=== PATIENT | male | born 1935 | race Caucasian/White ===

== ENCOUNTER 2016-08-25 00:07 | Inpatient (IN) | payer OTHER, MEDICARE ==
[~2016-08-25] VITALS: Ht 172.7 cm; Wt 110.5 kg
[~2016-08-25 00:07] MED LIST: AMARYL1 MG PO; AMARYL4 M1 PO; AUGMENTIN 875875 MG PO; CIPRO 500MG TA500 MG PO; COUMADIN 2.5 M2.5 MG PO; COUMADIN3 M1 PO; FINASTERIDE5 M1 PO; FLOMAX0.4 M1 PO; GABAPENTIN300 M2 PO; GEMFIBROZIL600 M1 PO; GLIMEPIRIDE4 MG PO; METOPROLOL TART25 M1 PO; NITROFURANTOIN100 M1 PO; TOPROL XL 25MG25 MG PO; TRAMADOL HYDRO100 MG PO; TRAMADOL HYDROC50 MG PO; TRAMADOL50 MG PO; WARFARIN SODIUM3 MG PO; WARFARIN SODIUM5 MG PO
--- NOTE | 2016-08-25 00:15 | NUR ---
PT BIBA FROM HOME S/P SYNCOPAL EPISODE WHILE MOVING BOWELS IN BATHROOM. PT PULLED ALERT STRING IN BATHROOM. COULD NOT GET UP OFF FLOOR. PER EMS, PT WAS MAX ASSIST GETTING HIM OFF THE FLOOR. PER EMS, PT WAS ON THE FLOOR 15-20 MINS. FINGERSTICK BY EMS 290. PT HAS PRE HOSP 20G TO LAC. SBP 90'S FOR EMS, IMPROVED TO 100/60 WITH 300 CC NS BOLUS. BP 100/56 ON ARRIVAL TO ED. PT ALERT AND CONVERSIVE
--- NOTE | 2016-08-25 00:38 | NUR ---
SST LAV AND BLUE DRAWN AND SENT TO LAB. EKG COMPLETE.
[2016-08-25 00:50] LABS: ABSOLUTE BASOPHIL COUNT 0 /CUMM (0.0-0.2); ABSOLUTE EOSINOPHIL COUNT 0 /CUMM (0.0-0.7); ABSOLUTE GRANULOCYTE CT 12.2 /CUMM (1.4-6.5); ABSOLUTE LYMPH COUNT 0.8 /CUMM (1.2-3.4); BASOPHIL % 0.1 % (0.0-2.0); EOSINOPHIL % 0.1 % (0-5); MEAN CORPUSCULAR HGB 32.1 PG (27.0-31.0); MEAN CORPUSCULAR VOLUME 94.4 FL (80.0-94.0); MEAN PLATELET VOLUME 9.9 FL (7.4-10.4); PLATELET COUNT 214 /CUMM (130-400); RBC DISTRIBUTION WIDTH 13.4 % (11.5-14.5); RED BLOOD CELL CT 4.56 /CUMM (4.70-6.10); WHITE BLOOD CELL COUNT 14.1 /CUMM (4.8-10.8)
--- NOTE | 2016-08-25 00:51 | ED MVC/FALL/TRAUMA COMPLAINT ---
History of Present Illness General Chief Complaint: Fall Stated Complaint: FALL. ? SYNCOPE Source: patient, old records, EMS Exam Limitations: no limitations Vital Signs & Intake/Output Vital Signs & Intake/Output Vital Signs Date Time Temp Pulse Resp B/P B/P Pulse O2 O2 Flow FiO2 Mean Ox Delivery Rate 08/27 0604 97.8 79 20 128/70 96 Room Air 08/26 2241 98.2 90 20 121/60 95 Room Air 08/26 2145 90 121/60 08/26 1910 Trach Mask 08/26 191 98.4 88 18 112/60 98 Room Air 08/26 1611 98.2 78 20 112/68 96 Room Air 08/26 1034 74 110/60 08/26 0921 74 110/60 08/26 0800 98.3 74 20 110/60 95 Room Air ED Intake and Output 08/27 0000 08/26 1200 Intake Total 2000 840 Output Total 650 200 Balance 1350 640 Intake, IV 800 600 Intake, Oral 1200 240 Number 1 1 Bowel Movements Output, Urine 650 200 Patient 242 lb Weight Allergies Coded Allergies: NO KNOWN ALLERGIES (04/08/14) Reconcile Medications Atorvastatin Calcium (Lipitor) 10 MG TABLET 1 TAB PO DAILY Hyperlipidemia ( Reported) Finasteride 5 MG TABLET 1 TAB PO QPM PROSTATE (Reported) Furosemide (Lasix) 20 MG TABLET 1 TAB PO DAILY HTN (Reported) Gabapentin 300 MG CAPSULE 1 CAP PO BID NERVES (Reported) Gemfibrozil 600 MG TABLET 1 TAB PO DAILY CHOLESTEROL (Reported) Glimepiride (Amaryl) 4 MG TABLET 1 TAB PO DAILY DIABETES (Reported) Metoprolol Tartrate 25 MG TABLET 1 TAB PO BID BP (Reported) Sitagliptin Phosphate (Januvia) 50 MG TABLET 1 TAB PO DAILY Diabetes ( Reported) Tamsulosin HCl (Flomax) 0.4 MG CAP.ER.24H 1 CAP PO DAILY BPH (Reported) Warfarin Sodium (Coumadin) 5 MG TABLET 1 TAB PO M,W,F,DIAS DVT (Reported) Warfarin Sodium (Coumadin) 2.5 MG TABLET 1 TAB PO TU, TH, SAT DVT (Reported) Triage Note: PT BIBA FROM HOME S/P SYNCOPAL EPISODE WHILE MOVING BOWELS IN BATHROOM. PT PULLED ALERT STRING IN BATHROOM. COULD NOT GET UP OFF FLOOR. PER EMS, PT WAS MAX ASSIST GETTING HIM OFF THE FLOOR. PER EMS, PT WAS ON THE FLOOR 15-20 MINS. FINGERSTICK BY EMS 290. PT HAS PRE HOSP 20G TO LAC. SBP 90'S FOR EMS, IMPROVED TO 100/60 WITH 300 CC NS BOLUS. BP 100/56 ON ARRIVAL TO ED. PT ALERT AND CONVERSIVE Triage Nurses Notes Reviewed? yes HPI: Patient presents for evaluation of generalized weakness and fall. Patient states that he went to go to the bathroom about 2 hours ago and fell. He was unable to get up after that due to generalized weakness. He states he managed to get to the bathroom and pulled the emergency cord. He denies loss of consciousness or syncope. He denies any complaint at present. He denies pain or injury. Past History Travel History Traveled to [place] past 21 day No Medical History Any Pertinent Medical History? 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 No Review of Systems Review of Systems Constitutional: Reports: no symptoms. Eyes: Reports: no symptoms. Ears, Nose, Throat, Mouth: Reports: no symptoms. Respiratory: Reports: no symptoms. Cardiovascular: Reports: no symptoms. Gastrointestinal/Abdominal: Reports: no symptoms. Genitourinary: Reports: no symptoms. Musculoskeletal: Reports: no symptoms. Skin: Reports: no symptoms. Neurological/Psychological: Reports: no symptoms. All Other Systems: Reviewed and Negative Physical Exam Physical Exam General Appearance: SEE BELOW Comments: Gen.: Well-nourished, well-developed, no acute respiratory distress. Head: Normocephalic, atraumatic, nontender. Eyes: Normal inspection bilaterally, nellie, EOMI Ears: Normal inspection bilaterally Nose: Normal inspection Throat/mouth : Moist mucosa Neck: Supple, full range of motion, no goiter, nontender Heart: Regular rate and rhythm, no murmurs rubs or gallops Lungs: Clear to auscultation bilaterally with normal air entry Chest: Nontender Back: Normal range of motion, nontender Abdomen: Soft, nontender, nondistended, normal bowel sounds Pelvis: Stable and nontender Extremities: Normal range of motion grossly, no tenderness, no cyanosis clubbing or edema, equal radial and dorsalis pedis pulses Neurologic: Cranial nerves grossly intact, speech is clear Skin: warm and dry and without ecchymoses or soft tissue swelling or erythema Psychiatric: Calm, cooperative, no apparent delusions or hallucinations Core Measures ACS in differential dx? No Severe Sepsis Present: No Septic Shock Present: No Progress Differential Diagnosis: dehydration, electrolyte abnormality Plan of Care: Orders Procedure Date/time Status PROTHROMBIN TIME 08/27 06 Active CBC WITHOUT DIFFERENTIAL 08/27 06 Active BASIC ELECTROLYTES PLUS BUN&CR 08/27 06 Active MISSING MEDICATION FORM 08/27 2051 Active Transfer Disposition 08/26 1929 Active CBC WITHOUT DIFFERENTIAL 08/26 1800 Complete Wheat, Insertion/Removal/Asses 08/26 1614 Active Therapeutic Exercise 08/26 UNK Complete Gait Training 08/26 UNK Complete Transfer patient to 08/26 UNK Active Discontinue Telemetry/Monitor 08/26 UNK Active Current Medications Sig/Christie Start time Last Medication Dose Stop Time Status Admin Insulin Aspart 0 TIDAC 08/26 1200 AC 08/26 (NovoLOG) 1735 Tamsulosin HCl 0.4 MG DAILY 08/26 1000 AC 08/26 (Flomax) 1034 Sodium Chloride 1,000 ML Q20H 08/26 0900 AC 08/27 (Normal Saline 0.9%) 0539 Atorvastatin Calcium 10 MG 1700 08/25 1700 AC 08/26 (Lipitor) 1735 Nystatin 1 KIKI TID 08/25 1600 AC 08/26 (Mycostatin) 2145 Sodium Bicarbonate 1,300 MG BID 08/25 1300 AC 08/26 (Sodium Bicarb 325MG 2144 Tab) Metoprolol Tartrate 25 MG BID 08/25 1023 AC 08/26 (Lopressor) 2145 Gabapentin 300 MG BID 08/25 1000 AC 08/26 (Neurontin) 2145 Nystatin 1 KIKI TID PRN 08/25 0415 AC (Mycostatin) Acetaminophen 650 MG Q6P PRN 08/25 0230 AC (Tylenol) Acetaminophen 1,000 MG Q6P PRN 08/25 0230 AC (Ofirmev) Morphine Sulfate 0.5 MG Q4P PRN 08/25 0230 AC (Morphine) Laboratory Tests 08/27/16 0640: Sodium Pending, Potassium Pending, Chloride Pending, Carbon Dioxide Pending, Anion Gap Pending, BUN Pending, Creatinine Pending, BUN/Creatinine Ratio Pending , PT Pending, INR Pending, CBC w Diff Pending, WBC Pending, RBC Pending, Hgb Pending, Hct Pending, MCV Pending, MCH Pending, RDW Pending, Plt Count Pending, MPV Pending, PUBS MCHC Pending 08/26/16 1830: CBC w Diff NO MAN DIFF REQ, RBC 3.60 L, MCV 95.3 H, MCH 31.9 H, RDW 14.1, MPV 9.5, Gran % 70.1, Lymphocytes % 15.6 L, Monocytes % 11.5 H, Eosinophils % 2.4, Basophils % 0.4, Absolute Granulocytes 5.9, Absolute Lymphocytes 1.3, Absolute Monocytes 1.0 H, Absolute Eosinophils 0.2, Absolute Basophils 0, PUBS MCHC 33.5 08/26/16 0905: Cortisol AM Sample 17.3 08/26/16 0905: Prot Electrophoresis Cancelled, Total Protein (PEP) Cancelled, Albumin % (PEP) Cancelled, Vzehq-[id number] Cancelled, Vhkmw-3-Vkmspizsa Cancelled, Beta-1- Globulin Cancelled, [id number]-0-[id number] Cancelled, Gamma Globulins Cancelled, Abnorm Protein Band 1 Cancelled, Abnorm Protein Band 2 Cancelled, Abnorm Protein Band 3 Cancelled Comments: 08/25/2016 1:58:46 AM patient updated on test results. IV fluids Kayexalate and insulin ordered for the hyperkalemia. Departure Departure Disposition: STILL A PATIENT Condition: Stable Clinical Impression Primary Impression: Renal failure Qualifiers: Renal failure chronicity: acute Acute renal failure type: unspecified Qualified Code: N17.9 - Acute kidney failure, unspecified Secondary Impressions: Hyperglycemia, Hyperkalemia Referrals: ZACHARY MENESES MD (PCP/Family) Departure Forms: Customer Survey General Discharge Information Admission Note Spoke With: EMMA SUTTON MD Documentation of Exam: Documentation of any treatments & extenuating circumstances including Concerns Regarding Discharge (functional status, medication knowledge or non-compliance, living conditions, etc.) that warrant an admission rather than observation: Patient has hyperkalemia Renal failure, placing him at risk of cardiac dysrhythmias, worsening metabolic acidosis, dehydration, dyspnea and cardiorespiratory arrest. Patient was so weak that he was unable to get up off the floor and he is consequently not a candidate for outpatient management. He requires continuous cardiac telemetry for the possibility of hyperkalemia Dysrhythmia, IV fluids, IV insulin to control glucose, Kayexalate to reduce potassium levels and monitoring of potassium, renal functions and his metabolic acidosis. Nephrology consultation and endocrinology consultation should be considered. I feel this patient will require a multiple day hospitalization. Critical Care Note Critical Care Note Critical Care Time: 30-74 min
[2016-08-25 00:52] LABS: GRANULOCYTE % 86.6 % (42.2-75.2)
--- NOTE | 2016-08-25 01:27 | NUR ---
PT AWARE THAT WE ARE AWAITING LAB RESULTS
--- NOTE | 2016-08-25 01:36 | NUR ---
CRITICAL TEST RESULTS [id number] ETGAN FOSTER [address] TESTS AND RESULTS: POTASSIUM 6.6 Results received and read back by: AJAY JASON Results received date and time: 08/25/16 0137 The following provider was notified of the results, and read the results back: DR ROQUE Notified date and time: 08/25/16 at 0138
--- NOTE | 2016-08-25 02:46 | History & Physical ---
FAVIO ALBARRAN,[facility] 08/25/16 0246: General Information and HPI MD Statement: I have seen and personally examined TEGAN FOSTER and documented this H&P. The patient is a 81 year old M who presented with a patient stated chief complaint of [dizziness, weakness and fall]. Source of Information: patient Exam Limitations: no limitations History of Present Illness: Mr. 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 He is BIBA after an episode of fall yesterday afternoon. Patient reports that around noon time he was on his way to the bathroom that felt lightheaded and fell onto the floor, he was unable to sit up afterwards and stayed on the floor shouting for help for almost an hour, he then remembered that he can pull a string to send alarm for help (he is living in a senior housing building); aids arrived and helped him stand up and used his walker to to go to sit on the recliner. 911 was also called and the patient was subsequently brought in to the ED. Patient denied any LOC, headache, or head trauma. Also denied any palpitation, chest pain, SOB, diaphoresis before or after the fall. He reports that 3-4 years ago he had a similar event but does not remember the cause. Currently denies any pain in the limbs or the back post- fall. Patient stated that he was doing well before this incident, has been eating and drinking well, only reports one episode of diarrhea yesterday (watery and nonbloody). Denies fever, chills, coughs, abdominal pain, changes in the urine. Denies any changes in the medications recently and denies any recent use of antibiotics, however does not know the name of his meds and asks us to confirm it with his son. He does not check his BP and Blood sugar regularly, only sees PCP once every three months. Patient wears diapers and states that since 3-4 years ago he has been having incontinence mostly overnight, which has been with urine more than stool. Patient also reports some numbness in the distal lower extremities which is chronic and unchanged. Allergies/Medications Allergies: Coded Allergies: NO KNOWN ALLERGIES (04/08/14) Home Med list Atorvastatin Calcium (Lipitor) 10 MG TABLET 1 TAB PO DAILY Hyperlipidemia ( Reported) Finasteride 5 MG TABLET 1 TAB PO QPM PROSTATE (Reported) Furosemide (Lasix) 20 MG TABLET 1 TAB PO DAILY HTN (Reported) Gabapentin 300 MG CAPSULE 1 CAP PO BID NERVES (Reported) Gemfibrozil 600 MG TABLET 1 TAB PO DAILY CHOLESTEROL (Reported) Glimepiride (Amaryl) 4 MG TABLET 1 TAB PO DAILY DIABETES (Reported) Metoprolol Tartrate 25 MG TABLET 1 TAB PO BID BP (Reported) Sitagliptin Phosphate (Januvia) 50 MG TABLET 1 TAB PO DAILY Diabetes ( Reported) Tamsulosin HCl (Flomax) 0.4 MG CAP.ER.24H 1 CAP PO DAILY BPH (Reported) Warfarin Sodium (Coumadin) 5 MG TABLET 1 TAB PO M,W,F,DIAS DVT (Reported) Warfarin Sodium (Coumadin) 2.5 MG TABLET 1 TAB PO , TH, SAT DVT (Reported) Past History Travel History Traveled to [place] past 21 day No Medical History Neurological: NEROPATHY EENT: NONE Cardiovascular: hypertension Respiratory: NONE Gastrointestinal: NONE Hepatic: NONE Renal: benign prost hyperplasia Musculoskeletal: NONE Psychiatric: NONE Endocrine: diabetes Blood Disorders: NONE Cancer(s): NONE 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 MATERIALS ANALYST/Reproductive: NONE Other Medical Hx: HLD OBESITY History of MRSA: No History of VRE: No History of CDIFF: No Pneumonia Vaccine: 02/10/12 Influenza Vaccine: 02/19/14 Surgical History Surgical History: non-contributory Past Family/Social History Family History Relations & Conditions if any FATHER FH: CAD (coronary artery disease) grandmother FH: stomach cancer Psychosocial History Services at Home: None Primary Language: Romanian, Syriac Smoking Status: Former Smoker (quit 10y ago, 1.5 p/d, for 30y) ETOH Use: occasional use Functional Ability ADLs Independent: dressing, eating, toileting, bathing. IADLs Needs Assist: shopping, housework, finances, food prep, telephone, transportation, medication admin. Review of Systems Review of Systems Constitutional: Reports: malaise, weakness. Denies: chills, fever. EENTM: Reports: no symptoms. Cardiovascular: Denies: chest pain, palpitations, peripheral edema, syncope. Respiratory: Denies: cough, short of breath, sputum production. GI: Reports: diarrhea (one episode). Denies: abdominal pain, changes in stool. Genitourinary: Reports: no symptoms. Musculoskeletal: Reports: no symptoms. Skin: Reports: rash. Neurological/Psychological: Reports: no symptoms. Hematologic/Endocrine: Reports: no symptoms. Exam & Diagnostic Data Last 24 Hrs of Vital Signs/I&O Vital Signs Date Time Temp Pulse Resp B/P B/P Pulse O2 O2 Flow FiO2 Mean Ox Delivery Rate 08/25 0805 98.5 98 18 158/80 95 Room Air 08/25 0440 97.6 85 18 119/59 94 Room Air 08/25 0315 90 18 130/69 98 Room Air 08/25 0017 97.2 86 18 100/56 97 Room Air Intake & Output 08/25 1600 08/25 0800 08/25 0000 Intake Total 220 Output Total 577 Balance -357 Intake, Oral 220 Number 1 Bowel Movements Output, Stool 2 Output, Urine 575 Patient 108.862 kg Weight Weight Standing Scale Measurement Method Physical Exam General Appearance Alert, Oriented X3, Cooperative, No Acute Distress Skin there is a 6x6 cm area of skin erythema with a small central ulcer, dry, skin around the ulcer is intact but appears erythematous., erythematous skin rash in the groins at both sides. Skin Temp/Moisture Exam: Warm/Dry Sepsis Skin Exam (color): Normal for Ethnicity HEENT Atraumatic, EOMI, Mucous Membr. moist/pink, pupils round and reactive to light. Neck Supple Cardiovascular Regular Rate, Normal S1, Normal S2, No Murmurs Lungs Clear to Auscultation, Normal Air Movement Abdomen Normal Bowel Sounds, Soft, No Tenderness, obese Neurological Normal Speech, Strength at 5/5 X4 Ext, Normal Tone, Sensation Intact, Cranial Nerves 3-12 NL Extremities No Edema, Normal Pulses, 1+ pitting edema bilaterally Vascular Pulses Symmetrical Last 24 Hrs of Labs/Donte: Laboratory Tests 08/25/16 0644: Anion Gap 16, Estimated GFR 18 L, BUN/Creatinine Ratio 12.9, PT 14.4 H, INR 1.38 H, CBC w Diff NO MAN DIFF REQ, RBC 4.20 L, MCV 94.3 H, MCH 31.9 H, RDW 13.5, MPV 10.6 H, Gran % 78.7 H, Lymphocytes % 11.0 L, Monocytes % 9.7 H, Eosinophils % 0.3, Basophils % 0.3, Absolute Granulocytes 8.2 H, Absolute Lymphocytes 1.1 L, Absolute Monocytes 1.0 H, Absolute Eosinophils 0, Absolute Basophils 0, PUBS MCHC 33.8 08/25/16 0408: Urine Color YEL, Urine Clarity CLEAR, Urine pH 6.0, Ur Specific [place] 1.025, Urine Protein >=300 H, Urine Ketones NEG, Urine Nitrite NEG, Urine Bilirubin NEG, Urine Urobilinogen 0.2, Ur Leukocyte Esterase NEG, Ur Microscopic SEDIMENT EXAMINED, Urine RBC 1-3, Urine WBC RARE, Urine Bacteria FEW H, Urine Hemoglobin TRACE-LYSED H, Urine Glucose 500 H 08/25/16 0408: Ur Random Creatinine 113.2, Ur Random Sodium 58, Ur Random Potassium 32.8, Fraction Sodium Excret 1.3 H 08/25/16 0310: Acetone Level NEGATIVE 08/25/16 0255: pH 7.38, pCO2 30 L, pO2 83, HCO3 18 L, ABG O2 Sat (Measured) 96.0, P-50 (Temp Corrected) Y, Carboxyhemoglobin 0.2 L, O2 Concentration % RA, Temperature 97.2, Phlebotomy Draw Site RIGHT RADIAL 08/25/16 0039: Anion Gap 17 H, Estimated GFR 18 L, BUN/Creatinine Ratio 13.6, Glucose 344 H, Hemoglobin A1c 9.9 H, Serum Osmolality 307 H, Calcium 8.7, Phosphorus 4.5, Magnesium 2.0, Total Bilirubin 0.9, AST 37, ALT 53, Alkaline Phosphatase 106, Creatine Kinase 168, Troponin I 0.04, Total Protein 7.4, Albumin 4.1, Globulin 3.3, Albumin/Globulin Ratio 1.2, CBC w Diff NO MAN DIFF REQ, RBC 4.56 L, MCV 94.4 H, MCH 32.1 H, RDW 13.4, MPV 9.9, Gran % 86.6 H, Lymphocytes % 5.7 L, Monocytes % 7.5, Eosinophils % 0.1, Basophils % 0.1, Absolute Granulocytes 12.2 H, Absolute Lymphocytes 0.8 L, Absolute Monocytes 1.0 H, Absolute Eosinophils 0, Absolute Basophils 0, PUBS MCHC 34.0 Microbiology 08/25 0408 URINE ROUT: Urine Culture - RECD Assessment/Plan Assessment: Mr. 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 He is BIBA after an episode of fall yesterday afternoon. In the ED patient was alert and oriented in no distress. Was found to have elevated K of 6.6, also elevated BUN and Cr as well as a metabolic acidosis with elevated AG. Blood sugar was found to be 344 (per ED records was 290 at home when checked by EMS). Patient also had BP of 100/56 for which he received IV NS after which BP came up to 130/69. EKG: tall t waves, without shortened QT or QRS widening. He is admitted to the telemetry and the following is the problem list and plan: Episode of fall Denies LOC, chest pain, palpitation, diaphoresis, reports some dizziness. Most likely etiology include dehydration in the setting of elevated sugars, polydipsia and possible polyuria (patient has urinary incontinence). Also patient is found to have hyperkalemia (which can be secondary to kidney failure) and can cause muscle weakness and paralysis (ascending) as well as arrhythmias. * Received IV fluids and responded well with improved BP * Received Kayexalate * Cardiac monitoring and repeat EKG in am * Repeat BEP in am * Will assess if the patient has orthostatic hypotension MORRO on CKD Possibly due to dehydration, patient reports drinking too much water, which in addition to elevated BS indicate poor sugar controls. BUN/CR <20. Elevated Cr in this setting can be renal in the setting of HTN and DM, or post-renal (BPH and hx of stones) as well as pre-renal (dehydration). * Continue IV hydration * Repeat BEP in am * Kidney US * If Cr does not improve will consider nephrology consult Metabolic acidosis Most likely due to kidney failure, with elevated HCO3 and AG. * Continue IV fluids * Repeat BEP in am Hyperglycemia with history of NIDDM * Accuchecks * Novolog sliding scale * Oral antiglycemic agents on hold Leukocytosis No fever, no evidence of a source of infection so far * follow urine culture * will repeat CBC in am history of nephrolithiasis and BPH Possible urinary obstruction causing MORRO Straight cath. emptied about 350 cc urine. * bladder scan in am and if >250 cc will insert pantoja to avoid frequent trauma to the bladder and urethra * Urine culture * continue Finasteride and Tamsulocin * Kidney ultrasound HTN, HLD * On lasix and Metoprolol at home which are on hold due to hypotension * will resume when BP stabilizes * continue gemfibrozil History of recurrent DVT Patient reports he has IVC filter placed 3 years ago. He is on coumadin. * Follow up on INR and dose coumadin (reports taking 3 mg daily) Peripheral neuropathy * continue Gabapentin Diaper rash * Nystatin powder to be applied in the creases between the abdomen and the groin *Please confirm medications with the pharmacy at [facility] Mild pain pathway Regular Diet DVT px: on warfarin Full code As Ranked By This Provider Problem List: 1. Obesity 2. Hypercholesterolemia 3. Diabetes mellitus 4. Benign essential hypertension 5. Occlusion of artery 6. Fall 7. History of DVT (deep vein thrombosis) 8. Acute on chronic kidney failure 9. Renal insufficiency 10. BPH (benign prostatic hyperplasia) 11. Diarrhea 12. Hyperkalemia 13. Hyperglycemia Core Measures/Miscellaneous Acute Coronary Syndrome ACS Diagnosis: No Cerebrovascular Accident CVA/TIA Diagnosis: No Congestive Heart Failure CHF Diagnosis: No Venous Thromboembolism VTE Risk Factors: Acute medical illness, Age > 40 [facility] prophylaxis d/t: VTE low risk, No contraindications No VTE Pharm Prophylaxis d/t: VTE low risk, No contraindications VTE Diagnosis: No VTE Type: NONE VTE Confirmed by (Test): NONE Severe Sepsis Severe Sepsis Present: No Septic Shock Septic Shock Present: No Miscellaneous Documentation Attending Case Discussed With: DIEGO GONZALEZ MD Primary Care Physician: AN[facility]BAL [facility]ESES [facility] Patient sees these Specialists none Level of Patient Care: Telemetry HUSSAIN DAVIDSON 08/25/16 0320: Resident Review Statement Resident Statement: examined this patient, discussed with senior internal auditor, agreed with senior internal auditor Other Findings: This is a 81-year-old pleasant telugu male,previous 45 pack years of smoking, nonalcoholic, no illicit drug use,with past medical history of hypertension, dementia, previous recurrent UTIs, DVT with biatrial thrombus and asd s/p repair on Coumadin, noninsulin dependent diabetes mellitus complicated with diabetic neuropathy, benign prostatic hyperplasia, nephrolithiasis status post surgical removal by Dr salmon,previous history of brachial artery occlusion s/p thrombectomy, last admission in May 2014 for urinary tract infection did with IV ceftriaxone with cultures positive for pansensitive Escherichia coli, came in today with brief episode of near-syncope while using restroom. Apparently the patient was doing all right, he lives at assisted living, and around 1 PM on the day of admission, he was wanting to use the restroom and he got up to use the restroom and while in the bathroom he had an episode of lightheadness and didnot have any strength and fell on the ground, he did not lose consciousness, did not have any racing of heart, he did have mild dizziness and lightheadedness however he was alert and conversive, he tried calling for help and shouting if someone could called 911 as he did not have any strength and had generalized weakness because of which he could not get up from the floor.He stayed on the floor for about an hour after which he recollected that there was a emergency cord in the bathroom which he managed to pull and the EMS was there after 20 minutes. As per the EMS he was a maximum assist and they brought him up from the ground and brought him to [facility]. He denied any loss of consciousness, any head trauma, any palpitations, any abnormal seizure-like activity. He says that he does have occasional episodes of urinary/bowel incontinence especially at nighttime. He had similar episode 4 years ago once, when he was taken to Hospital, however he does not remember the reason what happened. His vitals at the emergency departmentt he had a temperature of 97.2, pulse of 86, respiration of 18, blood pressure 100/56, he was 97% saturating on room air. Physical exam He was alert and oriented to time place and person, in no acute distress when we saw him. Head normocephalic atraumatic. HEENT, pupils bilateral reactive to light, no lymphadenopathy, neck supple for range of motion. Heart rate regular rhythm no murmurs. Lungs clear to auscultation, no adventitious sounds. Abdomen soft nontender nondistended, obese, no embolic bowel sounds. Extremity normal range of motion, pulses palpable bilaterally, small ecchymosis- like rash present in the left lower extremity, about 5-7 cm and I meet her, he also had mild scratch which was injury from the fall and the left leg. No other traumatic injuries. Skin normal, dry. Relevant labs he had a white count of 14.1, H/H of 14.6/43.0, platelet of 214. Electrolytes sodium of 135, potassium of 6.6 (previous potassium has been 5.0 at the max), BUN and creatinine 45/3.3 (baseline creatinine in 0.3-1.7, last noted in June 2015), glucose of 344, ca 8.7, liver function tests within normal limits, alkaline phosphatase 106, creatinine kinase 168, troponin 0.04. UA showed significant protein, rare WBCs ABG pH of 7.38, PCO2 of 30, PO2 53, bicarbonate of 18 consistent with metabolic acidosis with respiratory compensation. Problem list along with assessment and plan. Problem #1 hyperkalemia. * Patient's potassium was noted to be 6.6, EKG showed mild elevated T waves, patient received 120 mL of total of Kayexalate, his blood sugar was high therefore he received insulin 10 units. * We will check the repeat BEP with morning labs. * Keep potassium close to 4. * Repeat EKG at 7 AM. * The hyperkalemia most likely secondary to acute kidney injury, there is a mixed pattern of acidosis anion gap acidosis with non-anion gap, the hyperkalemia could be secondary to acute on chronic kidney injury. * Hold medications that would contribute to hyperkalemia. #2 acute on chronic kidney injury. * Patient's BUN and creatinine significantly elevated. * Most likely prerenal, other possibility could be postrenal as well. * Bladder scan showed urinary retention of greater than 300 mL. * Will obtain a kidney ultrasound to rule out obstruction, patient also had a history of BPH which can also contribute to obstruction. * If the patient continues to retain urine, consider inserting Pantoja's. * Fractional excretion of sodium of 1.3, urine sodium of 58. * ct to trend BUN and creatinine. * Continue IV hydration with normal saline. * Follow-up kidney ultrasound to rule out obstruction. * If the creatinine does not improve consider nephrology consult. Problem #3 leukocytosis. * Patient does not have a fever, no symptoms of sepsis, leukocytosis most likely reactive. Problem #4 hyperglycemia. * Patient has a history of [id number] diabetes mellitus. * Continue monitoring fingerstick. * Hold antidiabetic medications. * NovoLog low-dose sliding scale. * Consistent carbohydrate diet. Problem #5 history of BPH. * Continue finasteride. Problem #6 history of dyslipidemia. * Patient seems to be on gemfibrozil 600 mg daily. Patient did not remember any of this medication. He said that his son is aware of all his medication and we could call him in the morning. Please confirm the CMR with the patient's son in a.m. - Taty tolbert Jr , Problem #7 history of DVT and bilateral atrial thrombus status post ASD repair. * Continue daily INR checks. * Continue Coumadin 2 mg daily. #7 history of mechanical fall. * Continue fall precautions. * PT OT evaluation for placement if necessary. * Orthostatic vital signs. Full code. Mild/moderate and severe pain pathway. Consistent carbohydrate 3 diet. DVT prophylaxis with heparin. EMMA SUTTON 08/25/16 0432: Attending MD Review Statement Attending Statement Attending MD Statement: examined this patient, discuss w/resident/PA/ELEMENTARY SCHOOL PROFESSIONAL, agreed w/resident/PA/ELEMENTARY SCHOOL PROFESSIONAL, reviewed EMR data (avail), reviewed images, amended to note Attending Assessment/Plan: CC: fall PMH: DM, atrial blood clots with PFO s/p embolectomy and repair, CABG, nephrolithiasis, HTN, multiple DVTs S/P IVC filter, currently on warfarin, BPH, peripheral neuropathy Patient was brought in from assisted living after fall. Patient states that he went to bathroom, felt dizzy, unsteady and fell down on the floor. Did not lose consciousness, no head trauma, no chest pain or palpitations before or after the fall. Patient felt generalized weakness after the fall and could not get up by himself. He denies any neurological deficits. Patient was shouting for at least an hour or 2 according to him for help but nobody came, then he remembered to pull the help string and EMS arrived 20 minutes after that. On spot fingerstick was 290 and systolic blood pressure was in 90s, responded to 300 mL normal saline bolus. On arrival in ER his blood pressure was 100/56. Apart from this fall patient does not have any other complaints. He had one episode of watery stool yesterday but denies any vomiting, chest pain, abdominal pain, urinary symptoms including frequency urgency or decreased urine output. Patient's son helps him in his medications and patient takes accordingly boxed medication and does not remember the name and doses. Vitals: Blood pressure at presentation 100/56, HR 86, RR 18 saturating well controlled has afebrile. On exam: A O 3, cooperative, no acute distress, neck supple, JVD normal, no lymphadenopathy, mucosa dry no focal neurological deficit, no dependent edema, laceration on left melendez, CVS: S1-S2, RRR. RS: Clear to auscultate bilaterally. Abdomen: Soft, NT, ND, bowel sounds present. Labs: WBC 14.1, neutrophils 86%, hemoglobin 14.6, sodium 135, potassium 6.6, temperature 101, bicarbonate 16, anion gap 17, BUN 45, creatinine 3.3, glucose 344, LFT unremarkable, CK 168, troponin 0.04 A and P Patient had an episode of dizziness and fall. Currently asymptomatic in ER. He has small superficial laceration left melendez otherwise no major trauma or bruises. Blood pressure was in the lower normal range upon arrival and responded to fluids. He is found to have elevated creatinine and potassium. It is likely that patient may be having some degree of hypotension when he fell down, which in fact can be the cause of fall. Cause of hypotension is unclear, probably an episode of watery stool, poor by mouth intake. Patient's previous available creatinine is 1 year back, but given his acidosis, hyperkalemia, it appears acute kidney injury on chronic kidney disease. Urinary retention should be ruled out, in view of his diabetes and history of BPH and nephrolithiasis. + Acute kidney injury on chronic kidney disease + Hyperkalemia + Metabolic acidosis: Increased anion gap and normal anion + Reactive leukocytosis + Dehydration + Fall + Rule out urinary obstruction + History of DM, HTN, recurrent DVT, BPH, peripheral neuropathy - Admit on telemetry because of hyperkalemia - Patient received IV insulin, Kayexalate and insulin in ER with second IV bolus in ER. - Repeat a dose of Kayexalate - Continues telemetry monitoring - Strict I's and O's - Repeat BMP at 6 AM - Repeat EKG in 6 AM - Bladder scan or straight cath to rule out post void residual - If patient is retaining more than once, Pantoja catheter - Nystatin powder for inguinal rash - Renal ultrasound - Continue gentle hydration normal saline 75 mg per hour for 1 more liter - Hold oral antihypertensives for now reassess blood pressure and kidney function in a.m. to restart - Continue sliding scale insulin hold oral hypoglycemic - Orthostatic vital in a.m. - OT PT evaluation - Continue finasteride and tamsulosin - INR in a.m. - Continue home doses of warfarin - Reconfirm his home medications with his son in morning to resume his medications -DVT prophylaxis with heparin, adequate pain control
--- NOTE | 2016-08-25 03:09 | NUR ---
HOUSESTAFF AT BEDSIDE FOR EVAL.
--- NOTE | 2016-08-25 03:14 | NUR ---
ACETONE TUBE DRAWN AND SENT TO LAB VIA PENELOPE CALDERON
--- NOTE | 2016-08-25 03:35 | NUR ---
[facility] ASSIGNMENT [id number]
--- NOTE | 2016-08-25 04:20 | NUR ---
PT CLEANED. SUMMER CARE GIVEN.
--- NOTE | 2016-08-25 04:29 | NUR ---
TELEMETRY CALLED. P[facility] HE[facility] STATES SHE WILL RETURN CALL FOR REPORT.
--- NOTE | 2016-08-25 04:35 | Admission Certification ---
Admission Certification Certification Statement - As attending physician, I certify that at the time of - admission, based on clinical presentation, severity of - symptoms, need for further diagnostic testing and - therapeutic interventions, and risk of adverse outcomes - without in-hospital treatment, in my clinical assessment, - this patient requires an acute hospital stay for a minimum - of two nights or longer. I have also considered psychsocial - factors such as support system, advanced age, financial - issues, cognitive issues, and failed out-patient treatments, - past re-admission history, safety of patient, and lack of - compliance as applicable. Specific rationale supporting this admission is: Acute on chronic kidney disease, hyperkalemia, transient hypotension, fall
--- NOTE | 2016-08-25 04:51 | NUR ---
REPORT GIVEN TO P[facility]ELOPE [facility] ON TELEMETRY.
[2016-08-25] MEDS ORDERED: JANUVIA50 M1 PO ×2 (06:43→08:15)
[2016-08-25] MEDS ORDERED: CRESTOR20 M2 PO (06:44)
--- NOTE | 2016-08-25 07:30 | PN- Housestaff ---
HERSON ALBARRAN,DOUGLAS 08/25/16 0730: Subjective Follow-up For: Hyperkalemia MORRO on CKD Metabolic Acidosis Subjective: Patient has no significant complaints. States that he wants to sleep, but the noises around him have been bothering him. Review of Systems Constitutional: Reports: see HPI. Objective Last 24 Hrs of Vital Signs/I&O Vital Signs Date Time Temp Pulse Resp B/P B/P Pulse O2 O2 Flow FiO2 Mean Ox Delivery Rate 08/25 0440 97.6 85 18 119/59 94 Room Air 08/25 0315 90 18 130/69 98 Room Air 08/25 0017 97.2 86 18 100/56 97 Room Air Intake & Output 08/25 0800 08/25 0000 08/24 1600 Intake Total 220 Output Total 577 Balance -357 Intake, Oral 220 Number 1 Bowel Movements Output, Stool 2 Output, Urine 575 Patient 240 lb Weight Weight Standing Scale Measurement Method Physical Exam General Appearance: Alert, Oriented X3, Cooperative, No Acute Distress Cardiovascular: Regular Rate, Normal S1, Normal S2 Lungs: Clear to Auscultation, Normal Air Movement Abdomen: Normal Bowel Sounds, Soft, No Tenderness Neurological: Normal Speech, Strength at 5/5 X4 Ext, Normal Tone, Sensation Intact Extremities: 1+ edema noted in bilateral lower extremities extending upto the knee., Left knee in bandage, s/p laceration from fall. Current Medications: Current Medications Sig/Christie Start time Last Medication Dose Route Stop Time Status Admin Acetaminophen 650 MG Q6P PRN 08/25 0230 AC PO Acetaminophen 1,000 MG Q6P PRN 08/25 0230 AC IV Gabapentin 300 MG BID 08/25 1000 AC PO Insulin Aspart 0 TIDAC 08/25 0800 AC SC Insulin Human Regular 10 UNITS ONCE ONE 08/25 0200 DC 08/25 IV 08/25 0201 0213 Morphine Sulfate 0.5 MG Q4P PRN 08/25 0230 AC IV Nystatin 1 KIKI TID PRN 08/25 0415 AC TOP Sodium Chloride 1,000 ML Q13H 08/25 0330 AC 08/25 IV 0425 Sodium Chloride 1,000 ML BOLUS ONE 08/25 0200 DC 08/25 IV 08/25 0259 0213 Sodium Polystyrene 0 .STK-MED ONE 08/25 0307 DC Sulfonate .ROUTE Sodium Polystyrene 60 ML ONCE ONE 08/25 0230 DC 08/25 Sulfonate PO 08/25 0231 0310 Sodium Polystyrene 0 .STK-MED ONE 08/25 0209 DC Sulfonate .ROUTE Sodium Polystyrene 60 ML ONCE ONE 08/25 0200 DC 08/25 Sulfonate PO 08/25 020 0213 Warfarin Sodium 3 MG 1700 08/25 1700 AC PO Last 24 Hrs of Lab/Donte Results Last 24 Hrs of Labs/Mics: Laboratory Tests 08/25/16 0644: Sodium Pending, Potassium Pending, Chloride Pending, Carbon Dioxide Pending, Anion Gap Pending, BUN Pending, Creatinine Pending, BUN/Creatinine Ratio Pending , PT Pending, INR Pending, CBC w Diff Pending, WBC Pending, RBC Pending, Hgb Pending, Hct Pending, MCV Pending, MCH Pending, RDW Pending, Plt Count Pending, MPV Pending, PUBS MCHC Pending 08/25/16 0408: Urine Color YEL, Urine Clarity CLEAR, Urine pH 6.0, Ur Specific [place] 1.025, Urine Protein >=300 H, Urine Ketones NEG, Urine Nitrite NEG, Urine Bilirubin NEG, Urine Urobilinogen 0.2, Ur Leukocyte Esterase NEG, Ur Microscopic SEDIMENT EXAMINED, Urine RBC 1-3, Urine WBC RARE, Urine Bacteria FEW H, Urine Hemoglobin TRACE-LYSED H, Urine Glucose 500 H 08/25/16 0408: Ur Random Creatinine 113.2, Ur Random Sodium 58, Ur Random Potassium 32.8, Fraction Sodium Excret 1.3 H 08/25/16 0310: Acetone Level NEGATIVE 08/25/16 0255: pH 7.38, pCO2 30 L, pO2 83, HCO3 18 L, ABG O2 Sat (Measured) 96.0, P-50 (Temp Corrected) Y, Carboxyhemoglobin 0.2 L, O2 Concentration % RA, Temperature 97.2, Phlebotomy Draw Site RIGHT RADIAL 08/25/16 0039: Anion Gap 17 H, Estimated GFR 18 L, BUN/Creatinine Ratio 13.6, Glucose 344 H, Hemoglobin A1c Pending, Serum Osmolality 307 H, Calcium 8.7, Phosphorus 4.5, Magnesium 2.0, Total Bilirubin 0.9, AST 37, ALT 53, Alkaline Phosphatase 106, Creatine Kinase 168, Troponin I 0.04, Total Protein 7.4, Albumin 4.1, Globulin 3.3, Albumin/Globulin Ratio 1.2, CBC w Diff NO MAN DIFF REQ, RBC 4.56 L, MCV 94.4 H, MCH 32.1 H, RDW 13.4, MPV 9.9, Gran % 86.6 H, Lymphocytes % 5.7 L, Monocytes % 7.5, Eosinophils % 0.1, Basophils % 0.1, Absolute Granulocytes 12.2 H, Absolute Lymphocytes 0.8 L, Absolute Monocytes 1.0 H, Absolute Eosinophils 0, Absolute Basophils 0, PUBS MCHC 34.0 Microbiology 08/25 0408 URINE ROUT: Urine Culture - RECD Lines/Diet/Fluids Lines: peripheral lines Assessment/Plan Assessment: This is an 81 y/o Male with PMH of hypertension, dementia, previous recurrent UTIs, 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 He was seen by EMS and found to be borderline hypotensive for which he received fluids with moderate rise in BP. In the ED, he was found to be hyperkalemic with increase in Creatinine from baseline. Some EKG changes were also noted (TWI). Problem List: 1) Hyperkalemia with EKG changes, now resolved. 2) MORRO on CKD, possibly post obstructive vs ATN 3) DM complicated by peripheral neuropathy 4) CAD s/p CABG 5) Atrial blood clots with PFO s/p Embolectomy and repair 6) Multiple DVT s/p IVC filter, currently on Coumadin 7) BPH Plan: - Continue to monitor on telemetry for now. - Potassium level has normalized. Repeat showed a level of 4.8. - Creatinine has risen to 3.4 from 3.3 noted on admission. This could be secondary to ATN vs post-obstructive causes. Renal USG pending. FeNA was elevated to 1.3, but this cannot be interpreted as the patient is on diuretics at home. Nephrology consult for rising creatinine with fluid replacement. - Continue home Metoprolol as blood pressure has improved. - Novolog sliding scale for DM. Hold home Glimperide and Januvia for now. - Dose coumadin per INR. There is a question regarding compliance with medications, considering his subtherapeutic INR. Dose at home dose of 5 mg for today and recheck INR in AM. - DVT PPX: Coumadin - Code Status: Full Code Problem List: 1. Hyperkalemia Pain Ratin Pain Location: None Pain Goal: Pain 4 or less Pain Plan: Per EMR Tomorrow's Labs & Rationales: Needed to monitor Creatinine DVT/Prophylaxis: pharmacological DIEGO GONZALEZ MD 08/25/16 1221: Attending MD Review Statement Attending Statement Attending MD Statement: examined this patient, discuss w/resident/PA/TRAINING DESIGNER, agreed w/resident/PA/TRAINING DESIGNER, reviewed EMR data (avail), discussed with nursing, discussed with case mgmt, amended to note Attending Assessment/Plan: Patient seen and examined, feeling slightly better. He denies any further dizziness. Patient is a 81-year-old male who is admitted with fall, dizziness, hypotension, acute on chronic renal failure as well as hyperkalemia. Vital Signs Date Time Temp Pulse Resp B/P B/P Pulse O2 O2 Flow FiO2 Mean Ox Delivery Rate 08/25 0805 98.5 98 18 158/80 95 Room Air 08/25 0440 97.6 85 18 119/59 94 Room Air 08/25 0315 90 18 130/69 98 Room Air 08/25 0017 97.2 86 18 100/56 97 Room Air on exam; aox3, nad. cv; s1,s2, rrr resp; clear abd; soft, nt, bs+\ ext; trace edema. Laboratory Tests 08/25 08/25 0644 0408 Chemistry Sodium (137 - 145 mmol/L) 138 Potassium (3.5 - 5.1 mmol/L) 4.8 Chloride (98 - 107 mmol/L) 105 Carbon Dioxide (22 - 30 mmol/L) 17 L Anion Gap (5 - 16) 16 BUN (9 - 20 mg/dL) 44 H Creatinine (0.7 - 1.2 mg/dL) 3.4 H Estimated GFR (>60 ml/min) 18 L BUN/Creatinine Ratio (7 - 25 %) 12.9 Coagulation PT (9.4 - 12.5 SEC) 14.4 H INR (0.90 - 1.17) 1.38 H Hematology CBC w Diff NO MAN DIFF REQ WBC (4.8 - 10.8 /CUMM) 10.4 RBC (4.70 - 6.10 /CUMM) 4.20 L Hgb (14.0 - 18.0 G/DL) 13.4 L Hct (42 - 52 %) 39.6 L MCV (80.0 - 94.0 FL) 94.3 H MCH (27.0 - 31.0 PG) 31.9 H RDW (11.5 - 14.5 %) 13.5 Plt Count (130 - 400 /CUMM) 189 MPV (7.4 - 10.4 FL) 10.6 H Gran % (42.2 - 75.2 %) 78.7 H Lymphocytes % (20.5 - 51.1 %) 11.0 L Monocytes % (1.7 - 9.3 %) 9.7 H Eosinophils % (0 - 5 %) 0.3 Basophils % (0.0 - 2.0 %) 0.3 Absolute Granulocytes (1.4 - 6.5 /CUMM) 8.2 H Absolute Lymphocytes (1.2 - 3.4 /CUMM) 1.1 L Absolute Monocytes (0.10 - 0.60 /CUMM) 1.0 H Absolute Eosinophils (0.0 - 0.7 /CUMM) 0 Absolute Basophils (0.0 - 0.2 /CUMM) 0 PUBS MCHC (33.0 - 37.0 G/DL) 33.8 Urines Urine Color (YEL,AMB,STR) YEL Urine Clarity (CLEAR) CLEAR Urine pH (5.0 - 8.0) 6.0 Ur Specific [place] (1.001 - 1.035) 1.025 Urine Protein (NEG,<30 MG/DL) >=300 H Urine Ketones (NEG) NEG Urine Nitrite (NEG) NEG Urine Bilirubin (NEG) NEG Urine Urobilinogen (0.1 - 1.0 EU/dl) 0.2 Ur Leukocyte Esterase (NEG) NEG Ur Microscopic SEDIMENT EXAMINED Urine RBC (0 - 5 /HPF) 1-3 Urine WBC (0 - 2 /HPF) RARE Urine Bacteria (NEG/NONE) FEW H Urine Hemoglobin (NEG) TRACE-LYSED H Urine Glucose (N MG/DL) 500 H 08/25 08/25 08/25 6578 6570 0255 Blood Gas pH (7.35 - 7.45 PH) 7.38 pCO2 (35 - 45 TORR) 30 L pO2 (80 - 100 TORR) 83 HCO3 (21 - 28 MEQ/L) 18 L ABG O2 Sat (Measured) (>96.0 %) 96.0 P-50 (Temp Corrected) Y Carboxyhemoglobin (1.5 - 5.0 %) 0.2 L O2 Concentration % RA Temperature (97.0 - 100.0 FARH) 97.2 Miscellaneous Phlebotomy Draw Site RIGHT RADIAL Toxicology Acetone Level (NEGATIVE) NEGATIVE Urines Ur Random Creatinine (mg/dL) 113.2 Ur Random Sodium (30 - 90 mmol/L) 58 Ur Random Potassium (mmol/L) 32.8 Fraction Sodium Excret (<1% %) 1.3 H 08/25 0039 Chemistry Sodium (137 - 145 mmol/L) 135 L Potassium (3.5 - 5.1 mmol/L) 6.6 *H Chloride (98 - 107 mmol/L) 101 Carbon Dioxide (22 - 30 mmol/L) 16 L Anion Gap (5 - 16) 17 H BUN (9 - 20 mg/dL) 45 H Creatinine (0.7 - 1.2 mg/dL) 3.3 H Estimated GFR (>60 ml/min) 18 L BUN/Creatinine Ratio (7 - 25 %) 13.6 Glucose (65 - 99 mg/dL) 344 H Hemoglobin A1c (4.2 - 5.8 %) 9.9 H Serum Osmolality (285 - 295 MOSM/KG) 307 H Calcium (8.4 - 10.2 mg/dL) 8.7 Phosphorus (2.5 - 4.5 mg/dL) 4.5 Magnesium (1.6 - 2.3 mg/dL) 2.0 Total Bilirubin (0.2 - 1.3 mg/dL) 0.9 AST (17 - 59 U/L) 37 ALT (21 - 72 U/L) 53 Alkaline Phosphatase (< 127 U/L) 106 Creatine Kinase (55 - 170 U/L) 168 Troponin I (<0.11 ng/ml) 0.04 Total Protein (6.3 - 8.2 g/dL) 7.4 Albumin (3.5 - 5.0 g/dL) 4.1 Globulin (1.9 - 4.2 gm/dL) 3.3 Albumin/Globulin Ratio (1.1 - 2.2 %) 1.2 Hematology CBC w Diff NO MAN DIFF REQ WBC (4.8 - 10.8 /CUMM) 14.1 H RBC (4.70 - 6.10 /CUMM) 4.56 L Hgb (14.0 - 18.0 G/DL) 14.6 Hct (42 - 52 %) 43.0 MCV (80.0 - 94.0 FL) 94.4 H MCH (27.0 - 31.0 PG) 32.1 H RDW (11.5 - 14.5 %) 13.4 Plt Count (130 - 400 /CUMM) 214 MPV (7.4 - 10.4 FL) 9.9 Gran % (42.2 - 75.2 %) 86.6 H Lymphocytes % (20.5 - 51.1 %) 5.7 L Monocytes % (1.7 - 9.3 %) 7.5 Eosinophils % (0 - 5 %) 0.1 Basophils % (0.0 - 2.0 %) 0.1 Absolute Granulocytes (1.4 - 6.5 /CUMM) 12.2 H Absolute Lymphocytes (1.2 - 3.4 /CUMM) 0.8 L Absolute Monocytes (0.10 - 0.60 /CUMM) 1.0 H Absolute Eosinophils (0.0 - 0.7 /CUMM) 0 Absolute Basophils (0.0 - 0.2 /CUMM) 0 PUBS MCHC (33.0 - 37.0 G/DL) 34.0 A/P; 81 y/o M with pmh sig for HTN, HLD, DM, diabetic neuropathy and retinopathy , 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 Patient also had metabolic acidosis. Creatinine is worse today. Patient has been started on IV fluids. Potassium is improved. Continue to monitor on tele. Appreciate renal input. Please follow recommendations. Follow upon renal US. K restricted diet. Repeat ECHO> Avoid nephrotoxins. DVT Px; patient on coumadin with subtherapeutic INR. Please dose coumdin at a slightly higher dose today. PT eval.
[2016-08-25 08:05] VITALS: BP 158/80
[2016-08-25] MEDS ORDERED: COUMADIN5 M2 PO (08:15)
[2016-08-25] MEDS ORDERED: LIPITOR10 M1 PO (08:15)
[2016-08-25 08:16] LABS: ABSOLUTE BASOPHIL COUNT 0 /CUMM (0.0-0.2); ABSOLUTE EOSINOPHIL COUNT 0 /CUMM (0.0-0.7); ABSOLUTE GRANULOCYTE CT 8.2 /CUMM (1.4-6.5); ABSOLUTE LYMPH COUNT 1.1 /CUMM (1.2-3.4); BASOPHIL % 0.3 % (0.0-2.0); EOSINOPHIL % 0.3 % (0-5); GRANULOCYTE % 78.7 % (42.2-75.2); HEMATOCRIT 39.6 % (42-52); MEAN CORPUSCULAR HGB 31.9 PG (27.0-31.0); MEAN CORPUSCULAR HGB CONC 33.8 G/DL (33.0-37.0); MEAN CORPUSCULAR VOLUME 94.3 FL (80.0-94.0); MEAN PLATELET VOLUME 10.6 FL (7.4-10.4); PLATELET COUNT 189 /CUMM (130-400); RBC DISTRIBUTION WIDTH 13.5 % (11.5-14.5); WHITE BLOOD CELL COUNT 10.4 /CUMM (4.8-10.8)
[2016-08-25] MEDS ORDERED: LASIX20 M1 PO (08:16)
[2016-08-25 08:37] LABS: PT 14.4 SEC (9.4-12.5)
[2016-08-25] MEDS ORDERED: COUMADIN2.5 M1 PO (11:52)
--- NOTE | 2016-08-25 12:02 | Cons- Nephrology ---
General Information and HPI Consulting Request Date of Consult: 08/25/16 Requested By: LISA ALBARRAN,DIEGO Reason for Consult: worsening renal function Source of Information: patient, old records Exam Limitations: confusion History of Present Illness: 81 yr old WM w mult med problems including obesity, DM, HTN, CAD, PFO w biatrial thrombi, & CKD admit today after mechanical fall yesterday in setting of diarrhea - not clear if had LOC. Found hypotensive to 100 systolic & hyperglycemic w hyperkalemia requiring insulin & Kayexalate. Known mod, stage 3, CKD w baseline Cr mid 1s last yr w associated dip proteinuria & hx of nephrolithiasis/bladder stones w R hydro 2014. Denies renal colic at present or difficult voiding. No vomiting; no SOB. No record any recent ACEI, ARB, IV contrast; denies NSAIDs. Allergies/Medications Allergies: Coded Allergies: NO KNOWN ALLERGIES (04/08/14) Home Med List: Atorvastatin Calcium (Lipitor) 10 MG TABLET 1 TAB PO DAILY Hyperlipidemia ( Reported) Finasteride 5 MG TABLET 1 TAB PO QPM PROSTATE (Reported) Furosemide (Lasix) 20 MG TABLET 1 TAB PO DAILY HTN (Reported) Gabapentin 300 MG CAPSULE 1 CAP PO BID NERVES (Reported) Gemfibrozil 600 MG TABLET 1 TAB PO DAILY CHOLESTEROL (Reported) Glimepiride (Amaryl) 4 MG TABLET 1 TAB PO DAILY DIABETES (Reported) Metoprolol Tartrate 25 MG TABLET 1 TAB PO BID BP (Reported) Sitagliptin Phosphate (Januvia) 50 MG TABLET 1 TAB PO DAILY Diabetes ( Reported) Tamsulosin HCl (Flomax) 0.4 MG CAP.ER.24H 1 CAP PO DAILY BPH (Reported) Warfarin Sodium (Coumadin) 5 MG TABLET 1 TAB PO M,W,F,DIAS DVT (Reported) Warfarin Sodium (Coumadin) 2.5 MG TABLET 1 TAB PO TU, TH, SAT DVT (Reported) Current Medications: Current Medications Sig/Christie Start time Last Medication Dose Route Stop Time Status Admin Acetaminophen 650 MG Q6P PRN 08/25 0230 AC PO Acetaminophen 1,000 MG Q6P PRN 08/25 0230 AC IV Atorvastatin Calcium 10 MG 1700 08/25 1700 AC PO Gabapentin 300 MG BID 08/25 1000 AC 08/25 PO 0909 Gemfibrozil 600 MG DAILY 08/25 1022 AC PO Insulin Aspart 0 TIDAC 08/25 0800 AC 08/25 SC 0909 Insulin Human Regular 10 UNITS ONCE ONE 08/25 0200 DC 08/25 IV 08/25 0201 0213 Metoprolol Tartrate 25 MG BID 08/25 1023 AC PO Morphine Sulfate 0.5 MG Q4P PRN 08/25 0230 AC IV Nystatin 1 KIKI TID PRN 08/25 0415 AC TOP Sodium Chloride 1,000 ML Q13H 08/25 0330 AC 08/25 IV 0425 Sodium Chloride 1,000 ML BOLUS ONE 08/25 0200 DC 08/25 IV 08/25 0259 0213 Sodium Polystyrene 0 .STK-MED ONE 08/25 0307 DC Sulfonate .ROUTE Sodium Polystyrene 60 ML ONCE ONE 08/25 0230 DC 08/25 Sulfonate PO 08/25 0231 0310 Sodium Polystyrene 0 .STK-MED ONE 08/25 0209 DC Sulfonate .ROUTE Sodium Polystyrene 60 ML ONCE ONE 08/25 0200 DC 08/25 Sulfonate PO 08/25 0201 0213 Warfarin Sodium 3 MG 1700 08/25 1700 CAN PO Warfarin Sodium 5 MG COUMADIN 1700 ONE 08/25 1700 AC PO 08/25 1701 Review of Systems Review of Systems Constitutional: Reports: no symptoms. EENTM: Reports: no symptoms. Cardiovascular: Reports: no symptoms. Respiratory: Reports: no symptoms. GI: Reports: diarrhea. Genitourinary: Reports: no symptoms. Musculoskeletal: Reports: no symptoms. Skin: Reports: no symptoms. Neurological/Psychological: Reports: no symptoms. Hematologic/Endocrine: Reports: bruising. Immunologic/Allergic: Reports: no symptoms. 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 Home Services at Home: None Primary Language: Jordanian, English Smoking Status: Former Smoker (quit 10y ago, 1.5 p/d, for 30y) ETOH Use: occasional use Functional Ability ADLs Independent: dressing, eating, toileting, bathing. IADLs Needs Assist: shopping, housework, finances, food prep, telephone, transportation, medication admin. Exam & Diagnostic Data Vital Signs and I&O Vital Signs Date Time Temp Pulse Resp B/P B/P Pulse O2 O2 Flow FiO2 Mean Ox Delivery Rate 08/25 0805 98.5 98 18 158/80 95 Room Air 08/25 0440 97.6 85 18 119/59 94 Room Air 08/25 0315 90 18 130/69 98 Room Air 08/25 0017 97.2 86 18 100/56 97 Room Air Intake & Output 08/25 0400 08/24 0400 08/23 0400 Intake Total 100 120 Output Total 202 375 Balance -102 -255 Intake, Oral 100 120 Number 1 Bowel Movements Output, Stool 2 Output, Urine 200 375 Patient 240 lb 240 lb Weight Weight Standing Scale Reported by Patient Measurement Method Physical Exam General Appearance: well developed/nourished, no apparent distress, alert Head: atraumatic, normal appearance Eyes: Bilateral: normal appearance. 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 II-XII nml as tested Skin: intact, normal color Lymphatic: no anterior cervical jasson, no axillary adenopathy Results Pertinent Lab Results: Laboratory Tests 08/25 08/25 0644 0408 Chemistry Sodium (137 - 145 mmol/L) 138 Potassium (3.5 - 5.1 mmol/L) 4.8 Chloride (98 - 107 mmol/L) 105 Carbon Dioxide (22 - 30 mmol/L) 17 L Anion Gap (5 - 16) 16 BUN (9 - 20 mg/dL) 44 H Creatinine (0.7 - 1.2 mg/dL) 3.4 H Estimated GFR (>60 ml/min) 18 L BUN/Creatinine Ratio (7 - 25 %) 12.9 Coagulation PT (9.4 - 12.5 SEC) 14.4 H INR (0.90 - 1.17) 1.38 H Hematology CBC w Diff NO MAN DIFF REQ WBC (4.8 - 10.8 /CUMM) 10.4 RBC (4.70 - 6.10 /CUMM) 4.20 L Hgb (14.0 - 18.0 G/DL) 13.4 L Hct (42 - 52 %) 39.6 L MCV (80.0 - 94.0 FL) 94.3 H MCH (27.0 - 31.0 PG) 31.9 H RDW (11.5 - 14.5 %) 13.5 Plt Count (130 - 400 /CUMM) 189 MPV (7.4 - 10.4 FL) 10.6 H Gran % (42.2 - 75.2 %) 78.7 H Lymphocytes % (20.5 - 51.1 %) 11.0 L Monocytes % (1.7 - 9.3 %) 9.7 H Eosinophils % (0 - 5 %) 0.3 Basophils % (0.0 - 2.0 %) 0.3 Absolute Granulocytes (1.4 - 6.5 /CUMM) 8.2 H Absolute Lymphocytes (1.2 - 3.4 /CUMM) 1.1 L Absolute Monocytes (0.10 - 0.60 /CUMM) 1.0 H Absolute Eosinophils (0.0 - 0.7 /CUMM) 0 Absolute Basophils (0.0 - 0.2 /CUMM) 0 PUBS MCHC (33.0 - 37.0 G/DL) 33.8 Urines Urine Color (YEL,AMB,STR) YEL Urine Clarity (CLEAR) CLEAR Urine pH (5.0 - 8.0) 6.0 Ur Specific [place] (1.001 - 1.035) 1.025 Urine Protein (NEG,<30 MG/DL) >=300 H Urine Ketones (NEG) NEG Urine Nitrite (NEG) NEG Urine Bilirubin (NEG) NEG Urine Urobilinogen (0.1 - 1.0 EU/dl) 0.2 Ur Leukocyte Esterase (NEG) NEG Ur Microscopic SEDIMENT EXAMINED Urine RBC (0 - 5 /HPF) 1-3 Urine WBC (0 - 2 /HPF) RARE Urine Bacteria (NEG/NONE) FEW H Urine Hemoglobin (NEG) TRACE-LYSED H Urine Glucose (N MG/DL) 500 H 08/25 08/25 08/25 0408 0310 0255 Blood Gas pH (7.35 - 7.45 PH) 7.38 pCO2 (35 - 45 TORR) 30 L pO2 (80 - 100 TORR) 83 HCO3 (21 - 28 MEQ/L) 18 L ABG O2 Sat (Measured) (>96.0 %) 96.0 P-50 (Temp Corrected) Y Carboxyhemoglobin (1.5 - 5.0 %) 0.2 L O2 Concentration % RA Temperature (97.0 - 100.0 FARH) 97.2 Miscellaneous Phlebotomy Draw Site RIGHT RADIAL Toxicology Acetone Level (NEGATIVE) NEGATIVE Urines Ur Random Creatinine (mg/dL) 113.2 Ur Random Sodium (30 - 90 mmol/L) 58 Ur Random Potassium (mmol/L) 32.8 Fraction Sodium Excret (<1% %) 1.3 H 08/25 0039 Chemistry Sodium (137 - 145 mmol/L) 135 L Potassium (3.5 - 5.1 mmol/L) 6.6 *H Chloride (98 - 107 mmol/L) 101 Carbon Dioxide (22 - 30 mmol/L) 16 L Anion Gap (5 - 16) 17 H BUN (9 - 20 mg/dL) 45 H Creatinine (0.7 - 1.2 mg/dL) 3.3 H Estimated GFR (>60 ml/min) 18 L BUN/Creatinine Ratio (7 - 25 %) 13.6 Glucose (65 - 99 mg/dL) 344 H Hemoglobin A1c (4.2 - 5.8 %) 9.9 H Serum Osmolality (285 - 295 MOSM/KG) 307 H Calcium (8.4 - 10.2 mg/dL) 8.7 Phosphorus (2.5 - 4.5 mg/dL) 4.5 Magnesium (1.6 - 2.3 mg/dL) 2.0 Total Bilirubin (0.2 - 1.3 mg/dL) 0.9 AST (17 - 59 U/L) 37 ALT (21 - 72 U/L) 53 Alkaline Phosphatase (< 127 U/L) 106 Creatine Kinase (55 - 170 U/L) 168 Troponin I (<0.11 ng/ml) 0.04 Total Protein (6.3 - 8.2 g/dL) 7.4 Albumin (3.5 - 5.0 g/dL) 4.1 Globulin (1.9 - 4.2 gm/dL) 3.3 Albumin/Globulin Ratio (1.1 - 2.2 %) 1.2 Hematology CBC w Diff NO MAN DIFF REQ WBC (4.8 - 10.8 /CUMM) 14.1 H RBC (4.70 - 6.10 /CUMM) 4.56 L Hgb (14.0 - 18.0 G/DL) 14.6 Hct (42 - 52 %) 43.0 MCV (80.0 - 94.0 FL) 94.4 H MCH (27.0 - 31.0 PG) 32.1 H RDW (11.5 - 14.5 %) 13.4 Plt Count (130 - 400 /CUMM) 214 MPV (7.4 - 10.4 FL) 9.9 Gran % (42.2 - 75.2 %) 86.6 H Lymphocytes % (20.5 - 51.1 %) 5.7 L Monocytes % (1.7 - 9.3 %) 7.5 Eosinophils % (0 - 5 %) 0.1 Basophils % (0.0 - 2.0 %) 0.1 Absolute Granulocytes (1.4 - 6.5 /CUMM) 12.2 H Absolute Lymphocytes (1.2 - 3.4 /CUMM) 0.8 L Absolute Monocytes (0.10 - 0.60 /CUMM) 1.0 H Absolute Eosinophils (0.0 - 0.7 /CUMM) 0 Absolute Basophils (0.0 - 0.2 /CUMM) 0 PUBS MCHC (33.0 - 37.0 G/DL) 34.0 Assessment/Plan Assessment/Recommendations Assessment: 1. MORRO: ? prerenal in setting of volume contraction; can't r/o ATN post fall & mild hypotension. Needs obstruction excluded w hx stones & previous R hydro. Alternatively, could have progressive renal failure since last yr --> needs more recent baseline labs. 2. CKD: mod, stage 3B, due to prob diabetic nephropathy & previous obstruction. 3. Hyperkalemia: due to combination hyperglycemia on admit & worsening renal failure; improved but needs K restricted diet. 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 4. Met Acid: mild - prob Type IV RTA, w hyperkalemia in setting of diabetic nephropathy & previous obstruction, as well as stool loss; doubt ketoacidosis w neg urine & serum ketones. Recommendations: 1. renal US 2. two gram K diet restriction 3. Nabicarb 1300 mg po bid 4. repeat chemistries 5. continue maintenace IV NS 6. 8A cortisol 7. d/c gemfibrizol 8. SPEP 9. U prot/Cr ratio
--- NOTE | 2016-08-25 17:23 | ULTRASOUND REPORT ---
EXAMINATION: US RETROPERITONEAL COMPLETE (RENAL) CLINICAL INFORMATION: Acute renal insufficiency on chronic kidney disease. Decreased urine output and rising serum creatinine on fluids. Evaluate for obstruction. COMPARISON: T scan of the abdomen and pelvis dated 05/13/2014. Renal ultrasound dated 04/02/2014. TECHNIQUE: Real-time imaging of the kidneys and bladder. FINDINGS: Evaluation is limited by patient's body habitus and bowel gas. RIGHT KIDNEY: 10.4 x 7.0 x 6.5 cm (SAG x AP x TRV) persistent 0.5 x 5.8 x 6.1 cm on 04/02/2014. The kidney is normal in size and echogenicity. Renal cortical thickness is normal. No calculi. Mild right-sided hydronephrosis is seen, unchanged from the prior exam. There are multiple renal cysts seen, the largest of which is in the upper pole, measuring 5.2 x 5.8 x 5.5 cm versus 4.8 x 5.0 x 5.5 cm (04/03/2014). There is an exophytic mid right renal complex cyst seen with low-level internal echoes and internal thin septation and no vascular flow, measuring 2.1 x 1.7 x 2.0 cm versus 2.2 x 2.0 x 2.2 cm (04/03/2014), consistent with a benign etiology. LEFT KIDNEY: 10.5 x 5.6 x 6.2 cm (SAG x AP x TRV) versus 11.6 x 6.0 x 5.0 cm (04/02/2014). The kidney is normal in size, contour, and echogenicity. Renal cortical thickness is normal. Several cysts are seen in the left kidney, largest of which is in the upper pole, partially exophytic, measuring 6.8 x 6.8 x 7.7 cm versus 5.8 x 4.8 x 7.8 cm (04/02/2014). There is a nonobstructing 1.3 x 0.4 x 1.6 cm echogenic calcification with ringdown artifact seen in the lower pole, previously measured at 0.7 x 0.3 x 0.6 cm. BLADDER: Partially distended and unremarkable. Bilateral ureteral jets are not demonstrated. IMPRESSION: 1. Mild right-sided hydronephrosis is seen, unchanged from prior exam. 2. Multiple bilateral renal cysts as seen, the majority of which appears simple and similar to the previous exam. Single cyst in the mid right kidney appears complex but is unchanged dating back to March 2014, favoring a benign etiology. Continued serial ultrasound follow-up in 12 months is recommended. 3. Nonobstructing lower pole left renal calcification.
[2016-08-26 00:13] VITALS: BP 104/60
--- NOTE | 2016-08-26 06:29 | NUR ---
LATE ENTRY 08/25/16: AT 2200, GUZMAN NOTICED TO HAVE HEMATURIA, PINK WITH MADELINE URINE AND SEDIMENT. GUZMAN JUST RECENTLY INSERTED AT 1900 WITH DIFFICULTY. MD APPLE NOTIFIED. PT DENIES HAVING HISTORY OF HEMATURIA IN THE PAST. 08/26/17: AT 0530: URINE IN GUZMAN DARKER RED HEMATURIA WITH CLOTS. MD APPLE PAGED. STAT CBC ORDERED. PT DENIES DIZZINESS, LIGHTHEADEDNESS. WILL CTM.
--- NOTE | 2016-08-26 07:33 | PN- Housestaff ---
HERSON ALBARRAN,DOUGLAS 08/26/16 0732: Subjective Follow-up For: MORRO on CKD Hyperkalemia, now resolved Subjective: Patient is lying in bed with no complaints. He is unaware that he had hematuria overnight. Does not report any pain. Review of Systems Constitutional: Reports: see HPI. Objective Last 24 Hrs of Vital Signs/I&O Vital Signs Date Time Temp Pulse Resp B/P B/P Pulse O2 O2 Flow FiO2 Mean Ox Delivery Rate 08/26 0013 97.8 82 18 104/60 95 Room Air 08/26 0000 Room Air 08/25 2357 82 106/64 08/25 1440 Room Air 08/25 1307 95 158/86 08/25 1231 Room Air 08/25 0805 98.5 98 18 158/80 95 Room Air Intake & Output 08/26 0800 08/26 0000 08/25 1600 Intake Total 242 841 7418 Output Total 200 200 75 Balance 257 014 3985 Intake, IV 600 600 Intake, Oral 537 723 1853 Number 1 0 Bowel Movements Output, Urine 200 200 75 Patient 242 lb 240 lb Weight Weight Chair scale Measurement Method Physical Exam General Appearance: Alert, Oriented X3, Cooperative Cardiovascular: Regular Rate, Normal S1, Normal S2 Lungs: Clear to Auscultation, Normal Air Movement Abdomen: Normal Bowel Sounds, Soft, No Tenderness Neurological: Normal Speech, Strength at 5/5 X4 Ext, Normal Tone, Sensation Intact Extremities: 1+ edema noted in the bilateral lower extremities Current Medications: Current Medications Sig/Christie Start time Last Medication Dose Route Stop Time Status Admin Acetaminophen 650 MG Q6P PRN 08/25 0230 AC PO Acetaminophen 1,000 MG Q6P PRN 08/25 0230 AC IV Atorvastatin Calcium 10 MG 1700 08/25 1700 AC 08/25 PO 1805 Gabapentin 300 MG BID 08/25 1000 AC 08/25 PO 2130 Gemfibrozil 600 MG DAILY 08/25 1022 DC PO Insulin Aspart 0 TIDAC 08/25 0800 AC 08/25 SC 1806 Metoprolol Tartrate 25 MG BID 08/25 1023 AC 08/25 PO 2357 Morphine Sulfate 0.5 MG Q4P PRN 08/25 0230 AC IV Nystatin 1 KIKI TID 08/25 1600 CAN TOP Nystatin 1 KIKI TID 08/25 1600 AC 08/25 TOP 2130 Nystatin 1 KIKI TID PRN 08/25 0415 AC TOP Sodium Bicarbonate 1,300 MG BID 08/25 1300 AC 08/25 PO 2130 Sodium Chloride 1,000 ML Q13H 08/25 0330 AC 08/25 IV 1959 Warfarin Sodium 3 MG 1700 08/25 1700 CAN PO Warfarin Sodium 5 MG COUMADIN 1700 ONE 08/25 1700 CAN PO 08/25 1701 Warfarin Sodium 7.5 MG COUMADIN 1700 ONE 08/25 1700 DC 08/25 PO 08/25 1701 1805 Last 24 Hrs of Lab/Donte Results Last 24 Hrs of Labs/Mics: Laboratory Tests 08/26/16 0659: CBC w Diff Pending, WBC Pending, RBC Pending, Hgb Pending, Hct Pending, MCV Pending, MCH Pending, RDW Pending, Plt Count Pending, MPV Pending, PUBS MCHC Pending 08/26/16 0600: Sodium Pending, Potassium Pending, Chloride Pending, Carbon Dioxide Pending, Anion Gap Pending, BUN Pending, Creatinine Pending, BUN/Creatinine Ratio Pending , Cortisol AM Sample Pending 08/26/16 0600: Prot Electrophoresis Pending, Total Protein (PEP) Pending, Albumin % (PEP) Pending, Unhbh-6-Ghzhxyarb Pending, Aeoxt-1-Warupwlpy Pending, Hpxg-5-Tlzjewzi Pending, Uykc-3-Ktzqdviz Pending, Gamma Globulins Pending, Abnorm Protein Band 1 Pending, Abnorm Protein Band 2 Pending, Abnorm Protein Band 3 Pending, PT Pending, INR Pending 08/25/16 1915: Anion Gap 14, Estimated GFR 18 L, BUN/Creatinine Ratio 14.1 08/25/16 1148: Ur Random Creatinine Cancelled, U Random Total Protein Cancelled Microbiology 08/25 190 URINE ROUT: Urine Culture - RECD Lines/Diet/Fluids Lines: peripheral lines Assessment/Plan Assessment: This is an 81 y/o Male with PMH of hypertension, dementia, previous recurrent UTIs, 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 He was seen by EMS and found to be borderline hypotensive for which he received fluids with moderate rise in BP. In the ED, he was found to be hyperkalemic with increase in Creatinine from baseline. Some EKG changes were also noted (TWI). Problem List: 1) Hyperkalemia with EKG changes, now resolved. 2) MORRO on CKD, possibly post obstructive vs ATN with Renal USG showing persistent Rt Sided hydronephrosis. 3) DM complicated by peripheral neuropathy 4) CAD s/p CABG 5) Atrial blood clots with PFO s/p Embolectomy and repair 6) Multiple DVT s/p IVC filter, currently on Coumadin 7) BPH Plan: - Continue to monitor on telemetry for now. - Patient developed hematuria overnight, CBC this AM shows a drop in hemoglobin to 11.9/34.9. - Renal USG showed the presence of Right sided persistent hydronephrosis with multiple bilateral renal cysts, mostly simple. - CT A/P with stone protocol to r/o persistent obstructive uropathy. - Urology consult for hematuria. Patient was seen by Dr. Joel in the past and was to follow up with him for persistent hydronephrosis and incomplete bladder emptying, which the patient never did. - Continue Metoprolol for now, hold Lasix in view of elevated creatinine with possible pre-renal azotemia and currently borderline blood pressure. - Novolog sliding scale, TIDAC fingersticks - DVT PPX: Hold off on coumadin for today, as he continues to have hematuria with fall in H/H. - Code Status: Full Code Problem List: 1. Hyperkalemia 2. Acute kidney injury Pain Ratin Pain Location: None Pain Goal: Pain 4 or less Pain Plan: Per EMR Tomorrow's Labs & Rationales: CBC and BEP for hematuria and potassium DVT/Prophylaxis: pharmacological LISA ALBARRAN,DIEGO 08/26/16 8966: Attending MD Review Statement Attending Statement Attending MD Statement: examined this patient, discuss w/resident/PA/BOATHOUSE KEEPER, agreed w/resident/PA/BOATHOUSE KEEPER, reviewed EMR data (avail), discussed with nursing, discussed with case mgmt, reviewed images, amended to note Attending Assessment/Plan: Patient seen and examined this morning, was feeling slightly better. Creatinine remains in the same range. Vital signs are stable. Patient has developed hematuria and nephrology recommends getting a dry CT stone protocol. The right CT shows mild hydronephrosis on the right but no right-sided renal calculi. It also showed the nonobstructive left-sided renal calculi with renal cysts. Urology consult has been obtained and awaiting for the urologist see the patient. Patient has developed hematuria and there was a slight drop in his H&H this morning. INR 1.5 today. Recommend holding Coumadin today and rechecking INR in the morning secondary to hematuria. Can DC telemetry.
[2016-08-26 07:57] LABS: ABSOLUTE BASOPHIL COUNT 0 /CUMM (0.0-0.2); ABSOLUTE EOSINOPHIL COUNT 0.3 /CUMM (0.0-0.7); ABSOLUTE GRANULOCYTE CT 7.7 /CUMM (1.4-6.5); ABSOLUTE MONOCYTE COUNT 1.2 /CUMM (0.10-0.60); BASOPHIL % 0.5 % (0.0-2.0); EOSINOPHIL % 2.6 % (0-5); GRANULOCYTE % 74.9 % (42.2-75.2); HEMATOCRIT 34.9 % (42-52); MEAN CORPUSCULAR HGB CONC 34.1 G/DL (33.0-37.0); MEAN CORPUSCULAR VOLUME 93.8 FL (80.0-94.0); MEAN PLATELET VOLUME 10.2 FL (7.4-10.4); PLATELET COUNT 130 /CUMM (130-400); RBC DISTRIBUTION WIDTH 13.4 % (11.5-14.5); RED BLOOD CELL CT 3.73 /CUMM (4.70-6.10); WHITE BLOOD CELL COUNT 10.3 /CUMM (4.8-10.8)
[2016-08-26 08:00] VITALS: BP 110/60
[2016-08-26 08:14] LABS: PT 15.7 SEC (9.4-12.5)
--- NOTE | 2016-08-26 08:33 | PN- Nephrology ---
Assessment/Plan Assessment: 1. CKD/? MORRO: underlying diabetic nephropathy w nephrotic range proteinuria as well as R sided obstruction; stable w/o dialysis need 2. R hydro: ? ongoing obstructtion; needs CT & urology consult 3. met acid: comntinue po bicarb Suggestion: 1. CT kidneys w/o IV contrast - stone protocol 2. urology consult --> ? cysto & retrograde 3. lower IV NS 40 ml/hr Subjective Subjective: No SOB No gross uremic sx - eating w/o vomiting Wheat placed yesterday --> painless gross hematuria this morning No renal colic Objective Vital Signs and I&Os Vital Signs Date Time Temp Pulse Resp B/P B/P Pulse O2 O2 Flow FiO2 Mean Ox Delivery Rate 08/26 0013 97.8 82 18 104/60 95 Room Air 08/26 0000 Room Air 08/25 2357 82 106/64 08/25 1440 Room Air 08/25 1307 95 158/86 08/25 1231 Room Air Intake & Output 08/26 1600 08/26 0400 08/25 1600 08/25 0400 08/24 1600 08/24 0400 Intake Total 870 511 3187 120 Output Total 200 200 277 375 Balance 767 394 5933 -255 Intake, IV 600 600 Intake, Oral 975 600 1931 120 Number 1 0 1 Bowel Movements Output, Stool 2 Output, Urine 200 200 275 375 Patient 242 lb 240 lb 240 lb Weight Weight Chair scale Reported by Patient Measurement Method Physical Exam General Appearance: no apparent distress, alert Head: atraumatic, normal appearance Ears, Nose, Throat: normal ENT inspection Neck: normal inspection Respiratory: no respiratory distress, quiet respiration, lungs clear Cardiovascular: regular rate/rhythm, friction rub (none) Abdomen: soft, non-tender, obese Extremities: swelling (bilat 1-2+) Current Medications: Current Medications Sig/Christie Start time Last Medication Dose Route Stop Time Status Admin Acetaminophen 650 MG Q6P PRN 08/25 0230 AC PO Acetaminophen 1,000 MG Q6P PRN 08/25 0230 AC IV Atorvastatin Calcium 10 MG 1700 08/25 1700 AC 08/25 PO 1805 Gabapentin 300 MG BID 08/25 1000 AC 08/25 PO 2130 Gemfibrozil 600 MG DAILY 08/25 1022 DC PO Insulin Aspart 0 TIDAC 08/25 0800 AC 08/25 SC 1806 Metoprolol Tartrate 25 MG BID 08/25 1023 AC 08/25 PO 2357 Morphine Sulfate 0.5 MG Q4P PRN 08/25 0230 AC IV Nystatin 1 KIKI TID 08/25 1600 CAN TOP Nystatin 1 KIKI TID 08/25 1600 AC 08/25 TOP 2130 Nystatin 1 KIKI TID PRN 08/25 0415 AC TOP Sodium Bicarbonate 1,300 MG BID 08/25 1300 AC 08/25 PO 2130 Sodium Chloride 1,000 ML Q13H 08/25 0330 AC 08/25 IV 1959 Warfarin Sodium 3 MG 1700 08/25 1700 CAN PO Warfarin Sodium 5 MG COUMADIN 1700 ONE 08/25 1700 CAN PO 08/25 1701 Warfarin Sodium 7.5 MG COUMADIN 170 ONE 08/25 1700 DC 08/25 PO 08/25 170 1805 Results Pertinent Lab Results: Laboratory Tests 08/26 08/26 08/26 0659 0600 0600 Chemistry Sodium (137 - 145 mmol/L) 135 L Potassium (3.5 - 5.1 mmol/L) 4.1 Chloride (98 - 107 mmol/L) 105 Carbon Dioxide (22 - 30 mmol/L) 16 L Anion Gap (5 - 16) 14 BUN (9 - 20 mg/dL) 46 H Creatinine (0.7 - 1.2 mg/dL) 3.3 H Estimated GFR (>60 ml/min) 18 L BUN/Creatinine Ratio (7 - 25 %) 13.9 Prot Electrophoresis Pending Total Protein (PEP) Pending Albumin % (PEP) Pending Ghgok-8-Jwwqcezqc Pending Oirhw-7-Rukbealor Pending Biur-4-Iyrgijkj Pending Fbff-7-Nbzwqzmj Pending Gamma Globulins Pending Abnorm Protein Band 1 Pending Abnorm Protein Band 2 Pending Abnorm Protein Band 3 Pending Cortisol AM Sample (4.46 - 22.7 ug/dL) Pending Coagulation PT (9.4 - 12.5 SEC) 15.7 H INR (0.90 - 1.17) 1.50 H Hematology CBC w Diff NO MAN DIFF REQ WBC (4.8 - 10.8 /CUMM) 10.3 RBC (4.70 - 6.10 /CUMM) 3.73 L Hgb (14.0 - 18.0 G/DL) 11.9 L Hct (42 - 52 %) 34.9 L MCV (80.0 - 94.0 FL) 93.8 MCH (27.0 - 31.0 PG) 32.0 H RDW (11.5 - 14.5 %) 13.4 Plt Count (130 - 400 /CUMM) 130 MPV (7.4 - 10.4 FL) 10.2 Gran % (42.2 - 75.2 %) 74.9 Lymphocytes % (20.5 - 51.1 %) 10.2 L Monocytes % (1.7 - 9.3 %) 11.8 H Eosinophils % (0 - 5 %) 2.6 Basophils % (0.0 - 2.0 %) 0.5 Absolute Granulocytes (1.4 - 6.5 /CUMM) 7.7 H Absolute Lymphocytes (1.2 - 3.4 /CUMM) 1.0 L Absolute Monocytes (0.10 - 0.60 /CUMM) 1.2 H Absolute Eosinophils (0.0 - 0.7 /CUMM) 0.3 Absolute Basophils (0.0 - 0.2 /CUMM) 0 PUBS MCHC (33.0 - 37.0 G/DL) 34.1 08/25 08/25 08/25 1915 1148 0644 Chemistry Sodium (137 - 145 mmol/L) 133 L 138 Potassium (3.5 - 5.1 mmol/L) 4.4 4.8 Chloride (98 - 107 mmol/L) 102 105 Carbon Dioxide (22 - 30 mmol/L) 17 L 17 L Anion Gap (5 - 16) 14 16 BUN (9 - 20 mg/dL) 48 H 44 H Creatinine (0.7 - 1.2 mg/dL) 3.4 H 3.4 H Estimated GFR (>60 ml/min) 18 L 18 L BUN/Creatinine Ratio (7 - 25 %) 14.1 12.9 Coagulation PT (9.4 - 12.5 SEC) 14.4 H INR (0.90 - 1.17) 1.38 H Hematology CBC w Diff NO MAN DIFF REQ WBC (4.8 - 10.8 /CUMM) 10.4 RBC (4.70 - 6.10 /CUMM) 4.20 L Hgb (14.0 - 18.0 G/DL) 13.4 L Hct (42 - 52 %) 39.6 L MCV (80.0 - 94.0 FL) 94.3 H MCH (27.0 - 31.0 PG) 31.9 H RDW (11.5 - 14.5 %) 13.5 Plt Count (130 - 400 /CUMM) 189 MPV (7.4 - 10.4 FL) 10.6 H Gran % (42.2 - 75.2 %) 78.7 H Lymphocytes % (20.5 - 51.1 %) 11.0 L Monocytes % (1.7 - 9.3 %) 9.7 H Eosinophils % (0 - 5 %) 0.3 Basophils % (0.0 - 2.0 %) 0.3 Absolute Granulocytes (1.4 - 6.5 /CUMM) 8.2 H Absolute Lymphocytes (1.2 - 3.4 /CUMM) 1.1 L Absolute Monocytes (0.10 - 0.60 /CUMM) 1.0 H Absolute Eosinophils (0.0 - 0.7 /CUMM) 0 Absolute Basophils (0.0 - 0.2 /CUMM) 0 PUBS MCHC (33.0 - 37.0 G/DL) 33.8 Urines Ur Random Creatinine Cancelled U Random Total Protein Cancelled 08/25 08/25 08/25 0408 0408 0310 Toxicology Acetone Level (NEGATIVE) NEGATIVE Urines Urine Color (YEL,AMB,STR) YEL Urine Clarity (CLEAR) CLEAR Urine pH (5.0 - 8.0) 6.0 Ur Specific [place] (1.001 - 1.035) 1.025 Urine Protein (NEG,<30 MG/DL) >=300 H Urine Ketones (NEG) NEG Urine Nitrite (NEG) NEG Urine Bilirubin (NEG) NEG Urine Urobilinogen (0.1 - 1.0 EU/dl) 0.2 Ur Leukocyte Esterase (NEG) NEG Ur Microscopic SEDIMENT EXAMINED Urine RBC (0 - 5 /HPF) 1-3 Urine WBC (0 - 2 /HPF) RARE Urine Bacteria (NEG/NONE) FEW H Urine Hemoglobin (NEG) TRACE-LYSED H Ur Random Creatinine (mg/dL) 113.2 U Random Total Protein (0 - 12 mg/dL) 408 H Ur Random Sodium (30 - 90 mmol/L) 58 Ur Random Potassium (mmol/L) 32.8 Protein/Creatinin Ratio (< 0.2) 3.6 H Fraction Sodium Excret (<1% %) 1.3 H Urine Glucose (N MG/DL) 500 H 08/25 08/25 0255 0039 Blood Gas pH (7.35 - 7.45 PH) 7.38 pCO2 (35 - 45 TORR) 30 L pO2 (80 - 100 TORR) 83 HCO3 (21 - 28 MEQ/L) 18 L ABG O2 Sat (Measured) (>96.0 %) 96.0 P-50 (Temp Corrected) Y Carboxyhemoglobin (1.5 - 5.0 %) 0.2 L O2 Concentration % RA Temperature (97.0 - 100.0 FARH) 97.2 Chemistry Sodium (137 - 145 mmol/L) 135 L Potassium (3.5 - 5.1 mmol/L) 6.6 *H Chloride (98 - 107 mmol/L) 101 Carbon Dioxide (22 - 30 mmol/L) 16 L Anion Gap (5 - 16) 17 H BUN (9 - 20 mg/dL) 45 H Creatinine (0.7 - 1.2 mg/dL) 3.3 H Estimated GFR (>60 ml/min) 18 L BUN/Creatinine Ratio (7 - 25 %) 13.6 Glucose (65 - 99 mg/dL) 344 H Hemoglobin A1c (4.2 - 5.8 %) 9.9 H Serum Osmolality (285 - 295 MOSM/KG) 307 H Calcium (8.4 - 10.2 mg/dL) 8.7 Phosphorus (2.5 - 4.5 mg/dL) 4.5 Magnesium (1.6 - 2.3 mg/dL) 2.0 Total Bilirubin (0.2 - 1.3 mg/dL) 0.9 AST (17 - 59 U/L) 37 ALT (21 - 72 U/L) 53 Alkaline Phosphatase (< 127 U/L) 106 Creatine Kinase (55 - 170 U/L) 168 Troponin I (<0.11 ng/ml) 0.04 Total Protein (6.3 - 8.2 g/dL) 7.4 Albumin (3.5 - 5.0 g/dL) 4.1 Globulin (1.9 - 4.2 gm/dL) 3.3 Albumin/Globulin Ratio (1.1 - 2.2 %) 1.2 Hematology CBC w Diff NO MAN DIFF REQ WBC (4.8 - 10.8 /CUMM) 14.1 H RBC (4.70 - 6.10 /CUMM) 4.56 L Hgb (14.0 - 18.0 G/DL) 14.6 Hct (42 - 52 %) 43.0 MCV (80.0 - 94.0 FL) 94.4 H MCH (27.0 - 31.0 PG) 32.1 H RDW (11.5 - 14.5 %) 13.4 Plt Count (130 - 400 /CUMM) 214 MPV (7.4 - 10.4 FL) 9.9 Gran % (42.2 - 75.2 %) 86.6 H Lymphocytes % (20.5 - 51.1 %) 5.7 L Monocytes % (1.7 - 9.3 %) 7.5 Eosinophils % (0 - 5 %) 0.1 Basophils % (0.0 - 2.0 %) 0.1 Absolute Granulocytes (1.4 - 6.5 /CUMM) 12.2 H Absolute Lymphocytes (1.2 - 3.4 /CUMM) 0.8 L Absolute Monocytes (0.10 - 0.60 /CUMM) 1.0 H Absolute Eosinophils (0.0 - 0.7 /CUMM) 0 Absolute Basophils (0.0 - 0.2 /CUMM) 0 PUBS MCHC (33.0 - 37.0 G/DL) 34.0 Miscellaneous Phlebotomy Draw Site RIGHT RADIAL Imaging/Other Studies: Renal US: 1. Mild right-sided hydronephrosis is seen, unchanged from prior exam. 2. Multiple bilateral renal cysts as seen, the majority of which appears simple and similar to the previous exam. Single cyst in the mid right kidney appears complex but is unchanged dating back to March 2014, favoring a benign etiology. Continued serial ultrasound follow-up in 12 months is recommended. 3. Nonobstructing lower pole left renal calcification.
--- NOTE | 2016-08-26 10:41 | ECHOCARDIOGRAM REPORT ---
TEGAN FOSTER Age: 81 : 1935 Gender: M Exam Date: 08/25/2016 16:41 Exam Location: 1 [address] Ht (in): 68 Wt (lb): 240 BSA: 2.33 BP: 158 / 86 Ordering Physician: DOUGLAS BAINS MD Referring Physician: DOUGLAS BAINS MD Technologist: Mary Garza [facility] Room Number: [id number] Indications: LIGHTHEADEDNESS Rhythm: Sinus Technical Quality: Good FINDINGS Left Ventricle Left ventricular cavity size at the upper limits of normal. Moderate concentric left ventricular hypertrophy. Akinetic inferior and posterior hathaway. Good apical and septal contractility. Left ventricular ejection fraction is estimated at 40 %. Abnormal relaxation filling pattern of the left ventricle for age (stage 1 diastolic dysfunction). Right Ventricle The right ventricle is normal in size and function. Right Atrium The right atrium is normal in size. Left Atrium Mild left atrial dilatation. Mitral Valve Mild thickening/calcification of the mitral valve leaflets. Mild mitral annular calcification. Mild mitral regurgitation. Aortic Valve Focal thickening of the aortic valve cusps. No aortic stenosis. Trace aortic regurgitation. Tricuspid Valve Structurally normal tricuspid valve. Mild tricuspid regurgitation. Right ventricular systolic pressure estimated to be within the normal range at 30 mmHg. Pulmonic Valve Structurally normal pulmonic valve. There is no pulmonic regurgitation. Pericardium Normal pericardium without effusion. No pleural effusion. Great Vessels Normal aortic root dimension. The aortic arch and great vessels are well seen and are normal. CONCLUSIONS Left ventricular cavity size at the upper limits of normal. Moderate concentric left ventricular hypertrophy. Akinetic inferior and posterior hathaway. Good apical and septal contractility. Left ventricular ejection fraction is estimated at 40 %. Abnormal relaxation filling pattern of the left ventricle for age (stage 1 diastolic dysfunction). Mild left atrial dilatation. Mild thickening/calcification of the mitral valve leaflets. Mild mitral annular calcification. Mild mitral regurgitation. Focal thickening of the aortic valve cusps. No aortic stenosis. Trace aortic regurgitation. Right ventricular systolic pressure estimated to be within the normal range at 30 mmHg. Ari Cesar M.D. (Electronically Signed) Final Date: 26 Aug 2016 10:40 MEASUREMENTS (Male / Female) Normal Values 2D ECHO LV Diastolic Diameter PLAX 5.1 cm 4.2 - 5.9 / 3.9 - 5.3 cm LV Systolic Diameter PLAX 4.3 cm 2.1 - 4.0 cm LV Fractional Shortening PLAX 15.7 % 25 - 46 % LV Ejection Fraction 2D Teich 32.9 % IVS Diastolic Thickness 1.7 cm LVPW Diastolic Thickness 1.4 cm LV Relative Wall Thickness 0.6 RV Internal Dim ED PLAX 2.8 cm 1.9 - 3.8 cm LVOT Diameter 2.2 cm Aortic Root Diameter 3.3 cm LA Systolic Diameter LX 4.7 cm 3.0 - 4.0 / 2.7 - 3.8 cm LA Volume 43.0 cm 18 - 58 / 22 - 52 cm Ascending Aorta Diameter 3.2 cm DOPPLER AV Peak Velocity 107.0 cm/s AV Peak Gradient 4.6 mmHg AV Mean Velocity 75.6 cm/s AV Mean Gradient 3.0 mmHg AV Velocity Time Integral 20.3 cm LVOT Peak Velocity 74.4 cm/s LVOT Peak Gradient 2.2 mmHg LVOT Mean Velocity 56.7 cm/s LVOT Mean Gradient 1.0 mmHg LVOT Velocity Time Integral 14.7 cm LVOT Stroke Volume 55.9 cm AV Area Cont Eq vti 2.8 cm AV Area Cont Eq pk 2.6 cm MV Peak Velocity 115.0 cm/s MV Peak Gradient 5.3 mmHg MV Mean Velocity 59.3 cm/s MV Mean Gradient 2.0 mmHg Mitral E Point Velocity 50.8 cm/s Mitral A Point Velocity 94.8 cm/s Mitral E to A Ratio 0.5 MV PHT Velocity 60.4 cm/s MV Deceleration [place] 158.0 cm/s MV Pressure Half Time 114.7 ms MV Area PHT 1.9 cm MV Deceleration Time 346.0 ms TR Peak Velocity 229.0 cm/s TR Peak Gradient 21.0 mmHg Right Atrial Pressure 10.0 mmHg Pulmonary Artery Systolic Pressu 31.0 mmHg Right Ventricular Systolic Press 31.0 mmHg PV Peak Velocity 123.0 cm/s PV Peak Gradient 6.1 mmHg PV Mean Velocity 76.1 cm/s PV Mean Gradient 3.0 mmHg PV Velocity Time Integral 19.0 cm LV E' Lateral Velocity 7.7 cm/s Mitral E to LV E' Lateral Ratio 6.6 LV E' Septal Velocity 4.4 cm/s Mitral E to LV E' Septal Ratio 11.6
--- NOTE | 2016-08-26 15:16 | CT SCAN REPORT ---
EXAMINATION: CT ABDOMEN AND PELVIS WITHOUT CONTRAST CLINICAL INFORMATION: Hematuria. Elevated creatinine. Evaluate for nephrolithiasis. COMPARISON: Renal ultrasound 08/25/[address] abdomen pelvis 05/13/2014 TECHNIQUE: Multidetector volumetric imaging was performed from the superior aspect of the liver through the pubic symphysis. Sagittal and coronal reformatted images were obtained on the technologist's workstation. DLP: 1252.19 mGy-cm FINDINGS: Visualized lung bases are well aerated. 8mm nodular density of the right lung base, nonspecific (image 7/112, series 2). Subsegmental atelectasis of both lung bases. Coronary artery calcifications. The liver demonstrates normal size and contour. Diffusely decreased liver attenuation is most suggestive of hepatic steatosis. The gallbladder is normal in appearance. The pancreas, spleen and adrenal glands are unremarkable. Similar nonspecific mild perinephric stranding bilaterally. No right-sided renal calculi. Stable mild right-sided hydroureteronephrosis. Several cysts of the right kidney are noted, the largest of which is a 6 cm upper pole cyst (previously 5 cm). Several smaller right-sided renal hypodensities are too small to accurately characterize. A few subcentimeter nonobstructing renal calculi are again appreciated within the left kidney, the largest of which measures approximately 5 mm. There is a 9 cm left upper pole renal cyst (previously 7.5 cm). There is a 1.2 cm left midpole cyst. Other small left-sided renal hypodensities are too small to accurately characterize but appear stable in size. There is no left-sided hydronephrosis. Small hiatal hernia. Normal caliber loops of small and large bowel. Normal appendix. Abdominal aorta is normal in caliber and demonstrates only mild atherosclerotic disease. IVC filter. The bladder is collapsed around a Wheat catheter. Bladder hathaway appear diffusely thickened. Tiny fat-containing inguinal hernias. No pelvic lymphadenopathy. Degenerative changes of the spine. Mild anterolisthesis of L4 and L5. IMPRESSION: 1. Similar mild right-sided hydroureteronephrosis. No right-sided renal calculi are appreciated. 2. Nonobstructive subcentimeter left renal calculi. No left-sided hydronephrosis. 3. Multiple renal cysts bilaterally as detailed above. Most cysts demonstrate mild interval increase in size since 2014. 4. The bladder is collapsed around a Wheat catheter, however, bladder hathaway appear diffusely thickened. Clinical correlation recommended. 5. Diffusely decreased liver attenuation, most suggestive of hepatic steatosis. 6. 8mm nodular density of the right lung base. This is a nonspecific finding and may represent focal atelectasis, however, a pulmonary nodule cannot be entirely excluded. Attention on follow up recommended.
[2016-08-26 16:11] VITALS: BP 112/68
[2016-08-26 19:10] VITALS: BP 112/60
--- NOTE | 2016-08-26 19:10 | NUR ---
AT THIS TIME PT TRANSFERRED TO , PLEASE SEE TRANSFER DISPOSITION AND PT ASSESSMENT, PT ORIENTED TO ROOM AND CALL ROQUE, BED IN LOWEST AND LOCKED POSITION; CALL ROQUE IN REACH, WILL CONT TO MONITOR
[2016-08-26 19:18] LABS: ABSOLUTE BASOPHIL COUNT 0 /CUMM (0.0-0.2); ABSOLUTE EOSINOPHIL COUNT 0.2 /CUMM (0.0-0.7); ABSOLUTE GRANULOCYTE CT 5.9 /CUMM (1.4-6.5); ABSOLUTE LYMPH COUNT 1.3 /CUMM (1.2-3.4); BASOPHIL % 0.4 % (0.0-2.0); EOSINOPHIL % 2.4 % (0-5); GRANULOCYTE % 70.1 % (42.2-75.2); HEMATOCRIT 34.3 % (42-52); MEAN CORPUSCULAR HGB 31.9 PG (27.0-31.0); MEAN CORPUSCULAR HGB CONC 33.5 G/DL (33.0-37.0); MEAN CORPUSCULAR VOLUME 95.3 FL (80.0-94.0); MEAN PLATELET VOLUME 9.5 FL (7.4-10.4); PLATELET COUNT 136 /CUMM (130-400); RBC DISTRIBUTION WIDTH 14.1 % (11.5-14.5); WHITE BLOOD CELL COUNT 8.4 /CUMM (4.8-10.8)
[2016-08-26 22:41] VITALS: BP 121/60
[2016-08-27 06:04] VITALS: BP 128/70
[2016-08-27 07:44] LABS: ABSOLUTE BASOPHIL COUNT 0 /CUMM (0.0-0.2); ABSOLUTE EOSINOPHIL COUNT 0.2 /CUMM (0.0-0.7); ABSOLUTE GRANULOCYTE CT 6.1 /CUMM (1.4-6.5); BASOPHIL % 0.4 % (0.0-2.0); EOSINOPHIL % 2.4 % (0-5); GRANULOCYTE % 73.4 % (42.2-75.2); HEMATOCRIT 34.2 % (42-52); MEAN CORPUSCULAR HGB 32.2 PG (27.0-31.0); MEAN CORPUSCULAR HGB CONC 34.1 G/DL (33.0-37.0); MEAN CORPUSCULAR VOLUME 94.6 FL (80.0-94.0); MEAN PLATELET VOLUME 9.5 FL (7.4-10.4); PLATELET COUNT 126 /CUMM (130-400); RBC DISTRIBUTION WIDTH 13.8 % (11.5-14.5); RED BLOOD CELL CT 3.62 /CUMM (4.70-6.10); WHITE BLOOD CELL COUNT 8.3 /CUMM (4.8-10.8)
[2016-08-27 08:20] LABS: PT 18.5 SEC (9.4-12.5)
--- NOTE | 2016-08-27 08:28 | PN- Housestaff ---
HERSON ALBARRAN,DOUGLAS 08/27/16 0828: Subjective Follow-up For: Hematuria Hyperkalemia now resolved. Subjective: Patient has no complaints this AM Review of Systems Constitutional: Reports: see HPI. Objective Last 24 Hrs of Vital Signs/I&O Vital Signs Date Time Temp Pulse Resp B/P B/P Pulse O2 O2 Flow FiO2 Mean Ox Delivery Rate 08/27 0818 130/70 08/27 0604 97.8 79 20 128/70 96 Room Air 08/26 2241 98.2 90 20 121/60 95 Room Air 08/26 2145 90 121/60 08/26 1910 Trach Mask 08/26 1910 98.4 88 18 112/60 98 Room Air 08/26 1611 98.2 78 20 112/68 96 Room Air Intake & Output 08/27 1600 08/27 0800 08/27 0000 Intake Total 640 1000 Output Total 425 350 Balance 215 650 Intake, IV 400 400 Intake, Oral 240 600 Output, Urine 425 350 Patient 244 lb 243 lb Weight Physical Exam General Appearance: Alert, Oriented X3, Cooperative, No Acute Distress Cardiovascular: Regular Rate, Normal S1, Normal S2 Lungs: Clear to Auscultation, Normal Air Movement Abdomen: Normal Bowel Sounds, Soft, No Tenderness Neurological: Normal Speech, Normal Tone, Sensation Intact Extremities: 1+ bilateral pedal edema noted Current Medications: Current Medications Sig/Christie Start time Last Medication Dose Route Stop Time Status Admin Acetaminophen 650 MG Q6P PRN 08/25 0230 AC PO Acetaminophen 1,000 MG Q6P PRN 08/25 0230 AC IV Atorvastatin Calcium 10 MG 1700 08/25 1700 AC 08/26 PO 1735 Gabapentin 300 MG BID 08/25 1000 AC 08/27 PO 0818 Insulin Aspart 0 TIDAC 08/26 1200 AC 08/27 SC 1343 Metoprolol Tartrate 25 MG BID 08/25 1023 AC 08/27 PO 0818 Morphine Sulfate 0.5 MG Q4P PRN 08/25 0230 AC IV Nystatin 1 KIKI TID 08/25 1600 AC 08/27 TOP 0818 Nystatin 1 KIKI TID PRN 08/25 0415 TOP Patient Medication 1 ED .STK-MED ONE 08/26 1430 DC Teaching ED 08/26 1431 Sodium Bicarbonate 1,300 MG BID 08/25 1300 AC 08/27 PO 0818 Sodium Chloride 1,000 ML Q20H 08/26 0900 DC 08/27 IV 0539 Tamsulosin HCl 0.4 MG DAILY 08/26 1000 AC 08/27 PO 0819 Last 24 Hrs of Lab/Donte Results Last 24 Hrs of Labs/Mics: Laboratory Tests 08/27/16 0640: Anion Gap 14, Estimated GFR 20 L, BUN/Creatinine Ratio 16.3, PT 18.5 H, INR 1.77 H, CBC w Diff NO MAN DIFF REQ, RBC 3.62 L, MCV 94.6 H, MCH 32.2 H, RDW 13.8, MPV 9.5, Gran % 73.4, Lymphocytes % 12.1 L, Monocytes % 11.7 H, Eosinophils % 2.4, Basophils % 0.4, Absolute Granulocytes 6.1, Absolute Lymphocytes 1.0 L, Absolute Monocytes 1.0 H, Absolute Eosinophils 0.2, Absolute Basophils 0, PUBS MCHC 34.1 08/26/16 1830: CBC w Diff NO MAN DIFF REQ, RBC 3.60 L, MCV 95.3 H, MCH 31.9 H, RDW 14.1, MPV 9.5, Gran % 70.1, Lymphocytes % 15.6 L, Monocytes % 11.5 H, Eosinophils % 2.4, Basophils % 0.4, Absolute Granulocytes 5.9, Absolute Lymphocytes 1.3, Absolute Monocytes 1.0 H, Absolute Eosinophils 0.2, Absolute Basophils 0, PUBS MCHC 33.5 Lines/Diet/Fluids Lines: peripheral lines Assessment/Plan Assessment: This is an 81 y/o Male with PMH of hypertension, dementia, previous recurrent UTIs, 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 He was seen by EMS and found to be borderline hypotensive for which he received fluids with moderate rise in BP. In the ED, he was found to be hyperkalemic with increase in Creatinine from baseline. Some EKG changes were also noted (TWI). Problem List: 1)Hematuria with Renal USG showing persistent hydronephrosis 2) Hyperkalemia with EKG changes, now resolved. 3) MORRO on CKD, possibly post obstructive vs ATN with Renal USG showing persistent Rt Sided hydronephrosis. 4) DM complicated by peripheral neuropathy 5) CAD s/p CABG 6) Atrial blood clots with PFO s/p Embolectomy and repair 7) Multiple DVT s/p IVC filter, currently on Coumadin 8) BPH Plan: - Monitor on GM for now. - Continues to have hematuria overnight. H/H continues to be stable. Urology eval pending. Patient was seen by Dr. Joel in the past and was to follow up with him for persistent hydronephrosis and incomplete bladder emptying, which the patient never did. - Continue Metoprolol for now, hold Lasix in view of elevated creatinine with possible pre-renal azotemia and currently borderline blood pressure. - Novolog sliding scale, TIDAC fingersticks - DVT PPX: Hold off on coumadin for today, as he continues to have hematuria. - Code Status: Full Code Problem List: 1. Renal failure Pain Ratin Pain Location: None Pain Goal: Pain 4 or less Pain Plan: Per EMR Tomorrow's Labs & Rationales: Creatinine measurement DVT/Prophylaxis: mechanical MOSHE MONTOYA MD 08/27/16 1248: Attending MD Review Statement Attending Statement Attending MD Statement: examined this patient, discuss w/resident/PA/PATIENT SERVICE TECHNICIAN PST, agreed w/resident/PA/PATIENT SERVICE TECHNICIAN PST, reviewed EMR data (avail) Attending Assessment/Plan: 81M PMH HTN, dementia, recurrent UTIs, DVT with biatrial thrombus and ASD s/p repair on Coumadin, NIDDM with diabetic neuropathy, BPH, nephrolithiasis s/p surgical removal, previous history of brachial artery occlusion s/p thrombectomy admitted with lightheadedness and fall, with increased creatinine from prior baseline, proteinuria, and now hematuria. No complaints today. Imaging shows right hydroutereronephrosis. Hematuria persists. Creatinine down to 3.0. 1. Gross hematuria 2. Acute on chronic kidney injury 3. Right hydronephrosis Plan - Continue on general medicine - Urology consult - Follow nephrology recommendations - Monitor renal function and CBC - Continue home medications - Will continue to hold Coumadin for now pending urology recommendations - DVT PPx
--- NOTE | 2016-08-27 09:41 | PN- Nephrology ---
Assessment/Plan Assessment: 1. CKD/? MORRO: underlying diabetic nephropathy w nephrotic range proteinuria as well as R sided obstruction; stable w/o dialysis need 2. R hydro: w gross hematuria - not clear if has ongoing R sided obstruction; needs urology eval 3. Met acid: continue po bicarb Suggestion: 1. stop IV NS 2. urology consult --> cysto & retrograde Subjective Subjective: No SOB NO uremic sx Continues to have gross hematuria - no renal colic Stilll awaiting urology consult Objective Vital Signs and I&Os Vital Signs Date Time Temp Pulse Resp B/P B/P Pulse O2 O2 Flow FiO2 Mean Ox Delivery Rate 08/27 0818 130/70 08/27 0604 97.8 79 20 128/70 96 Room Air 08/26 2241 98.2 90 20 121/60 95 Room Air 08/26 2145 90 121/60 08/26 1910 Trach Mask 08/26 1910 98.4 88 18 112/60 98 Room Air 08/26 1611 98.2 78 20 112/68 96 Room Air 08/26 1034 74 110/60 Intake & Output 08/27 1600 08/27 0400 08/26 1600 08/26 0400 08/25 1600 08/25 0400 Intake Total 640 1000 3636 807 7176 120 Output Total 425 350 500 200 277 375 Balance 499 277 3404 640 1023 -255 Intake, IV 150 759 5367 600 Intake, Oral 240 600 404 499 4406 120 Number 2 0 1 Bowel Movements Output, Stool 2 Output, Urine 425 350 500 200 275 375 Patient 243 lb 242 lb 240 lb 240 lb Weight Weight Chair scale Reported by Patient Measurement Method Physical Exam General Appearance: well developed/nourished, no apparent distress Head: atraumatic Neck: normal inspection Respiratory: normal breath sounds, no respiratory distress, quiet respiration Cardiovascular: regular rate/rhythm Abdomen: soft, non-tender, obese Extremities: swelling Neurologic/Psychiatric: awake, alert Current Medications: Current Medications Sig/Christie Start time Last Medication Dose Route Stop Time Status Admin Acetaminophen 650 MG Q6P PRN 08/25 0230 AC PO Acetaminophen 1,000 MG Q6P PRN 08/25 0230 AC IV Atorvastatin Calcium 10 MG 1700 08/25 1700 AC 08/26 PO 1735 Gabapentin 300 MG BID 08/25 1000 AC 08/27 PO 0818 Insulin Aspart 0 TIDAC 08/26 1200 AC 08/27 SC 0815 Metoprolol Tartrate 25 MG BID 08/25 1023 08/27 PO 0818 Morphine Sulfate 0.5 MG Q4P PRN 08/25 0230 AC IV Nystatin 1 KIKI TID 08/25 1600 08/27 TOP 0818 Nystatin 1 KIKI TID PRN 08/25 0415 [facility] Patient Medication 1 ED .STK-MED ONE 08/26 1430 DC Teaching ED 08/26 1431 Sodium Bicarbonate 1,300 MG BID 08/25 1300 08/27 PO 0818 Sodium Chloride 1,000 ML Q20H 08/26 0900 08/27 IV 0539 Tamsulosin HCl 0.4 MG DAILY 08/26 1000 08/27 PO 0819 Results Pertinent Lab Results: Laboratory Tests 08/27 08/26 0640 1830 Chemistry Sodium (137 - 145 mmol/L) 135 L Potassium (3.5 - 5.1 mmol/L) 3.7 Chloride (98 - 107 mmol/L) 103 Carbon Dioxide (22 - 30 mmol/L) 18 L Anion Gap (5 - 16) 14 BUN (9 - 20 mg/dL) 49 H Creatinine (0.7 - 1.2 mg/dL) 3.0 H Estimated GFR (>60 ml/min) 20 L BUN/Creatinine Ratio (7 - 25 %) 16.3 Coagulation PT (9.4 - 12.5 SEC) 18.5 H INR (0.90 - 1.17) 1.77 H Hematology CBC w Diff NO MAN DIFF REQ NO MAN DIFF REQ WBC (4.8 - 10.8 /CUMM) 8.3 8.4 RBC (4.70 - 6.10 /CUMM) 3.62 L 3.60 L Hgb (14.0 - 18.0 G/DL) 11.6 L 11.5 L Hct (42 - 52 %) 34.2 L 34.3 L MCV (80.0 - 94.0 FL) 94.6 H 95.3 H MCH (27.0 - 31.0 PG) 32.2 H 31.9 H RDW (11.5 - 14.5 %) 13.8 14.1 Plt Count (130 - 400 /CUMM) 126 L 136 MPV (7.4 - 10.4 FL) 9.5 9.5 Gran % (42.2 - 75.2 %) 73.4 70.1 Lymphocytes % (20.5 - 51.1 %) 12.1 L 15.6 L Monocytes % (1.7 - 9.3 %) 11.7 H 11.5 H Eosinophils % (0 - 5 %) 2.4 2.4 Basophils % (0.0 - 2.0 %) 0.4 0.4 Absolute Granulocytes (1.4 - 6.5 /CUMM) 6.1 5.9 Absolute Lymphocytes (1.2 - 3.4 /CUMM) 1.0 L 1.3 Absolute Monocytes (0.10 - 0.60 /CUMM) 1.0 H 1.0 H Absolute Eosinophils (0.0 - 0.7 /CUMM) 0.2 0.2 Absolute Basophils (0.0 - 0.2 /CUMM) 0 0 PUBS MCHC (33.0 - 37.0 G/DL) 34.1 33.5 08/26 08/26 08/26 0905 0905 0659 Chemistry Prot Electrophoresis Cancelled Total Protein (PEP) Cancelled Albumin % (PEP) Cancelled Fpmvc-9-Iuvkveixh Cancelled Tczgq-0-Bfyckcupz Cancelled Mefo-0-Geefoyue Cancelled Texa-1-Dslttspy Cancelled Gamma Globulins Cancelled Abnorm Protein Band 1 Cancelled Abnorm Protein Band 2 Cancelled Abnorm Protein Band 3 Cancelled Cortisol AM Sample (4.46 - 22.7 ug/dL) 17.3 Hematology CBC w Diff NO MAN DIFF REQ WBC (4.8 - 10.8 /CUMM) 10.3 RBC (4.70 - 6.10 /CUMM) 3.73 L Hgb (14.0 - 18.0 G/DL) 11.9 L Hct (42 - 52 %) 34.9 L MCV (80.0 - 94.0 FL) 93.8 MCH (27.0 - 31.0 PG) 32.0 H RDW (11.5 - 14.5 %) 13.4 Plt Count (130 - 400 /CUMM) 130 MPV (7.4 - 10.4 FL) 10.2 Gran % (42.2 - 75.2 %) 74.9 Lymphocytes % (20.5 - 51.1 %) 10.2 L Monocytes % (1.7 - 9.3 %) 11.8 H Eosinophils % (0 - 5 %) 2.6 Basophils % (0.0 - 2.0 %) 0.5 Absolute Granulocytes (1.4 - 6.5 /CUMM) 7.7 H Absolute Lymphocytes (1.2 - 3.4 /CUMM) 1.0 L Absolute Monocytes (0.10 - 0.60 /CUMM) 1.2 H Absolute Eosinophils (0.0 - 0.7 /CUMM) 0.3 Absolute Basophils (0.0 - 0.2 /CUMM) 0 PUBS MCHC (33.0 - 37.0 G/DL) 34.1 08/26 08/26 08/25 08/25 0600 0600 1915 1148 Chemistry Sodium (137 - 145 mmol/L) 135 L 133 L Potassium (3.5 - 5.1 mmol/L) 4.1 4.4 Chloride (98 - 107 mmol/L) 105 102 Carbon Dioxide (22 - 30 mmol/L) 16 L 17 L Anion Gap (5 - 16) 14 14 BUN (9 - 20 mg/dL) 46 H 48 H Creatinine (0.7 - 1.2 mg/dL) 3.3 H 3.4 H Estimated GFR (>60 ml/min) 18 L 18 L BUN/Creatinine Ratio (7 - 25 %) 13.9 14.1 Prot Electrophoresis Pending Total Protein (PEP) Pending Albumin % (PEP) Pending Yihho-2-Arhkxstod Pending Vknma-8-Aqgvxwrth Pending Dbpa-1-Ylxrcsjv Pending Scrn-0-Pqhzpspt Pending Gamma Globulins Pending Abnorm Protein Band 1 Pending Abnorm Protein Band 2 Pending Abnorm Protein Band 3 Pending Cortisol AM Sample (4.46 - 22.7 ug/dL) 30.2 H Coagulation PT (9.4 - 12.5 SEC) 15.7 H INR (0.90 - 1.17) 1.50 H Urines Ur Random Creatinine Cancelled U Random Total Protein Cancelled 08/25 08/25 0644 0408 Chemistry Sodium (137 - 145 mmol/L) 138 Potassium (3.5 - 5.1 mmol/L) 4.8 Chloride (98 - 107 mmol/L) 105 Carbon Dioxide (22 - 30 mmol/L) 17 L Anion Gap (5 - 16) 16 BUN (9 - 20 mg/dL) 44 H Creatinine (0.7 - 1.2 mg/dL) 3.4 H Estimated GFR (>60 ml/min) 18 L BUN/Creatinine Ratio (7 - 25 %) 12.9 Coagulation PT (9.4 - 12.5 SEC) 14.4 H INR (0.90 - 1.17) 1.38 H Hematology CBC w Diff NO MAN DIFF REQ WBC (4.8 - 10.8 /CUMM) 10.4 RBC (4.70 - 6.10 /CUMM) 4.20 L Hgb (14.0 - 18.0 G/DL) 13.4 L Hct (42 - 52 %) 39.6 L MCV (80.0 - 94.0 FL) 94.3 H MCH (27.0 - 31.0 PG) 31.9 H RDW (11.5 - 14.5 %) 13.5 Plt Count (130 - 400 /CUMM) 189 MPV (7.4 - 10.4 FL) 10.6 H Gran % (42.2 - 75.2 %) 78.7 H Lymphocytes % (20.5 - 51.1 %) 11.0 L Monocytes % (1.7 - 9.3 %) 9.7 H Eosinophils % (0 - 5 %) 0.3 Basophils % (0.0 - 2.0 %) 0.3 Absolute Granulocytes (1.4 - 6.5 /CUMM) 8.2 H Absolute Lymphocytes (1.2 - 3.4 /CUMM) 1.1 L Absolute Monocytes (0.10 - 0.60 /CUMM) 1.0 H Absolute Eosinophils (0.0 - 0.7 /CUMM) 0 Absolute Basophils (0.0 - 0.2 /CUMM) 0 PUBS MCHC (33.0 - 37.0 G/DL) 33.8 Urines Urine Color (YEL,AMB,STR) YEL Urine Clarity (CLEAR) CLEAR Urine pH (5.0 - 8.0) 6.0 Ur Specific Gates (1.001 - 1.035) 1.025 Urine Protein (NEG,<30 MG/DL) >=300 H Urine Ketones (NEG) NEG Urine Nitrite (NEG) NEG Urine Bilirubin (NEG) NEG Urine Urobilinogen (0.1 - 1.0 EU/dl) 0.2 Ur Leukocyte Esterase (NEG) NEG Ur Microscopic SEDIMENT EXAMINED Urine RBC (0 - 5 /HPF) 1-3 Urine WBC (0 - 2 /HPF) RARE Urine Bacteria (NEG/NONE) FEW H Urine Hemoglobin (NEG) TRACE-LYSED H Urine Glucose (N MG/DL) 500 H 08/25 08/25 08/25 0408 0310 0255 Blood Gas pH (7.35 - 7.45 PH) 7.38 pCO2 (35 - 45 TORR) 30 L pO2 (80 - 100 TORR) 83 HCO3 (21 - 28 MEQ/L) 18 L ABG O2 Sat (Measured) (>96.0 %) 96.0 P-50 (Temp Corrected) Y Carboxyhemoglobin (1.5 - 5.0 %) 0.2 L O2 Concentration % RA Temperature (97.0 - 100.0 FARH) 97.2 Miscellaneous Phlebotomy Draw Site RIGHT RADIAL Toxicology Acetone Level (NEGATIVE) NEGATIVE Urines Ur Random Creatinine (mg/dL) 113.2 U Random Total Protein (0 - 12 mg/dL) 408 H Ur Random Sodium (30 - 90 mmol/L) 58 Ur Random Potassium (mmol/L) 32.8 Protein/Creatinin Ratio (< 0.2) 3.6 H Fraction Sodium Excret (<1% %) 1.3 H 08/25 0039 Chemistry Sodium (137 - 145 mmol/L) 135 L Potassium (3.5 - 5.1 mmol/L) 6.6 *H Chloride (98 - 107 mmol/L) 101 Carbon Dioxide (22 - 30 mmol/L) 16 L Anion Gap (5 - 16) 17 H BUN (9 - 20 mg/dL) 45 H Creatinine (0.7 - 1.2 mg/dL) 3.3 H Estimated GFR (>60 ml/min) 18 L BUN/Creatinine Ratio (7 - 25 %) 13.6 Glucose (65 - 99 mg/dL) 344 H Hemoglobin A1c (4.2 - 5.8 %) 9.9 H Serum Osmolality (285 - 295 MOSM/KG) 307 H Calcium (8.4 - 10.2 mg/dL) 8.7 Phosphorus (2.5 - 4.5 mg/dL) 4.5 Magnesium (1.6 - 2.3 mg/dL) 2.0 Total Bilirubin (0.2 - 1.3 mg/dL) 0.9 AST (17 - 59 U/L) 37 ALT (21 - 72 U/L) 53 Alkaline Phosphatase (< 127 U/L) 106 Creatine Kinase (55 - 170 U/L) 168 Troponin I (<0.11 ng/ml) 0.04 Total Protein (6.3 - 8.2 g/dL) 7.4 Albumin (3.5 - 5.0 g/dL) 4.1 Globulin (1.9 - 4.2 gm/dL) 3.3 Albumin/Globulin Ratio (1.1 - 2.2 %) 1.2 Hematology CBC w Diff NO MAN DIFF REQ WBC (4.8 - 10.8 /CUMM) 14.1 H RBC (4.70 - 6.10 /CUMM) 4.56 L Hgb (14.0 - 18.0 G/DL) 14.6 Hct (42 - 52 %) 43.0 MCV (80.0 - 94.0 FL) 94.4 H MCH (27.0 - 31.0 PG) 32.1 H RDW (11.5 - 14.5 %) 13.4 Plt Count (130 - 400 /CUMM) 214 MPV (7.4 - 10.4 FL) 9.9 Gran % (42.2 - 75.2 %) 86.6 H Lymphocytes % (20.5 - 51.1 %) 5.7 L Monocytes % (1.7 - 9.3 %) 7.5 Eosinophils % (0 - 5 %) 0.1 Basophils % (0.0 - 2.0 %) 0.1 Absolute Granulocytes (1.4 - 6.5 /CUMM) 12.2 H Absolute Lymphocytes (1.2 - 3.4 /CUMM) 0.8 L Absolute Monocytes (0.10 - 0.60 /CUMM) 1.0 H Absolute Eosinophils (0.0 - 0.7 /CUMM) 0 Absolute Basophils (0.0 - 0.2 /CUMM) 0 PUBS MCHC (33.0 - 37.0 G/DL) 34.0 Imaging/Other Studies: CT: 1. Similar mild right-sided hydroureteronephrosis. No right-sided renal calculi are appreciated. 2. Nonobstructive subcentimeter left renal calculi. No left-sided hydronephrosis. 3. Multiple renal cysts bilaterally as detailed above. Most cysts demonstrate mild interval increase in size since 2015. 4. The bladder is collapsed around a Wheat catheter, however, bladder hathaway appear diffusely thickened. Clinical correla
--- NOTE | 2016-08-27 13:57 | NUR ---
WOUND CARE: REQUESTED BY NURSING STAFF TO EVALUATE PT FOR SKIN ALTERATIONS PRESENT ON ADMISSION - HX REVIEWED FROM PT - PT DENIES SIGNIFICANT SWELLING IN THE PAST TO THIS EXTENT - RIGHT ELBOW / ARM PINPOINT DRIED SCABS - LLE PRESENTS WTIH A 1 X 6 CM SKIN TEAR CATEGORY 2 CLEAN RED DERMAL FILL - 4X4 CM CLUSTERED WOUND AT DISTAL LOWER EXTREMITY WITH FLUID FILLED AND DEROOFED BLISTERS - DRNG CLEAR SEROUS FLUID - + 3 PITTING EDEMA BLE LEFT > RIGHT - UPPER AND LOWER EXT SL COLD - UNABLE TO PALPATE PP DUE TO SWELLING, HOWEVER DP AND PT PULSES STRONG BIPHASIC VIA HAND HELD DOPPLER - PT ALSO NOTED WITH A FULL THICNKESS WOUND TO ABD FOLD CREASE 1 X 1.1 CM YELLOW FILL CURRENTLY BEING TX WITH NYSTATIN POWDER - RECOMMENDATION: APPLY ABD PADS TO ABD FOLD TO PREVENT SKIN SKIN CONTACT - CLEANSE LEFT LEG WOUNDS WTIH NS FB ADAPTIC AND KERLIX DAILY - APPLY JONAS WRAP FROM BASE OF TOES TO TIBIAL TUBEROSITY DAILY - ELEVATE FOOT OF BED AT ALL TIMES FOR EDEMA CONTROL
[2016-08-27 14:07] VITALS: BP 118/60
--- NOTE | 2016-08-27 14:57 | Discharge Summary ---
See Addendum Visit Information Visit Dates Admission Date: 08/25/16 Discharge Date: 08/31/2016 Hospital Course Course Attending Physician: MOSHE MONTOYA MD Primary Care Physician: ZAIRA ALBARRAN,ZACHARY Consulting Request: 1 Consulting Specialty: Nephrology Consulting Physician: Dr. Jalloh Consulting Request: 2 Consulting Specialty: Urology Consulting Physician: Dr. Shah [facility] Course: Mr. Posey is a 81 year-old gentleman with PMH of DM, atrial blood clots with PFO s/p embolectomy and repair, CABG, nephrolithiasis, HTN, multiple DVTs S/P IVC filter, currently on warfarin, BPH, peripheral neuropathy, brought in from assisted living after a fall. He did experience some dizziness prior to his fall. In th ED: Vitals: Blood pressure at presentation 100/56, HR 86, RR 18 saturating well controlled has afebrile. On exam: A O 3, cooperative, no acute distress, neck supple, JVD normal, no lymphadenopathy, mucosa dry no focal neurological deficit, no dependent edema, laceration on left melendez, CVS: S1-S2, RRR. RS: Clear to auscultate bilaterally. Abdomen: Soft, NT, ND, bowel sounds present. Labs: WBC 14.1, neutrophils 86%, hemoglobin 14.6, sodium 135, potassium 6.6, temperature 101, bicarbonate 16, anion gap 17, BUN 45, creatinine 3.3, glucose 344, LFT unremarkable, CK 168, troponin 0.04 He was admitted to the telemetry floor for further monitoring with the following problems. 1) Hyperkalemia with TWI: He was given kayexalate, insulin and dextrose with subsequent normalization of his postassium levels and no further telemetry events. 2) MORRO on CKD vs progression of his CKD: there was no improvement in his creatinine with fluid resuscitation (in fact it worsened), nephrology consult was placed. Renal USG showed the presence of persistent right sided hydronephrosis noted on a previous CAT scan. Patient had been seen by Dr. Joel in the past for the same, and was to follow up with him as an outpatient (which he did not). CAT scan of the abdomen and pelvis with stone protocol revealed the presence of left renal calculi. Patient started to have hematuria with straight cath, Wheat was placed, which revealed the presence of persistent hematuria, with fall in H/H. Urology consult was placed for the same. Patient was taken to the OR on 08/29 for placement of a right sided ureteral stent. Creatinine started to improve after placement of stent. Wheat was removed after urine cleared up. 3) Fungal inguinal rash: He was started on topical Nystatin cream 4) Diabetes mellitus: He was started on a novolog sliding scale. This will be continued on discharge considering the patient's renal function. He will have to follow up with his PCP regarding resumption of his medications, once his renal function normalizes. 5) Multiple DVTs S/P IVC filter, currently on warfarin: On DAy 2 of admission, his Coumadin was held for hematuria with a fall in H/H. This was held further pending urology evaluation. Coumadin continued to be held in view of ongoing hematuria. This was restarted before discharge. 6) BPH: He was continued on his home Flomax 7) DVT PPx: Mechical in view of hematuria. 8) Code Status: Full code Allergies: Coded Allergies: NO KNOWN ALLERGIES (04/08/14) Significant Procedures: None Disposition Summary Disposition Principal Diagnosis: MORRO on CKD Persistent Hydronephrosis in the setting of nephrolithiasis Hyperkalemia, resolved. Additional Diagnosis: DM atrial blood clots with PFO s/p embolectomy and repair CABG nephrolithiasis HTN multiple DVTs S/P IVC filter, currently on warfarin BPH peripheral neuropathy, Discharge Disposition: SNF Discharge Instructions General Discharge Information Code Status: Full Code Patient's Diet: Diabetic Heart Healthy Patient's Activity: As tolerated Follow-Up Instructions/Appts: Please make an appointment to see: 1) your PCP within one week from discharge 2) your urologist within one week from discharge 30 your micrographics services supervisor within one week from discharge. Please check Creatinine on 09/03/[address] Vickers and Dr. Shah. Medications at Discharge Discharge Medications: Stop taking the following medications: Glimepiride (Amaryl) 4 MG TABLET ORAL DAILY Sitagliptin Phosphate (Januvia) 50 MG TABLET ORAL DAILY Furosemide (Lasix) 20 MG TABLET ORAL DAILY Tramadol Hydrochloride (Tramadol Hydrochloride) [address] ORAL TWICE DAILY TRAMADOL HCL (Tramadol) 50 MG TABLET ORAL Q4H as needed for PAIN Amoxicillin/Clavulanate Potass (Amox-Clav 875-125 MG Tablet) 875 MG-125 MG TABLET ORAL EVERY 12 HOURS Days = 9 Continue taking these medications: Gabapentin (Gabapentin) 300 MG CAPSULE 1 Capsule ORAL TWICE DAILY Tamsulosin HCl (Flomax) 0.4 MG CAP.ER.24H 1 Capsule ORAL DAILY Gemfibrozil (Gemfibrozil) 600 MG TABLET 1 Tablet ORAL DAILY Metoprolol Tartrate (Metoprolol Tartrate) 25 MG TABLET 1 Tablet ORAL TWICE DAILY Finasteride (Finasteride) 5 MG TABLET 1 Tablet ORAL Every night Warfarin Sodium (Coumadin) 5 MG TABLET 1 Tablet ORAL M,W,F,DIAS Atorvastatin Calcium (Lipitor) 10 MG TABLET 1 Tablet ORAL DAILY Warfarin Sodium (Coumadin) 2.5 MG TABLET 1 Tablet ORAL , , TUE Start taking the following new medications: Insulin Aspart (Novolog) 100 UNIT/ML VIAL 0 Units Inject into fatty tissue 3 TIMES DAILY BEFORE MEALS Days = 30 No Refills Instructions: <80 : Initiate hypoglycemia protocol 80-150 : No change 151-200 : Plus 2 units 201-250 : Plus 4 units 251-300 : Plus 6 units 301-350 : Plus 8 units 351-400 : Plus 10 units >400 : Plus 12 units and call MD Copies To: FLORENCIA ALBARRAN,NADIR Decker; BEATRIZ ALBARRAN,ATIF
--- NOTE | 2016-08-27 15:03 | Patient Discharge Instructions ---
See Addendum Discharge Instructions General Discharge Information You were seen/treated for: Hyperkalemia MORRO on CKD Hematuria with renal stones Special Instructions: Please make an appointment to see the doctors in the referral section of the CMR. Please follow up with your PCP regarding restarting your diabetes medications, as they were held inpatient for an elevated kidney number. Check creatinine on 09/03/2016 and CC results to Dr. Vickers and Dr. Shah. Activity Activity Self Limited: Yes Acute Coronary Syndrome Inclusion Criteria At DC or during hospital stay patient has or had the following: ACS DIAGNOSIS No Discharge Core Measures Meds if any: Prescribed or Continued at Discharge Meds if any: NOT Prescribed or Continued at Discharge Congestive Heart Failure Inclusion Criteria At DC or during hospital stay patient has or had the following: CHF DIAGNOSIS No Discharge Core Measures Meds if any: Prescribed or Continued at Discharge Meds if any: NOT Prescribed or Continued at Discharge Cerebrovascular accident Inclusion Criteria At DC or during hospital stay patient has or had the following: CVA/TIA Diagnosis No Discharge Core Measures Meds if any: Prescribed or Continued at Discharge Meds if any: NOT Prescribed or Continued at Discharge Venous thromboembolism Inclusion Criteria VTE Diagnosis No VTE Type NONE VTE Confirmed by (Test) NONE Discharge Core Measures - Per Current guidelines, there needs to be overlap - treatment for the first 5 days of Warfarin therapy. - If discharged on Warfarin prior to 5 days of - overlap therapy, the patient will need to be - assessed for post discharge needs including - *Post discharge parental anticoagulation - *Warfarin and/or parental anticoagulation education - *Follow up date to check INR post discharge At least 5 days overlap therapy as Inpatient Yes Meds if any: Prescribed or Continued at Discharge Note: Overlap Therapy is Warfarin and Anticoagulant Meds if any: NOT Prescribed or Continued at Discharge
--- NOTE | 2016-08-27 16:26 | Event Note ---
Event Note Event Note: Tried to call Avery Taty So (son of patient ) regarding updates. Went to voicemail. Message left.
[2016-08-27 22:22] VITALS: BP 130/64
--- NOTE | 2016-08-27 22:46 | NUR ---
PT TO BE NPO AT MIDNIGHT FOR OR IN AM. AMORTIZATION SCHEDULE CLERK MICHELL SQUIRES CONTACTED RE: CHANGING PT TO NPO SLIDING SCALE AND ? IVF. PER AMORTIZATION SCHEDULE CLERK SHE WILL LOOK INTO AND PLACE ANY ORDERS THAT ARE NEEDED. WILL CONTINUE TO MONITOR.
[2016-08-28 06:30] VITALS: BP 112/64
--- NOTE | 2016-08-28 08:09 | NUR ---
Physical therapy: Per RN, pt going to OR today for cystoscopy. Will cancel PT for today. Will follow up as appropriate. Thank you.
--- NOTE | 2016-08-28 08:44 | PN- Housestaff ---
See Addendum Subjective Follow-up For: 1. Gross hematuria 2. Acute on chronic kidney injury 3. Right hydronephrosis 4.Hyperkalemia now resolved. Complaints: no complaints Subjective: Patient was seen and examined this morning. He is alert, awake and oriented to time place and person. No acute events monitored overnight. He does report some blood IN urine. He is nothing by mouth for cystoscopy today Patient will not be receiving Coumadin today secondary to hematuria Vitals stable this morning. Afebrile. Heart rate 78, respiratory 20, blood pressure 112/61, saturating at 95 on room air. He offers no other complaints Review of Systems Constitutional: Denies: chills, fever, malaise, weakness. Objective Last 24 Hrs of Vital Signs/I&O Vital Signs Date Time Temp Pulse Resp B/P B/P Pulse O2 O2 Flow FiO2 Mean Ox Delivery Rate 08/28 1043 112/64 08/28 1043 112/64 08/28 0630 98.1 78 20 112/64 95 08/27 2222 98.5 87 18 130/64 95 Room Air 08/27 2203 87 130/64 08/27 1407 98.3 82 20 118/60 97 Room Air Intake & Output 08/28 1600 08/28 0800 08/28 0000 Intake Total 10 Output Total 300 625 Balance -290 -625 Intake, IV 10 Output, Urine 300 625 Physical Exam General Appearance: Alert, Oriented X3, Cooperative, No Acute Distress Skin: No Rashes, No Breakdown, No Significant Lesion HEENT: Atraumatic, PERRLA, EOMI, Mucous Membr. moist/pink Neck: Supple, No JVD Lymphatic: Cervical nl Cardiovascular: Normal S1, Normal S2, No Murmurs Lungs: Normal Air Movement Abdomen: Normal Bowel Sounds, Soft, No Tenderness Extremities: No Clubbing, No Cyanosis, No Edema Vascular: Pulses Symmetrical Current Medications: Current Medications Sig/Christie Start time Last Medication Dose Route Stop Time Status Admin Acetaminophen 650 MG Q6P PRN 08/25 0230 AC PO Acetaminophen 1,000 MG Q6P PRN 08/25 0230 AC IV Atorvastatin Calcium 10 MG 1700 08/25 1700 AC 08/27 PO 1706 Gabapentin 300 MG BID 08/25 1000 AC 08/28 PO 1044 Insulin Aspart 0 TIDAC 08/26 1200 DC 08/27 SC 1706 Insulin Human Regular 0 Q6 08/27 2245 AC 08/28 SC 0629 Metoprolol Tartrate 25 MG BID 08/25 1023 AC 08/28 PO 1043 Morphine Sulfate 0.5 MG Q4P PRN 08/25 0230 AC IV Nystatin 1 KIKI TID 08/25 1600 AC 08/28 TOP 1045 Nystatin 1 KIKI TID PRN 08/25 0415 AC 08/28 TOP 1045 Sodium Bicarbonate 1,300 MG BID 08/25 1300 AC 08/28 PO 1044 Tamsulosin HCl 0.4 MG DAILY 08/26 1000 AC 08/28 PO 1043 Last 24 Hrs of Lab/Donte Results Last 24 Hrs of Labs/Mics: Laboratory Tests 08/28/16 0640: Anion Gap 10, Estimated GFR 23 L, BUN/Creatinine Ratio 19.3 Assessment/Plan Assessment: This is an 81 y/o Male with PMH of hypertension, dementia, previous recurrent UTIs, 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 He was seen by EMS and found to be borderline hypotensive for which he received fluids with moderate rise in BP. In the ED, he was found to be hyperkalemic with increase in Creatinine from baseline. Some EKG changes were also noted (TWI). Problem List: 1)Hematuria with Renal USG showing persistent hydronephrosis 2) Hyperkalemia with EKG changes, now resolved. 3) MORRO on CKD, possibly post obstructive vs ATN with Renal USG showing persistent Rt Sided hydronephrosis. 4) DM complicated by peripheral neuropathy 5) CAD s/p CABG 6) Atrial blood clots with PFO s/p Embolectomy and repair 7) Multiple DVT s/p IVC filter, currently on Coumadin 8) BPH Plan: - Monitor on GM for now. - Continues to have hematuria overnight. H/H continues to be stable. Urology was consulted who recommended cystoscopy today. he is nothing by mouth waiting for cystoscopy and right ureteral stent placement - Patient was seen by Dr. Joel in the past and was to follow up with him for persistent hydronephrosis and incomplete bladder emptying, which the patient never did. - Continue Metoprolol for now, hold Lasix in view of elevated creatinine with possible pre-renal azotemia and currently borderline blood pressure. - Novolog sliding scale, TIDAC fingersticks - DVT PPX: Hold off on coumadin for today, as he continues to have hematuria. - Code Status: Full Code Problem List: 1. Renal failure 2. Acute kidney injury 3. [id number] kidney injury Pain Ratin Pain Location: n/a Pain Goal: Remain pain free Pain Plan: tylinol Tomorrow's Labs & Rationales: CBC seen in the setting of hematuria BEP in the setting of acute kidney injury INR, holding Coumadin for now Consulting Request: Consulting Specialty: Urology Consulting Physician: Dr. Shah
--- NOTE | 2016-08-28 10:52 | Cons- Urology ---
See Addendum General Information and HPI Consulting Request Date of Consult: 08/14/16 Requested By: MOSHE MONTOYA MD Reason for Consult: right hydro, and new renal failure Source of Information: patient, old records Exam Limitations: no limitations History of Present Illness: 81 yr olf with new right hydro and ARF: recommend right stent insertion to optimize renal function in the hopes of deferring HD. Discussed with pt and his son and both wish to proceed with plan Allergies/Medications Allergies: Coded Allergies: NO KNOWN ALLERGIES (04/08/14) Home Med List: Atorvastatin Calcium (Lipitor) 10 MG TABLET 1 TAB PO DAILY Hyperlipidemia ( Reported) Finasteride 5 MG TABLET 1 TAB PO QPM PROSTATE (Reported) Gabapentin 300 MG CAPSULE 1 CAP PO BID NERVES (Reported) Gemfibrozil 600 MG TABLET 1 TAB PO DAILY CHOLESTEROL (Reported) Insulin Aspart (Novolog) 100 UNIT/ML VIAL 0 UNITS SC TIDAC diabetes <80 : Initiate hypoglycemia protocol 80-150 : No change 151-200 : Plus 2 units 201-250 : Plus 4 units 251-300 : Plus 6 units 301-350 : Plus 8 units 351-400 : Plus 10 units >400 : Plus 12 units and call Metoprolol Tartrate 25 MG TABLET 1 TAB PO BID BP (Reported) Tamsulosin HCl (Flomax) 0.4 MG CAP.ER.24H 1 CAP PO DAILY BPH (Reported) Warfarin Sodium (Coumadin) 2.5 MG TABLET 1 TAB PO TU, TH, SAT DVT (Reported) Warfarin Sodium (Coumadin) 5 MG TABLET 1 TAB PO M,W,F,DIAS DVT (Reported) Current Medications: Current Medications Sig/Christie Start time Last Medication Dose Route Stop Time Status Admin Acetaminophen 650 MG Q6P PRN 08/25 0230 AC PO Acetaminophen 1,000 MG Q6P PRN 08/25 0230 AC IV Atorvastatin Calcium 10 MG 1700 08/25 1700 AC 08/27 PO 1706 Gabapentin 300 MG BID 08/25 1000 AC 08/28 PO 1044 Insulin Aspart 0 TIDAC 08/26 1200 DC 08/27 SC 1706 Insulin Human Regular 0 Q6 08/27 2245 AC 08/28 SC 0629 Metoprolol Tartrate 25 MG BID 08/25 1023 AC 08/28 PO 1043 Morphine Sulfate 0.5 MG Q4P PRN 08/25 0230 AC IV Nystatin 1 KIKI TID 08/25 1600 AC 08/28 TOP 1045 Nystatin 1 KIKI TID PRN 08/25 0415 AC 08/28 TOP 1045 Sodium Bicarbonate 1,300 MG BID 08/25 1300 AC 08/28 PO 1044 Tamsulosin HCl 0.4 MG DAILY 08/26 1000 AC 08/28 PO 1043 Past History Medical History Type of Reaction: - Neurological: NEROPATHY EENT: NONE Cardiovascular: CAD, hypertension, CABG R & L atrial clots R brachial artery embolis Respiratory: NONE Gastrointestinal: NONE Hepatic: NONE Renal: benign prost hyperplasia Musculoskeletal: NONE Psychiatric: NONE Endocrine: diabetes Blood Disorders: NONE Cancer(s): NONE [employer]/Reproductive: NONE Other Medical Hx: HLD OBESITY Surgical History Pertinent Surgical History: non-contributory Family History Relations & Conditions If Any: FATHER FH: CAD (coronary artery disease) grandmother FH: stomach cancer Psychosocial History Where Do You Live? Home Services at Home: None Primary Language: Nigerian, Jordanian Smoking Status: Former Smoker (quit 10y ago, 1.5 p/d, for 30y) ETOH Use: occasional use Functional Ability ADLs Independent: dressing, eating, toileting, bathing. IADLs Needs Assist: shopping, housework, finances, food prep, telephone, transportation, medication admin. Employment History Retired? yes Review of Systems Review of Systems Constitutional: Reports: malaise, weakness. EENTM: Denies: no symptoms. Cardiovascular: Denies: no symptoms. Respiratory: Denies: no symptoms. Genitourinary: Reports: see HPI. Skin: Denies: no symptoms. Neurological/Psychological: Denies: no symptoms. Exam & Diagnostic Data Vital Signs and I&O Vital Signs Date Time Temp Pulse Resp B/P B/P Pulse O2 O2 Flow FiO2 Mean Ox Delivery Rate 08/28 1043 112/64 08/28 1043 112/64 08/28 0630 98.1 78 20 112/64 95 08/27 2222 98.5 87 18 130/64 95 Room Air 08/27 2203 87 130/64 08/27 1407 98.3 82 20 118/60 97 Room Air Intake & Output 08/28 1600 08/28 0800 08/28 0000 08/27 1600 08/27 0800 08/27 0000 Intake Total 10 280 044 7422 Output Total 300 625 425 425 350 Balance -290 -625 75 215 650 Intake, IV 10 400 400 Intake, Oral 500 240 600 Output, Urine 300 625 425 425 350 Patient 244 lb 243 lb Weight Physical Exam General Appearance: well developed/nourished, no apparent distress Head: atraumatic Eyes: Bilateral: normal appearance. Respiratory: normal breath sounds Cardiovascular: regular rate/rhythm Gastrointestinal: normal bowel sounds, soft Back: no vertebral tenderness Extremities: normal inspection Neurologic/Psych: no motor/sensory deficits, awake, alert, oriented x 3 Reproductive: Normal male genitalia Last 24 Hours of Labs: Laboratory Tests 08/28 0640 Chemistry Sodium (137 - 145 mmol/L) 135 L Potassium (3.5 - 5.1 mmol/L) 3.5 Chloride (98 - 107 mmol/L) 102 Carbon Dioxide (22 - 30 mmol/L) 23 Anion Gap (5 - 16) 10 BUN (9 - 20 mg/dL) 52 H Creatinine (0.7 - 1.2 mg/dL) 2.7 H Estimated GFR (>60 ml/min) 23 L BUN/Creatinine Ratio (7 - 25 %) 19.3 Imaging Results: PATIENT: TEGAN FOSTER PRESENT AGE: 81 PATIENT ACCOUNT NO: [id number] : 36 LOCATION: 1NO ORDERING PHYSICIAN: DOUGLAS BAINS MD SERVICE DATE: 08/26/16- EXAM TYPE: CAT - CT ABD & PELVIS W/O IV CONTRAS EXAMINATION: CT ABDOMEN AND PELVIS WITHOUT CONTRAST CLINICAL INFORMATION: Hematuria. Elevated creatinine. Evaluate for nephrolithiasis. COMPARISON: Renal ultrasound 08/25/[address] abdomen pelvis 05/13/2014 TECHNIQUE: Multidetector volumetric imaging was performed from the superior aspect of the liver through the pubic symphysis. Sagittal and coronal reformatted images were obtained on the technologist's workstation. DLP: 1252.19 mGy-cm FINDINGS: Visualized lung bases are well aerated. 8mm nodular density of the right lung base, nonspecific (image 7/112, series 2). Subsegmental atelectasis of both lung bases. Coronary artery calcifications. The liver demonstrates normal size and contour. Diffusely decreased liver attenuation is most suggestive of hepatic steatosis. The gallbladder is normal in appearance. The pancreas, spleen and adrenal glands are unremarkable. Similar nonspecific mild perinephric stranding bilaterally. No right-sided renal calculi. Stable mild right-sided hydroureteronephrosis. Several cysts of the right kidney are noted, the largest of which is a 6 cm upper pole cyst (previously 5 cm). Several smaller right-sided renal hypodensities are too small to accurately characterize. A few subcentimeter nonobstructing renal calculi are again appreciated within the left kidney, the largest of which measures approximately 5 mm. There is a 9 cm left upper pole renal cyst (previously 7.5 cm). There is a 1.2 cm left midpole cyst. Other small left-sided renal hypodensities are too small to accurately characterize but appear stable in size. There is no left-sided hydronephrosis. Small hiatal hernia. Normal caliber loops of small and large bowel. Normal appendix. Abdominal aorta is normal in caliber and demonstrates only mild atherosclerotic disease. IVC filter. The bladder is collapsed around a Wheat catheter. Bladder hathaway appear diffusely thickened. Tiny fat-containing inguinal hernias. No pelvic lymphadenopathy. Degenerative changes of the spine. Mild anterolisthesis of L4 and L5. IMPRESSION: 1. Similar mild right-sided hydroureteronephrosis. No right-sided renal calculi are appreciated. 2. Nonobstructive subcentimeter left renal calculi. No left-sided hydronephrosis. 3. Multiple renal cysts bilaterally as detailed above. Most cysts demonstrate mild interval increase in size since 2015. 4. The bladder is collapsed around a Wheat catheter, however, bladder hathaway appear diffusely thickened. Clinical correlation recommended. 5. Diffusely decreased liver attenuation, most suggestive of hepatic steatosis. 6. 8mm nodular density of the right lung base. This is a nonspecific finding and may represent focal atelectasis, however, a pulmonary nodule cannot be entirely excluded. Attention on follow up recommended. Assessment/Plan Assessment/Plan right hydro with new ARF: plan is hydrate, nephrology consult, and right retrograde/ureteroscopy/possible stent to helpfully alleviate the ARF. Copies To: ATIF HENDERSON MD Consult Acknowledgment - Thank you for your consult request. Attending MD Review Statement Attending Statement Attending MD Statement: examined this patient, discuss w/resident/PA/CONE CHOCOLATE DIPPER Attending Assessment/Plan: new right hydro with ARF: recommend investigation with cysto/ureteroscopy/ retrograde/stent on right as to cause of hydro and possibly relieve obstruction/ ARF
[2016-08-28 12:22] VITALS: BP 92/60
--- NOTE | 2016-08-28 12:33 | NUR ---
PT LEFT FLOOR FOR CYSTOSCOPY WITH DISTRIBUTION. WILL AWAIT RETURN TO FLOOR.
--- NOTE | 2016-08-28 15:02 | RADIOLOGY REPORT ---
EXAMINATION: XR ABDOMEN CLINICAL INDICATION: Ureteroscopy with stent placement COMPARISON: 08/26/2016 CT scan TECHNIQUE: Intraoperative fluoroscopy was utilized for performing a retrograde pyelogram. 4 hardcopy images were obtained FINDINGS: Images demonstrate retrograde contrast opacification of the right ureter and right collecting system with the final image demonstrating a right ureteric stent in place IMPRESSION: Right-sided ureteroscopy and stent placement
[2016-08-28 21:56] VITALS: BP 118/64
[2016-08-29 06:23] VITALS: BP 112/64
[2016-08-29 08:24] LABS: ABSOLUTE BASOPHIL COUNT 0 /CUMM (0.0-0.2); ABSOLUTE EOSINOPHIL COUNT 0.3 /CUMM (0.0-0.7); ABSOLUTE GRANULOCYTE CT 5.5 /CUMM (1.4-6.5); ABSOLUTE LYMPH COUNT 0.8 /CUMM (1.2-3.4); ABSOLUTE MONOCYTE COUNT 0.8 /CUMM (0.10-0.60); BASOPHIL % 0.4 % (0.0-2.0); EOSINOPHIL % 4.2 % (0-5); HEMATOCRIT 32.4 % (42-52); MEAN CORPUSCULAR HGB 32.5 PG (27.0-31.0); MEAN CORPUSCULAR HGB CONC 34.2 G/DL (33.0-37.0); MEAN CORPUSCULAR VOLUME 95.2 FL (80.0-94.0); MEAN PLATELET VOLUME 10.1 FL (7.4-10.4); PLATELET COUNT 146 /CUMM (130-400); WHITE BLOOD CELL COUNT 7.5 /CUMM (4.8-10.8)
[2016-08-29 08:26] LABS: PT 14.7 SEC (9.4-12.5)
--- NOTE | 2016-08-29 08:26 | PN- Housestaff ---
LAMONTE ALBARRAN,MASHA 08/29/16 0826: Subjective Follow-up For: 1. Gross hematuria 2. Acute on chronic kidney injury 3. Right hydronephrosis 4.Hyperkalemia now resolve Subjective: I saw and examined the patient patient today He is doing well, no complaints. Wheat catheter in situ draining bright red urinel. Reports drinking lot of water. Oterwise no issues. Review of Systems Constitutional: Reports: see HPI. Comments: ROS negative except the above. Objective Last 24 Hrs of Vital Signs/I&O Vital Signs Date Time Temp Pulse Resp B/P B/P Pulse O2 O2 Flow FiO2 Mean Ox Delivery Rate 08/29 0623 98.6 84 20 112/64 94 08/28 2156 98.1 96 20 118/64 99 Room Air 08/289 96 118/64 08/28 1222 96.9 76 18 92/60 97 Room Air 08/28 1043 112/64 08/28 1043 112/64 Intake & Output 08/29 1600 08/29 0800 08/29 0000 Intake Total 390 1100 Output Total 1050 550 Balance -660 550 Intake, IV 150 300 Intake, Oral 240 800 Number 0 Bowel Movements Output, Urine 1050 550 Physical Exam General Appearance: Alert, Oriented X3, Cooperative Skin: No Rashes HEENT: Atraumatic, PERRLA Cardiovascular: Normal S1, Normal S2 Lungs: Clear to Auscultation, Normal Air Movement Abdomen: Normal Bowel Sounds, Soft, No Tenderness Neurological: Normal Speech, Strength at 5/5 X4 Ext, Normal Tone Extremities: No Clubbing, No Cyanosis, maddie wraps in place for edema 2+ edema present Current Medications: Current Medications Sig/Christie Start time Last Medication Dose Route Stop Time Status Admin Acetaminophen 650 MG Q6P PRN 08/25 0230 AC PO Acetaminophen 1,000 MG Q6P PRN 08/25 0230 AC IV Atorvastatin Calcium 10 MG 1700 08/25 1700 AC 08/28 PO 170 Fentanyl Citrate 200 MCG .STK-MED ONE 08/28 1157 DC IM 08/28 1158 Gabapentin 300 MG BID 08/25 1000 AC 08/28 PO 205 Insulin Aspart 0 TIDAC 08/28 1700 AC 08/28 SC 170 Insulin Human Regular 4 UNITS .STK-MED ONE 08/28 1211 DC IV 08/28 1212 Insulin Human Regular 0 Q6 08/27 2245 DC 08/28 SC 0629 Metoprolol Tartrate 25 MG BID 08/25 1023 AC 08/28 PO 2058 Morphine Sulfate 0.5 MG Q4P PRN 08/25 0230 AC IV Nystatin 1 KIKI TID 08/25 1600 AC 08/28 TOP 2058 Nystatin 1 KIKI TID PRN 08/25 0415 DC 08/28 TOP 104 Sodium Bicarbonate 1,300 MG BID 08/25 1300 AC 08/28 PO 2057 Sodium Chloride 1,000 ML Q13H 08/29 0500 CAN IV 08/29 1759 Sodium Chloride 1,000 ML Q13H 08/28 1130 DC 08/28 IV 08/29 0029 1207 Tamsulosin HCl 0.4 MG DAILY 08/26 1000 AC 08/28 PO 1043 Last 24 Hrs of Lab/Donte Results Last 24 Hrs of Labs/Mics: Laboratory Tests 08/29/16 0645: Anion Gap 12, Estimated GFR 31 L, BUN/Creatinine Ratio 24.3, PT 14.7 H, INR 1.40 H, CBC w Diff NO MAN DIFF REQ, RBC 3.40 L, MCV 95.2 H, MCH 32.5 H, RDW 14.0, MPV 10.1, Gran % 74.0, Lymphocytes % 10.3 L, Monocytes % 11.1 H, Eosinophils % 4.2, Basophils % 0.4, Absolute Granulocytes 5.5, Absolute Lymphocytes 0.8 L, Absolute Monocytes 0.8 H, Absolute Eosinophils 0.3, Absolute Basophils 0, PUBS MCHC 34.2 Lines/Diet/Fluids Lines: peripheral lines Assessment/Plan Assessment: This is an 81 y/o Male with PMH of hypertension, dementia, previous recurrent UTIs, 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 He was seen by EMS and found to be borderline hypotensive for which he received fluids with moderate rise in BP. In the ED, he was found to be hyperkalemic with increase in Creatinine from baseline. Some EKG changes were also noted (TWI). Problem List: 1)Hematuria with Renal USG showing persistent hydronephrosis 2) Hyperkalemia with EKG changes, now resolved. 3) MORRO on CKD, possibly post obstructive vs ATN with Renal USG showing persistent Rt Sided hydronephrosis. 4) DM complicated by peripheral neuropathy 5) CAD s/p CABG 6) Atrial blood clots with PFO s/p Embolectomy and repair 7) Multiple DVT s/p IVC filter, currently on Coumadin 8) BPH Plan: - Monitor on GM for now. - Continues to have hematuria overnight. H/H continues to be stable. - Urology was consulted - underwent cystoscopy yesterday. Hydrating well. - Patient was seen by Dr. Salmon in the past and was to follow up with him for persistent hydronephrosis and incomplete bladder emptying, which the patient never did. - Continue Metoprolol for now, hold Lasix in view of elevated creatinine with possible pre-renal azotemia and currently borderline blood pressure. - Novolog sliding scale, TIDAC fingersticks - DVT PPX: Hold off on coumadin for today, as he continues to have hematuria. - Code Status: Full Code Problem List: 1. Renal failure 2. BPH (benign prostatic hyperplasia) 3. Renal insufficiency 4. Fnurc-hm-tyjakns kidney injury Pain Ratin Pain Location: n/a Pain Goal: Pain 4 or less Pain Plan: tylenol prn Tomorrow's Labs & Rationales: bep to monitor renal function cbc to monitor H&H Consulting Request: Consulting Specialty: Urology Consulting Physician: Dr. Pablo MARTINEZ MD,[facility] 08/29/16 1226: Attending MD Review Statement Attending Statement Attending MD Statement: examined this patient, discuss w/resident/PA/UNIT COORDINATOR, agreed w/resident/PA/UNIT COORDINATOR, discussed with family, reviewed EMR data (avail), discussed with nursing, discussed with case mgmt, reviewed images, amended to note Attending Assessment/Plan: Patient sitting comfortably in bed. That is post right ureteral stent placement. Does not offer any complaints. Ongoing hematuria postprocedure. Kidney function improving. Recommendations 1. Continue gentle hydration. 2. Follow-up Dr. Shah as recommendations. 3. Has ongoing hematuria, we can hold off on Coumadin for today. Start mechanical prophylaxis for DVT Px. 4. Monitor renal function. Recheck CBC and BEP tomorrow morning.
--- NOTE | 2016-08-29 11:26 | NUR ---
NURSING NOTE: PTS SON ELIZABETH CAME TO RN AND STATED "MY DAD HAD A WINNING LOTTO TICKET LAST WEEK AND NOW ITS MISSING, HE HAD IT IN ROOM [address] BEFORE HE MOVED UP HERE ON TUESDAY SO I THINK IT HAPPENED DOWN THERE. ITS ONLY WORTH $5 SO I WOULDNT BE TOO UPSET EXCEPT IT HAPPENED THE LAST ADMISSION HE WAS HERE SO THEIR IS A THEIF AROUND HERE" SON STATES "IT WAS THE PURPLE CARD THAT SAYS LANNY JOHNSON." [employer] SUPERVISIOR CALLED AND MADE AWARE AND TO COME SPEAK WITH PT AND FAMILY. SON INSTRUCTED TO TAKE THE REMAINING LOTTO TICKETS HOME BUT HE STATES "I TOLD MY DAD TO HIDE THEM."
--- NOTE | 2016-08-29 11:35 | Operative Report ---
See Addendum Operative/Inv Procedure Report Surgery Date: 08/14/16 Name of Procedure: cystoscopy: right stent insertion Pre-Operative Diagnosis: right hydro with arf Post-Operative Diagnosis: same Estimated Blood Loss: scant Surgeon/Public Transportation Inspector: MD ATIF HENDERSON-UROLOGY Anesthesia: moderate sedation Drains: 18FR PANTOJA Complications: NONE Operative/Procedure Note Note: The patient was taken to the operating room and placed on the OR table in supine position. Timeout was performed, with the patient awake, in order to confirm identity, procedure, antibiotics, anesthesia, and other pertinent information. After adequate anesthesia and antibiotics, the patient was placed in lithotomy stirrups draped and prepped in the usual surgical fashion. A 22 Zimbabwean cystoscope sheath with 30 angle lens was inserted into the urethra without difficulty. Upon entering the bladder, the bladder was noted to be free of tumor, free of stone, with clear reflux from the left ureteral orifice, and no efflux from the right. Under direct visualization the right ureter orifice was intubated with a 5 Zimbabwean open-ended ureter catheter. A retrograde pyelogram, with fluoroscopy was performed and significant hydronephrosis with tortuous ureter was noted: no filling defect, and no drainage of contrast after 2 min. The open-ended stent was then removed, followed by insertion of a 0.035 Glidewire into the right ureteral orifice. The Glidewire was advanced into the right renal pelvis, with good placement confirmed by fluoroscopy. A 6 x 22 Bard inlay ureteral double-J stent was railroaded over the gluidewire advanced easily. With the proximal coil in the right renal pelvis, and the distal coil in the bladder, (confirmed with fluorosocopy) the Glidewire was removed. The stent remained in proper place, both cystoscopically, and fluoroscopically. The cystoscope was removed. The bladder was then drained by inserting a new 18fr pantoja. The patient tolerated the procedure well. and taken to the in satisfactory condition. Findings: SEVERELY TRABECULATED BLADDER WITH MUCOSAL EDEMA-PARTICULARLY AROUND RIGHT U.O. Discharge Disposition: PACU CC: ATIF HENDERSON MD
--- NOTE | 2016-08-29 12:12 | NUR ---
REGARDING PT'S NECKLACE, PT STATES THAT HIS SON TOOK IT HOME WITH HIM TODAY.
[2016-08-29 15:00] VITALS: BP 112/64
--- NOTE | 2016-08-29 18:59 | NUR ---
PT REQUESTING SLEEP AID, JEFFERY ALBARRAN TEXTED. LAST BM WAS 3 DAYS AGO, BOWEL REGIMEN REQUESTED BY THIS RN TO MD, NO ORDERS AT THIS TIME.
--- NOTE | 2016-08-29 19:01 | NUR ---
PT SON CALLED ASKING FOR DOCTOR TO CALL HIM. THIS RN CALLED DR HENDERSON, WHO RETURNED CALL AND LEFT MESSAGE THAT PT KIDNEY FUNCTION IS IMPROVING AND A TUMOR WAS NOT NOTED IN BLADDER. HE WANTED PT TO KNOW THAT HE WILL BE AVAILABLE IN THE HOSPITAL TOMORROW, IF THE SON SHOULD CALL BACK ASKING ASHLEY.
[2016-08-29 23:00] VITALS: BP 128/66
[2016-08-30 07:00] VITALS: BP 132/62
--- NOTE | 2016-08-30 07:37 | PN- Housestaff ---
HERSON ALBARRAN,DOUGLAS 08/30/16 0737: Subjective Follow-up For: 1. Gross hematuria s/p right ureteral stent insertion 2. Acute on chronic kidney injury 3. Right hydronephrosis 4.Hyperkalemia now resolved Subjective: No complaints. Lying comfortably in bed. Review of Systems Constitutional: Reports: see HPI. Objective Last 24 Hrs of Vital Signs/I&O Vital Signs Date Time Temp Pulse Resp B/P B/P Pulse O2 O2 Flow FiO2 Mean Ox Delivery Rate 08/30 0700 98.4 85 20 132/62 95 Room Air 08/29 2300 98.7 89 20 128/66 96 Room Air 08/29 2214 89 128/66 08/29 1500 98.1 98 20 112/64 94 Room Air 08/29 0842 112/64 08/29 0840 84 112/64 Intake & Output 08/30 1600 08/30 0800 08/30 0000 Intake Total 550 400 Output Total 825 Balance 550 -425 Intake, IV 450 300 Intake, Oral 100 100 Output, Urine 825 Physical Exam General Appearance: Alert, Oriented X3, Cooperative, No Acute Distress Cardiovascular: Regular Rate, Normal S1, Normal S2 Lungs: Clear to Auscultation, Normal Air Movement Abdomen: Normal Bowel Sounds, Soft, No Tenderness Neurological: Normal Speech, Strength at 5/5 X4 Ext, Normal Tone, Sensation Intact Extremities: Both lower extremities are currently in bandages. Current Medications: Current Medications Sig/Christie Start time Last Medication Dose Route Stop Time Status Admin Acetaminophen 650 MG Q6P PRN 08/25 0230 AC PO Acetaminophen 1,000 MG Q6P PRN 08/25 0230 AC IV Atorvastatin Calcium 10 MG 1700 08/25 1700 AC 08/29 PO 1710 Gabapentin 300 MG BID 08/25 1000 AC 08/29 PO 2213 Insulin Aspart 0 TIDAC 08/28 1700 AC 08/29 SC 1709 Melatonin 5 MG AT BEDTIME 08/29 2200 AC 08/29 PO 2214 Metoprolol Tartrate 25 MG BID 08/25 1023 AC 08/29 PO 2214 Morphine Sulfate 0.5 MG Q4P PRN 08/25 0230 AC IV Nystatin 1 KIKI TID 08/25 1600 AC 08/29 TOP 2213 Sodium Bicarbonate 1,300 MG BID 08/25 1300 AC 08/29 PO 2213 Sodium Chloride 1,000 ML Q13H 08/29 1200 DC 08/29 IV 08/30 0059 1227 Tamsulosin HCl 0.4 MG DAILY 08/26 1000 AC 08/29 PO 0840 Last 24 Hrs of Lab/Donte Results Last 24 Hrs of Labs/Mics: Laboratory Tests 08/30/16 0618: Sodium Pending, Potassium Pending, Chloride Pending, Carbon Dioxide Pending, Anion Gap Pending, BUN Pending, Creatinine Pending, BUN/Creatinine Ratio Pending , CBC w Diff Pending, WBC Pending, RBC Pending, Hgb Pending, Hct Pending, MCV Pending, MCH Pending, RDW Pending, Plt Count Pending, MPV Pending, PUBS MCHC Pending Lines/Diet/Fluids Lines: peripheral lines Assessment/Plan Assessment: This is an 81 y/o Male with PMH of hypertension, dementia, previous recurrent UTIs, 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 He was seen by EMS and found to be borderline hypotensive for which he received fluids with moderate rise in BP. In the ED, he was found to be hyperkalemic with increase in Creatinine from baseline. Some EKG changes were also noted (TWI). Problem List: 1)Hematuria with Renal USG showing persistent hydronephrosis 2) Hyperkalemia with EKG changes, now resolved. 3) MORRO on CKD, possibly post obstructive, now resolving 4) DM complicated by peripheral neuropathy 5) CAD s/p CABG 6) Atrial blood clots with PFO s/p Embolectomy and repair 7) Multiple DVT s/p IVC filter, currently on Coumadin 8) BPH Plan: - Monitor on GM for now. - s/p Cystoscopy with right ureteral stent placement on 08/29 for right hydro. - Creatinine improving after stent placement. - Continue Metoprolol for now, hold Lasix in view of elevated creatinine with possible pre-renal azotemia and currently borderline blood pressure. - Novolog sliding scale, TIDAC fingersticks - DVT PPX: Coumadin - Code Status: Full Code Problem List: 1. Renal failure Pain Ratin Pain Location: None Pain Goal: Pain 4 or less Pain Plan: Per EMR Tomorrow's Labs & Rationales: Creatinine to monitor for renal function. DVT/Prophylaxis: mechanical Consulting Request: Consulting Specialty: Urology Consulting Physician: Dr. Pablo MONTOYA MD,[facility] 08/30/16 1137: Attending MD Review Statement Attending Statement Attending MD Statement: examined this patient, discuss w/resident/PA/PHOTOGRAMMETRIC TECH, agreed w/resident/PA/PHOTOGRAMMETRIC TECH, reviewed EMR data (avail) Attending Assessment/Plan: 81M PMH HTN, dementia, recurrent UTIs, DVT with biatrial thrombus and ASD s/p repair on Coumadin, NIDDM with diabetic neuropathy, BPH, nephrolithiasis s/p surgical removal, previous history of brachial artery occlusion s/p thrombectomy admitted with lightheadedness and fall, with increased creatinine from prior baseline, proteinuria, and now hematuria. No complaints today. Underwent right ureteral stent placement on 08/29. Creatinine improving. Still having hematuria in Wheat. 1. Gross hematuria 2. Acute on chronic kidney injury 3. Right hydronephrosis Plan - Continue on general medicine - Follow nephrology and urology recommendations - Monitor renal function and CBC - Continue home medications - May restart Coumadin today - DVT PPx
[2016-08-30 08:53] LABS: ABSOLUTE BASOPHIL COUNT 0 /CUMM (0.0-0.2); ABSOLUTE EOSINOPHIL COUNT 0.4 /CUMM (0.0-0.7); ABSOLUTE GRANULOCYTE CT 4.2 /CUMM (1.4-6.5); ABSOLUTE LYMPH COUNT 1.1 /CUMM (1.2-3.4); ABSOLUTE MONOCYTE COUNT 0.9 /CUMM (0.10-0.60); BASOPHIL % 0.7 % (0.0-2.0); EOSINOPHIL % 5.5 % (0-5); GRANULOCYTE % 63.9 % (42.2-75.2); HEMATOCRIT 30.5 % (42-52); MEAN CORPUSCULAR HGB 32.3 PG (27.0-31.0); MEAN CORPUSCULAR HGB CONC 33.7 G/DL (33.0-37.0); MEAN CORPUSCULAR VOLUME 95.8 FL (80.0-94.0); MEAN PLATELET VOLUME 9.2 FL (7.4-10.4); PLATELET COUNT 142 /CUMM (130-400); RBC DISTRIBUTION WIDTH 13.4 % (11.5-14.5); RED BLOOD CELL CT 3.18 /CUMM (4.70-6.10); WHITE BLOOD CELL COUNT 6.6 /CUMM (4.8-10.8)
--- NOTE | 2016-08-30 09:40 | PN- Nephrology ---
Assessment/Plan Assessment: 1. MORRO: improved obstruction post R ureteral stent 2. CKD: mod, stage 3B, due to underlying diabetic nephropathy w nephrotic range proteinuria as well as recurrent R sided obstruction; w/o dialysis need 3. Met acid: continue po bicarb Suggestion: ? voiding trial --> per urology will follow prn in hosp Subjective Subjective: No complaints R ureteral stent placement noted Less gross hematuria --> still has Wheat Objective Vital Signs and I&Os Vital Signs Date Time Temp Pulse Resp B/P B/P Pulse O2 O2 Flow FiO2 Mean Ox Delivery Rate 08/30 0849 85 132/62 08/30 0849 85 132/62 08/30 0700 98.4 85 20 132/62 95 Room Air 08/29 2300 98.7 89 20 128/66 96 Room Air 08/29 2214 89 128/66 08/29 1500 98.1 98 20 112/64 94 Room Air Intake & Output 08/30 1600 08/30 0400 08/29 1600 08/29 0400 08/28 1600 08/28 0400 Intake Total 000 588 0957 1100 115 Output Total 825 1050 550 300 625 Balance 550 -425 440 550 -185 -625 Intake, IV 450 300 450 300 85 Intake, Oral 521 079 4648 800 30 Number 0 Bowel Movements Output, Urine 825 1050 550 300 625 Physical Exam General Appearance: no apparent distress, alert Head: atraumatic, normal appearance Ears, Nose, Throat: normal ENT inspection Neck: normal inspection Respiratory: no respiratory distress, quiet respiration, lungs clear Cardiovascular: regular rate/rhythm Abdomen: soft, obese Extremities: dressed bilat w JONAS wraps Neurologic/Psychiatric: awake, alert Current Medications: Current Medications Sig/Christie Start time Last Medication Dose Route Stop Time Status Admin Acetaminophen 650 MG Q6P PRN 08/25 0230 AC PO Acetaminophen 1,000 MG Q6P PRN 08/25 0230 AC IV Atorvastatin Calcium 10 MG 1700 08/25 1700 AC 08/29 PO 1710 Gabapentin 300 MG BID 08/25 1000 AC 08/30 PO 0849 Insulin Aspart 0 TIDAC 08/28 1700 AC 08/30 SC 0849 Melatonin 5 MG AT BEDTIME 08/29 2200 AC 08/29 PO 2214 Metoprolol Tartrate 25 MG BID 08/25 1023 AC 08/30 PO 0849 Morphine Sulfate 0.5 MG Q4P PRN 08/25 0230 AC IV Nystatin 1 KIKI TID 08/25 1600 AC 08/30 TOP 0850 Sodium Bicarbonate 1,300 MG BID 08/25 1300 AC 08/30 PO 0849 Sodium Chloride 1,000 ML Q13H 08/29 1200 DC 08/29 IV 08/30 0059 1227 Tamsulosin HCl 0.4 MG DAILY 08/26 1000 AC 08/30 PO 0849 Results Pertinent Lab Results: Laboratory Tests 08/30 08/29 0618 0645 Chemistry Sodium (137 - 145 mmol/L) 134 L 133 L Potassium (3.5 - 5.1 mmol/L) 4.0 4.1 Chloride (98 - 107 mmol/L) 103 101 Carbon Dioxide (22 - 30 mmol/L) 20 L 19 L Anion Gap (5 - 16) 10 12 BUN (9 - 20 mg/dL) 50 H 51 H Creatinine (0.7 - 1.2 mg/dL) 2.0 H 2.1 H Estimated GFR (>60 ml/min) 32 L 31 L BUN/Creatinine Ratio (7 - 25 %) 25.0 24.3 Coagulation PT (9.4 - 12.5 SEC) 14.7 H INR (0.90 - 1.17) 1.40 H Hematology CBC w Diff NO MAN DIFF REQ NO MAN DIFF REQ WBC (4.8 - 10.8 /CUMM) 6.6 7.5 RBC (4.70 - 6.10 /CUMM) 3.18 L 3.40 L Hgb (14.0 - 18.0 G/DL) 10.3 L 11.1 L Hct (42 - 52 %) 30.5 L 32.4 L MCV (80.0 - 94.0 FL) 95.8 H 95.2 H MCH (27.0 - 31.0 PG) 32.3 H 32.5 H RDW (11.5 - 14.5 %) 13.4 14.0 Plt Count (130 - 400 /CUMM) 142 146 MPV (7.4 - 10.4 FL) 9.2 10.1 Gran % (42.2 - 75.2 %) 63.9 74.0 Lymphocytes % (20.5 - 51.1 %) 16.7 L 10.3 L Monocytes % (1.7 - 9.3 %) 13.2 H 11.1 H Eosinophils % (0 - 5 %) 5.5 H 4.2 Basophils % (0.0 - 2.0 %) 0.7 0.4 Absolute Granulocytes (1.4 - 6.5 /CUMM) 4.2 5.5 Absolute Lymphocytes (1.2 - 3.4 /CUMM) 1.1 L 0.8 L Absolute Monocytes (0.10 - 0.60 /CUMM) 0.9 H 0.8 H Absolute Eosinophils (0.0 - 0.7 /CUMM) 0.4 0.3 Absolute Basophils (0.0 - 0.2 /CUMM) 0 0 PUBS MCHC (33.0 - 37.0 G/DL) 33.7 34.2 05/20 0640 Chemistry Sodium (137 - 145 mmol/L) 135 L Potassium (3.5 - 5.1 mmol/L) 3.5 Chloride (98 - 107 mmol/L) 102 Carbon Dioxide (22 - 30 mmol/L) 23 Anion Gap (5 - 16) 10 BUN (9 - 20 mg/dL) 52 H Creatinine (0.7 - 1.2 mg/dL) 2.7 H Estimated GFR (>60 ml/min) 23 L BUN/Creatinine Ratio (7 - 25 %) 19.3
[2016-08-30 14:54] VITALS: BP 130/72
--- NOTE | 2016-08-30 15:38 | NUR ---
PT STATES THAT HE HAD A BOWEL MOVEMENT YESTERDAY 08/29/16.
[2016-08-30 22:31] VITALS: BP 126/80
[2016-08-31 05:44] VITALS: BP 122/86
--- NOTE | 2016-08-31 07:24 | PN- Housestaff ---
See Addendum Subjective Follow-up For: 1. Gross hematuria s/p right ureteral stent insertion 2. Acute on chronic kidney injury 3. Right hydronephrosis 4.Hyperkalemia now resolved Subjective: Patient has no complaints, son is at bedside. They are aware that the patient maybe discharged today. Review of Systems Constitutional: Reports: see HPI. Objective Last 24 Hrs of Vital Signs/I&O Vital Signs Date Time Temp Pulse Resp B/P B/P Pulse O2 O2 Flow FiO2 Mean Ox Delivery Rate 08/31 0544 98.1 76 20 122/86 95 Room Air 08/30 2231 98.8 85 20 126/80 95 Room Air 08/30 1454 98.2 87 16 130/72 95 08/30 0849 85 132/62 08/30 0849 85 132/62 Intake & Output 08/31 0800 08/31 0000 08/30 1600 Intake Total 250 500 730 Output Total 588 231 4856 Balance -100 -400 -270 Intake, IV 10 10 Intake, Oral 240 500 720 Number 0 Bowel Movements Output, Urine 825 043 2846 Physical Exam General Appearance: Alert, Oriented X3, Cooperative Cardiovascular: Regular Rate, Normal S1, Normal S2 Lungs: Clear to Auscultation, Normal Air Movement Abdomen: Normal Bowel Sounds, Soft, No Tenderness Neurological: Normal Speech, Strength at 5/5 X4 Ext, Normal Tone, Sensation Intact Extremities: decreased edema noticed in the lower extremities Current Medications: Current Medications Sig/Christie Start time Last Medication Dose Route Stop Time Status Admin Acetaminophen 650 MG Q6P PRN 08/25 0230 AC PO Acetaminophen 1,000 MG Q6P PRN 08/25 0230 AC IV Atorvastatin Calcium 10 MG 1700 08/25 1700 AC 08/30 PO 1626 Gabapentin 300 MG BID 08/25 1000 AC 08/30 PO 2130 Insulin Aspart 0 TIDAC 08/28 1700 AC 08/30 SC 1627 Melatonin 5 MG AT BEDTIME 08/29 2200 AC 08/30 PO 2130 Metoprolol Tartrate 25 MG BID 08/25 1023 AC 08/30 PO 2133 Morphine Sulfate 0.5 MG Q4P PRN 08/25 0230 AC IV Nystatin 1 KIKI TID 08/25 1600 AC 08/30 TOP 1626 Patient Medication 1 ED .STK-MED ONE 08/30 1246 DC Teaching ED 08/30 1247 Sodium Bicarbonate 1,300 MG BID 08/25 1300 AC 08/30 PO 2130 Tamsulosin HCl 0.4 MG DAILY 08/26 1000 AC 08/30 PO 0849 Warfarin Sodium 5 MG COUMADIN 1700 ONE 08/30 1700 DC 08/30 PO 08/30 1701 1626 Last 24 Hrs of Lab/Donte Results Last 24 Hrs of Labs/Mics: Laboratory Tests 08/31/16 0710: Sodium Pending, Potassium Pending, Chloride Pending, Carbon Dioxide Pending, Anion Gap Pending, BUN Pending, Creatinine Pending, BUN/Creatinine Ratio Pending , PT Pending, INR Pending Lines/Diet/Fluids Lines: peripheral lines Assessment/Plan Assessment: This is an 81 y/o Male with PMH of hypertension, dementia, previous recurrent UTIs, 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 He was seen by EMS and found to be borderline hypotensive for which he received fluids with moderate rise in BP. In the ED, he was found to be hyperkalemic with increase in Creatinine from baseline. Some EKG changes were also noted (TWI). Problem List: 1) Hematuria with Renal USG showing persistent hydronephrosis 2) Hyperkalemia with EKG changes, now resolved. 3) MORRO on CKD, possibly post obstructive, now resolving 4) DM complicated by peripheral neuropathy 5) CAD s/p CABG 6) Atrial blood clots with PFO s/p Embolectomy and repair 7) Multiple DVT s/p IVC filter, currently on Coumadin 8) BPH Plan: - Monitor on GM for now. - s/p Cystoscopy with right ureteral stent placement on 08/29 for right hydro. - Creatinine improving after stent placement, but the patient continues to have dark urine. Urology yet to see the patient after the procedure. Consider discharge once cleared by urology. - Continue Metoprolol for now. As there is no pre-renal azotemia with improvement of creatinine with placement of stent, recommendations regarding restarting lasix after seeing his PCP as an outpatient. - Also, his Januvia and Glimeripide are being held in view of his decreased creatinine clearance. The patient will be discharged on a novolog sliding scale. - Novolog sliding scale, TIDAC fingersticks - DVT PPX: Coumadin - Code Status: Full Code Problem List: 1. Renal failure Pain Ratin Pain Location: None Pain Goal: Pain 4 or less Pain Plan: Per EMR Tomorrow's Labs & Rationales: CBC as the patient has hematuria DVT/Prophylaxis: pharmacological Consulting Request: Consulting Specialty: Urology Consulting Physician: Dr. Shah
[2016-08-31 08:44] LABS: PT 12.9 SEC (9.4-12.5)
[2016-08-31] MEDS ORDERED: NOVOLOG100 UNIT/2 SC (09:39)
[2016-08-31 14:03] VITALS: BP 120/74
[2016-08-31 17:04] VITALS: BP 120/74
== END 2016-08-31 19:00 | DRG 660 ==
LOC: ERH 00:07 → 1NO 02:03 → ERHI 02:03 → ENRESERV 03:33 → 1NO 04:59 → 2NB 08-26 19:09 → ENPENDDIS 08-31 14:04 → 2NB 08-31 19:00
PROVIDERS: Emergency Medicine; Internal Medicine; Ophthalmology; ADMIT Internal Medicine
PROC: BT1DZZZ Fluoroscopy of Right Kidney, Ureter and Bladder (ICD-10-PCS; principal; 2016-08-28)
PROC: 0T768ZZ Dilation of Right Ureter, Via Natural or Artificial Opening Endoscopic (ICD-10-PCS; principal; 2016-08-28)
DX: I12.9 Hypertensive chronic kidney disease with stage 1 through stage 4 chronic kidney disease, or unspecified chronic kidney disease (principal); N17.9 Acute kidney failure, unspecified; E87.2 Acidosis; E11.22 Type 2 diabetes mellitus with diabetic chronic kidney disease; N13.30 Unspecified hydronephrosis; E11.65 Type 2 diabetes mellitus with hyperglycemia; E11.40 Type 2 diabetes mellitus with diabetic neuropathy, unspecified; E87.5 Hyperkalemia; E11.319 Type 2 diabetes mellitus with unspecified diabetic retinopathy without macular edema; E86.0 Dehydration; R31.9 Hematuria, unspecified; N18.3 Chronic kidney disease, stage 3 (moderate); E66.9 Obesity, unspecified; Z68.36 Body mass index [BMI] 36.0-36.9, adult; Z95.1 Presence of aortocoronary bypass graft; Z79.84 Long term (current) use of oral hypoglycemic drugs; E78.5 Hyperlipidemia, unspecified; Z86.718 Personal history of other venous thrombosis and embolism; Z79.01 Long term (current) use of anticoagulants; N40.0 Benign prostatic hyperplasia without lower urinary tract symptoms; I25.10 Atherosclerotic heart disease of native coronary artery without angina pectoris; B36.8 Other specified superficial mycoses; Z87.891 Personal history of nicotine dependence
CPT/HCPCS: 1NP; 2NBSP; 84133; 84300; 36415; 74000; 74176; 76775; 81001; 82436; 82570; 84165; 87086; 93005; 93010; 93306; 96360; 97110-GO; 97116-GO; 97161-GP; 97165-GO; 97530-GO; 99291; C2617; J0696; J1815

== ENCOUNTER 2016-09-20 00:09 | Inpatient (IN) | payer OTHER, MEDICARE ==
[~2016-09-20] VITALS: Ht 172.7 cm; Wt 108.9 kg
[~2016-09-20 00:09] MED LIST changes: +COUMADIN2.5 M1 PO; +COUMADIN5 M2 PO; +CRESTOR20 M2 PO; +JANUVIA50 M1 PO; +LASIX20 M1 PO; +LIPITOR10 M1 PO; +NOVOLOG100 UNIT/2 SC
--- NOTE | 2016-09-20 00:10 | NUR ---
PATIENT EVALUATED BY MD DORSEY ON ARRIVAL. REPORT TAKEN FROM EMS BY MD DORSEY.
--- NOTE | 2016-09-20 00:21 | ED AMS/SEIZURE/WEAK/DIZZY ---
History of Present Illness General Chief Complaint: General Adult Stated Complaint: ABNORMAL LABS,ALTERED MENTAL STATUS Source: patient, old records, W10 Exam Limitations: no limitations Vital Signs & Intake/Output Vital Signs & Intake/Output Vital Signs Date Time Temp Pulse Resp B/P B/P Pulse O2 O2 Flow FiO2 Mean Ox Delivery Rate 09/21 227 100.4 75 16 91/50 96 Nasal 3.0L Cannula 09/20 56 102.2 82 16 118/57 95 Nasal 2.0L Cannula 09/21 27 96 Nasal 2.0L Cannula 09/21 23 98.7 90 20 104/56 93 Room Air Allergies Coded Allergies: NO KNOWN ALLERGIES (04/08/14) Reconcile Medications Acetaminophen 500 MG TABLET 650 MG SD Q4HP PRN PAIN, TEMP >101 (Reported) Acetaminophen (Mapap) 500 MG CAPSULE 650 MG PO Q4HP PRN PAIN, TEMP >101 ( Reported) Atorvastatin Calcium (Lipitor) 10 MG TABLET 1 TAB PO DAILY Hyperlipidemia ( Reported) Bisacodyl (Bisac-Evac) 10 MG SUPP.RECT 1 SUPP SD PRN PRN CONSTIPATION ( Reported) Finasteride 5 MG TABLET 1 TAB PO QPM PROSTATE (Reported) Furosemide (Lasix) 40 MG TABLET 60 MG PO DAILY FLUID (Reported) Gabapentin 300 MG CAPSULE 1 CAP PO BID NERVES (Reported) Gemfibrozil 600 MG TABLET 1 TAB PO DAILY CHOLESTEROL (Reported) Glimepiride (Amaryl) 4 MG TABLET 1 TAB PO DAILY DM (Reported) Insulin Aspart (Novolog) 100 UNIT/ML VIAL 0 UNITS SC TIDAC diabetes <80 : Initiate hypoglycemia protocol 80-150 : No change 151-200 : Plus 2 units 201-250 : Plus 4 units 251-300 : Plus 6 units 301-350 : Plus 8 units 351-400 : Plus 10 units >400 : Plus 12 units and call Lorazepam (Ativan) 0.5 MG TABLET 1 TAB PO QHS PRN ANXIETY/ INSOMNIA (Reported ) Lorazepam (Ativan) 0.5 MG TABLET 1 TAB PO SI ANXIETY/ INSOMNIA (Reported) Magnesium Hydroxide (Milk Of Magnesia) 400 MG/5 ML ORAL.SUSP 30 ML PO DAILY PRN CONSTIPATION (Reported) Metoprolol Tartrate 25 MG TABLET 1 TAB PO BID BP (Reported) Na Phos,M-B/Na Phos,Di-Ba (Fleet Enema) 19 GRAM-7 GRAM/118 ML ENEMA 1 E RC ONCE CONSTIPATION (Reported) Sitagliptin Phosphate (Januvia) 25 MG TABLET 1 TAB PO DAILY DM (Reported) Spironolactone 25 MG TABLET 12.5 MG PO DAILY (Reported) Tamsulosin HCl (Flomax) 0.4 MG CAP.ER.24H 1 CAP PO DAILY BPH (Reported) Tramadol HCl (Ultram) 50 MG TABLET 1 TAB PO Q6P PRN PAIN (Reported) Warfarin Sodium (Coumadin) 2.5 MG TABLET 1 TAB PO TU, TH, SAT DVT (Reported) Warfarin Sodium (Coumadin) 5 MG TABLET 1 TAB PO M,W,F,DIAS DVT (Reported) Triage Nurses Notes Reviewed? yes Onset: Gradual Duration: day(s): Timing: recent history Injury Environment: home Severity: mild, moderate Modifying Factors: Improves With: rest. Associated Symptoms: decreased oral intake HPI: 81-year-old gentleman presents with weakness and abnormal lab results from [facility]. Per the W 10 in the enclosed labs, his creatinine is now 2.4. His baseline creatinine in is between 1 and 1.5. He states that he feels tired, and might not be drinking as much fluid as normal. The medics report that he has been slightly more tired than usual. He denies chest pain abdominal pain nausea vomiting diarrhea or rashes. Past History Travel History Traveled to [place] past 21 day No Medical History Any Pertinent Medical History? 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 Respiratory: NONE Gastrointestinal: NONE Hepatic: NONE Renal: benign prost hyperplasia Musculoskeletal: NONE Psychiatric: NONE Endocrine: diabetes Blood Disorders: NONE Cancer(s): NONE HONEY PROCESSOR/Reproductive: NONE Other Medical Hx: HLD OBESITY History of MRSA: No History of VRE: No History of CDIFF: No Surgical History Surgical History: non-contributory Psychosocial History Who do you live with Patient/Self Services at Home None What is your primary language Portuguese Family History Family History, If Any: FATHER FH: CAD (coronary artery disease) grandmother FH: stomach cancer Hx Contributory? No Review of Systems Review of Systems Constitutional: Reports: no symptoms. EENTM: Reports: no symptoms. Respiratory: Reports: no symptoms. Cardiovascular: Reports: no symptoms. GI: Reports: no symptoms. Genitourinary: Reports: no symptoms. Musculoskeletal: Reports: no symptoms. Skin: Reports: no symptoms. Neurological/Psychological: Reports: no symptoms. Hematologic/Endocrine: Reports: no symptoms. Immunologic/Allergic: Reports: no symptoms. All Other Systems: Reviewed and Negative Physical Exam Physical Exam General Appearance: well developed/nourished, no apparent distress Head: atraumatic, normal appearance Eyes: Bilateral: normal appearance. Ears, Nose, Throat: normal ENT inspection, dry mucosa Neck: normal inspection, supple Respiratory: normal breath sounds, chest non-tender, no respiratory distress Cardiovascular: regular rate/rhythm Gastrointestinal: normal bowel sounds, soft, non-tender, no organomegaly Back: normal inspection Extremities: normal range of motion Neurologic/Psych: no motor/sensory deficits, awake, alert, oriented x 3 Skin: intact, normal color, warm/dry Comments: genitalia.... ulcerations on penile shaft with distorted meatus. Core Measures ACS in differential dx? No CVA/TIA Diagnosis: No Severe Sepsis Present: No Septic Shock Present: No Progress Differential Diagnosis: renal failure versus dehydration versus UTI versus other Plan of Care: Orders Procedure Date/time Status Nothing by Mouth 09/20 B Active Saline Lock 09/20 218 Active Misc Message 09/20 218 Active ED Holding Orders 09/20 218 Active Admit to inpatient 09/20 021 Active Vital Signs 09/20 218 Active Code Status 09/20 021 Active Add-on Test (ER Only) 09/20 0207 Active Add-on Test (ER Only) 09/20 0151 Active BLOOD CULTURE 09/20 0045 Active CULTURE,URINE 09/20 0043 Active BLOOD CULTURE 09/20 0043 Active URINALYSIS 09/20 0043 Complete TROPONIN LEVEL 09/20 0023 Complete PROTHROMBIN TIME 09/20 0023 Active LACTIC ACID 09/20 0023 Complete LIPASE 09/20 0021 Complete HEPATIC FUNCTION PANEL 09/20 0021 Complete CBC WITHOUT DIFFERENTIAL 09/20 0021 Complete BASIC METABOLIC PANEL 09/20 0021 Complete AMYLASE 09/20 0021 Complete EKG 09/20 0021 Active Laboratory Tests 09/20/16 0100: Urine Color YEL, Urine Clarity CLDY H, Urine pH 6.0, Ur Specific Basom 1.020, Urine Protein 100 H, Urine Ketones NEG, Urine Nitrite NEG, Urine Bilirubin NEG, Urine Urobilinogen 0.2, Ur Leukocyte Esterase LARGE H, Ur Microscopic SEDIMENT EXAMINED, Urine RBC 1-3, Urine WBC > 75 H, Ur Epithelial Cells RARE, Urine Bacteria PACKD H, Urine Mucus RARE, Urine Hemoglobin MOD H, Urine Glucose NEG 09/20/16 0023: Troponin I Cancelled 09/20/16 0023: Anion Gap 9, Estimated GFR 23 L, BUN/Creatinine Ratio 18.9, Glucose 85, Lactic Acid 0.9, Calcium 7.9 L, Total Bilirubin 0.8, Direct Bilirubin 0.4, AST 16 L, ALT 24, Alkaline Phosphatase 74, Troponin I 0.04, Total Protein 5.4 L, Albumin 2.6 L, Amylase 35, Lipase 43, PT Pending, INR Pending, CBC w Diff NO MAN DIFF REQ, RBC 3.24 L, MCV 93.7, MCH 31.3 H, RDW 13.3, MPV 7.7, Gran % 82.0 H, Lymphocytes % 5.1 L, Monocytes % 12.5 H, Eosinophils % 0.1, Basophils % 0.3, Absolute Granulocytes 7.7 H, Absolute Lymphocytes 0.5 L, Absolute Monocytes 1.2 H, Absolute Eosinophils 0, Absolute Basophils 0, PUBS MCHC 33.4 Microbiology 09/20 0115 BLOOD: Blood Culture - RECD 09/20 99 URINE ROUT: Urine Culture - RECD 09/20 99 BLOOD: Blood Culture - RECD Diagnostic Imaging: Viewed by Me: Radiology Read. Discussed w/RAD: Radiology Read. CXR Impression: low lung volumes, otherwise benign. Initial ED EKG: normal axis, normal intervals, normal p-waves, normal QRS complex, normal sinus rhythm Comments: PATIENT: TEGAN FOSTER PRESENT AGE: 81 PATIENT ACCOUNT NO: [id number] : 36 LOCATION: [facility] ORDERING PHYSICIAN: NOEL DORSEY MD SERVICE DATE: 09/20/16 EXAM TYPE: RAD - XRY-PORTABLE CHEST XRAY EXAMINATION: XR PORTABLE CHEST CLINICAL INFORMATION: CHF COMPARISON: 04/08/2014 TECHNIQUE: Portable frontal view of the chest was obtained. FINDINGS: The lungs are hypoinflated. No focal consolidation is seen. No evidence of pneumothorax, pleural effusion, or pulmonary edema. The cardiac silhouette is prominent and may be accentuated by patient rotation and low lung volumes. Sternal wires are present. No acute osseous findings are seen. IMPRESSION: Low lung volumes with no acute findings identified. DICTATED BY: PAT PARRA MD DATE/TIME DICTATED:09/20/16120 BUILDING CONSTRUCTION PROFESSOR:LORRIE DATE/TIME TRANSCRIBED:09/20/16120 CONFIDENTIAL, DO NOT COPY WITHOUT APPROPRIATE AUTHORIZATION. <Electronically signed in Other Vendor System> SIGNED BY: PAT PARRA MD 09/20/16126 Departure Departure Disposition: STILL A PATIENT Condition: Stable Clinical Impression Primary Impression: Acute renal failure Referrals: ZACHARY MENESES MD (PCP/Family) Departure Forms: Customer Survey General Discharge Information Admission Note Spoke With: EMMA SUTTON MD Documentation of Exam: Documentation of any treatments & extenuating circumstances including Concerns Regarding Discharge (functional status, medication knowledge or non-compliance, living conditions, etc.) that warrant an admission rather than observation: pt with uti, meets criteria for sepsis, elevated creatinine... pt merits iv fluids, iv abx, electrolyte management. Critical Care Note Critical Care Note Critical Care Time: 30-74 min
--- NOTE | 2016-09-20 00:22 | NUR ---
TRIAGE: JALYN FROM [facility] FOR "ABNORMAL LABS AT REQUEST OF PATIENT'S SON" PER W10. BLOODWORK PROVIDED BY [facility] FROM 09/19/16; BUN 47, CREATININE 2.4, GFR 26, HGB 10.4, HCT 31.6, BAND 16. PATIENT DENIES ANY COMPLAINTS AT THIS TIME.
--- NOTE | 2016-09-20 00:26 | NUR ---
LABS DRAWN AND SENT (BLUE, SST X2, LAV, ALLEN). PT DENIES ANY ABD PAIN. VERY WARM TO TOUCH, AFEBRILE 98.7. #20 EST TO RF AND NS IVF RUNNING PER ORDER. PT STATES HE IS ABLE TO NOTIFY STAFF WHEN EXPERIENCING URGE TO VOID.
[2016-09-20 00:30] LABS: ABSOLUTE BASOPHIL COUNT 0 /CUMM (0.0-0.2); ABSOLUTE EOSINOPHIL COUNT 0 /CUMM (0.0-0.7); ABSOLUTE GRANULOCYTE CT 7.7 /CUMM (1.4-6.5); ABSOLUTE LYMPH COUNT 0.5 /CUMM (1.2-3.4); ABSOLUTE MONOCYTE COUNT 1.2 /CUMM (0.10-0.60); BASOPHIL % 0.3 % (0.0-2.0); EOSINOPHIL % 0.1 % (0-5); HEMATOCRIT 30.3 % (42-52); MEAN CORPUSCULAR HGB 31.3 PG (27.0-31.0); MEAN CORPUSCULAR HGB CONC 33.4 G/DL (33.0-37.0); MEAN CORPUSCULAR VOLUME 93.7 FL (80.0-94.0); MEAN PLATELET VOLUME 7.7 FL (7.4-10.4); PLATELET COUNT 269 /CUMM (130-400); RBC DISTRIBUTION WIDTH 13.3 % (11.5-14.5); RED BLOOD CELL CT 3.24 /CUMM (4.70-6.10); WHITE BLOOD CELL COUNT 9.4 /CUMM (4.8-10.8)
--- NOTE | 2016-09-20 00:39 | NUR ---
EKG DONE AND SHOWN TO DR. DORSEY.
[2016-09-20] MEDS ORDERED: JANUVIA25 M1 PO (00:52)
[2016-09-20] MEDS ORDERED: LASIX40 M1 PO (00:53)
[2016-09-20] MEDS ORDERED: AMARYL4 M1 PO (00:53)
[2016-09-20] MEDS ORDERED: ATIVAN0.5 M1 PO ×2 (00:54→00:57)
[2016-09-20] MEDS ORDERED: SPIRONOLACTONE25 M1 PO (00:54)
[2016-09-20] MEDS ORDERED: ULTRAM50 M1 PO (00:56)
--- NOTE | 2016-09-20 00:58 | NUR ---
STRAIGHT CATHED FOR 400CC VERY PURULENT YELLOW URINE. HEALING ULCER WITH ESCHAR NOTED TO TIP OF PENIS, WITH SOMEWHAT ABNORMAL ANATOMY. UNABLE TO VISUAL MEATUS. VERY DIFFICULT TO CATHETIZE WITH MANY ATTEMPTS. DR DORSEY TO BEDSIDE FOR EVAL OF PENIS. PT INFORED OF PLAN FOR ADMISSION FOR UROSEPSIS
[2016-09-20] MEDS ORDERED: FLEET ENEMA133 ML RC (01:02)
[2016-09-20] MEDS ORDERED: ACETAMINOPHEN500 M4 PR (01:02)
[2016-09-20] MEDS ORDERED: BISAC-EVAC10 M1 PR (01:02)
[2016-09-20] MEDS ORDERED: MILK OF MA400 MG/52 PO (01:03)
[2016-09-20] MEDS ORDERED: MAPAP500 M2 PO (01:03)
--- NOTE | 2016-09-20 01:26 | NUR ---
BLOOD CULTURES X2 SETS DRAWN AND SENT. SECOND IV ESTABLISHED. MEDICATED WITH ROCEPHIN PER eMAR. SINUS ARRHYTHMIA WITH PVC'S. DENIES CP. 95% ON 2LNC
--- NOTE | 2016-09-20 01:27 | RADIOLOGY REPORT ---
EXAMINATION: XR PORTABLE CHEST CLINICAL INFORMATION: CHF COMPARISON: 04/08/2014 TECHNIQUE: Portable frontal view of the chest was obtained. FINDINGS: The lungs are hypoinflated. No focal consolidation is seen. No evidence of pneumothorax, pleural effusion, or pulmonary edema. The cardiac silhouette is prominent and may be accentuated by patient rotation and low lung volumes. Sternal wires are present. No acute osseous findings are seen. IMPRESSION: Low lung volumes with no acute findings identified.
--- NOTE | 2016-09-20 02:07 | History & Physical ---
SONALI ALBARRAN,[facility] 09/20/16 0206: General Information and [facility] MD Statement: I have seen and personally examined TEGAN FOSTER and documented this H&P. The patient is a 81 year old M who presented with a patient stated chief complaint of malaise. Source of Information: patient, old records, W10 Exam Limitations: clinical condition, dementia, poor historian History of Present Illness: Mr. 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 History is obtained from W10, nurse's aide at [facility], ED notes, patient and old records. Patient is drowsy and confused at the time of the interview therefore quality of the history is limited. According to W10, patient had bloodwork checked on the morning of current presentation which was remarkable for a creatinine of 2.4, significantly increased from his baseline of 1-1.5. From the W10, it is unclear why bloodwork was done. The nurse's aide at the [facility] does not know why labs were checked as well, but states that patient's son insisted that he is brought to the ED. Patient reports that he has not been feeling good for the past four days leading up to current presentation. When asked to elaborate, he states that he has been feeling sleepy but is unable to offer further details. He endorses fevers but denies cough, shortness of breath, chest pain, abdominal pain, nausea, vomiting, dysuria, frequency. Patient is oriented x3 when seen in the ED but appears very tired, frequently falling asleep throughout the interview. He is confused and denies that he lives at an assisted living facility. Of note, patient was recently admitted here at [place] (08/25-08/31) for MORRO on CKD, found to have right hydronephrosis which was subsequently treated with ureteral stent placement. Allergies/Medications Allergies: Coded Allergies: NO KNOWN ALLERGIES (04/08/14) Home Med list Acetaminophen 500 MG TABLET 650 MG TX Q4HP PRN PAIN, TEMP >101 (Reported) Acetaminophen (Mapap) 500 MG CAPSULE 650 MG PO Q4HP PRN PAIN, TEMP >101 ( Reported) Atorvastatin Calcium (Lipitor) 10 MG TABLET 1 TAB PO DAILY Hyperlipidemia ( Reported) Bisacodyl (Bisac-Evac) 10 MG SUPP.RECT 1 SUPP TX PRN PRN CONSTIPATION ( Reported) Finasteride 5 MG TABLET 1 TAB PO QPM PROSTATE (Reported) Furosemide (Lasix) 40 MG TABLET 60 MG PO DAILY FLUID (Reported) Gabapentin 300 MG CAPSULE 1 CAP PO BID NERVES (Reported) Gemfibrozil 600 MG TABLET 1 TAB PO DAILY CHOLESTEROL (Reported) Glimepiride (Amaryl) 4 MG TABLET 1 TAB PO DAILY DM (Reported) Insulin Aspart (Novolog) 100 UNIT/ML VIAL 0 UNITS SC TIDAC diabetes <80 : Initiate hypoglycemia protocol 80-150 : No change 151-200 : Plus 2 units 201-250 : Plus 4 units 251-300 : Plus 6 units 301-350 : Plus 8 units 351-400 : Plus 10 units >400 : Plus 12 units and call Lorazepam (Ativan) 0.5 MG TABLET 1 TAB PO QHS PRN ANXIETY/ INSOMNIA (Reported ) Lorazepam (Ativan) 0.5 MG TABLET 1 TAB PO SI ANXIETY/ INSOMNIA (Reported) Magnesium Hydroxide (Milk Of Magnesia) 400 MG/5 ML ORAL.SUSP 30 ML PO DAILY PRN CONSTIPATION (Reported) Metoprolol Tartrate 25 MG TABLET 1 TAB PO BID BP (Reported) Na Phos,M-B/Na Phos,Di-Ba (Fleet Enema) 19 GRAM-7 GRAM/118 ML ENEMA 1 E RC ONCE CONSTIPATION (Reported) Sitagliptin Phosphate (Januvia) 25 MG TABLET 1 TAB PO DAILY DM (Reported) Spironolactone 25 MG TABLET 12.5 MG PO DAILY (Reported) Tamsulosin HCl (Flomax) 0.4 MG CAP.ER.24H 1 CAP PO DAILY BPH (Reported) Tramadol HCl (Ultram) 50 MG TABLET 1 TAB PO Q6P PRN PAIN (Reported) Warfarin Sodium (Coumadin) 2.5 MG TABLET 1 TAB PO TU, TH, SAT DVT (Reported) Warfarin Sodium (Coumadin) 5 MG TABLET 1 TAB PO M,W,F,DAIS DVT (Reported) Past History Travel History Traveled to [place] past 21 day No Medical History Neurological: dementia, peripheral neuropathy, syncope EENT: NONE Cardiovascular: CAD, hypertension, hyperlipidemia, systolic CHF, bilateral atrial clots, right brachial artery embolism, patent foramen ovale Respiratory: NONE Gastrointestinal: NONE Hepatic: NONE Renal: benign prost hyperplasia, chronic kidney disease, nephrolithiasis Musculoskeletal: NONE Psychiatric: insomnia Endocrine: diabetes, obesity Blood Disorders: DVT Cancer(s): NONE 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 Assisted Living Who Do You Live With? self Services at Home: None Primary Language: [place]ese, Sinhala Smoking Status: Former Smoker (Quit 10 Yrs Ago, 45 Pack Yrs) Functional Ability ADLs Independent: dressing, eating, toileting, bathing. Ambulation: walker IADLs Needs Assist: shopping, housework, finances, food prep, telephone, transportation, medication admin. 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 EENTM: Reports: no symptoms. Cardiovascular: Reports: no symptoms. Denies: chest pain. Respiratory: Reports: no symptoms. Denies: cough, short of breath. GI: Reports: no symptoms. Denies: abdominal pain, nausea, vomiting. Genitourinary: Reports: no symptoms. Denies: dysuria, frequency. Musculoskeletal: Reports: no symptoms. Skin: Reports: no symptoms. Neurological/Psychological: Reports: confusion. Hematologic/Endocrine: Reports: no symptoms. Immunologic/Allergic: Reports: no symptoms. All Other Systems: Reviewed and Negative Exam & Diagnostic Data Last 24 Hrs of Vital Signs/I&O Vital Signs Date Time Temp Pulse Resp B/P B/P Pulse O2 O2 Flow FiO2 Mean Ox Delivery Rate 09/20 0228 100.4 75 16 91/50 96 Nasal 3.0L Cannula 09/20 0057 102.2 82 16 118/57 95 Nasal 2.0L Cannula 09/20 0028 96 Nasal 2.0L Cannula 09/20 0024 98.7 90 20 104/56 93 Room Air Intake & Output 09/20 0800 06/12 0000 06/11 1600 Intake Total Output Total Balance Patient 121.109 kg Weight Weight Reported by Patient Measurement Method Physical Exam General Appearance Oriented X3, No Acute Distress, Drowsy but Easily Arousable, Obese Skin No Rashes Skin Temp/Moisture Exam: Warm/Dry Sepsis Skin Exam (color): Normal for Ethnicity HEENT Atraumatic, Mucous Membr. moist/pink Neck Supple Cardiovascular Regular Rate, Normal S1, Normal S2 Lungs Clear to Auscultation Abdomen Soft, No Tenderness, Positive Bowel Sounds Extremities No Clubbing, No Cyanosis, Venous Stasis Ulcer Over the Left Medial Malleolus with Dressing in Place, Bilateral Lower Extremities with 2+ Pitting Edema Reproductive (MALE) Superficial lesion on penis that appears like a shallow ulcer and foul-smelling uretral discharge (per attending's exam) Last 24 Hrs of Labs/Donte: Laboratory Tests 09/20/1699: Urine Color YEL, Urine Clarity CLDY H, Urine pH 6.0, Ur Specific [place] 1.020, Urine Protein 100 H, Urine Ketones NEG, Urine Nitrite NEG, Urine Bilirubin NEG, Urine Urobilinogen 0.2, Ur Leukocyte Esterase LARGE H, Ur Microscopic SEDIMENT EXAMINED, Urine RBC 1-3, Urine WBC > 75 H, Ur Epithelial Cells RARE, Urine Bacteria PACKD H, Urine Mucus RARE, Urine Hemoglobin MOD H, Urine Glucose NEG 09/20/16 0023: Troponin I Cancelled 09/20/1622: Anion Gap 9, Estimated GFR 23 L, BUN/Creatinine Ratio 18.9, Glucose 85, Lactic Acid 0.9, Calcium 7.9 L, Total Bilirubin 0.8, Direct Bilirubin 0.4, AST 16 L, ALT 24, Alkaline Phosphatase 74, Troponin I 0.04, Total Protein 5.4 L, Albumin 2.6 L, Amylase 35, Lipase 43, PT 30.5 H, INR 2.94 H, CBC w Diff NO MAN DIFF REQ, RBC 3.24 L, MCV 93.7, MCH 31.3 H, RDW 13.3, MPV 7.7, Gran % 82.0 H, Lymphocytes % 5.1 L, Monocytes % 12.5 H, Eosinophils % 0.1, Basophils % 0.3, Absolute Granulocytes 7.7 H, Absolute Lymphocytes 0.5 L, Absolute Monocytes 1.2 H, Absolute Eosinophils 0, Absolute Basophils 0, PUBS MCHC 33.4 Microbiology 09/20 114 BLOOD: Blood Culture - RECD 09/20 99 URINE ROUT: Urine Culture - RECD 06/12 0100 BLOOD: Blood Culture - RECD Diagnostic Data EKG Results Normal sinus rhythm HR 92 Old inferior infarct QTc 431 CXR Results Low lung volumes with no acute findings identified. Assessment/Plan Assessment: Mr. 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 #Severe sepsis 2/2 UTI: Met SIRS criteria with fever (Tmax 102.2) and bandemia ( 16% bands on labs from assisted living facility). Qualifies for severe sepsis in the setting of MORRO on CKD. Most likely source is urinary given urinalysis positive for pyuria and leukocyte esterase and foul-smelling urethral discharge. Should be considered as complicated UTI given recent right ureteral stent placement for hydronephrosis (08/28). Blood pressure has been running low, 90- 100s/50s. Lactic acid 0.9. S/p 1 dose of IV ceftriaxone and 1.5 L bolus of NS in the ED. Previous urine cultures have grown Escherichia coli sensitive to all antibiotics tested except Bactrim. * Admit to General Medicine. * Continue ceftriaxone 1 g IV daily. * Start gentle hydration with NS @ 75 cc/hr. Monitor respiratory status closely to avoid volume overload in the setting of HFrEF. * Low transfer to transfer to ICU if patient develops AMS or remains persistently hypotensive. * Check bilateral renal US to rule out obstruction given recent urological procedure. * Check post-void bladder scan to assess for urinary retention. * BCx and UCx ordered. * Repeat lactic acid. #Confusion: Likely secondary to sepsis superimposed on underlying dementia. Sleepy and confused when examined in the ED. but easily arousable. * Neurochecks Q4H. * Check urine toxicology. * Avoid opiates. #MORRO on CKD stage III: Creatinine 2.7 on admission, increased from baseline of 1 -1.5. Likely prerenal vs ATN secondary to sepsis. * Start gentle hydration with NS @ 75 cc/hr. * Avoid nephrotoxic agents. #Insulin-dependent T2DM: Takes glimepride 4 mg PO daily, sitagliptin 25 mg PO daily and sliding scale Novolog TIDAC. Fingerstick glucose dropped to <50, but improved after administration of D50. * Hold oral hypoglycemic agents while inpatient. * Accu-checks and low-dose sliding scale Novolog TIDAC. * Monitor blood sugars, If patient is persistently hypoglycemic, change fluids to D5NS. #HTN: Takes Lasix 60 mg PO daily, metoprolol 25 mg PO BID and spironolactone 12.5 mg PO daily. * Hold aekjc-wn-jyhuounxs antihypertensive medications in the setting of hypotension. #Recurrent DVT/PE: INR therapeutic at 2.94 on admission. Takes warfarin 5 mg and 2.5 mg on alternating days. * Check INR daily and dose warfarin according to keep INR between 2 and 3. #BPH: * Continue jggat-gy-azoaflgcv finasteride 5 mg PO daily and tamsulosin 0.4 mg PO daily. #HLD: * Continue bxled-wf-lujlcbpbp atorvastatin 10 mg PO daily and gemfibrozil 600 mg PO daily. #Constipation: * Continue njwjb-mh-dmctiurqy bisacodyl suppository PRN and Milk of Magnesia PRN. #Neuropathy: * Continue dznih-ev-wjmqhapqp gabapentin 300 mg PO BID. #Anxiety: * Continue aotap-tg-gfixalvmz Ativan 0.5 mg PO QHS. Diet: Consistent Carbohydrate 3 Pain: Tylenol 650 mg PO Q6H PRN for mild pain (scale 1-3) Tylenol 1 g IV Q6H PRN for moderate pain (scale 4-6) Tramadol 50 mg PO Q6H PRN for severe pain (scale 7-10) DVT PPx: Warfarin and ALPs CODE: FULL As Ranked By This Provider Problem List: 1. Severe sepsis 2. Acute renal failure superimposed on stage 3 chronic kidney disease 3. Complicated UTI (urinary tract infection) 4. Hypoglycemia 5. Insulin dependent type 2 diabetes mellitus 6. HTN (hypertension) 7. BPH (benign prostatic hyperplasia) 8. Morbid obesity 9. HFrEF (heart failure with reduced ejection fraction) 10. Constipation 11. Confusion Core Measures/Miscellaneous Acute Coronary Syndrome ACS Diagnosis: No Cerebrovascular Accident CVA/TIA Diagnosis: No Congestive Heart Failure CHF Diagnosis: No VTE (View Protocol) VTE Risk Factors: Acute medical illness, Age > 40, Obesity, Previous [facility] prophylaxis d/t: No contraindications No VTE Pharm Prophylaxis d/t: No contraindications VTE Diagnosis: No VTE Type: NONE VTE Confirmed by (Test): NONE Sepsis (View Protocol) Severe Sepsis Present: Yes BC x2: Yes Lactic Acid x2: Yes IV ABX Broad Spectrum: Yes NS/LR Started: Yes Septic Shock Septic Shock Present: No Miscellaneous Documentation Attending Case Discussed With: EMMA SUTTON MD Primary Care Physician: ZACHARY MENESES MD Patient sees these Specialists None Level of Patient Care: General Medicine ALVARADO KRAFT 09/20/16 0604: Resident Review Statement Resident Statement: examined this patient, discussed with civil engineering intern, agreed with civil engineering intern Other Findings: This is an 81 years old gentleman with past medical history of hypertension, hyperlipidemia, CAD, recurrent DVTs on Coumadin, BPH, erectile obstruction status post ureteral stent who is a resident of assisted living facility and was brought in due to lethargy and abnormal lab values. The patient endorses history of fever starting but denies painful urination, change in urine frequency, abdominal pain, dizziness, lightheadedness, palpitation, nausea or vomiting. Though the patient is oriented to time place and person he appears confused telling us that he lives in his house while he stays in an assisted living facility. Vital signs on arrival temperature 98.7 heart rate of 90 respiration of 20 blood pressure 104/56 and saturating 93% on room air. While the patient in the ER spiked temperature 102.2 and systolic decreased to 90 requiring a bolus. Physical examination: Patient lying on the bed not in acute distress oriented to time and place very sleepy going into sleeping episodes in the middle of the interview. Chest: Clear lungs bilaterally Heart: S1-S2 normal no murmurs Abdomen and perineum: Obese abdomen no palpable masses no costovertebral angle tenderness, has an eschar on the tenderness and pus discharge Extremities: Pitting edema +2, venous stasis ulcers more prominent on the left than the right than no discharge and no tenderness Labs normal white count of 9.4 but bloody done area showed 16 bands, anemia hemoglobin 10.1, creatinine of 2.7 baseline 1.5-2, GFR of 23 baseline 32-45 UA shows cloudy positive leukocyte Estrace WBC more than 45 with negative nitrites CXR low lung volumes with out acute findings INR 2.94, lactic acid on arrival was 0.9 Assessment and plan 81 years gentleman with multiple comorbidities presenting with altered mental status and urological evidence of UTI with initial demonstration of bandemia and temperature of 102. This patient has a penile eschar and past discharge from the penis, he had hydronephrosis with a stent placement on the right in the last admission. While in the ER the patient developed hypoglycemia and blood pressure was in the lower side requiring fluid boluses Problem list Urinary tract infection MORRO on CKD Altered mental status Admitted the patient to general medicine floor Hypoglycemic protocol to follow-up sugars We are holding all antihypertensive medications consider restarting them as blood pressure picks up Hold oral hypoglycemic and patient on insulin sliding scale low level, if sugar controlled upgraded to median level Continue to follow urine and blood culture Patient started on ceftriaxone 1 g daily Renal ultrasound to rule out urinary obstruction Patient is on warfarin for recurrent DVT which will save also for DVT prophylaxis He is full code and pain pathway EMMA SUTTON 09/20/16 0642: Attending MD Review Statement Attending Statement Attending MD Statement: examined this patient, discuss w/resident/PA/PIPELINE OPERATOR, agreed w/resident/PA/PIPELINE OPERATOR, reviewed EMR data (avail), reviewed images, amended to note Attending Assessment/Plan: CC: Abnormal labs PMH: DM, atrial blood clots with PFO s/p embolectomy and repair, CABG, nephrolithiasis, HTN, multiple DVTs S/P IVC filter, currently on warfarin, BPH, peripheral neuropathy History is obtain from chart, patient was sent from assisted living for abnormal labs. According to the nurse's aide patient was mildly confused and drowsy. Patient's blood work was obtained this morning which showed elevated creatinine, that was discussed with patient's son and he suggested to send patient to ER. No further details are available. According to ER nurse patient was alert and oriented upon arrival and appeared mildly confused. When I saw him patient he was deep sleep but arousable. ROS is limited. Patient was recently admitted in hospital for acute on chronic kidney injury and was found to have right hydronephrosis and underwent right ureteral stent placement. Vitals: T max 102.2, pulse 90, RR 20, blood pressure 104/56 upon arrival, saturating well on room air On exam: Sleepy but arousable, examination is limited neck supple, JVD normal, no lymphadenopathy, mucosa moist, bilateral pitting lower extremity edema, mild superficial laceration and skin on lower extremity no signs of infection CVS: S1 -S2, RRR. RS: Clear to auscultate bilaterally. Abdomen: Soft, NT, ND, bowel sounds present. Patient has superficial lesion looking like shallow ulcer on penis, with foul-smelling urethral discharge Labs: WBC 9.4, neutrophils 82% and 16 bands on CBC done earlier, hemoglobin 10.1 , sodium 132, chloride 98, bicarbonate 25, anion gap 9, BUN 51, creatinine 2.7, glucose 85, INR 2.94 UA positive for large leukocyte is trace CXR: Low lung volumes with no acute findings identified A and P 81-year-old male with multiple comorbidities was sent from assisted living for confusion, increased creatinine. Patient is sleepy but arousable, was oriented 3 on arrival. Hypoglycemic, earlier labs from assisted living shows bandemia, significant fever of 102, elevated creatinine to 2.7 from 1.5 baseline. UA positive for leukocyte esterase given his recent urological procedure, shallow ulcer on penis and foul-smelling discharge, most likely complicated UTI. + UTI + Confusion + MORRO on CKD + History of DM, CAD S/P CABG, nephrolithiasis, HTN, multiple DVTs S/P IVC filter, with therapeutic INR, BPH, peripheral neuropathy - Admit to general medicine - Continue gentle hydration - Obtain blood culture, urine culture - Recheck fingerstick after D 50, persistently hypoglycemic then change fluid to D5 - Continue ceftriaxone - Neuro check every 4 hourly - Renal ultrasound - Post void bladder scan - Repeat CBC BMP in a.m. - Low threshold to transfer to ICU if persistently altered or hypotensive - Trend lactate - Hold oral antihypertensives and hypoglycemic, continue sliding scale insulin - Obtain U tox - Avoid opiates
[2016-09-20 02:28] LABS: PT 30.5 SEC (9.4-12.5)
--- NOTE | 2016-09-20 03:33 | NUR ---
PT IS SLEEPING WITH SNORING RESPIRATIONS. BP 98/52 AT REST. WILL CONT TO MONITOR
--- NOTE | 2016-09-20 03:36 | NUR ---
PT'S RM ASSIGNMENT 214 BED 1
--- NOTE | 2016-09-20 03:51 | NUR ---
REPEAT LYTES AND CBC DRAWN AND SENT TO LAB. NS GTT AT 75ML/HR PER ORDER. VSS AND TEMP 98.5
[2016-09-20 03:54] LABS: ABSOLUTE BASOPHIL COUNT 0 /CUMM (0.0-0.2); ABSOLUTE EOSINOPHIL COUNT 0 /CUMM (0.0-0.7); ABSOLUTE GRANULOCYTE CT 7.4 /CUMM (1.4-6.5); ABSOLUTE LYMPH COUNT 0.7 /CUMM (1.2-3.4); ABSOLUTE MONOCYTE COUNT 1.2 /CUMM (0.10-0.60); BASOPHIL % 0.2 % (0.0-2.0); EOSINOPHIL % 0.3 % (0-5); GRANULOCYTE % 79.2 % (42.2-75.2); HEMATOCRIT 28.3 % (42-52); MEAN CORPUSCULAR HGB 31.7 PG (27.0-31.0); MEAN CORPUSCULAR HGB CONC 33.4 G/DL (33.0-37.0); MEAN CORPUSCULAR VOLUME 94.8 FL (80.0-94.0); MEAN PLATELET VOLUME 7.7 FL (7.4-10.4); PLATELET COUNT 235 /CUMM (130-400); RBC DISTRIBUTION WIDTH 13.8 % (11.5-14.5); RED BLOOD CELL CT 2.99 /CUMM (4.70-6.10); WHITE BLOOD CELL COUNT 9.4 /CUMM (4.8-10.8)
--- NOTE | 2016-09-20 04:22 | NUR ---
UPON ATTEMPT TO TRANSPORT PATIENT TO FLOOR, PT REMAINS ASLEEP BUT FEELING COOL AND CLAMMY. DIFFICULT TO AROUSE TO VERBAL STIMULI. GRUNTS AND DOES NOT AROUSE TO NOXIOUS STIMULI. ACCUCHECK OBTAINED AND <50. DR SUTTON IMMEDIATELY NOTIFIED AND PT MEDICATED WITH AMP OF D50% DEXTROSE 25G IVP. REMAINS SINUS ARRYTHMIA RATE 70'S. CHARGE NURSE TORSTEN GROVER. WILL MONITOR FOR A PERIOD IN ED PRIOR TO TRANSPORT UP TO FLOOR
--- NOTE | 2016-09-20 04:28 | NUR ---
ACCUCHECK NOW READS 211. PT IS SLIGHTLY MORE AROUSABLE TO VERBAL AND NOXIOUS STIMULI. REMAINS WITH SNORING RESPIRATIONS 02 SAT 94% 3LNC
--- NOTE | 2016-09-20 04:41 | NUR ---
REPEAT ACCUCHECK 147 AT THIS TIME
--- NOTE | 2016-09-20 05:07 | NUR ---
HOUSE STAFF PAGED FOR CRITICAL VALUE GLUCOSE 45
--- NOTE | 2016-09-20 05:11 | NUR ---
CRITICAL TEST RESULTS [id number] TEGAN FOSTER 81 [place] TESTS AND RESULTS: SERUM GLUCOSE 45 Results received and read back by: ZAHIDA SOOD Results received date and time: 09/20/16 0511 The following provider was notified of the results, and read the results back: DR FLOOD Notified date and time: 09/20/16 at 0510
--- NOTE | 2016-09-20 05:19 | NUR ---
FINGERSTICK 119 AT THIS TIME.
--- NOTE | 2016-09-20 05:53 | NUR ---
FINGERSTICK 112. PT ALERT AND ORIENTED. AROUSABLE TO VOICE.
--- NOTE | 2016-09-20 06:17 | NUR ---
REPEAT LACTIC AND BLUE TOP TUBE SENT TO LAB.
--- NOTE | 2016-09-20 06:43 | Admission Certification ---
Admission Certification Certification Statement - As attending physician, I certify that at the time of - admission, based on clinical presentation, severity of - symptoms, need for further diagnostic testing and - therapeutic interventions, and risk of adverse outcomes - without in-hospital treatment, in my clinical assessment, - this patient requires an acute hospital stay for a minimum - of two nights or longer. I have also considered psychsocial - factors such as support system, advanced age, financial - issues, cognitive issues, and failed out-patient treatments, - past re-admission history, safety of patient, and lack of - compliance as applicable. Specific rationale supporting this admission is: Complicated UTI with sepsis
--- NOTE | 2016-09-20 06:56 | NUR ---
FINGERSTICK GLUCOSE LEVEL READING 82
--- NOTE | 2016-09-20 07:19 | NUR ---
PT BS 71 GIVEN JUICE AND MILK
--- NOTE | 2016-09-20 08:05 | NUR ---
PT BS 93 AT THIS TIME WILL CONT. TO MONITOR
--- NOTE | 2016-09-20 08:23 | NUR ---
DR. BK AYALA IN ROOM FOR EVAL.
--- NOTE | 2016-09-20 08:55 | NUR ---
PT TO US THEN WILL GO TO FLOOR
--- NOTE | 2016-09-20 09:07 | PN- Att Addend ---
Attending Addendum Attending Brief Note Mr. Posey is a 81 y/o morbidly obese male M with PMHx of dementia, CAD s/p CABG, insulin-dependent T2DM, CKD stage III and recurrent DVT and PE who presents from [facility] with fatigue. ASSESSMENT 1. Sepsis 2/2 UTI 2. MORRO on CKD 3. Hypoglycemia BS 45. 4. hypotension on admission 5. Penile ulcer PLAN admitted to inpatient medical services c/w IVF, i/v abx, f/u labs and culture, USG renal. RISS and monitor frequent cbgs. Hold bp meds and insulin for now. Urology and ID consult. gi/dvt prophyalxis full code.
--- NOTE | 2016-09-20 10:30 | NUR ---
NURSING NOTE: PT ARRIVED TO FLOOR AT 0928 VIA STRETCHER. PT DROWSY BUT AROUSABLE. SANDOR AYALA AWARE OF TEMP AND CAME TO BEDSIDE TO ASSESS WOUNDS. SIZE WIZE BED ORDERED, IVF INFUSING. PT RESTING IN BED COMFORTABLY AT PRESENT. BED ALARM IN PLACE. ORIENTED TO ROOM AND CALL ROQUE.
[2016-09-20 10:37] VITALS: BP 140/64
--- NOTE | 2016-09-20 12:54 | ULTRASOUND REPORT ---
EXAMINATION: US RETROPERITONEAL COMPLETE (RENAL) CLINICAL INFORMATION: Status post stent placement in right ureter for hydronephrosis on 08/14/2016. COMPARISON: CT abdomen and pelvis 08/26/2016 TECHNIQUE: Real-time imaging of the kidneys and bladder. Technically challenging exam secondary to patient body habitus and overlying bowel gas. FINDINGS: RIGHT KIDNEY: 10.1 x 7.6 x 5.2 cm (SAG x AP x TRV). The kidney is normal in size, contour, and echogenicity. Renal cortical thickness is normal. No calculi or focal parenchymal lesions. No hydronephrosis. Multiple right-sided renal cysts, the largest measures 5.2 x 5.5 x 4.1 cm cyst in the upper pole of the right kidney. LEFT KIDNEY: 11.1 x 6.2 x 6.3 cm (SAG x AP x TRV). The kidney is normal in size, contour, and echogenicity. Renal cortical thickness is normal. No calculi or focal parenchymal lesions. No hydronephrosis. Multiple left-sided renal cysts, the largest in the upper pole measures 8.0 x 8.4 x 7.9 cm. BLADDER: Well-distended and normal. Bilateral ureteral jets are not demonstrated. Prevoid bladder volume is 428 mL. IMPRESSION: 1. No evidence of hydronephrosis. 2. Bilateral renal cysts. 3. Technically challenging exam secondary to patient body habitus and overlying bowel gas.
[2016-09-20 14:52] VITALS: BP 130/58
--- NOTE | 2016-09-20 19:02 | Cons- Infect Disease ---
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, PFO with biapical thromboses, status post surgical repair 4 years prior to admission, BPH , nephrolithiasis, status post cystolitholapaxy 2 years prior to admission, with chronic right hydronephrosis, hospitalized one month prior to admission after a syncopal episode, found to be in acute renal failure, with ultrasound revealing a right hydronephrosis, status post cystoscopy with placement of a right ureteral stent, discharged to an SNF with a Wheat catheter, which was apparently removed at some point prior to admission, admitted early this morning after he was sent to the emergency room because of abnormal blood work. On admission he was febrile to 102.2. Exam revealed a urethral ulcer, with straight cath yielding 400 mL of purulent urine. Laboratory data revealed a white blood cell count of 9,000, with BUN/creatinine 51 and 2.7, with normal liver enzymes, INR 2.94. Urinalysis 1-3 RBC/greater than 75 WBCs. Chest x-ray was negative. Renal ultrasound was negative for hydronephrosis. He was begun on Ceftriaxone and appears to have defervesced. This afternoon blood cultures 2 were reported positive for gram-negative rods. At present he feels well with no complaints, but he is unable to provide a reliable history. Allergies/Medications Allergies: Coded Allergies: NO KNOWN ALLERGIES (04/08/14) Home Med List: Acetaminophen 500 MG TABLET 650 MG NE Q4HP PRN PAIN, TEMP >101 (Reported) Acetaminophen (Mapap) 500 MG CAPSULE 650 MG PO Q4HP PRN PAIN, TEMP >101 ( Reported) Atorvastatin Calcium (Lipitor) 10 MG TABLET 1 TAB PO DAILY Hyperlipidemia ( Reported) Bisacodyl (Bisac-Evac) 10 MG SUPP.RECT 1 SUPP NE PRN PRN CONSTIPATION ( Reported) Finasteride 5 MG TABLET 1 TAB PO QPM PROSTATE (Reported) Furosemide (Lasix) 40 MG TABLET 60 MG PO DAILY FLUID (Reported) Gabapentin 300 MG CAPSULE 1 CAP PO BID NERVES (Reported) Gemfibrozil 600 MG TABLET 1 TAB PO DAILY CHOLESTEROL (Reported) Glimepiride (Amaryl) 4 MG TABLET 1 TAB PO DAILY DM (Reported) Insulin Aspart (Novolog) 100 UNIT/ML VIAL 0 UNITS SC TIDAC diabetes <80 : Initiate hypoglycemia protocol 80-150 : No change 151-200 : Plus 2 units 201-250 : Plus 4 units 251-300 : Plus 6 units 301-350 : Plus 8 units 351-400 : Plus 10 units >400 : Plus 12 units and call Lorazepam (Ativan) 0.5 MG TABLET 1 TAB PO QHS PRN ANXIETY/ INSOMNIA (Reported ) Lorazepam (Ativan) 0.5 MG TABLET 1 TAB PO SI ANXIETY/ INSOMNIA (Reported) Magnesium Hydroxide (Milk Of Magnesia) 400 MG/5 ML ORAL.SUSP 30 ML PO DAILY PRN CONSTIPATION (Reported) Metoprolol Tartrate 25 MG TABLET 1 TAB PO BID BP (Reported) Na Phos,M-B/Na Phos,Di-Ba (Fleet Enema) 19 GRAM-7 GRAM/118 ML ENEMA 1 E RC ONCE CONSTIPATION (Reported) Sitagliptin Phosphate (Januvia) 25 MG TABLET 1 TAB PO DAILY DM (Reported) Spironolactone 25 MG TABLET 12.5 MG PO DAILY (Reported) Tamsulosin HCl (Flomax) 0.4 MG CAP.ER.24H 1 CAP PO DAILY BPH (Reported) Tramadol HCl (Ultram) 50 MG TABLET 1 TAB PO Q6P PRN PAIN (Reported) Warfarin Sodium (Coumadin) 2.5 MG TABLET 1 TAB PO TU, TH, SAT DVT (Reported) Warfarin Sodium (Coumadin) 5 MG TABLET 1 TAB PO M,W,F,DIAS DVT (Reported) Past History Travel History Traveled to [place] past 21 day No Medical History Blood Transfusion Hx: No Neurological: dementia, peripheral neuropathy, syncope EENT: NONE Cardiovascular: CAD, hypertension, hyperlipidemia, systolic CHF, bilateral atrial clots right brachial artery embolism patent foramen ovale Respiratory: NONE Gastrointestinal: NONE Hepatic: NONE Renal: benign prost hyperplasia, chronic kidney disease, nephrolithiasis Musculoskeletal: NONE Psychiatric: insomnia Endocrine: diabetes, obesity Blood Disorders: DVT Cancer(s): NONE 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 Assisted Living Who Do You Live With? self Services at Home: None Primary Language: Kiswahili, Welsh Smoking Status: Former Smoker (Quit 10 Yrs Ago, 45 Pack Yrs) Functional Ability ADLs Independent: dressing, eating, toileting, bathing. Ambulation: walker IADLs Needs Assist: shopping, housework, finances, food prep, telephone, transportation, medication admin. Employment History Employment: Retired Profession/Employer: [employer] Review of Systems Comments Unobtainable Exam & Diagnostic Data Last 24 Hrs of Vital Signs/I&O Vital Signs Date Time Temp Pulse Resp B/P B/P Pulse O2 O2 Flow FiO2 Mean Ox Delivery Rate 09/20 1600 94 Nasal 3.0L Cannula 09/20 1452 99.8 95 20 130/58 95 Nasal 3.0L Cannula 09/20 1255 98.9 09/20 1037 100.5 101 22 140/64 96 Nasal 3.0L Cannula 09/20 1000 94 Nasal 3.0L Cannula 09/20 0854 97.8 100 16 110/58 95 Nasal 2.0L Cannula 09/20 0613 98.5 77 18 151/65 95 Nasal 2.0L Cannula 09/20 0351 98.5 76 16 103/51 96 Nasal 3.0L Cannula 09/20 0333 100.2 76 16 98/52 95 Nasal 3.0L Cannula 09/20 0228 100.4 75 16 91/50 96 Nasal 3.0L Cannula 09/20 0057 102.2 82 16 118/57 95 Nasal 2.0L Cannula 09/20 0028 96 Nasal 2.0L Cannula 09/20 0024 98.7 90 20 104/56 93 Room Air Intake & Output 09/20 1600 09/20 0800 06/ 0000 Intake Total 937.5 Output Total Balance 937.5 Intake, IV 337.5 Intake, Oral 600 Number 1 Bowel Movements Patient 240 lb 267 lb Weight Weight Reported by Patient Measurement Method Physical Exam Other Physical Findings: He is awake and alert in no acute distress. MAXIMUM TEMPERATURE 102.2. Skin reveals no rash. HEENT exam is negative. Neck is supple with no adenopathy. Lungs are clear. Heart regular rhythm with a 2/6 systolic ejection murmur. Abdomen is obese, soft, nontender with positive bowel sounds. Back no CVA tenderness. Extremities 1+ edema both lower extremities; superficial ulcerations on the medial aspect of the left ankle. Neuro is without focality. urethral ulceration. Last 24 Hours of Lab Results: Laboratory Tests 09/20 09/20 09/20 0611 0430 0348 Chemistry Sodium (137 - 145 mmol/L) 134 L Potassium (3.5 - 5.1 mmol/L) 3.6 Chloride (98 - 107 mmol/L) 103 Carbon Dioxide (22 - 30 mmol/L) 21 L Anion Gap (5 - 16) 10 BUN (9 - 20 mg/dL) 51 H Creatinine (0.7 - 1.2 mg/dL) 2.6 H Estimated GFR (>60 ml/min) 24 L BUN/Creatinine Ratio (7 - 25 %) 19.6 Glucose (65 - 99 mg/dL) 45 *L Lactic Acid (0.7 - 2.1 mmol/L) 1.9 Cancelled Hematology CBC w Diff NO MAN DIFF REQ WBC (4.8 - 10.8 /CUMM) 9.4 RBC (4.70 - 6.10 /CUMM) 2.99 L Hgb (14.0 - 18.0 G/DL) 9.5 L Hct (42 - 52 %) 28.3 L MCV (80.0 - 94.0 FL) 94.8 H MCH (27.0 - 31.0 PG) 31.7 H RDW (11.5 - 14.5 %) 13.8 Plt Count (130 - 400 /CUMM) 235 MPV (7.4 - 10.4 FL) 7.7 Gran % (42.2 - 75.2 %) 79.2 H Lymphocytes % (20.5 - 51.1 %) 7.6 L Monocytes % (1.7 - 9.3 %) 12.7 H Eosinophils % (0 - 5 %) 0.3 Basophils % (0.0 - 2.0 %) 0.2 Absolute Granulocytes (1.4 - 6.5 /CUMM) 7.4 H Absolute Lymphocytes (1.2 - 3.4 /CUMM) 0.7 L Absolute Monocytes (0.10 - 0.60 /CUMM) 1.2 H Absolute Eosinophils (0.0 - 0.7 /CUMM) 0 Absolute Basophils (0.0 - 0.2 /CUMM) 0 PUBS MCHC (33.0 - 37.0 G/DL) 33.4 09/20 09/20 09/20 0100 0100 0043 Toxicology Urine Opiates Screen (>2000 NG/ML) < 100.00 Methadone Screen (>300 NG/ML) < 40 Cancelled Barbiturate Screen (>200 NG/ML) < 60 Cancelled Ur Phencyclidine Scrn (>25 NG/ML) < 6.00 Cancelled Amphetamines Screen (>1000 NG/ML) < 100 Cancelled U Benzodiazepines Scrn (>200 NG/ML) < 85 Cancelled Urine Cocaine Screen (>300 NG/ML) < 50 Cancelled Urine Cannabis Screen (>50 NG/ML) < 5.00 Cancelled Urines Urine Color (YEL,AMB,STR) YEL Urine Clarity (CLEAR) CLDY H Urine pH (5.0 - 8.0) 6.0 Ur Specific Iron (1.001 - 1.035) 1.020 Urine Protein (NEG,<30 MG/DL) 100 H Urine Ketones (NEG) NEG Urine Nitrite (NEG) NEG Urine Bilirubin (NEG) NEG Urine Urobilinogen (0.1 - 1.0 EU/dl) 0.2 Ur Leukocyte Esterase (NEG) LARGE H Ur Microscopic SEDIMENT EXAMINED Urine RBC (0 - 5 /HPF) 1-3 Urine WBC (0 - 2 /HPF) > 75 H Ur Epithelial Cells (NONE,FEW) RARE Urine Bacteria (NEG/NONE) PACKD H Urine Mucus (FEW,NONE) RARE Urine Hemoglobin (NEG) MOD H Ur Random Creatinine (mg/dL) 89.3 Ur Random Sodium (30 - 90 mmol/L) 51 Ur Random Potassium (mmol/L) 34.4 Fraction Sodium Excret (<1% %) 1.2 H Urine Glucose (N MG/DL) NEG 09/20 09/20 0023 0023 Chemistry Sodium (137 - 145 mmol/L) 132 L Potassium (3.5 - 5.1 mmol/L) 4.2 Chloride (98 - 107 mmol/L) 98 Carbon Dioxide (22 - 30 mmol/L) 25 Anion Gap (5 - 16) 9 BUN (9 - 20 mg/dL) 51 H Creatinine (0.7 - 1.2 mg/dL) 2.7 H Estimated GFR (>60 ml/min) 23 L BUN/Creatinine Ratio (7 - 25 %) 18.9 Glucose (65 - 99 mg/dL) 85 Lactic Acid (0.7 - 2.1 mmol/L) 0.9 Calcium (8.4 - 10.2 mg/dL) 7.9 L Total Bilirubin (0.2 - 1.3 mg/dL) 0.8 Direct Bilirubin (< 0.4 mg/dL) 0.4 AST (17 - 59 U/L) 16 L ALT (21 - 72 U/L) 24 Alkaline Phosphatase (< 127 U/L) 74 Troponin I (<0.11 ng/ml) Cancelled 0.04 Total Protein (6.3 - 8.2 g/dL) 5.4 L Albumin (3.5 - 5.0 g/dL) 2.6 L Amylase (30 - 110 U/L) 35 Lipase (23 - 300 U/L) 43 Coagulation PT (9.4 - 12.5 SEC) 30.5 H INR (0.90 - 1.17) 2.94 H Hematology CBC w Diff NO MAN DIFF REQ WBC (4.8 - 10.8 /CUMM) 9.4 RBC (4.70 - 6.10 /CUMM) 3.24 L Hgb (14.0 - 18.0 G/DL) 10.1 L Hct (42 - 52 %) 30.3 L MCV (80.0 - 94.0 FL) 93.7 MCH (27.0 - 31.0 PG) 31.3 H RDW (11.5 - 14.5 %) 13.3 Plt Count (130 - 400 /CUMM) 269 MPV (7.4 - 10.4 FL) 7.7 Gran % (42.2 - 75.2 %) 82.0 H Lymphocytes % (20.5 - 51.1 %) 5.1 L Monocytes % (1.7 - 9.3 %) 12.5 H Eosinophils % (0 - 5 %) 0.1 Basophils % (0.0 - 2.0 %) 0.3 Absolute Granulocytes (1.4 - 6.5 /CUMM) 7.7 H Absolute Lymphocytes (1.2 - 3.4 /CUMM) 0.5 L Absolute Monocytes (0.10 - 0.60 /CUMM) 1.2 H Absolute Eosinophils (0.0 - 0.7 /CUMM) 0 Absolute Basophils (0.0 - 0.2 /CUMM) 0 PUBS MCHC (33.0 - 37.0 G/DL) 33.4 Last 24 Hours of Donte Results: Blood cultures 2 September 20 positive for gram-negative rods Urine culture September 20 pending Diagnostic Data Recent Imaging Findings: Chest x-ray September 20 no acute process Renal ultrasound September 20 no hydronephrosis Assessment/Plan Assessment/Plan Impression: This is an 81-year-old man with a history of hypertension, diabetes, chronic kidney disease, mild dementia, recurrent DVTs, maintained on Coumadin, PFO, status post surgical repair, BPH, nephrolithiasis, status post cystolitholapaxy 2 years prior to admission, with chronic right hydronephrosis, hospitalized one month prior to admission with acute renal failure, status post cystoscopy with placement of a right ureteral stent and apparently discharged with a Wheat catheter, admitted early this morning because of abnormal blood work, with an elevated creatinine over his baseline, found to be febrile with a normal white blood cell count and pyuria with blood cultures 2 reported positive for gram- negative rods. The most likely source of his bacteremia is urinary, status post recent Wheat catheter and placement of a ureteral stent. The urethral ulcer may represent trauma from his recent Wheat catheter and will await Urology evaluation. He was in urinary retention on admission and he may require a straight cath protocol if this is feasible with his urethral ulcer. The ultrasound did reveal resolution of the hydronephrosis secondary to the stent placement, but the possibility that the stent is infected must be considered. His renal failure may be secondary to sepsis or urinary retention and he will need close monitoring of his renal function. Suggestion: 1. Await Urology evaluation 2. Would defer decision regarding initiation of straight cath protocol to Urology 3. Follow-up recent cultures 4. Continue Ceftriaxone pending above Consult Acknowledgment - Thank you for your consult request.
[2016-09-20 22:45] VITALS: BP 98/46
--- NOTE | 2016-09-20 23:13 | Event Note ---
Event Note Event Note: It was noted around 10:45 PM that patient's blood pressure had dropped down to 98/46. His fingerstick glucose level came back at 61, an hour earlier it had been 50. He was noted to be drowsier than usual by nursing staff. An amp of dextrose was administered. 1 L bolus of normal saline was ordered. Patient's son was contacted to update him and confirm code status in light of the changes in his clinical status. Patient's son stated that he would like patient to remain FULL code and would like the medical team to do whatever that is necessary, including aggressive measures, to keep him alive. Another amp of dextrose was administered one hour later as the blood sugar remained low at 63. Once the normal saline bolus was complete, patient was started on D5NS @ 60 cc/hr to maintain the blood pressure and sugar. Blood pressure improved to 100s/50s however glucose again dropped down to 50 at 3:30 AM. Another amp of dextrose was given. Patient was switched to D10NS @ 60 cc/hr. As this fluid was not available in the formulary, D10W @ 30 cc/hr and NS @ 30 cc /hr were ordered separately to be run simultaneously through different IVs. Per pharmacy this would be equivalent to running D10NS @ 60 cc/hr. Attending Dr. Scott was made aware of the persistent hypoglycemia who suggested that patient should be transferred to the unit for closer monitoring if patient is still altered. Resident Dr. Finnegan evaluated the patient at bedside at 5 AM. According to his assessment, patient was awake, alert and oriented x3 and his mental status was much improved. Decision was made to keep patient in General Medicine but check sugars more frequently. Fingerstick glucose was changed to Q2H. Blood sugar again dropped down to <50 around 6:30 AM and patient was administered his fourth amp of dextrose for the night. We will continue to monitor.
[2016-09-21 00:17] LABS: ABSOLUTE BASOPHIL COUNT 0 /CUMM (0.0-0.2); ABSOLUTE EOSINOPHIL COUNT 0 /CUMM (0.0-0.7); ABSOLUTE GRANULOCYTE CT 7.1 /CUMM (1.4-6.5); ABSOLUTE LYMPH COUNT 0.4 /CUMM (1.2-3.4); ABSOLUTE MONOCYTE COUNT 1.1 /CUMM (0.10-0.60); BASOPHIL % 0.1 % (0.0-2.0); EOSINOPHIL % 0.3 % (0-5); GRANULOCYTE % 82.4 % (42.2-75.2); HEMATOCRIT 25.6 % (42-52); MEAN CORPUSCULAR HGB 30.9 PG (27.0-31.0); MEAN CORPUSCULAR HGB CONC 33.3 G/DL (33.0-37.0); MEAN CORPUSCULAR VOLUME 92.9 FL (80.0-94.0); MEAN PLATELET VOLUME 8.4 FL (7.4-10.4); PLATELET COUNT 247 /CUMM (130-400); RBC DISTRIBUTION WIDTH 13.9 % (11.5-14.5); RED BLOOD CELL CT 2.76 /CUMM (4.70-6.10); WHITE BLOOD CELL COUNT 8.6 /CUMM (4.8-10.8)
[2016-09-21 03:45] VITALS: BP 100/46
[2016-09-21 07:55] LABS: ABSOLUTE BASOPHIL COUNT 0 /CUMM (0.0-0.2); ABSOLUTE EOSINOPHIL COUNT 0.1 /CUMM (0.0-0.7); ABSOLUTE GRANULOCYTE CT 7.9 /CUMM (1.4-6.5); ABSOLUTE LYMPH COUNT 0.8 /CUMM (1.2-3.4); ABSOLUTE MONOCYTE COUNT 1.7 /CUMM (0.10-0.60); BASOPHIL % 0.1 % (0.0-2.0); GRANULOCYTE % 75.3 % (42.2-75.2); HEMATOCRIT 28.3 % (42-52); MEAN CORPUSCULAR HGB 31.1 PG (27.0-31.0); MEAN CORPUSCULAR HGB CONC 33.3 G/DL (33.0-37.0); MEAN CORPUSCULAR VOLUME 93.2 FL (80.0-94.0); MEAN PLATELET VOLUME 8.7 FL (7.4-10.4); PLATELET COUNT 257 /CUMM (130-400); RED BLOOD CELL CT 3.03 /CUMM (4.70-6.10); WHITE BLOOD CELL COUNT 10.5 /CUMM (4.8-10.8)
[2016-09-21 08:15] VITALS: BP 128/64
[2016-09-21 08:44] LABS: PT 57.9 SEC (9.4-12.5)
--- NOTE | 2016-09-21 09:19 | Cons- Endocrinology ---
General Information and HPI Consulting Request Date of Consult: 09/21/16 Requested By: medical team Reason for Consult: hypoglycemia Source of Information: old records Exam Limitations: poor historian History of Present Illness: Mr. 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 Patient presented with fatigue and was admitted for sepsis secondary to UTI. He was found to have severe hypoglycemia with glucose level in the 30s and 40s despite he has been on dextrose intravenously. He was on Glimepiride 4 mg daily and Januvia 25 mg daily prior to admission. Blood work showed glucose 45, insulin 22.7 and cortsiol 16.5. His Cr was 2.6. Allergies/Medications Allergies: Coded Allergies: NO KNOWN ALLERGIES (04/08/14) Home Med List: Acetaminophen 500 MG TABLET 650 MG FL Q4HP PRN PAIN, TEMP >101 (Reported) Acetaminophen (Mapap) 500 MG CAPSULE 650 MG PO Q4HP PRN PAIN, TEMP >101 ( Reported) Atorvastatin Calcium (Lipitor) 10 MG TABLET 1 TAB PO DAILY Hyperlipidemia ( Reported) Bisacodyl (Bisac-Evac) 10 MG SUPP.RECT 1 SUPP FL PRN PRN CONSTIPATION ( Reported) Finasteride 5 MG TABLET 1 TAB PO QPM PROSTATE (Reported) Furosemide (Lasix) 40 MG TABLET 60 MG PO DAILY FLUID (Reported) Gabapentin 300 MG CAPSULE 1 CAP PO BID NERVES (Reported) Gemfibrozil 600 MG TABLET 1 TAB PO DAILY CHOLESTEROL (Reported) Glimepiride (Amaryl) 4 MG TABLET 1 TAB PO DAILY DM (Reported) Insulin Aspart (Novolog) 100 UNIT/ML VIAL 0 UNITS SC TIDAC diabetes <80 : Initiate hypoglycemia protocol 80-150 : No change 151-200 : Plus 2 units 201-250 : Plus 4 units 251-300 : Plus 6 units 301-350 : Plus 8 units 351-400 : Plus 10 units >400 : Plus 12 units and call Lorazepam (Ativan) 0.5 MG TABLET 1 TAB PO QHS PRN ANXIETY/ INSOMNIA (Reported ) Lorazepam (Ativan) 0.5 MG TABLET 1 TAB PO SI ANXIETY/ INSOMNIA (Reported) Magnesium Hydroxide (Milk Of Magnesia) 400 MG/5 ML ORAL.SUSP 30 ML PO DAILY PRN CONSTIPATION (Reported) Metoprolol Tartrate 25 MG TABLET 1 TAB PO BID BP (Reported) Na Phos,M-B/Na Phos,Di-Ba (Fleet Enema) 19 GRAM-7 GRAM/118 ML ENEMA 1 E RC ONCE CONSTIPATION (Reported) Sitagliptin Phosphate (Januvia) 25 MG TABLET 1 TAB PO DAILY DM (Reported) Spironolactone 25 MG TABLET 12.5 MG PO DAILY (Reported) Tamsulosin HCl (Flomax) 0.4 MG CAP.ER.24H 1 CAP PO DAILY BPH (Reported) Tramadol HCl (Ultram) 50 MG TABLET 1 TAB PO Q6P PRN PAIN (Reported) Warfarin Sodium (Coumadin) 2.5 MG TABLET 1 TAB PO TU, TH, SAT DVT (Reported) Warfarin Sodium (Coumadin) 5 MG TABLET 1 TAB PO M,W,F,DIAS DVT (Reported) Review of Systems Review of Systems Constitutional: Reports: see HPI (poor historian). 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 Assisted Living Who Do You Live With? self Services at Home: None Primary Language: Montserratian, Pakistani Smoking Status: Former Smoker (Quit 10 Yrs Ago, 45 Pack Yrs) Functional Ability ADLs Independent: dressing, eating, toileting, bathing. Ambulation: walker IADLs Needs Assist: shopping, housework, finances, food prep, telephone, transportation, medication admin. Employment History Employment: Retired Profession/Employer: [employer] Exam & Diagnostic Data Last 24 Hrs of Vital Signs/I&O Vital Signs Date Time Temp Pulse Resp B/P B/P Pulse O2 O2 Flow FiO2 Mean Ox Delivery Rate 09/21 1424 Nasal 3.0L Cannula 09/21 1106 80 151/65 09/21 0345 97.9 86 20 100/46 95 Nasal 3.0L Cannula 09/21 0015 99.4 09/21 0000 Nasal 3.0L Cannula 09/20 2249 100.4 09/20 2245 100.4 100 18 98/46 96 Nasal 3.0L Cannula 09/20 2230 100 98/46 Intake & Output 09/21 1600 09/21 0800 09/21 0000 Intake Total 680 780 Output Total Balance 680 780 Intake, IV 680 300 Intake, Oral 480 Physical Exam General Appearance: no apparent distress, alert, awake Neck: normal inspection Respiratory: decreased breath sounds Cardiovascular: regular rate/rhythm Gastrointestinal: soft, non-tender Extremities: swelling (mild) Labs/Donte Results: Laboratory Tests 09/21 09/21 09/21 1415 0615 0155 Chemistry Sodium (137 - 145 mmol/L) 132 L 134 L Potassium (3.5 - 5.1 mmol/L) 4.2 4.0 Chloride (98 - 107 mmol/L) 99 100 Carbon Dioxide (22 - 30 mmol/L) 21 L 23 Anion Gap (5 - 16) 12 11 BUN (9 - 20 mg/dL) 52 H 52 H Creatinine (0.7 - 1.2 mg/dL) 2.4 H 2.7 H Estimated GFR (>60 ml/min) 26 L 23 L BUN/Creatinine Ratio (7 - 25 %) 19.3 Glucose (65 - 99 mg/dL) 92 35 *L Lactic Acid (0.7 - 2.1 mmol/L) 0.9 Calcium (8.4 - 10.2 mg/dL) 7.5 L Phosphorus (2.5 - 4.5 mg/dL) 3.2 Magnesium (1.6 - 2.3 mg/dL) 1.8 Total Bilirubin (0.2 - 1.3 mg/dL) 0.5 AST (17 - 59 U/L) 69 H ALT (21 - 72 U/L) 40 Albumin (3.5 - 5.0 g/dL) 2.7 L Coagulation PT (9.4 - 12.5 SEC) 57.9 *H INR (0.90 - 1.17) 5.61 *H Hematology CBC w Diff NO MAN DIFF REQ WBC (4.8 - 10.8 /CUMM) 10.5 RBC (4.70 - 6.10 /CUMM) 3.03 L Hgb (14.0 - 18.0 G/DL) 9.4 L Hct (42 - 52 %) 28.3 L MCV (80.0 - 94.0 FL) 93.2 MCH (27.0 - 31.0 PG) 31.1 H RDW (11.5 - 14.5 %) 14.0 Plt Count (130 - 400 /CUMM) 257 MPV (7.4 - 10.4 FL) 8.7 Gran % (42.2 - 75.2 %) 75.3 H Lymphocytes % (20.5 - 51.1 %) 7.5 L Monocytes % (1.7 - 9.3 %) 16.1 H Eosinophils % (0 - 5 %) 1.0 Basophils % (0.0 - 2.0 %) 0.1 Absolute Granulocytes (1.4 - 6.5 /CUMM) 7.9 H Absolute Lymphocytes (1.2 - 3.4 /CUMM) 0.8 L Absolute Monocytes (0.10 - 0.60 /CUMM) 1.7 H Absolute Eosinophils (0.0 - 0.7 /CUMM) 0.1 Absolute Basophils (0.0 - 0.2 /CUMM) 0 PUBS MCHC (33.0 - 37.0 G/DL) 33.3 /12 2330 Chemistry Sodium (137 - 145 mmol/L) 131 L Potassium (3.5 - 5.1 mmol/L) 3.9 Chloride (98 - 107 mmol/L) 99 Carbon Dioxide (22 - 30 mmol/L) 23 Anion Gap (5 - 16) 9 BUN (9 - 20 mg/dL) 52 H Creatinine (0.7 - 1.2 mg/dL) 2.4 H Estimated GFR (>60 ml/min) 26 L BUN/Creatinine Ratio (7 - 25 %) 21.7 Lactic Acid (0.7 - 2.1 mmol/L) 0.9 Hematology CBC w Diff NO MAN DIFF REQ WBC (4.8 - 10.8 /CUMM) 8.6 RBC (4.70 - 6.10 /CUMM) 2.76 L Hgb (14.0 - 18.0 G/DL) 8.5 L Hct (42 - 52 %) 25.6 L MCV (80.0 - 94.0 FL) 92.9 MCH (27.0 - 31.0 PG) 30.9 RDW (11.5 - 14.5 %) 13.9 Plt Count (130 - 400 /CUMM) 247 MPV (7.4 - 10.4 FL) 8.4 Gran % (42.2 - 75.2 %) 82.4 H Lymphocytes % (20.5 - 51.1 %) 4.4 L Monocytes % (1.7 - 9.3 %) 12.8 H Eosinophils % (0 - 5 %) 0.3 Basophils % (0.0 - 2.0 %) 0.1 Absolute Granulocytes (1.4 - 6.5 /CUMM) 7.1 H Absolute Lymphocytes (1.2 - 3.4 /CUMM) 0.4 L Absolute Monocytes (0.10 - 0.60 /CUMM) 1.1 H Absolute Eosinophils (0.0 - 0.7 /CUMM) 0 Absolute Basophils (0.0 - 0.2 /CUMM) 0 PUBS MCHC (33.0 - 37.0 G/DL) 33.3 Assessment/Plan Assessment/Plan Mr. 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 Patient presented with fatigue and was admitted for sepsis secondary to UTI. He was found to have severe hypoglycemia with glucose level in the 30s and 40s despite he has been on dextrose intravenously. He was on Glimepiride 4 mg daily and Januvia 25 mg daily prior to admission. Most likely patient has had severe hypoglycemia due to sulfonyureas in the setting of renal insufficiency. His most recent FSGs were 112 and then 99. patient passed swallow evaluation. management: 1. encourage patient to eat; 2. continue the current 10% dextrose at 30 ml/hour; 3. monitor FSGs which can be every 2-4 hours after his FSGs are stable x 2 more times' 4. please inform me if his glucose level is less than 70 again and then I will consider giving patient one dose of octreotide as it is indicated. will follow. Consult Acknowledgment - Thank you for your consult request.
--- NOTE | 2016-09-21 09:24 | NUR ---
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 09/20/16 2225 BS=61 PT DROWSY, BP 98/46, HR 100, TEMP 100.4, RAPID RESPONSE CALLED, IV TYLENOL, NS BOLUS AND 1 AMP DEXTROSE GIVEN 09/21/16 0030 BS=63 PT RESPONSIVE BUT 2ND AMP OF DEXTROSE ORDERED + GIVEN, BP NOW 108/56, HR 84, TEMP 99.4 09/21/16 0120 EJ=131 09/21/16 0330 BS AGAIN <50, CALLED, 3RD AMP OF DEXTROSE ORDERED + GIVEN AND NS CHANGED TO D5NS, BS IMPROVED TO 115 09/21/16 0500 BS AGAIN <50, CALLED, 4TH AMP OF DEXTROSE ORDERED + GIVEN AND D5NS CHANGED TO D10 AT 30 ML/HR WITH NS AT 30 ML/HR 09/21/16 0630 Q1HR ACCUCHECKS ORDERED AND PATIENT TO BE TRANSFERED TO [facility] 09/21/16 0720 BS = 112 AND REPORT GIVEN TO [facility]
--- NOTE | 2016-09-21 09:33 | PN- Att Addend ---
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 This is an 81-year-old man with a history of hypertension, diabetes, chronic kidney disease, mild dementia, recurrent DVTs and a history of a right brachial artery thrombosis, status post thrombectomy and maintained on Coumadin, PFO with biapical thromboses, status post surgical repair 4 years prior to admission, BPH , nephrolithiasis, status post cystolitholapaxy 2 years prior to admission, with chronic right hydronephrosis, hospitalized one month prior to admission after a syncopal episode, found to be in acute renal failure, with ultrasound revealing a right hydronephrosis, status post cystoscopy with placement of a right ureteral stent, discharged to an SNF with a Wheat catheter, which was apparently removed at some point prior to admission, admitted yesterday after he was sent to the emergency room because of abnormal blood work. Subsequently received iv abx and since last night has persistant hypoglycemia and now in the icu for eval On admission he was febrile to 102.2. Exam revealed a urethral ulcer, with straight cath yielding 400 mL of purulent urine. Laboratory data revealed a white blood cell count of 9,000, with BUN/creatinine 51 and 2.7, with normal liver enzymes, INR 2.94. Urinalysis 1-3 RBC/greater than 75 WBCs. Chest x-ray was negative. Renal ultrasound was negative for hydronephrosis. He was begun on Ceftriaxone and blood cultures 2 were reported positive for gram-negative rods. At present he feels well with no complaints, but he is unable to provide a reliable history. eating ROS unreliable He is awake and alert in no acute distress. MAXIMUM TEMPERATURE 102.2. Skin reveals no rash. HEENT exam is negative. Neck is supple with no adenopathy. Lungs are clear. Heart regular rhythm with a 2/6 systolic ejection murmur. Abdomen is obese, soft, nontender with positive bowel sounds. Back no CVA tenderness. Extremities 1+ edema both lower extremities; superficial ulcerations on the medial aspect of the left ankle. Neuro is without focality. urethral ulceration Wheat removed Vital Signs Date Time Temp Pulse Resp B/P B/P Pulse O2 O2 Flow FiO2 Mean Ox Delivery Rate 09/21 0345 97.9 86 20 100/46 95 Nasal 3.0L Cannula 09/21 0015 99.4 09/21 0000 Nasal 3.0L Cannula 09/20 2249 100.4 09/20 2245 100.4 100 18 98/46 96 Nasal 3.0L Cannula 09/20 2230 100 98/46 09/20 1600 94 Nasal 3.0L Cannula 09/20 1452 99.8 95 20 130/58 95 Nasal 3.0L Cannula 09/20 1255 98.9 09/20 1037 100.5 101 22 140/64 96 Nasal 3.0L Cannula 09/20 1000 94 Nasal 3.0L Cannula 09/20 0854 97.8 100 16 110/58 95 Nasal 2.0L Cannula 09/20 0613 98.5 77 18 151/65 95 Nasal 2.0L Cannula 09/20 0351 98.5 76 16 103/51 96 Nasal 3.0L Cannula 09/20 0333 100.2 76 16 98/52 95 Nasal 3.0L Cannula 09/20 0228 100.4 75 16 91/50 96 Nasal 3.0L Cannula 09/20 0057 102.2 82 16 118/57 95 Nasal 2.0L Cannula 09/20 0028 96 Nasal 2.0L Cannula 09/20 0024 98.7 90 20 104/56 93 Room Air Laboratory Tests 09/21/16 0615: Anion Gap 11, Estimated GFR 23 L, BUN/Creatinine Ratio 19.3, Glucose 35 *L, PT 57.9 *H, INR 5.61 *H, CBC w Diff NO MAN DIFF REQ, RBC 3.03 L, MCV 93.2, MCH 31.1 H, RDW 14.0, MPV 8.7, Gran % 75.3 H, Lymphocytes % 7.5 L, Monocytes % 16.1 H, Eosinophils % 1.0, Basophils % 0.1, Absolute Granulocytes 7.9 H, Absolute Lymphocytes 0.8 L, Absolute Monocytes 1.7 H, Absolute Eosinophils 0.1 , Absolute Basophils 0, PUBS MCHC 33.3 09/21/16 0155: Lactic Acid 0.9 09/20/16 2330: Anion Gap 9, Estimated GFR 26 L, BUN/Creatinine Ratio 21.7, Lactic Acid 0.9, CBC w Diff NO MAN DIFF REQ, RBC 2.76 L, MCV 92.9, MCH 30.9, RDW 13.9, MPV 8.4, Gran % 82.4 H, Lymphocytes % 4.4 L, Monocytes % 12.8 H, Eosinophils % 0.3, Basophils % 0.1, Absolute Granulocytes 7.1 H, Absolute Lymphocytes 0.4 L, Absolute Monocytes 1.1 H, Absolute Eosinophils 0, Absolute Basophils 0, PUBS MCHC 33.3 Microbiology Date/Time Procedure - Status Source Growth 09/21 0910 Surveillance Culture - ORD UPPER RESP 09/21 0910 Surveillance Culture - ORD GI 09/20 2330 Blood Culture - RECD BLOOD 09/20 0100 Urine Culture - RES URINE ROUT GRAM NEGATIVE RODS Orders Procedure Date/time Status VRE ACTIVE SURVIELLANCE 09/21 0910 Active ACTIVE SURVEILLANCE NARES 09/21 0910 Active Transfer patient to 09/21 0647 Active GLUCOSE 09/21 0615 Complete PROTHROMBIN TIME 09/21 0600 Complete CBC WITHOUT DIFFERENTIAL 09/21 0600 Complete BASIC ELECTROLYTES PLUS BUN&CR 09/21 0600 Complete LACTIC ACID 09/21 0141 Complete OXYGEN SETUP (GEN) 09/21 UNK Complete Lab Add-on Test 09/21 UNK Active FingerStick- Glucose 09/21 UNK Active Consistent Carbohydrate 3 09/20 B Active BLOOD CULTURE 09/20 2254 Active LACTIC ACID 09/20 2241 Complete CBC WITHOUT DIFFERENTIAL 09/20 2241 Complete BASIC ELECTROLYTES PLUS BUN&CR 09/20 2241 Complete OXYGEN SETUP (GEN) 09/20 2000 Complete Wound Care/Dressing 09/20 1005 Active Turn and Reposition 09/20 1005 Active Skin Integrity Protocol 09/20 1005 Active Skin/Pressure Ulcer Assess (Sk 09/20 1005 Active Teach/Educate 09/20 1003 Active Pain Treatment and Response 09/20 1003 Active Nutritional Intake, Monitor 09/20 1003 Active Isolation 09/20 1003 Active Patient Care Conference 09/20 1003 Active Activity/Ambulation 09/20 1003 Active Lab Add-on Test 09/20 0653 Active Pathway - chart 09/20 0603 Active LACTIC ACID 09/20 0554 Complete Add-on Test (ER Only) 09/20 0427 Active INSULIN,SERUM 09/20 0348 Complete GLUCOSE 09/20 0348 Complete CORTISOL AM 09/20 0348 Complete PT Evaluate & Treat 09/20 0324 Active Pathway - chart 09/20 0324 Active House Staff 09/20 0324 Active Intake & Output 09/20 0324 Complete URINE CREATININE, SPOT 09/20 0324 Complete URINE LYTES, SPOT 09/20 0324 Complete CBC WITHOUT DIFFERENTIAL 09/20 0324 Complete BASIC ELECTROLYTES PLUS BUN&CR 09/20 0324 Complete Patient Data 09/20 0232 Active Saline Lock 09/20 0219 Active Misc Message 09/20 021 Active ED Holding Orders 09/20 021 Active Admit to inpatient 09/20 021 Active Vital Signs 09/20 021 Active Code Status 09/20 021 Active Add-on Test (ER Only) 09/20 0207 Active Add-on Test (ER Only) 09/20 0151 Active URINE DRUGS OF ABUSE 09/20 0100 Complete BLOOD CULTURE 09/20 0045 Active CULTURE,URINE 09/20 0043 Active BLOOD CULTURE 09/20 0043 Active URINALYSIS 09/20 0043 Complete TROPONIN LEVEL 09/20 0023 Complete PROTHROMBIN TIME 09/20 0023 Complete LACTIC ACID 09/20 0023 Complete Intake & Output 09/20 0021 Active LIPASE 09/20 0021 Complete HEPATIC FUNCTION PANEL 09/20 0021 Complete CBC WITHOUT DIFFERENTIAL 09/20 0021 Complete BASIC METABOLIC PANEL 09/20 0021 Complete AMYLASE 09/20 0021 Complete EKG 09/20 0021 Active OXYGEN SETUP CHG 09/20 UNK Complete OXYGEN 09/20 UNK Complete OXYGEN TRANSPORT 09/20 UNK Complete PT EVAL LOW COMPLEX 20 MIN 09/20 UNK Complete VTE Mechanical Prophylaxis 09/20 UNK Active Precautions 09/20 UNK Active NIH Stroke Scale 09/20 UNK Active FingerStick- Glucose 09/20 UNK Complete .Ultrasound no hydro IMPRESSION 81-year-old man with a history of hypertension, diabetes, chronic kidney disease , mild dementia, recurrent DVTs, maintained on Coumadin, PFO, status post surgical repair, BPH, nephrolithiasis, status post cystolitholapaxy 2 years prior to admission, with chronic right hydronephrosis, hospitalized one month prior to admission with acute renal failure, status post cystoscopy with placement of a right ureteral stent, with gram neg sepsis due to urological origin ISSUES SIg hypoglycemia due to oral sulfanyureas complicated by sepsis and poor po intake Sepsis gram neg of urological origin CKD Urinary incont, with stent for hydronephrosis, with multiple stones in the past with previous surg for his bladder stones etc DM now hypo HTN, PFO s.p repair, BPH Previous CAD and atrial clots with pfo and embolectomy in the past Previous dvt on anticoag, s/p IVC filter and atrial clots and embolectomy needs to be on anticoag Previous ct finding of lung nodule needs nonemergent chest ct REC Monitor for hypoglycemia rx with iv d10 and liberal po intake Hold all Diabetes meds IV abx IV fluids ID and URology to follow ENdo onboard Watch INR and goal is 2.5-3 hold warfarin till his INR is down to 3 IVF maintainece aswell COnt meds for BPH Cont metoprolol if bp permits HOld tramadol unless he complains Will follow Pt is critically ill tts 40 mins
--- NOTE | 2016-09-21 09:36 | Cons- CRCU ---
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 Last night, patient had episodes of hypotension and persistent hypoglycemia with the lowest level noted to be 37. She received multiple amps of dextrose and was put on D10W and transferred to ICU for closer every hour Accu-Cheks. Allergies/Medications Allergies: Coded Allergies: NO KNOWN ALLERGIES (04/08/14) Home Med List: Acetaminophen 500 MG TABLET 650 MG MT Q4HP PRN PAIN, TEMP >101 (Reported) Acetaminophen (Mapap) 500 MG CAPSULE 650 MG PO Q4HP PRN PAIN, TEMP >101 ( Reported) Atorvastatin Calcium (Lipitor) 10 MG TABLET 1 TAB PO DAILY Hyperlipidemia ( Reported) Bisacodyl (Bisac-Evac) 10 MG SUPP.RECT 1 SUPP MT PRN PRN CONSTIPATION ( Reported) Finasteride 5 MG TABLET 1 TAB PO QPM PROSTATE (Reported) Furosemide (Lasix) 40 MG TABLET 60 MG PO DAILY FLUID (Reported) Gabapentin 300 MG CAPSULE 1 CAP PO BID NERVES (Reported) Gemfibrozil 600 MG TABLET 1 TAB PO DAILY CHOLESTEROL (Reported) Glimepiride (Amaryl) 4 MG TABLET 1 TAB PO DAILY DM (Reported) Insulin Aspart (Novolog) 100 UNIT/ML VIAL 0 UNITS SC TIDAC diabetes <80 : Initiate hypoglycemia protocol 80-150 : No change 151-200 : Plus 2 units 201-250 : Plus 4 units 251-300 : Plus 6 units 301-350 : Plus 8 units 351-400 : Plus 10 units >400 : Plus 12 units and call Lorazepam (Ativan) 0.5 MG TABLET 1 TAB PO QHS PRN ANXIETY/ INSOMNIA (Reported ) Lorazepam (Ativan) 0.5 MG TABLET 1 TAB PO SI ANXIETY/ INSOMNIA (Reported) Magnesium Hydroxide (Milk Of Magnesia) 400 MG/5 ML ORAL.SUSP 30 ML PO DAILY PRN CONSTIPATION (Reported) Metoprolol Tartrate 25 MG TABLET 1 TAB PO BID BP (Reported) Na Phos,M-B/Na Phos,Di-Ba (Fleet Enema) 19 GRAM-7 GRAM/118 ML ENEMA 1 E RC ONCE CONSTIPATION (Reported) Sitagliptin Phosphate (Januvia) 25 MG TABLET 1 TAB PO DAILY DM (Reported) Spironolactone 25 MG TABLET 12.5 MG PO DAILY (Reported) Tamsulosin HCl (Flomax) 0.4 MG CAP.ER.24H 1 CAP PO DAILY BPH (Reported) Tramadol HCl (Ultram) 50 MG TABLET 1 TAB PO Q6P PRN PAIN (Reported) Warfarin Sodium (Coumadin) 2.5 MG TABLET 1 TAB PO TU, TH, SAT DVT (Reported) Warfarin Sodium (Coumadin) 5 MG TABLET 1 TAB PO M,W,F,DIAS DVT (Reported) Review of Systems Review of Systems Constitutional: Reports: see HPI. 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 Assisted Living Who Do You Live With? self Services at Home: None Primary Language: Omani, German Smoking Status: Former Smoker (Quit 10 Yrs Ago, 45 Pack Yrs) Functional Ability ADLs Independent: dressing, eating, toileting, bathing. Ambulation: walker IADLs Needs Assist: shopping, housework, finances, food prep, telephone, transportation, medication admin. Employment History Employment: Retired Profession/Employer: [employer] Exam & Diagnostic Data Last 24 Hrs of Vital Signs/I&O Vital Signs Date Time Temp Pulse Resp B/P B/P Pulse O2 O2 Flow FiO2 Mean Ox Delivery Rate 09/21 0345 97.9 86 20 100/46 95 Nasal 3.0L Cannula 09/21 0015 99.4 09/21 0000 Nasal 3.0L Cannula 09/20 2249 100.4 09/20 2245 100.4 100 18 98/46 96 Nasal 3.0L Cannula 09/20 2230 100 98/46 09/20 1600 94 Nasal 3.0L Cannula 09/20 1452 99.8 95 20 130/58 95 Nasal 3.0L Cannula 09/20 1255 98.9 Intake & Output 09/21 1600 09/21 0800 09/21 0000 Intake Total 680 780 Output Total Balance 680 780 Intake, IV 680 300 Intake, Oral 480 Physical Exam General Appearance: alert, awake Other Physical Findings: HEENT Atraumatic, Mucous Membr. moist/pink Neck Supple Cardiovascular Regular Rate, Normal S1, Normal S2 Lungs Clear to Auscultation Abdomen Soft, No Tenderness, Positive Bowel Sounds Extremities No Clubbing, No Cyanosis, Venous Stasis Ulcer Over the Left Medial Malleolus with Dressing in Place, Bilateral Lower Extremities with 2+ Pitting Edema Reproductive (MALE) Superficial lesion on penis that appears like a shallow ulcer and foul-smelling uretral discharge (per attending's exam) Last 48 Hrs of Labs/Donte: Laboratory Tests 09/21/16 0615: Anion Gap 11, Estimated GFR 23 L, BUN/Creatinine Ratio 19.3, Glucose 35 *L, PT 57.9 *H, INR 5.61 *H, CBC w Diff NO MAN DIFF REQ, RBC 3.03 L, MCV 93.2, MCH 31.1 H, RDW 14.0, MPV 8.7, Gran % 75.3 H, Lymphocytes % 7.5 L, Monocytes % 16.1 H, Eosinophils % 1.0, Basophils % 0.1, Absolute Granulocytes 7.9 H, Absolute Lymphocytes 0.8 L, Absolute Monocytes 1.7 H, Absolute Eosinophils 0.1 , Absolute Basophils 0, PUBS MCHC 33.3 09/21/16 0155: Lactic Acid 0.9 09/20/16 2330: Anion Gap 9, Estimated GFR 26 L, BUN/Creatinine Ratio 21.7, Lactic Acid 0.9, CBC w Diff NO MAN DIFF REQ, RBC 2.76 L, MCV 92.9, MCH 30.9, RDW 13.9, MPV 8.4, Gran % 82.4 H, Lymphocytes % 4.4 L, Monocytes % 12.8 H, Eosinophils % 0.3, Basophils % 0.1, Absolute Granulocytes 7.1 H, Absolute Lymphocytes 0.4 L, Absolute Monocytes 1.1 H, Absolute Eosinophils 0, Absolute Basophils 0, PUBS MCHC 33.3 09/20/16 0611: Lactic Acid 1.9 09/20/16 0430: Lactic Acid Cancelled 09/20/16 0348: Anion Gap 10, Estimated GFR 24 L, BUN/Creatinine Ratio 19.6, Glucose 45 *L, Insulin Level 22.7, Cortisol AM Sample 16.5, CBC w Diff NO MAN DIFF REQ, RBC 2.99 L, MCV 94.8 H, MCH 31.7 H, RDW 13.8, MPV 7.7, Gran % 79.2 H, Lymphocytes % 7.6 L, Monocytes % 12.7 H, Eosinophils % 0.3, Basophils % 0.2, Absolute Granulocytes 7.4 H, Absolute Lymphocytes 0.7 L, Absolute Monocytes 1.2 H, Absolute Eosinophils 0, Absolute Basophils 0, PUBS MCHC 33.4 09/20/16 0100: Urine Color YEL, Urine Clarity CLDY H, Urine pH 6.0, Ur Specific [place] 1.020, Urine Protein 100 H, Urine Ketones NEG, Urine Nitrite NEG, Urine Bilirubin NEG, Urine Urobilinogen 0.2, Ur Leukocyte Esterase LARGE H, Ur Microscopic SEDIMENT EXAMINED, Urine RBC 1-3, Urine WBC > 75 H, Ur Epithelial Cells RARE, Urine Bacteria PACKD H, Urine Mucus RARE, Urine Hemoglobin MOD H, Urine Glucose NEG 09/20/16 0100: Urine Opiates Screen < 100.00, Methadone Screen < 40, Barbiturate Screen < 60, Ur Phencyclidine Scrn < 6.00, Amphetamines Screen < 100, U Benzodiazepines Scrn < 85, Urine Cocaine Screen < 50, Urine Cannabis Screen < 5.00, Ur Random Creatinine 89.3, Ur Random Sodium 51, Ur Random Potassium 34.4, Fraction Sodium Excret 1.2 H 09/20/16 0043: Methadone Screen Cancelled, Barbiturate Screen Cancelled, Ur Phencyclidine Scrn Cancelled, Amphetamines Screen Cancelled, U Benzodiazepines Scrn Cancelled, Urine Cocaine Screen Cancelled, Urine Cannabis Screen Cancelled 09/20/16 0023: Troponin I Cancelled 09/20/16 0023: Anion Gap 9, Estimated GFR 23 L, BUN/Creatinine Ratio 18.9, Glucose 85, Lactic Acid 0.9, Calcium 7.9 L, Total Bilirubin 0.8, Direct Bilirubin 0.4, AST 16 L, ALT 24, Alkaline Phosphatase 74, Troponin I 0.04, Total Protein 5.4 L, Albumin 2.6 L, Amylase 35, Lipase 43, PT 30.5 H, INR 2.94 H, CBC w Diff NO MAN DIFF REQ, RBC 3.24 L, MCV 93.7, MCH 31.3 H, RDW 13.3, MPV 7.7, Gran % 82.0 H, Lymphocytes % 5.1 L, Monocytes % 12.5 H, Eosinophils % 0.1, Basophils % 0.3, Absolute Granulocytes 7.7 H, Absolute Lymphocytes 0.5 L, Absolute Monocytes 1.2 H, Absolute Eosinophils 0, Absolute Basophils 0, PUBS MCHC 33.4 Assessment/Plan Impression/Plan: This is a 81 y/o morbidly obese M with PMHx of dementia, CAD s/p CABG, HFrEF, insulin-dependent T2DM, CKD stage III and 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 During the same day at nighttime patient developed palpitations and repeated persistent episodes of hypoglycemia though initially refractory to dextrose amp, she responded to D10 W and was transferred to ICU for close monitoring with every hour Accu-Cheks. Impression * Persistent episodes of hypoglycemia. Probably multifactorial in the setting of decreased oral intake due to acute infection and use of sulfonylurea with underlying acute on chronic CKD (decreased excretion of sulfonylurea). * Urinary tract infection with Klebsiella isolated. Patient has an extensive history of urinary obstruction with recent stent placement. He is a high risk of recurrent UTIs. * Acute on chronic CKD. Likely Post renal as noted by an increased FeNa and a history of obstruction and BPH. * History of 2 diabetes on glimepiride 4 mg and sitagliptin. 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 * History of hypertension. Plan Continue Accu-Cheks every 1 hours Will decrease NovoLog to very low sliding scale Continue D10W with close monitoring of Accu-Cheks to prevent any hyperglycemia We'll also continue normal saline to keep blood pressure up and for a MORRO Continue ceftriaxone for UTI. Cultures positive for Klebsiella however sensitivity still pending. Will follow up ID recommendations Will bladder scan every shift and straight cath if needed for urinary retention, urology is on board and as of now do not recommend Wheat placement Will hold off Coumadin dose today for DVT PE prophylaxis as INR is supratherapeutic target range is 2-3 Problem List: 1. Acute renal failure superimposed on stage 3 chronic kidney disease 2. History of DVT (deep vein thrombosis) Consult Acknowledgment - Thank you for your consult request.
--- NOTE | 2016-09-21 10:00 | NUR ---
Wound Care Assessment: Patient presents with areas of alteration in skin integrity that were present on admission to the [facility]. Healed areas are noted to his BLE that are dry and scabbed- Petechiae like areas also present most likely related to an elevated INR. Full thickness wounds are noted to the shaft of his penis as well as the uretheral opening with moist yellow/keane colored non-viable tissue. Dr. Shah in to assess at this time with this RN. Coccyx and buttocks appear red and blanchable with no open areas currently noted. A blood filled blister is noted to the left middle toe measuring 0.1 X 0.1cm- Pedal pulses are present with the doppler bilaterally. Patient has been placed on a sizewise mattress. Recommendations: Barrier cream to areas. Continue use of catergory 2 mattress and obtain a nutrition consult. Please follow urology recommendations regarding wounds to penis- ? if surgical intervention needed however per Dr. Shah not needed at this time.
--- NOTE | 2016-09-21 10:51 | PN- Infect Dx ---
Subjective Subjective: MAXIMUM TEMPERATURE 100.4. He was moved to ICU because of hypoglycemia overnight. He offers no complaints at this time. Objective Last 24 Hrs of Vital Signs/I&O Vital Signs Date Time Temp Pulse Resp B/P B/P Pulse O2 O2 Flow FiO2 Mean Ox Delivery Rate 09/21 0345 97.9 86 20 100/46 95 Nasal 3.0L Cannula 09/21 0015 99.4 09/21 0000 Nasal 3.0L Cannula 09/20 2249 100.4 09/20 2245 100.4 100 18 98/46 96 Nasal 3.0L Cannula 09/20 2230 100 98/46 09/20 1600 94 Nasal 3.0L Cannula 09/20 1452 99.8 95 20 130/58 95 Nasal 3.0L Cannula 09/20 1255 98.9 09/20 1037 100.5 101 22 140/64 96 Nasal 3.0L Cannula Intake & Output 09/21 1600 09/21 0800 09/21 0000 Intake Total 680 780 Output Total Balance 680 780 Intake, IV 680 300 Intake, Oral 480 Physical Exam Other Physical Findings: He appears comfortable in no acute distress Lungs are clear Heart regular rhythm with no murmur Abdomen is distended, nontender with positive bowel sounds Extremities 1+ edema both lower extremities with superficial ulcerations noted urethral ulceration unchanged Results Last 24 Hours of Lab Results: Laboratory Tests 09/21 09/21 0615 0155 Chemistry Sodium (137 - 145 mmol/L) 134 L Potassium (3.5 - 5.1 mmol/L) 4.0 Chloride (98 - 107 mmol/L) 100 Carbon Dioxide (22 - 30 mmol/L) 23 Anion Gap (5 - 16) 11 BUN (9 - 20 mg/dL) 52 H Creatinine (0.7 - 1.2 mg/dL) 2.7 H Estimated GFR (>60 ml/min) 23 L BUN/Creatinine Ratio (7 - 25 %) 19.3 Glucose (65 - 99 mg/dL) 35 *L Lactic Acid (0.7 - 2.1 mmol/L) 0.9 Coagulation PT (9.4 - 12.5 SEC) 57.9 *H INR (0.90 - 1.17) 5.61 *H Hematology CBC w Diff NO MAN DIFF REQ WBC (4.8 - 10.8 /CUMM) 10.5 RBC (4.70 - 6.10 /CUMM) 3.03 L Hgb (14.0 - 18.0 G/DL) 9.4 L Hct (42 - 52 %) 28.3 L MCV (80.0 - 94.0 FL) 93.2 MCH (27.0 - 31.0 PG) 31.1 H RDW (11.5 - 14.5 %) 14.0 Plt Count (130 - 400 /CUMM) 257 MPV (7.4 - 10.4 FL) 8.7 Gran % (42.2 - 75.2 %) 75.3 H Lymphocytes % (20.5 - 51.1 %) 7.5 L Monocytes % (1.7 - 9.3 %) 16.1 H Eosinophils % (0 - 5 %) 1.0 Basophils % (0.0 - 2.0 %) 0.1 Absolute Granulocytes (1.4 - 6.5 /CUMM) 7.9 H Absolute Lymphocytes (1.2 - 3.4 /CUMM) 0.8 L Absolute Monocytes (0.10 - 0.60 /CUMM) 1.7 H Absolute Eosinophils (0.0 - 0.7 /CUMM) 0.1 Absolute Basophils (0.0 - 0.2 /CUMM) 0 PUBS MCHC (33.0 - 37.0 G/DL) 33.3 / 2330 Chemistry Sodium (137 - 145 mmol/L) 131 L Potassium (3.5 - 5.1 mmol/L) 3.9 Chloride (98 - 107 mmol/L) 99 Carbon Dioxide (22 - 30 mmol/L) 23 Anion Gap (5 - 16) 9 BUN (9 - 20 mg/dL) 52 H Creatinine (0.7 - 1.2 mg/dL) 2.4 H Estimated GFR (>60 ml/min) 26 L BUN/Creatinine Ratio (7 - 25 %) 21.7 Lactic Acid (0.7 - 2.1 mmol/L) 0.9 Hematology CBC w Diff NO MAN DIFF REQ WBC (4.8 - 10.8 /CUMM) 8.6 RBC (4.70 - 6.10 /CUMM) 2.76 L Hgb (14.0 - 18.0 G/DL) 8.5 L Hct (42 - 52 %) 25.6 L MCV (80.0 - 94.0 FL) 92.9 MCH (27.0 - 31.0 PG) 30.9 RDW (11.5 - 14.5 %) 13.9 Plt Count (130 - 400 /CUMM) 247 MPV (7.4 - 10.4 FL) 8.4 Gran % (42.2 - 75.2 %) 82.4 H Lymphocytes % (20.5 - 51.1 %) 4.4 L Monocytes % (1.7 - 9.3 %) 12.8 H Eosinophils % (0 - 5 %) 0.3 Basophils % (0.0 - 2.0 %) 0.1 Absolute Granulocytes (1.4 - 6.5 /CUMM) 7.1 H Absolute Lymphocytes (1.2 - 3.4 /CUMM) 0.4 L Absolute Monocytes (0.10 - 0.60 /CUMM) 1.1 H Absolute Eosinophils (0.0 - 0.7 /CUMM) 0 Absolute Basophils (0.0 - 0.2 /CUMM) 0 PUBS MCHC (33.0 - 37.0 G/DL) 33.3 Last 24 Hours of Donte Results: Blood cultures 2 September 20 positive for gram-negative rods Urine culture September 20 greater than 100,000 colonies of gram-negative rods Assessment/Plan Impression: Stable with temperatures lower grade and with a mild leukocytosis on Ceftriaxone Day 2 of treatment for gram-negative sepsis of urologic origin, likely related to a recent Wheat catheter, with the development of an urethral ulcer, possibly related to pressure or trauma. The possibility that his recently placed left ureteral stent is infected must be considered and may need to be further evaluated if his low-grade fevers persist. He did have urinary retention on admission and, though he is incontinent, this should be monitored as, if it persists, he may require straight catheterizations. He has developed hypoglycemia secondary to his oral medications for diabetes in the setting of worsening renal failure, which has not improved to date. Suggestion: 1. Await Urology evaluation 2. Bladder scan to rule out urinary retention with consideration of straight cath protocol based on these results 3. Follow-up final cultures 4. Continue Ceftriaxone pending above
--- NOTE | 2016-09-21 11:18 | NUR ---
PHYSICAL THERAPY: Pt DOWNGRADED FROM [facility] TO ICU. WILL HOLD P.T. AT THIS TIME UNTIL Pt MEDICALLY STABLE; PER RECONSULT WHEN APPROPRIATE. THANK YOU.
[2016-09-21 16:00] VITALS: BP 116/58
[2016-09-21 23:00] VITALS: BP 120/64
--- NOTE | 2016-09-21 23:47 | Event Note ---
Event Note Event Note: Brief : persistent hypoglcemia. Patient's persistent hypoglycemia most likely secondary to sulfonylureas in the setting of decreased oral intake. Mr. Varela was receiving D10 at the rate of 50 mL per hour, however continued to have sugar fingerstick. Case was discussed with Dr. montez, patient received one time of octreotide 50 mcg. After receiving the octreotide blood sugar have been improving. We are continuing to titrate the D10 down. It was reduced to 50 ml/hr>>>>30 ml/hour>>>>20ml/hour, while keeping the blood glucose greater than 150-200. Continue to titrate. Continue Q1 fingersticks for now.
[2016-09-22] VITALS: BP 144/70
--- NOTE | 2016-09-22 00:54 | NUR ---
ALERT VERBALIZES NEEDS WELL. REFUSED TO BE STRAIGHT CATHED, AWARE.ACCUCHECK 168, D10 DECREASED TO 20ML/H. SATURATION 94% ON 2L O2, LUNGS SOUND CLEAR. ABDOMEN SOFT, HYPOACTIVE BS.
[2016-09-22 05:09] LABS: ABSOLUTE BASOPHIL COUNT 0 /CUMM (0.0-0.2); ABSOLUTE EOSINOPHIL COUNT 0.4 /CUMM (0.0-0.7); ABSOLUTE GRANULOCYTE CT 8.4 /CUMM (1.4-6.5); ABSOLUTE LYMPH COUNT 0.5 /CUMM (1.2-3.4); ABSOLUTE MONOCYTE COUNT 1.7 /CUMM (0.10-0.60); BASOPHIL % 0.3 % (0.0-2.0); EOSINOPHIL % 3.5 % (0-5); GRANULOCYTE % 76.5 % (42.2-75.2); HEMATOCRIT 28.5 % (42-52); MEAN CORPUSCULAR HGB 31.2 PG (27.0-31.0); MEAN CORPUSCULAR HGB CONC 32.8 G/DL (33.0-37.0); MEAN CORPUSCULAR VOLUME 94.9 FL (80.0-94.0); MEAN PLATELET VOLUME 8.9 FL (7.4-10.4); PLATELET COUNT 252 /CUMM (130-400); WHITE BLOOD CELL COUNT 10.9 /CUMM (4.8-10.8)
[2016-09-22 05:15] LABS: PT 77.1 SEC (9.4-12.5)
[2016-09-22 08:00] VITALS: BP 133/63
--- NOTE | 2016-09-22 08:31 | PN- Diabetes ---
Assessment/Plan Assessment: Mr. 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 Patient presented with fatigue and was admitted for sepsis secondary to UTI. He was found to have severe hypoglycemia with glucose level in the 30s and 40s despite he has been on dextrose intravenously. He was on Glimepiride 4 mg daily and Januvia 25 mg daily prior to admission. Most likely patient has had severe hypoglycemia due to sulfonyureas in the setting of renal insufficiency. Patient has been eating and drinking orange juices. In addition, he was on 10% dextrose between 30 -50 ml/hour. But his glucose level was down to 57 again yesterday afternoon. He received Octreotide 50 mcg sc x1 at around 6 pm. Since then, his glucose level has been > 100. He is still on D10 W at 30 ml/hour. Plan: 1. continue monitoring FSGs every 2-4 hours. 2. D10W can be decreased after his FSG > 150 x 2 times; 3. encourage po intake; 4. monitor FSGs; monitor sodium level later today. will follow. Subjective Subjective: He feels better, appeas alert. He is eating his breakfast at this moment. Objective Last 24 Hrs of Vital Signs/I&O Vital Signs Date Time Temp Pulse Resp B/P B/P Pulse O2 O2 Flow FiO2 Mean Ox Delivery Rate 09/22 0400 96 Nasal 2.0L Cannula 09/22 0000 94 Nasal 2.0L Cannula 09/22 0000 99.9 91 19 144/70 94 Nasal 2.0L Cannula 09/21 2235 100.3 96 23 110/54 09/21 2000 98 Nasal 2.0L Cannula 09/21 1725 86 126/58 09/21 1600 98.6 80 16 116/58 98 Nasal 2.0L Cannula 09/21 1600 98 Nasal 2.0L Cannula 09/21 1424 Nasal 3.0L Cannula 09/21 1200 97 Nasal 2.0L Cannula 09/21 1106 80 151/65 09/21 0830 98 Nasal 3.5L Cannula Intake & Output 09/22 1600 09/22 0800 09/22 0000 Intake Total 565 820 Output Total Balance 565 820 Intake, IV 365 480 Intake, Oral 200 340 Findings Pertinent Lab/Donte Results: Laboratory Tests 09/22 09/21 09/21 0400 1705 1415 Chemistry Sodium (137 - 145 mmol/L) 130 L 132 L Potassium (3.5 - 5.1 mmol/L) 4.3 4.2 Chloride (98 - 107 mmol/L) 99 99 Carbon Dioxide (22 - 30 mmol/L) 20 L 21 L Anion Gap (5 - 16) 10 12 BUN (9 - 20 mg/dL) 48 H 52 H Creatinine (0.7 - 1.2 mg/dL) 2.2 H 2.4 H Estimated GFR (>60 ml/min) 29 L 26 L Glucose (65 - 99 mg/dL) 125 H 51 L 92 Calcium (8.4 - 10.2 mg/dL) 7.3 L 7.5 L Phosphorus (2.5 - 4.5 mg/dL) 2.9 3.2 Magnesium (1.6 - 2.3 mg/dL) 2.0 1.8 Total Bilirubin (0.2 - 1.3 mg/dL) 0.3 0.5 AST (17 - 59 U/L) 57 69 H ALT (21 - 72 U/L) 34 40 Albumin (3.5 - 5.0 g/dL) 2.3 L 2.7 L Coagulation PT (9.4 - 12.5 SEC) 77.1 *H INR (0.90 - 1.17) 7.49 *H Hematology CBC w Diff MAN DIFF ORDERED WBC (4.8 - 10.8 /CUMM) 10.9 H RBC (4.70 - 6.10 /CUMM) 3.00 L Hgb (14.0 - 18.0 G/DL) 9.3 L Hct (42 - 52 %) 28.5 L MCV (80.0 - 94.0 FL) 94.9 H MCH (27.0 - 31.0 PG) 31.2 H RDW (11.5 - 14.5 %) 14.0 Plt Count (130 - 400 /CUMM) 252 MPV (7.4 - 10.4 FL) 8.9 Gran % (42.2 - 75.2 %) 76.5 H Lymphocytes % (20.5 - 51.1 %) 4.4 L Monocytes % (1.7 - 9.3 %) 15.3 H Eosinophils % (0 - 5 %) 3.5 Basophils % (0.0 - 2.0 %) 0.3 Absolute Granulocytes (1.4 - 6.5 /CUMM) 8.4 H Segmented Neutrophils (42.2 - 75.2 %) 69 Band Neutrophils (0.0 - 5.0 %) 3 Absolute Lymphocytes (1.2 - 3.4 /CUMM) 0.5 L Lymphocytes (20.5 - 51.1 %) 8 L Monocytes (1.7 - 9.3 %) 16 H Absolute Monocytes (0.10 - 0.60 /CUMM) 1.7 H Eosinophils (0 - 5.0 %) 4 Absolute Eosinophils (0.0 - 0.7 /CUMM) 0.4 Absolute Basophils (0.0 - 0.2 /CUMM) 0 Platelet Estimate (ADEQUATE) ADEQUATE Hypochromic-Microcytic 1+ Poikilocytosis 1+ Ovalocytes 1+ PUBS MCHC (33.0 - 37.0 G/DL) 32.8 L Other Body Source Fld Total RBCs Counted (%) 100
--- NOTE | 2016-09-22 11:26 | PN- Infect Dx ---
Subjective Subjective: MAXIMUM TEMPERATURE 100.3 without complaints. He has been catheterized over the last 24 hours, with 400 mL obtained on several occasions, but he has refused recent attempts at catheterizations Objective Last 24 Hrs of Vital Signs/I&O Vital Signs Date Time Temp Pulse Resp B/P B/P Pulse O2 O2 Flow FiO2 Mean Ox Delivery Rate 09/22 1004 87 95/57 09/22 1003 86 95/57 09/22 0400 96 Nasal 2.0L Cannula 09/22 0000 94 Nasal 2.0L Cannula 09/22 0000 99.9 91 19 144/70 94 Nasal 2.0L Cannula 09/21 2235 100.3 96 23 110/54 09/21 2000 98 Nasal 2.0L Cannula 09/21 1725 86 126/58 09/21 1600 98.6 80 16 116/58 98 Nasal 2.0L Cannula 09/21 1600 98 Nasal 2.0L Cannula 09/21 1424 Nasal 3.0L Cannula 09/21 1200 97 Nasal 2.0L Cannula Intake & Output 09/22 1600 09/22 0800 09/22 0000 Intake Total 565 820 Output Total Balance 565 820 Intake, IV 365 480 Intake, Oral 200 340 Physical Exam Other Physical Findings: He appears comfortable in no acute distress Lungs are clear Heart regular rhythm with no murmur Abdomen is obese, soft, nontender with positive bowel sounds Extremities 1+ edema both lower extremities Results Last 24 Hours of Lab Results: Laboratory Tests 09/22 09/21 09/21 0400 1705 1415 Chemistry Sodium (137 - 145 mmol/L) 130 L 132 L Potassium (3.5 - 5.1 mmol/L) 4.3 4.2 Chloride (98 - 107 mmol/L) 99 99 Carbon Dioxide (22 - 30 mmol/L) 20 L 21 L Anion Gap (5 - 16) 10 12 BUN (9 - 20 mg/dL) 48 H 52 H Creatinine (0.7 - 1.2 mg/dL) 2.2 H 2.4 H Estimated GFR (>60 ml/min) 29 L 26 L Glucose (65 - 99 mg/dL) 125 H 51 L 92 Calcium (8.4 - 10.2 mg/dL) 7.3 L 7.5 L Phosphorus (2.5 - 4.5 mg/dL) 2.9 3.2 Magnesium (1.6 - 2.3 mg/dL) 2.0 1.8 Total Bilirubin (0.2 - 1.3 mg/dL) 0.3 0.5 AST (17 - 59 U/L) 57 69 H ALT (21 - 72 U/L) 34 40 Albumin (3.5 - 5.0 g/dL) 2.3 L 2.7 L Coagulation PT (9.4 - 12.5 SEC) 77.1 *H INR (0.90 - 1.17) 7.49 *H Hematology CBC w Diff MAN DIFF ORDERED WBC (4.8 - 10.8 /CUMM) 10.9 H RBC (4.70 - 6.10 /CUMM) 3.00 L Hgb (14.0 - 18.0 G/DL) 9.3 L Hct (42 - 52 %) 28.5 L MCV (80.0 - 94.0 FL) 94.9 H MCH (27.0 - 31.0 PG) 31.2 H RDW (11.5 - 14.5 %) 14.0 Plt Count (130 - 400 /CUMM) 252 MPV (7.4 - 10.4 FL) 8.9 Gran % (42.2 - 75.2 %) 76.5 H Lymphocytes % (20.5 - 51.1 %) 4.4 L Monocytes % (1.7 - 9.3 %) 15.3 H Eosinophils % (0 - 5 %) 3.5 Basophils % (0.0 - 2.0 %) 0.3 Absolute Granulocytes (1.4 - 6.5 /CUMM) 8.4 H Segmented Neutrophils (42.2 - 75.2 %) 69 Band Neutrophils (0.0 - 5.0 %) 3 Absolute Lymphocytes (1.2 - 3.4 /CUMM) 0.5 L Lymphocytes (20.5 - 51.1 %) 8 L Monocytes (1.7 - 9.3 %) 16 H Absolute Monocytes (0.10 - 0.60 /CUMM) 1.7 H Eosinophils (0 - 5.0 %) 4 Absolute Eosinophils (0.0 - 0.7 /CUMM) 0.4 Absolute Basophils (0.0 - 0.2 /CUMM) 0 Platelet Estimate (ADEQUATE) ADEQUATE Hypochromic-Microcytic 1+ Poikilocytosis 1+ Ovalocytes 1+ PUBS MCHC (33.0 - 37.0 G/DL) 32.8 L Other Body Source Fld Total RBCs Counted (%) 100 Last 24 Hours of Donte Results: Blood cultures 4 September 20 positive for Enterobacter aerogenes resistant to Ceftriaxone and sensitive to Ciprofloxacin, Gentamicin and Bactrim Urine culture September 20 greater than 100,000 colonies of Citrobacter sensitive to Ceftriaxone, Ciprofloxacin, Bactrim and Gentamicin Assessment/Plan Impression: Low-grade fevers persist with a mild leukocytosis on Ceftriaxone Day 3 of treatment for Enterobacter sepsis felt to be of urologic origin, status post a recent Wheat catheter, though the urine culture is growing Citrobacter. The Enterobacter is resistant to Ceftriaxone; therefore his antibiotics will need to be adjusted. He continues to have urinary retention, which may explain his renal failure, which is improving. The urethral ulcer is possibly related to pressure or trauma and appears to be improving. Suggestion: 1. Continue straight catheterizations per protocol 2. Discontinue Ceftriaxone 3. Begin Ciprofloxacin 500 mg po every 24 hours
--- NOTE | 2016-09-22 12:45 | PN- Pulmonary ---
Subjective HPI/Critical Care Issues: MAXIMUM TEMPERATURE 100.3 without complaints. He has been catheterized over the last 24 hours, with 400 mL obtained on several occasions, but he has refused recent attempts at catheterization Sugars still low attimes Did get octreotide Objective Current Medications: Current Medications Sig/Christie Start time Last Medication Dose Route Stop Time Status Admin Acetaminophen 650 MG Q6P PRN 09/20 0615 AC PO Acetaminophen 1,000 MG Q6P PRN 09/20 0615 AC IV Atorvastatin Calcium 10 MG 1700 09/20 1700 AC 09/21 PO 1723 Bisacodyl 10 MG DAILY NEEDED PRN 09/20 0400 AC ND Ceftriaxone Sodium 1,000 MG 0100 09/20 0700 DC 09/22 IV 0030 Ciprofloxacin 500 MG DAILY 09/22 1200 AC PO 10/05 0959 Dextrose/Water 250 ML Q5H 09/21 1930 AC 09/22 IV 1004 Dextrose/Water 250 ML Q8H 09/21 0445 DC 09/21 IV 1315 Finasteride 5 MG QPM 09/20 2200 AC 09/21 PO 2235 Gabapentin 300 MG BID 09/20 1000 AC 09/22 PO 1003 Gemfibrozil 600 MG DAILY 09/20 1000 AC 09/22 PO 1004 Lorazepam 0.5 MG AT BEDTIME 09/20 0400 AC 09/21 PO 09/27 0359 2235 Magnesium Hydroxide 30 ML DAILY PRN 09/20 0400 AC PO Magnesium Sulfate 1 GM ONCE ONE 09/21 1900 DC 09/21 Dextrose/Water 100 ML IV 09/21 2259 2031 Metoprolol Tartrate 25 MG BID 09/20 2200 AC 09/22 PO 1004 Octreotide Acetate 50 MCG ONCE ONE 09/21 1715 DC 09/21 IV 09/21 1716 1810 Phytonadione 5 MG ONCE ONE 09/22 1000 DC 09/22 PO 09/22 1001 1101 Sodium Chloride 1,000 ML Q20H 09/21 0445 AC 09/22 IV 0029 Tamsulosin HCl 0.4 MG DAILY 09/20 1000 AC 09/22 PO 1003 Tramadol HCl 50 MG Q6 PRN 09/20 0615 AC PO Vital Signs & I&O Last 24 Hrs of Vitals and I&O: Vital Signs Date Time Temp Pulse Resp B/P B/P Pulse O2 O2 Flow FiO2 Mean Ox Delivery Rate 09/22 1200 95 Nasal 2.0L Cannula 09/22 1004 87 95/57 09/22 1003 86 95/57 09/22 0800 96 Nasal 2.0L Cannula 09/22 0800 98.0 83 19 133/63 96 Nasal 2.0L Cannula 09/22 0400 96 Nasal 2.0L Cannula 09/22 0000 94 Nasal 2.0L Cannula 09/22 0000 99.9 91 19 144/70 94 Nasal 2.0L Cannula 09/21 2235 100.3 96 23 110/54 09/21 2000 98 Nasal 2.0L Cannula 09/21 1725 86 126/58 09/21 1600 98.6 80 16 116/58 98 Nasal 2.0L Cannula 09/21 1600 98 Nasal 2.0L Cannula 09/21 1424 Nasal 3.0L Cannula Intake & Output 09/22 1600 09/22 0800 09/22 0000 Intake Total 565 820 Output Total Balance 565 820 Intake, IV 365 480 Intake, Oral 200 340 Impression/Plan Impression/Plan Impression/Plan: He is awake and alert in no acute distress. MAXIMUM TEMPERATURE 102.2. Skin reveals no rash. HEENT exam is negative. Neck is supple with no adenopathy. Lungs are clear. Heart regular rhythm with a 2/6 systolic ejection murmur. Abdomen is obese, soft, nontender with positive bowel sounds. Back no CVA tenderness. Extremities 1+ edema both lower extremities; superficial ulcerations on the medial aspect of the left ankle. Neuro is without focality. 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, PFO, status post surgical repair, BPH, nephrolithiasis, status post cystolitholapaxy 2 years prior to admission, with chronic right hydronephrosis, hospitalized one month prior to admission with acute renal failure, status post cystoscopy with placement of a right ureteral stent, with gram neg sepsis due to urological origin ISSUES Improving SIg hypoglycemia due to oral sulfanyureas complicated by sepsis and poor po intake, Sepsis gram neg of urological origin on abx, Growing enterobacter sensitive to cipro CKD Urinary incont, with stent for hydronephrosis, with multiple stones in the past with previous surg for his bladder stones etc DM now hypo HTN, PFO s.p repair, BPH, now requiring st cath and issues with bladder emptying Previous CAD and atrial clots with pfo and embolectomy in the past Previous dvt on anticoag, s/p IVC filter and atrial clots and embolectomy needs to be on anticoag Previous ct finding of lung nodule needs nonemergent chest ct High INR REC Monitor for hypoglycemia rx with iv d10 and liberal po intake, see endo note Hold all Diabetes meds Po cipro ID and URology to follow Watch INR and goal is 2.5-3 hold warfarin till his INR is down to 3, give one dose of vit k 5 mg today COnt meds for BPH Cont metoprolol if bp permits HOld tramadol unless he complains Will follow If stable to the floor
--- NOTE | 2016-09-22 15:59 | Cons- Urology ---
General Information and HPI Consulting Request Date of Consult: 09/22/16 Requested By: EMMA SUTTON MD Reason for Consult: urinary incontinence and ARF Source of Information: patient, family, old records History of Present Illness: 81 year old with multiple med problems, recently in ICU for hypoglycemia episodes. Voiding intermittently with 400cc PVR at times requiring intermittent cath. Pt with known BPH and hydro on right-now with stent. Creatinine basically at baseline. Allergies/Medications Allergies: Coded Allergies: NO KNOWN ALLERGIES (04/08/14) Home Med List: Acetaminophen 500 MG TABLET 650 MG TN Q4HP PRN PAIN, TEMP >101 (Reported) Acetaminophen (Mapap) 500 MG CAPSULE 650 MG PO Q4HP PRN PAIN, TEMP >101 ( Reported) Atorvastatin Calcium (Lipitor) 10 MG TABLET 1 TAB PO DAILY Hyperlipidemia ( Reported) Bisacodyl (Bisac-Evac) 10 MG SUPP.RECT 1 SUPP TN PRN PRN CONSTIPATION ( Reported) Finasteride 5 MG TABLET 1 TAB PO QPM PROSTATE (Reported) Furosemide (Lasix) 40 MG TABLET 60 MG PO DAILY FLUID (Reported) Gabapentin 300 MG CAPSULE 1 CAP PO BID NERVES (Reported) Gemfibrozil 600 MG TABLET 1 TAB PO DAILY CHOLESTEROL (Reported) Glimepiride (Amaryl) 4 MG TABLET 1 TAB PO DAILY DM (Reported) Insulin Aspart (Novolog) 100 UNIT/ML VIAL 0 UNITS SC TIDAC diabetes <80 : Initiate hypoglycemia protocol 80-150 : No change 151-200 : Plus 2 units 201-250 : Plus 4 units 251-300 : Plus 6 units 301-350 : Plus 8 units 351-400 : Plus 10 units >400 : Plus 12 units and call Lorazepam (Ativan) 0.5 MG TABLET 1 TAB PO QHS PRN ANXIETY/ INSOMNIA (Reported ) Lorazepam (Ativan) 0.5 MG TABLET 1 TAB PO SI ANXIETY/ INSOMNIA (Reported) Magnesium Hydroxide (Milk Of Magnesia) 400 MG/5 ML ORAL.SUSP 30 ML PO DAILY PRN CONSTIPATION (Reported) Metoprolol Tartrate 25 MG TABLET 1 TAB PO BID BP (Reported) Na Phos,M-B/Na Phos,Di-Ba (Fleet Enema) 19 GRAM-7 GRAM/118 ML ENEMA 1 E RC ONCE CONSTIPATION (Reported) Sitagliptin Phosphate (Januvia) 25 MG TABLET 1 TAB PO DAILY DM (Reported) Spironolactone 25 MG TABLET 12.5 MG PO DAILY (Reported) Tamsulosin HCl (Flomax) 0.4 MG CAP.ER.24H 1 CAP PO DAILY BPH (Reported) Tramadol HCl (Ultram) 50 MG TABLET 1 TAB PO Q6P PRN PAIN (Reported) Warfarin Sodium (Coumadin) 2.5 MG TABLET 1 TAB PO TU, TH, SAT DVT (Reported) Warfarin Sodium (Coumadin) 5 MG TABLET 1 TAB PO M,W,F,DIAS DVT (Reported) Current Medications: Current Medications Sig/Christie Start time Last Medication Dose Route Stop Time Status Admin Acetaminophen 650 MG Q6P PRN 09/20 06 AC PO Acetaminophen 1,000 MG Q6P PRN 09/20 0615 AC IV Atorvastatin Calcium 10 MG 1700 09/20 1700 AC 09/21 PO 1723 Bisacodyl 10 MG DAILY NEEDED PRN 09/20 0400 AC TN Ceftriaxone Sodium 1,000 MG 0100 09/20 0700 DC 09/22 IV 0030 Ciprofloxacin 500 MG DAILY 09/22 1200 AC 09/22 PO 10/05 0959 1452 Dextrose/Water 250 ML Q5H 09/21 1930 PA 09/22 IV 1453 Dextrose/Water 250 ML Q8H 09/21 0445 PA 09/21 IV 1315 Finasteride 5 MG QPM 09/20 2200 AC 09/21 PO 2235 Gabapentin 300 MG BID 09/20 1000 AC 09/22 PO 1003 Gemfibrozil 600 MG DAILY 09/20 1000 AC 09/22 PO 1004 Lorazepam 0.5 MG AT BEDTIME 09/20 0400 AC 09/21 PO 09/27 0359 2235 Magnesium Hydroxide 30 ML DAILY PRN 09/20 0400 PO Magnesium Sulfate 1 GM ONCE ONE 09/21 1900 DC 09/21 Dextrose/Water 100 ML IV 09/21 2259 2031 Metoprolol Tartrate 25 MG BID 09/20 2200 AC 09/22 PO 1004 Octreotide Acetate 50 MCG ONCE ONE 09/21 1715 DC 09/21 IV 09/21 1716 1810 Phytonadione 5 MG ONCE ONE 09/22 1000 PA 09/22 PO 09/22 1001 1101 Sodium Chloride 1,000 ML Q20H 09/21 0445 AC 09/22 IV 0029 Tamsulosin HCl 0.4 MG DAILY 09/20 1000 AC 09/22 PO 1003 Tramadol HCl 50 MG Q6 PRN 09/20 0615 AC PO Past History Medical History Blood Transfusion Hx: No Neurological: dementia, peripheral neuropathy, syncope EENT: NONE Cardiovascular: CAD, hypertension, hyperlipidemia, systolic CHF, bilateral atrial clots right brachial artery embolism patent foramen ovale Respiratory: NONE Gastrointestinal: NONE Hepatic: NONE Renal: benign prost hyperplasia, chronic kidney disease, nephrolithiasis Musculoskeletal: NONE Psychiatric: insomnia Endocrine: diabetes, obesity Blood Disorders: DVT Cancer(s): NONE IMAGING ANALYST/Reproductive: NONE Surgical History Pertinent Surgical History: right ureteral stent status post cystolitholapaxy status post right brachial artery thrombectomy status post repair of patent foramen ovale Family History Relations & Conditions If Any: FATHER FH: CAD (coronary artery disease) grandmother FH: stomach cancer Psychosocial History Where Do You Live? Assisted Living Who Do You Live With? self Services at Home: None Primary Language: Cypriot, Greek Smoking Status: Former Smoker (Quit 10 Yrs Ago, 45 Pack Yrs) Functional Ability ADLs Independent: dressing, eating, toileting, bathing. Ambulation: walker IADLs Needs Assist: shopping, housework, finances, food prep, telephone, transportation, medication admin. 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 yes Review of Systems Review of Systems Constitutional: Denies: no symptoms. EENTM: Denies: no symptoms. Cardiovascular: Denies: no symptoms. Respiratory: Denies: no symptoms. GI: Reports: bloating, constipation. Genitourinary: Reports: see HPI. Denies: no symptoms. Musculoskeletal: Denies: no symptoms. Skin: Denies: no symptoms. Exam & Diagnostic Data Vital Signs and I&O Vital Signs Date Time Temp Pulse Resp B/P B/P Pulse O2 O2 Flow FiO2 Mean Ox Delivery Rate 09/22 1200 95 Nasal 2.0L Cannula 09/22 1004 87 95/57 09/22 1003 86 95/57 09/22 0800 96 Nasal 2.0L Cannula 09/22 0800 98.0 83 19 133/63 96 Nasal 2.0L Cannula 09/22 0400 96 Nasal 2.0L Cannula 09/22 0000 94 Nasal 2.0L Cannula 09/22 0000 99.9 91 19 144/70 94 Nasal 2.0L Cannula 06/13 2235 100.3 96 23 110/54 09/22 1999 98 Nasal 2.0L Cannula 09/21 1725 86 126/58 09/22 1599 98.6 80 16 116/58 98 Nasal 2.0L Cannula 09/22 1599 98 Nasal 2.0L Cannula Intake & Output 09/22 0800 09/22 0000 09/21 0809/21 0000 Intake Total 024 604 3896 680 780 Output Total 575 Balance 565 820 745 680 780 Intake, IV 365 480 520 680 300 Intake, Oral 200 340 800 480 Number 1 Bowel Movements Output, Urine 575 Patient 240 lb Weight Physical Exam General Appearance: well developed/nourished, no apparent distress Head: atraumatic Eyes: Bilateral: normal appearance. Neck: normal inspection Respiratory: normal breath sounds Cardiovascular: regular rate/rhythm Gastrointestinal: soft Back: no vertebral tenderness Reproductive: Normal male genitalia Last 24 Hours of Labs: Laboratory Tests 09/22 09/21 0400 1705 Chemistry Sodium (137 - 145 mmol/L) 130 L Potassium (3.5 - 5.1 mmol/L) 4.3 Chloride (98 - 107 mmol/L) 99 Carbon Dioxide (22 - 30 mmol/L) 20 L Anion Gap (5 - 16) 10 BUN (9 - 20 mg/dL) 48 H Creatinine (0.7 - 1.2 mg/dL) 2.2 H Estimated GFR (>60 ml/min) 29 L Glucose (65 - 99 mg/dL) 125 H 51 L Calcium (8.4 - 10.2 mg/dL) 7.3 L Phosphorus (2.5 - 4.5 mg/dL) 2.9 Magnesium (1.6 - 2.3 mg/dL) 2.0 Total Bilirubin (0.2 - 1.3 mg/dL) 0.3 AST (17 - 59 U/L) 57 ALT (21 - 72 U/L) 34 Albumin (3.5 - 5.0 g/dL) 2.3 L Coagulation PT (9.4 - 12.5 SEC) 77.1 *H INR (0.90 - 1.17) 7.49 *H Hematology CBC w Diff MAN DIFF ORDERED WBC (4.8 - 10.8 /CUMM) 10.9 H RBC (4.70 - 6.10 /CUMM) 3.00 L Hgb (14.0 - 18.0 G/DL) 9.3 L Hct (42 - 52 %) 28.5 L MCV (80.0 - 94.0 FL) 94.9 H MCH (27.0 - 31.0 PG) 31.2 H RDW (11.5 - 14.5 %) 14.0 Plt Count (130 - 400 /CUMM) 252 MPV (7.4 - 10.4 FL) 8.9 Gran % (42.2 - 75.2 %) 76.5 H Lymphocytes % (20.5 - 51.1 %) 4.4 L Monocytes % (1.7 - 9.3 %) 15.3 H Eosinophils % (0 - 5 %) 3.5 Basophils % (0.0 - 2.0 %) 0.3 Absolute Granulocytes (1.4 - 6.5 /CUMM) 8.4 H Segmented Neutrophils (42.2 - 75.2 %) 69 Band Neutrophils (0.0 - 5.0 %) 3 Absolute Lymphocytes (1.2 - 3.4 /CUMM) 0.5 L Lymphocytes (20.5 - 51.1 %) 8 L Monocytes (1.7 - 9.3 %) 16 H Absolute Monocytes (0.10 - 0.60 /CUMM) 1.7 H Eosinophils (0 - 5.0 %) 4 Absolute Eosinophils (0.0 - 0.7 /CUMM) 0.4 Absolute Basophils (0.0 - 0.2 /CUMM) 0 Platelet Estimate (ADEQUATE) ADEQUATE Hypochromic-Microcytic 1+ Poikilocytosis 1+ Ovalocytes 1+ PUBS MCHC (33.0 - 37.0 G/DL) 32.8 L Other Body Source Fld Total RBCs Counted (%) 100 Imaging Results: PATIENT: TEGAN FOSTER PRESENT AGE: 81 PATIENT ACCOUNT NO: [id number] : 36 LOCATION: 2NB ORDERING PHYSICIAN: REMIGIO LYON MD SERVICE DATE: 09/20/16 EXAM TYPE: US - US-RENAL/KIDNEY EXAMINATION: US RETROPERITONEAL COMPLETE (RENAL) CLINICAL INFORMATION: Status post stent placement in right ureter for hydronephrosis on 08/14/2016. COMPARISON: CT abdomen and pelvis 08/26/2016 TECHNIQUE: Real-time imaging of the kidneys and bladder. Technically challenging exam secondary to patient body habitus and overlying bowel gas. FINDINGS: RIGHT KIDNEY: 10.1 x 7.6 x 5.2 cm (SAG x AP x TRV). The kidney is normal in size, contour, and echogenicity. Renal cortical thickness is normal. No calculi or focal parenchymal lesions. No hydronephrosis. Multiple right-sided renal cysts, the largest measures 5.2 x 5.5 x 4.1 cm cyst in the upper pole of the right kidney. LEFT KIDNEY: 11.1 x 6.2 x 6.3 cm (SAG x AP x TRV). The kidney is normal in size, contour, and echogenicity. Renal cortical thickness is normal. No calculi or focal parenchymal lesions. No hydronephrosis. Multiple left-sided renal cysts, the largest in the upper pole measures 8.0 x 8.4 x 7.9 cm. BLADDER: Well-distended and normal. Bilateral ureteral jets are not demonstrated. Prevoid bladder volume is 428 mL. IMPRESSION: 1. No evidence of hydronephrosis. 2. Bilateral renal cysts. 3. Technically challenging exam secondary to patient body habitus and overlying bowel gas. Assessment/Plan Assessment/Plan ARF due to ?CHF exacerbation, and with urinary retention: recommend pantoja catheter insertion when INR WNL. Copies To: ATIF HENDERSON MD Consult Acknowledgment - Thank you for your consult request. Attending MD Review Statement Attending Statement Attending MD Statement: examined this patient Attending Assessment/Plan: pt with high INR and intermittent retention with need for catheterization. Creatinine at baseline. Recommend continued intermittent caths as he is tolerating this at this time. Pantoja, with risk of infection, recommended if pt with worsening creatinine.
[2016-09-22 16:00] VITALS: BP 136/68
--- NOTE | 2016-09-22 16:09 | NUR ---
PT INR 7.49, ON SC PROTOCOL. PT HAS VOIDED 350 ML IN URINAL AND HAD SEVERAL INCONTINENT EPISODES. BLADDER SCAN X 2 = 0ML. THIS WAS DISCUSED WITH DR JAMES. A CONSULT WITH DR HENDERSON WAS PLACED AND PT GIVEN VIT K 5 PO. AT THIS TIME, PER DR DR JAMES, WE ARE AWAITING DR HENDERSON'S CONSULTATION TO CONTINUE SC PROTOCOL. PT GLUCOSE CHECKS HAVE BEEN >200 X 3. PT IS EATING REGULAR DIET. D10 DCD. ACCUCHECKS CNTD Q 3 H.
--- NOTE | 2016-09-22 18:09 | PN- Resident CRCU ---
Subjective HPI/CRCU Issues: Persistent Hypoglycemia UTI 24 Hour Events: Seen and examined at [facility]. last evening patient had persitent hypoglycemic episodes refractory to multiple cups of orange juice and D10. Received octreotide 50mg and D10 increased to 50 mg/hr. O/n sugar showed subsequent improvement and had stabilized. No other acute o/n event reported. He does not endorse any complaints such as CP,palpitations,shortness of breath. Objective Vital Signs & I&O Last 8 Hrs of Vitals and I&O: Intake & Output 09/22 1600 Intake Total 970 Output Total 350 Balance 620 Intake, IV 490 Intake, Oral 480 Number 3 Bowel Movements Output, Urine 350 Patient 108.919 kg Weight Exam General Appearance: alert, awake Head: atraumatic, normal appearance Respiratory: normal breath sounds, chest non-tender, no respiratory distress, lungs clear Cardiovascular: regular rate/rhythm Other Physical Findings: ulceration around the penis foreskin that were presented on admission. Current Medications: Current Medications Sig/Christie Start time Last Medication Dose Route Stop Time Status Admin Acetaminophen 650 MG Q6P PRN 09/20 0515 AC PO Acetaminophen 1,000 MG Q6P PRN 09/20 0615 AC IV Atorvastatin Calcium 10 MG 1700 09/20 1700 AC 09/22 PO 1738 Bisacodyl 10 MG DAILY NEEDED PRN 09/20 0400 AC ND Ceftriaxone Sodium 1,000 MG 0100 09/20 0700 DC 09/22 IV 0030 Ciprofloxacin 500 MG DAILY 09/22 1200 AC 09/22 PO 10/05 0959 1452 Dextrose/Water 250 ML Q5H 09/21 1930 DC 09/22 IV 1453 Dextrose/Water 250 ML Q8H 09/21 0445 DC 09/21 IV 1315 Finasteride 5 MG QPM 09/20 2200 AC 09/21 PO 2235 Gabapentin 300 MG BID 09/20 1000 AC 09/22 PO 1003 Gemfibrozil 600 MG DAILY 09/20 1000 AC 09/22 PO 1004 Lorazepam 0.5 MG AT BEDTIME 09/20 0400 AC 09/21 PO 09/27 0359 2235 Magnesium Hydroxide 30 ML DAILY PRN 09/20 0400 AC PO Magnesium Sulfate 1 GM ONCE ONE 09/21 1900 DC 09/21 Dextrose/Water 100 ML IV 09/21 2258 203 Metoprolol Tartrate 25 MG BID 09/20 2200 AC 09/22 PO 1004 Phytonadione 5 MG ONCE ONE 09/22 1000 DC 09/22 PO 09/22 1001 1101 Sodium Chloride 1,000 ML Q20H 09/21 0445 AC 09/22 IV 0029 Tamsulosin HCl 0.4 MG DAILY 09/20 1000 AC 09/22 PO 1003 Tramadol HCl 50 MG Q6 PRN 09/20 0615 AC PO Impression/Plan Impression/Problem List Impression: This is a 81 y/o morbidly obese M with PMHx of dementia, CAD s/p CABG, HFrEF, insulin-dependent T2DM, CKD stage III and recurrent DVT on warfarin,status post cystoscopy 1month ago with placement of a right ureteral stent dure to right side hydronephrosis dicharged with Wheat, who presents from [facility] with fatigue and was admitted for sepsis of urological origin and acute on chronic CKD. During the same day at nighttime patient developed palpitations and repeated persistent episodes of hypoglycemia though initially refractory to dextrose amp, she responded to D10 W and was transferred to ICU for close monitoring with every hour Accu-Cheks. Impression * Persistent episodes of hypoglycemia. Probably multifactorial in the setting of decreased oral intake due to acute infection and use of sulfonylurea with underlying acute on chronic CKD (decreased excretion of sulfonylurea). * Urinary tract infection with Klebsiella isolated. Patient has an extensive history of urinary obstruction with recent stent placement. He is a high risk of recurrent UTIs. * Acute on chronic CKD. Likely Post renal as noted by an increased FeNa and a history of obstruction and BPH. * History of 2 diabetes on glimepiride 4 mg and sitagliptin. 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 * History of hypertension. Plan Improved blood glucose .Will decreased D10 from 50/hr to 30. Accu checks decresed from Q1 to q2-3. We'll also continue normal saline to keep blood pressure up and for a MORRO Continue ceftriaxone for UTI. Cultures positive for Klebsiella however sensitivity still pending. Will follow up ID recommendations Will hold off straight cath protocol in the setting of elevated INR (7) Will hold off Coumadin dose today for DVT PE prophylaxis as INR is supratherapeutic target range is 7, additionally we kenzie give Vit K 5 mg once Problem List: 1. UTI (lower urinary tract infection) 2. Hypoglycemia Pain Ratin Tomorrow's Labs & Rationales: CBC PT/INR ICU BUNDLE Plan DVT/Prophylaxis: Supra theraputic INR
[2016-09-23 06:46] LABS: ABSOLUTE BASOPHIL COUNT 0 /CUMM (0.0-0.2); ABSOLUTE EOSINOPHIL COUNT 0.3 /CUMM (0.0-0.7); ABSOLUTE GRANULOCYTE CT 7.6 /CUMM (1.4-6.5); ABSOLUTE LYMPH COUNT 0.6 /CUMM (1.2-3.4); ABSOLUTE MONOCYTE COUNT 1.7 /CUMM (0.10-0.60); BASOPHIL % 0.1 % (0.0-2.0); EOSINOPHIL % 3.3 % (0-5); GRANULOCYTE % 73.8 % (42.2-75.2); HEMATOCRIT 26.7 % (42-52); MEAN CORPUSCULAR HGB 31.4 PG (27.0-31.0); MEAN CORPUSCULAR HGB CONC 33.5 G/DL (33.0-37.0); MEAN CORPUSCULAR VOLUME 93.7 FL (80.0-94.0); MEAN PLATELET VOLUME 8.8 FL (7.4-10.4); PLATELET COUNT 263 /CUMM (130-400); RBC DISTRIBUTION WIDTH 14.1 % (11.5-14.5); RED BLOOD CELL CT 2.85 /CUMM (4.70-6.10); WHITE BLOOD CELL COUNT 10.2 /CUMM (4.8-10.8)
[2016-09-23 06:52] LABS: PT 23.3 SEC (9.4-12.5)
--- NOTE | 2016-09-23 07:17 | PN- Diabetes ---
Assessment/Plan Assessment: Mr. 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 Patient presented with fatigue and was admitted for sepsis secondary to UTI. He was found to have severe hypoglycemia with glucose level in the 30s and 40s despite he has been on dextrose intravenously. He was on Glimepiride 4 mg daily and Januvia 25 mg daily prior to admission. Most likely patient has had severe hypoglycemia due to sulfonyureas in the setting of renal insufficiency. Patient has been eating and drinking orange juices. In addition, he was on 10% dextrose between 30 -50 ml/hour. But his glucose level was down to 57 again on . He received Octreotide 50 mcg sc x1 at around 6 pm. Since then, his glucose level has been elevated. D10W was discontinued. Now he is on NS at 30 ml/hour and he is on Novolog coverage before meals and Novolog coverage at bedtime. Plan: 1. adjust Novolog coverage before meals--- detail see the inpatient DM order; 2. continue the current Novolog coverage at bedtime; 3. monitor FSGs and electrolytes. will follow. Inpatient Diabetes Orders Before Each Meal: Bolus Insulin: Novolog < 80 mg/dl: no coverage 80-100 mg/dl: no coverage 101-120 mg/dl: no coverage 121-150 mg/dl: no coverage 151-200 mg/dl: 2 units 201-250 mg/dl: 3 units 251-300 mg/dl: 4 units 301-350 mg/dl: 5 units 351-400 mg/dl: 6 units > 400 mg/dl: 7 units Subjective Subjective: He feels well this morning. Objective Last 24 Hrs of Vital Signs/I&O Vital Signs Date Time Temp Pulse Resp B/P B/P Pulse O2 O2 Flow FiO2 Mean Ox Delivery Rate 09/23 0000 Nasal 2.0L Cannula 09/22 2038 86 122/74 09/22 1600 98.9 84 20 136/68 98 Nasal 2.0L Cannula 09/22 1600 98 Nasal 2.0L Cannula 09/22 1200 95 Nasal 2.0L Cannula 09/22 1004 87 95/57 06/14 1003 86 09/22 0800 96 Nasal 2.0L Cannula 09/22 0800 98.0 83 19 133/63 96 Nasal 2.0L Cannula Intake & Output 09/23 0800 09/23 0000 09/22 1600 Intake Total 520 970 Output Total 350 Balance 520 620 Intake, IV 240 490 Intake, Oral 280 480 Number 1 3 Bowel Movements Output, Urine 350 Patient 240 lb Weight Findings Pertinent Lab/Donte Results: Laboratory Tests 09/23 0600 Chemistry Sodium (137 - 145 mmol/L) 130 L Potassium (3.5 - 5.1 mmol/L) 4.4 Chloride (98 - 107 mmol/L) 100 Carbon Dioxide (22 - 30 mmol/L) 21 L Anion Gap (5 - 16) 9 BUN (9 - 20 mg/dL) 46 H Creatinine (0.7 - 1.2 mg/dL) 2.1 H Estimated GFR (>60 ml/min) 31 L Glucose (65 - 99 mg/dL) 204 H Calcium (8.4 - 10.2 mg/dL) 7.5 L Phosphorus (2.5 - 4.5 mg/dL) 2.8 Magnesium (1.6 - 2.3 mg/dL) 2.1 Total Bilirubin (0.2 - 1.3 mg/dL) 0.4 AST (17 - 59 U/L) 36 ALT (21 - 72 U/L) 42 Albumin (3.5 - 5.0 g/dL) 2.3 L Coagulation PT (9.4 - 12.5 SEC) 23.3 H INR (0.90 - 1.17) 2.24 H Hematology CBC w Diff NO MAN DIFF REQ WBC (4.8 - 10.8 /CUMM) 10.2 RBC (4.70 - 6.10 /CUMM) 2.85 L Hgb (14.0 - 18.0 G/DL) 8.9 L Hct (42 - 52 %) 26.7 L MCV (80.0 - 94.0 FL) 93.7 MCH (27.0 - 31.0 PG) 31.4 H RDW (11.5 - 14.5 %) 14.1 Plt Count (130 - 400 /CUMM) 263 MPV (7.4 - 10.4 FL) 8.8 Gran % (42.2 - 75.2 %) 73.8 Lymphocytes % (20.5 - 51.1 %) 6.2 L Monocytes % (1.7 - 9.3 %) 16.6 H Eosinophils % (0 - 5 %) 3.3 Basophils % (0.0 - 2.0 %) 0.1 Absolute Granulocytes (1.4 - 6.5 /CUMM) 7.6 H Absolute Lymphocytes (1.2 - 3.4 /CUMM) 0.6 L Absolute Monocytes (0.10 - 0.60 /CUMM) 1.7 H Absolute Eosinophils (0.0 - 0.7 /CUMM) 0.3 Absolute Basophils (0.0 - 0.2 /CUMM) 0 PUBS MCHC (33.0 - 37.0 G/DL) 33.5
--- NOTE | 2016-09-23 07:38 | PN- Housestaff ---
Subjective Follow-up For: Hypoglycemix events UTI Subjective: Seen and examined at bedside. Does not endorse any complaints including cp/ palpitation, sob,fever/chills, abdominal pain or dysuria. Review of Systems Constitutional: Reports: see HPI. Objective Last 24 Hrs of Vital Signs/I&O Vital Signs Date Time Temp Pulse Resp B/P B/P Pulse O2 O2 Flow FiO2 Mean Ox Delivery Rate 09/23 0859 98.8 78 20 130/58 09/23 0959 98.8 78 20 130/58 09/23 0800 98.8 78 20 130/58 94 Room Air Room Air 09/23 0000 Nasal 2.0L Cannula 09/22 2038 86 122/74 09/22 1600 98.9 84 20 136/68 98 Nasal 2.0L Cannula 09/22 1600 98 Nasal 2.0L Cannula Intake & Output 09/23 1600 09/23 0800 09/23 0000 Intake Total 480 520 Output Total Balance 480 520 Intake, IV 240 Intake, Oral 480 280 Number 2 1 Bowel Movements Physical Exam General Appearance: Alert, Oriented X3, Cooperative Other Physical Findings: Neck Supple Cardiovascular Regular Rate, Normal S1, Normal S2 Lungs Clear to Auscultation Abdomen Soft, No Tenderness, Positive Bowel Sounds Extremities No Clubbing, No Cyanosis, Venous Stasis Ulcer Over the Left Medial Malleolus with Dressing in Place, Bilateral Lower Extremities with 2+ Pitting Edema Reproductive (MALE) Superficial lesion on penis that appears like a shallow ulcer Assessment/Plan Assessment: This is a 81 y/o morbidly obese M with PMHx of dementia, CAD s/p CABG, HFrEF, insulin-dependent T2DM, CKD stage III and 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 During the same day at nighttime patient developed palpitations and repeated persistent episodes of hypoglycemia though initially refractory to dextrose amp, she responded to D10 W and was transferred to ICU for close monitoring with every hour Accu-Cheks. Impression * Persistent episodes of hypoglycemia. Probably multifactorial in the setting of decreased oral intake due to acute infection and use of sulfonylurea with underlying acute on chronic CKD (decreased excretion of sulfonylurea). * Urinary tract infection with Klebsiella isolated. Patient has an extensive history of urinary obstruction with recent stent placement. He is a high risk of recurrent UTIs. * Acute on chronic CKD. Likely Post renal as noted by an increased FeNa and a history of obstruction and BPH. * History of 2 diabetes on glimepiride 4 mg and sitagliptin. 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 * History of hypertension. Plan Continue Accu-Cheks every 3 hrs Will decrease NovoLog to very low sliding scale We'll also continue normal saline to keep blood pressure up and for a MORRO Continue Cipro for UTI. Cultures positive for Klebsiella however sensitivity still pending. Will follow up ID recommendations Will bladder scan every shift and straight cath if needed for urinary retention, urology is on board and as of now do not recommend Wheat placement Will dose coumadin 2mg toadyfor DVT PE prophylaxis as INR is supratherapeutic target range is 2-3 Problem List: 1. Acute renal failure 2. UTI (lower urinary tract infection) Pain Ratin Pain Location: NONE Pain Goal: Remain pain free Pain Plan: PER PATHWAY Tomorrow's Labs & Rationales: ICU BUNDLE
[2016-09-23 08:00] VITALS: BP 130/58
--- NOTE | 2016-09-23 10:05 | PN- Urology ---
Surgical Brief Attending Note Brief Attending Note: pt voiding: at times requires intermittent cath: recommend intermitten cath when pt in retention: pantoja to be held unless pt with worsening renal function.
--- NOTE | 2016-09-23 10:19 | PN- Infect Dx ---
Subjective Subjective: Afebrile without complaints Objective Last 24 Hrs of Vital Signs/I&O Vital Signs Date Time Temp Pulse Resp B/P B/P Pulse O2 O2 Flow FiO2 Mean Ox Delivery Rate 09/23 0959 98.8 78 20 130/58 09/23 0959 98.8 78 20 130/58 09/23 0800 98.8 78 20 130/58 94 Room Air Room Air 09/23 0000 Nasal 2.0L Cannula 09/22 2038 86 122/74 09/22 1600 98.9 84 20 136/68 98 Nasal 2.0L Cannula 09/22 1600 98 Nasal 2.0L Cannula 09/22 1200 95 Nasal 2.0L Cannula Intake & Output 09/23 1600 09/23 0800 09/23 0000 Intake Total 520 Output Total Balance 520 Intake, IV 240 Intake, Oral 280 Number 1 Bowel Movements Physical Exam Other Physical Findings: He appears comfortable in no acute distress Lungs are clear Heart regular rhythm with no murmur Abdomen is obese, soft, nontender with positive bowel sounds Back no CVA tenderness Extremities 1+ edema both lower extremities Results Last 24 Hours of Lab Results: Laboratory Tests 09/23 0600 Chemistry Sodium (137 - 145 mmol/L) 130 L Potassium (3.5 - 5.1 mmol/L) 4.4 Chloride (98 - 107 mmol/L) 100 Carbon Dioxide (22 - 30 mmol/L) 21 L Anion Gap (5 - 16) 9 BUN (9 - 20 mg/dL) 46 H Creatinine (0.7 - 1.2 mg/dL) 2.1 H Estimated GFR (>60 ml/min) 31 L Glucose (65 - 99 mg/dL) 204 H Calcium (8.4 - 10.2 mg/dL) 7.5 L Phosphorus (2.5 - 4.5 mg/dL) 2.8 Magnesium (1.6 - 2.3 mg/dL) 2.1 Total Bilirubin (0.2 - 1.3 mg/dL) 0.4 AST (17 - 59 U/L) 36 ALT (21 - 72 U/L) 42 Albumin (3.5 - 5.0 g/dL) 2.3 L Coagulation PT (9.4 - 12.5 SEC) 23.3 H INR (0.90 - 1.17) 2.24 H Hematology CBC w Diff NO MAN DIFF REQ WBC (4.8 - 10.8 /CUMM) 10.2 RBC (4.70 - 6.10 /CUMM) 2.85 L Hgb (14.0 - 18.0 G/DL) 8.9 L Hct (42 - 52 %) 26.7 L MCV (80.0 - 94.0 FL) 93.7 MCH (27.0 - 31.0 PG) 31.4 H RDW (11.5 - 14.5 %) 14.1 Plt Count (130 - 400 /CUMM) 263 MPV (7.4 - 10.4 FL) 8.8 Gran % (42.2 - 75.2 %) 73.8 Lymphocytes % (20.5 - 51.1 %) 6.2 L Monocytes % (1.7 - 9.3 %) 16.6 H Eosinophils % (0 - 5 %) 3.3 Basophils % (0.0 - 2.0 %) 0.1 Absolute Granulocytes (1.4 - 6.5 /CUMM) 7.6 H Absolute Lymphocytes (1.2 - 3.4 /CUMM) 0.6 L Absolute Monocytes (0.10 - 0.60 /CUMM) 1.7 H Absolute Eosinophils (0.0 - 0.7 /CUMM) 0.3 Absolute Basophils (0.0 - 0.2 /CUMM) 0 PUBS MCHC (33.0 - 37.0 G/DL) 33.5 Last 24 Hours of Donte Results: No new cultures Assessment/Plan Impression: Overall improved with temperatures and white blood cell count normal now on Ciprofloxacin Day 4 of treatment for Enterobacter sepsis felt to be of urologic origin, status post a recent Wheat catheter, though the urine culture is growing Citrobacter. His urinary retention is of some concern as it may increase his risk for further urinary tract infections, and this will need to continue to be monitored. His renal function has continued to improve. Suggestion: 1. Continue to monitor for urinary retention with a bladder scan 2. Continue Ciprofloxacin
--- NOTE | 2016-09-23 13:31 | NUR ---
PHYSICAL THERAPY: ATTEMPTED TO SEE Pt THIS AFTERNOON, Pt REFUSING P.T. OOB AND BED LEVEL THEREX STATING "MY LEGS ARE IRON, I CANNOT MOVE, I WILL NOT TRY." WITH FURTHER ENCOURAGEMENT AND EUCATION, Pt CLOSED EYES, ANSWERING BY SHAKING HEAD NOW AND NOT ANSWERING QUESTIONS VREBALLY, THEN BEGAN TO PRETEND TO BE SLEEPING. WILL F/U APPROPRIATE TOMORROW FOR Tx.
--- NOTE | 2016-09-23 13:42 | PN- Pulmonary ---
Subjective HPI/Critical Care Issues: Afebrile without complaints sleeping Objective Current Medications: Current Medications Sig/Christie Start time Last Medication Dose Route Stop Time Status Admin Acetaminophen 650 MG Q6P PRN 09/20 0515 AC PO Acetaminophen 1,000 MG Q6P PRN 09/20 0615 AC IV Atorvastatin Calcium 10 MG 1700 09/20 1700 AC 09/22 PO 1738 Bisacodyl 10 MG DAILY NEEDED PRN 09/20 0400 AC [place] Ciprofloxacin 500 MG DAILY 09/22 1200 AC 09/23 PO 10/05 0959 0959 Dextrose/Water 250 ML Q5H 09/21 1930 DC 09/22 IV 1453 Finasteride 5 MG QPM 09/20 2200 AC 09/22 PO 2038 Gabapentin 300 MG BID 09/20 1000 AC 09/23 PO 0959 Gemfibrozil 600 MG DAILY 09/20 1000 AC 09/23 PO 0959 Insulin Aspart 0 TIDAC/HS 09/22 2100 AC 09/23 SC 1152 Lorazepam 0.5 MG AT BEDTIME 09/20 0400 AC 09/22 PO 09/27 0359 2220 Magnesium Hydroxide 30 ML DAILY PRN 09/20 0400 AC PO Metoprolol Tartrate 25 MG BID 09/20 2200 AC 09/23 PO 0959 Sodium Chloride 1,000 ML Q20H 09/21 0445 AC 09/22 IV 2038 Tamsulosin HCl 0.4 MG DAILY 09/20 1000 AC 09/23 PO 0959 Tramadol HCl 50 MG Q6 PRN 09/20 0615 AC PO Vital Signs & I&O Last 24 Hrs of Vitals and I&O: Vital Signs Date Time Temp Pulse Resp B/P B/P Pulse O2 O2 Flow FiO2 Mean Ox Delivery Rate 09/23 0859 98.8 78 20 130/58 09/23 0959 98.8 78 20 130/58 09/23 0800 98.8 78 20 130/58 94 Room Air Room Air 09/23 0000 Nasal 2.0L Cannula 09/228 86 122/74 09/22 1600 98.9 84 20 136/68 98 Nasal 2.0L Cannula 09/22 1600 98 Nasal 2.0L Cannula Intake & Output 09/23 1600 09/23 0800 09/23 0000 Intake Total 520 Output Total Balance 520 Intake, IV 240 Intake, Oral 280 Number 1 Bowel Movements Laboratory Tests 09/23 09/22 0600 0400 Chemistry Sodium (137 - 145 mmol/L) 130 L 130 L Potassium (3.5 - 5.1 mmol/L) 4.4 4.3 Chloride (98 - 107 mmol/L) 100 99 Carbon Dioxide (22 - 30 mmol/L) 21 L 20 L Anion Gap (5 - 16) 9 10 BUN (9 - 20 mg/dL) 46 H 48 H Creatinine (0.7 - 1.2 mg/dL) 2.1 H 2.2 H Estimated GFR (>60 ml/min) 31 L 29 L Glucose (65 - 99 mg/dL) 204 H 125 H Calcium (8.4 - 10.2 mg/dL) 7.5 L 7.3 L Phosphorus (2.5 - 4.5 mg/dL) 2.8 2.9 Magnesium (1.6 - 2.3 mg/dL) 2.1 2.0 Total Bilirubin (0.2 - 1.3 mg/dL) 0.4 0.3 AST (17 - 59 U/L) 36 57 ALT (21 - 72 U/L) 42 34 Albumin (3.5 - 5.0 g/dL) 2.3 L 2.3 L Coagulation PT (9.4 - 12.5 SEC) 23.3 H 77.1 *H INR (0.90 - 1.17) 2.24 H 7.49 *H Hematology CBC w Diff NO MAN DIFF REQ MAN DIFF ORDERED WBC (4.8 - 10.8 /CUMM) 10.2 10.9 H RBC (4.70 - 6.10 /CUMM) 2.85 L 3.00 L Hgb (14.0 - 18.0 G/DL) 8.9 L 9.3 L Hct (42 - 52 %) 26.7 L 28.5 L MCV (80.0 - 94.0 FL) 93.7 94.9 H MCH (27.0 - 31.0 PG) 31.4 H 31.2 H RDW (11.5 - 14.5 %) 14.1 14.0 Plt Count (130 - 400 /CUMM) 263 252 MPV (7.4 - 10.4 FL) 8.8 8.9 Gran % (42.2 - 75.2 %) 73.8 76.5 H Lymphocytes % (20.5 - 51.1 %) 6.2 L 4.4 L Monocytes % (1.7 - 9.3 %) 16.6 H 15.3 H Eosinophils % (0 - 5 %) 3.3 3.5 Basophils % (0.0 - 2.0 %) 0.1 0.3 Absolute Granulocytes (1.4 - 6.5 /CUMM) 7.6 H 8.4 H Segmented Neutrophils (42.2 - 75.2 %) 69 Band Neutrophils (0.0 - 5.0 %) 3 Absolute Lymphocytes (1.2 - 3.4 /CUMM) 0.6 L 0.5 L Lymphocytes (20.5 - 51.1 %) 8 L Monocytes (1.7 - 9.3 %) 16 H Absolute Monocytes (0.10 - 0.60 /CUMM) 1.7 H 1.7 H Eosinophils (0 - 5.0 %) 4 Absolute Eosinophils (0.0 - 0.7 /CUMM) 0.3 0.4 Absolute Basophils (0.0 - 0.2 /CUMM) 0 0 Platelet Estimate (ADEQUATE) ADEQUATE Hypochromic-Microcytic 1+ Poikilocytosis 1+ Ovalocytes 1+ PUBS MCHC (33.0 - 37.0 G/DL) 33.5 32.8 L Other Body Source Fld Total RBCs Counted (%) 100 09/21 09/21 1705 1415 Chemistry Sodium (137 - 145 mmol/L) 132 L Potassium (3.5 - 5.1 mmol/L) 4.2 Chloride (98 - 107 mmol/L) 99 Carbon Dioxide (22 - 30 mmol/L) 21 L Anion Gap (5 - 16) 12 BUN (9 - 20 mg/dL) 52 H Creatinine (0.7 - 1.2 mg/dL) 2.4 H Estimated GFR (>60 ml/min) 26 L Glucose (65 - 99 mg/dL) 51 L 92 Calcium (8.4 - 10.2 mg/dL) 7.5 L Phosphorus (2.5 - 4.5 mg/dL) 3.2 Magnesium (1.6 - 2.3 mg/dL) 1.8 Total Bilirubin (0.2 - 1.3 mg/dL) 0.5 AST (17 - 59 U/L) 69 H ALT (21 - 72 U/L) 40 Albumin (3.5 - 5.0 g/dL) 2.7 L Microbiology Date/Time Procedure - Status Source Growth 09/21 829 Surveillance Culture - COMP UPPER RESP 09/21 829 Surveillance Culture - COMP GI 09/20 2329 Blood Culture - COMP BLOOD ENTEROBACTER AEROGENES 09/20 2320 Blood Culture - COMP BLOOD ENTEROBACTER AEROGENES Impression/Plan Impression/Plan Impression/Plan: He is awake and alert in no acute distress. Skin reveals no rash. HEENT exam is negative. Neck is supple with no adenopathy. Lungs are clear. Heart regular rhythm with a 2/6 systolic ejection murmur. Abdomen is obese, soft, nontender with positive bowel sounds. Back no CVA tenderness. Extremities 1+ edema both lower extremities; superficial ulcerations on the medial aspect of the left ankle. Neuro is without focality. 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, PFO, status post surgical repair, BPH, nephrolithiasis, status post cystolitholapaxy 2 years prior to admission, with chronic right hydronephrosis, hospitalized one month prior to admission with acute renal failure, status post cystoscopy with placement of a right ureteral stent, with gram neg sepsis due to urological origin ISSUES Improving SIg hypoglycemia due to oral sulfanyureas complicated by sepsis and poor po intake, Sepsis gram neg of urological origin on abx, Growing enterobacter sensitive to cipro CKD Urinary incont, with stent for hydronephrosis, with multiple stones in the past with previous surg for his bladder stones etc DM now hypo HTN, PFO s.p repair, BPH, now requiring st cath and issues with bladder emptying Previous CAD and atrial clots with pfo and embolectomy in the past Previous dvt on anticoag, s/p IVC filter and atrial clots and embolectomy needs to be on anticoag Previous ct finding of lung nodule needs nonemergent chest ct High INR REC See Glucose and insulin mgt per endocrine Po cipro ID and URology to follow Watch INR and goal is 2.5-3 Please resume warfarin today COnt meds for BPH Ok to the floor
[2016-09-23 16:00] VITALS: BP 136/70
--- NOTE | 2016-09-23 19:25 | NUR ---
PATIENT ARRIVED TO FLOOR AT 1906 FROM ICU, DX MORRO A&OX2 TO SELF AND TIME, LUNG SOUNDS DIMINISHED, NO SOB, NO DISTRESS, ROOM AIR BLE EDEMA +2, BUE EDEMA +1, MISC BRUISING NOTED. FALL PRECAUTIONS IN PLACE, PATIENT REFUSING SOCKS RIGHT NOW. +BS, ON SIZEWISE. INC OF B & B. 2 IVS HEP LOCKED, #22 ALESSIO & #20 RF BOTH FROM 09/21/16. SAFETY MAINTAINED, NEEDS WITHIN REACH.
[2016-09-23 19:28] VITALS: BP 172/70
[2016-09-23 21:45] LABS: PT 18.6 SEC (9.4-12.5)
[2016-09-23 21:58] VITALS: BP 158/66
--- NOTE | 2016-09-23 23:18 | Patient Discharge Instructions ---
Discharge Instructions General Discharge Information You were seen/treated for: 1. URINARY TRACT INFECTION 2. HYPOGLYCEMIA Watch for these problems: Fevers, chills, pain on urination, urinary retention, hypoglycemia Special Instructions: 1. Please follow up with your primary care provider within 1 week of discharge. 2. Please follow up with your sandwich artist, Dr. Alex within 1 week of discharge. 3. Follow up with urologist, Dr. Shah within 1 week of discharge. 4. Patient is incontinent of urine. Please do not use pantoja catheter for patient. Straight cath PRN for urinary retention. 5. Monitor INR closely and dose coumadin to keep INR betwen 2 and 3. 6. Please check BEP and creatinine in 3 days (Around 09/29) to make sure renal function is stable. Diet Continue normal diet: No Recommended Diet: Diabetic, Heart Healthy Activity Full Activity/No Limits: No Activity Self Limited: Yes Acute Coronary Syndrome Inclusion Criteria At DC or during hospital stay patient has or had the following: ACS DIAGNOSIS No Discharge Core Measures Meds if any: Prescribed or Continued at Discharge Meds if any: NOT Prescribed or Continued at Discharge Congestive Heart Failure Inclusion Criteria At DC or during hospital stay patient has or had the following: CHF DIAGNOSIS No Discharge Core Measures Meds if any: Prescribed or Continued at Discharge Meds if any: NOT Prescribed or Continued at Discharge Cerebrovascular accident Inclusion Criteria At DC or during hospital stay patient has or had the following: CVA/TIA Diagnosis No Discharge Core Measures Meds if any: Prescribed or Continued at Discharge Meds if any: NOT Prescribed or Continued at Discharge Venous thromboembolism Inclusion Criteria VTE Diagnosis No VTE Type NONE VTE Confirmed by (Test) NONE Discharge Core Measures - Per Current guidelines, there needs to be overlap - treatment for the first 5 days of Warfarin therapy. - If discharged on Warfarin prior to 5 days of - overlap therapy, the patient will need to be - assessed for post discharge needs including - *Post discharge parental anticoagulation - *Warfarin and/or parental anticoagulation education - *Follow up date to check INR post discharge At least 5 days overlap therapy as Inpatient No Meds if any: Prescribed or Continued at Discharge Note: Overlap Therapy is Warfarin and Anticoagulant Meds if any: NOT Prescribed or Continued at Discharge
[2016-09-24 06:50] VITALS: BP 152/70
--- NOTE | 2016-09-24 07:48 | PN- Housestaff ---
See Addendum Subjective Follow-up For: Recurrent episodes of hypoglycemia Acute on chronic renal failure Sepsis secondary to UTI gram-negative bacteremia Complaints: no complaints Subjective: Patient feels better overall. Review of Systems Constitutional: Denies: chills, fever. EENTM: Denies: visual changes. Cardiovascular: Denies: chest pain, palpitations. Respiratory: Denies: cough, short of breath. Gastrointestinal: Denies: abdominal pain, nausea, vomiting. Genitourinary: Denies: discharge. Musculoskeletal: Denies: back pain. Objective Last 24 Hrs of Vital Signs/I&O Vital Signs Date Time Temp Pulse Resp B/P B/P Pulse O2 O2 Flow FiO2 Mean Ox Delivery Rate 09/24 1442 98.2 75 18 140/78 96 Room Air 09/24 1110 152/70 09/24 0926 Nasal 3.0L Cannula 09/24 0923 Nasal 3.0L Cannula 09/24 0650 99.0 79 18 152/70 96 Room Air 09/23 2158 99.5 83 17 158/66 96 09/23 2138 83 158/66 09/23 1928 98.7 86 20 172/70 94 09/23 1600 98.5 70 18 136/70 100 Room Air Intake & Output 09/24 1600 09/24 0800 09/24 0000 Intake Total 710 10 840 Output Total Balance 710 10 840 Intake, IV 10 10 Intake, Oral 700 840 Number 4 1 1 Bowel Movements Physical Exam General Appearance: Alert, Oriented X3, Cooperative, No Acute Distress HEENT: Atraumatic Cardiovascular: Regular Rate, Normal S1, Normal S2 Lungs: Clear to Auscultation, Normal Air Movement Abdomen: Normal Bowel Sounds, Soft, No Tenderness Neurological: Normal Speech, Normal Tone Extremities: 2+ PITTING EDEMA B/L LOWER EXTREMITIES, SKIN BREAKDOWN Other Physical Findings: Superficial ulcer x 2 on penis Current Medications: Current Medications Sig/Christie Start time Last Medication Dose Route Stop Time Status Admin Acetaminophen 650 MG .STK-MED ONE 09/24 0454 DC PO 09/24 0455 Acetaminophen 650 MG Q6P PRN 09/20 0515 AC 09/24 PO 0455 Acetaminophen 1,000 MG Q6P PRN 09/20 0615 AC IV Atorvastatin Calcium 10 MG 1700 09/20 1700 AC 09/23 PO 1755 Bisacodyl 10 MG DAILY NEEDED PRN 09/20 0400 AC AR Ciprofloxacin 500 MG DAILY 09/22 1200 AC 09/24 PO 10/05 0959 1110 Finasteride 5 MG QPM 09/20 2200 AC 09/23 PO 2138 Furosemide 40 MG DAILY 09/24 1000 AC 09/24 PO 1109 Gabapentin 300 MG BID 09/20 1000 AC 09/24 PO 1110 Gemfibrozil 600 MG DAILY 09/20 1000 AC 09/24 PO 1110 Insulin Aspart 0 TIDAC/HS 09/22 2100 AC 09/24 SC 1235 Lorazepam 0.5 MG AT BEDTIME 09/20 0400 AC 09/23 PO 09/27 0359 2138 Magnesium Hydroxide 30 ML DAILY PRN 09/20 0400 AC PO Metoprolol Tartrate 25 MG BID 09/20 2200 AC 09/24 PO 1110 Sitagliptin Phosphate 50 MG DAILY 09/24 1000 AC 09/24 PO 1109 Sodium Chloride 1,000 ML Q20H 09/21 0445 DC 09/22 IV 2038 Spironolactone 12.5 MG DAILY 09/24 1000 AC 09/24 PO 1111 Tamsulosin HCl 0.4 MG DAILY 09/20 1000 AC 09/24 PO 1110 Tramadol HCl 50 MG Q6 PRN 09/20 06 AC PO Warfarin Sodium 2 MG COUMADIN 1700 ONE 09/23 1700 DC 09/23 PO 09/23 1701 1755 Last 24 Hrs of Lab/Donte Results Last 24 Hrs of Labs/Mics: Laboratory Tests 09/24/16604: Anion Gap 7, Estimated GFR 34 L, BUN/Creatinine Ratio 24.2, CBC w Diff NO MAN DIFF REQ, RBC 2.90 L, MCV 93.8, MCH 31.5 H, RDW 13.9, MPV 8.7, Gran % 76.2 H, Lymphocytes % 5.8 L, Monocytes % 15.9 H, Eosinophils % 1.8, Basophils % 0.3, Absolute Granulocytes 9.4 H, Absolute Lymphocytes 0.7 L, Absolute Monocytes 2.0 H, Absolute Eosinophils 0.2, Absolute Basophils 0, PUBS MCHC 33.6 09/23/162024: PT 18.6 H, INR 1.78 H Lines/Diet/Fluids Lines: peripheral lines Restraints: none Assessment/Plan Assessment: 81 years old morbidly obese male with PMHx of dementia, CAD s/p CABG, HFrEF, insulin-dependent T2DM, CKD stage III and 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 During the same day at nighttime patient developed palpitations and repeated persistent episodes of hypoglycemia though initially refractory to dextrose amp, she responded to D10 W and was transferred to ICU for close monitoring with every hour Accu-Cheks. Patient was transferred back overnight to general medicine floor. Patient is currently being managed for the following problems Recurrent episodes of hypoglycemia/history of diabetes mellitus Patient's recurrent episodes of hypoglycemia that started on admission were morst likely secondary to sulfonylurea toxicity with underlying acute on chronic CKD (decreased excretion of sulfonylurea). Blood sugars have been fairly stable on general medicine floor and endocrinology followed the patient. Endocrinology recommended Januvia 50 mg daily, Novolog coverage before meals and Novolog coverage at bedtime. Sepsis secondary to urinary tract infection/gram-negative bacteremia Urinary tract infection with CITROBACTER FREUNDII. Patient has an extensive history of urinary obstruction with recent stent placement. He is a high risk of recurrent UTIs. Although WBC count is slightly elevated patient remained afebrile overnight. Continue with Cipro for 14 days as per ID recommendations. Acute on chronic kidney disease Patient was admitted with acute and chronic kidney disease. After IV hydration patient's creatinine has improved. Avoid nephrotoxic medications History of hypertension Patient's blood pressure was 152/70 the morning Will be started spironalactone and furosemide 40mg at a lower dose as compared to home dose Penile shallow ulcers/ History of urinary retention Will bladder scan every shift and straight cath if needed for urinary retention, urology is on board and recommend NO Wheat placement for now as it might have resulted in penile shallow ulcers in the recent past. History of DVT and pulmonary embolism Patient is currently on Coumadin We will dose Coumadin 2 mg daily Follow INR angles Coumadin accordingly Patient is full code Patient is on Coumadin for DVT prophylaxis Patient is on consistent carbohydrate diet Patient is on pain management Problem List: 1. Hyponatremia 2. Acute kidney injury 3. UTI (lower urinary tract infection) Pain Ratin Pain Location: NA Pain Goal: Pain 4 or less Pain Plan: NA Tomorrow's Labs & Rationales: CBC for leukocytosis BEP for the slight abnormal maladies
[2016-09-24 08:01] LABS: ABSOLUTE BASOPHIL COUNT 0 /CUMM (0.0-0.2); ABSOLUTE EOSINOPHIL COUNT 0.2 /CUMM (0.0-0.7); ABSOLUTE GRANULOCYTE CT 9.4 /CUMM (1.4-6.5); ABSOLUTE LYMPH COUNT 0.7 /CUMM (1.2-3.4); BASOPHIL % 0.3 % (0.0-2.0); EOSINOPHIL % 1.8 % (0-5); GRANULOCYTE % 76.2 % (42.2-75.2); HEMATOCRIT 27.2 % (42-52); MEAN CORPUSCULAR HGB 31.5 PG (27.0-31.0); MEAN CORPUSCULAR HGB CONC 33.6 G/DL (33.0-37.0); MEAN CORPUSCULAR VOLUME 93.8 FL (80.0-94.0); MEAN PLATELET VOLUME 8.7 FL (7.4-10.4); PLATELET COUNT 303 /CUMM (130-400); RBC DISTRIBUTION WIDTH 13.9 % (11.5-14.5); WHITE BLOOD CELL COUNT 12.3 /CUMM (4.8-10.8)
--- NOTE | 2016-09-24 08:23 | PN- Diabetes ---
Assessment/Plan Assessment: Mr. 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 Patient presented with fatigue and was admitted for sepsis secondary to UTI. He was found to have severe hypoglycemia with glucose level in the 30s and 40s despite he has been on dextrose intravenously. He was on Glimepiride 4 mg daily and Januvia 25 mg daily prior to admission. Most likely patient has had severe hypoglycemia due to sulfonyureas in the setting of renal insufficiency. Patient has been eating and drinking orange juices. In addition, he was on 10% dextrose between 30 -50 ml/hour. But his glucose level was down to 57 again on . He received Octreotide 50 mcg sc x1 at around 6 pm. Since then, his glucose level has been elevated. D10W was discontinued. Then he was on NS at 30 ml/hour which was discontinued on 09/23. Now he is on Novolog coverage before meals and Novolog coverage at bedtime. His FSGs were 181, 276, 223 and 193. Plan: 1. start Januvia 50 mg daily; 2. continue the current Novolog coverage before meals and Novolog coverage at bedtime; 3. monitor FSGs and electrolytes. will follow. Subjective Subjective: He has no special complaints this morning. Objective Last 24 Hrs of Vital Signs/I&O Vital Signs Date Time Temp Pulse Resp B/P B/P Pulse O2 O2 Flow FiO2 Mean Ox Delivery Rate 09/24 0650 99.0 79 18 152/70 96 Room Air 09/23 2157 99.5 83 17 158/66 96 09/23 2138 83 158/66 09/23 1928 98.7 86 20 172/70 94 09/23 1600 98.5 70 18 136/70 100 Room Air 09/23 0959 98.8 78 20 130/58 09/23 0959 98.8 78 20 130/58 Intake & Output 09/24 1600 09/24 0800 09/24 0000 Intake Total 10 840 Output Total Balance 10 840 Intake, IV 10 Intake, Oral 840 Number 1 1 Bowel Movements Findings Pertinent Lab/Donte Results: Laboratory Tests 09/24 Chemistry Sodium (137 - 145 mmol/L) 131 L Potassium (3.5 - 5.1 mmol/L) 4.5 Chloride (98 - 107 mmol/L) 102 Carbon Dioxide (22 - 30 mmol/L) 22 Anion Gap (5 - 16) 7 BUN (9 - 20 mg/dL) 46 H Creatinine (0.7 - 1.2 mg/dL) 1.9 H Estimated GFR (>60 ml/min) 34 L BUN/Creatinine Ratio (7 - 25 %) 24.2 Coagulation PT (9.4 - 12.5 SEC) 18.6 H INR (0.90 - 1.17) 1.78 H Hematology CBC w Diff Pending WBC Pending RBC Pending Hgb Pending Hct Pending MCV Pending MCH Pending RDW Pending Plt Count Pending MPV Pending PUBS MCHC Pending
--- NOTE | 2016-09-24 12:30 | PN- Infect Dx ---
Subjective Subjective: Afebrile without complaints Objective Last 24 Hrs of Vital Signs/I&O Vital Signs Date Time Temp Pulse Resp B/P B/P Pulse O2 O2 Flow FiO2 Mean Ox Delivery Rate 09/24 1110 152/70 09/24 0926 Nasal 3.0L Cannula 09/24 0923 Nasal 3.0L Cannula 09/24 0650 99.0 79 18 152/70 96 Room Air 09/23 2158 99.5 83 17 158/66 96 09/23 2138 83 158/66 09/23 1928 98.7 86 20 172/70 94 09/23 1600 98.5 70 18 136/70 100 Room Air Intake & Output 09/24 1600 09/24 0800 09/24 0000 Intake Total 10 840 Output Total Balance 10 840 Intake, IV 10 Intake, Oral 840 Number 2 1 1 Bowel Movements Physical Exam Other Physical Findings: He appears comfortable in no acute distress Lungs are clear Heart regular rhythm with no murmur Abdomen is obese, soft, nontender with positive bowel sounds Back no CVA tenderness Extremities 2+ edema both lower extremities urethral/penile ulcer unchanged Results Last 24 Hours of Lab Results: Laboratory Tests 09/24 Chemistry Sodium (137 - 145 mmol/L) 131 L Potassium (3.5 - 5.1 mmol/L) 4.5 Chloride (98 - 107 mmol/L) 102 Carbon Dioxide (22 - 30 mmol/L) 22 Anion Gap (5 - 16) 7 BUN (9 - 20 mg/dL) 46 H Creatinine (0.7 - 1.2 mg/dL) 1.9 H Estimated GFR (>60 ml/min) 34 L BUN/Creatinine Ratio (7 - 25 %) 24.2 Coagulation PT (9.4 - 12.5 SEC) 18.6 H INR (0.90 - 1.17) 1.78 H Hematology CBC w Diff NO MAN DIFF REQ WBC (4.8 - 10.8 /CUMM) 12.3 H RBC (4.70 - 6.10 /CUMM) 2.90 L Hgb (14.0 - 18.0 G/DL) 9.1 L Hct (42 - 52 %) 27.2 L MCV (80.0 - 94.0 FL) 93.8 MCH (27.0 - 31.0 PG) 31.5 H RDW (11.5 - 14.5 %) 13.9 Plt Count (130 - 400 /CUMM) 303 MPV (7.4 - 10.4 FL) 8.7 Gran % (42.2 - 75.2 %) 76.2 H Lymphocytes % (20.5 - 51.1 %) 5.8 L Monocytes % (1.7 - 9.3 %) 15.9 H Eosinophils % (0 - 5 %) 1.8 Basophils % (0.0 - 2.0 %) 0.3 Absolute Granulocytes (1.4 - 6.5 /CUMM) 9.4 H Absolute Lymphocytes (1.2 - 3.4 /CUMM) 0.7 L Absolute Monocytes (0.10 - 0.60 /CUMM) 2.0 H Absolute Eosinophils (0.0 - 0.7 /CUMM) 0.2 Absolute Basophils (0.0 - 0.2 /CUMM) 0 PUBS MCHC (33.0 - 37.0 G/DL) 33.6 Last 24 Hours of Donte Results: No recent cultures Assessment/Plan Impression: Overall improved with creatinine continuing to decrease and with temperatures remaining normal on Ciprofloxacin Day 5 of treatment for Enterobacter sepsis felt to be of urologic origin, most likely related to the recent Wheat catheter, though the urine culture grew Citrobacter. His white blood cell count is slightly elevated today of unclear significance. His urinary retention is of some concern as it may increase his risk for further urinary tract infections, and this will need to continue to be monitored. Suggestion: 1. Continue to monitor for urinary retention with a bladder scan 2. Continue Ciprofloxacin to plan on a 14 day course of treatment
[2016-09-24 14:42] VITALS: BP 140/78
[2016-09-24 23:15] VITALS: BP 122/57
[2016-09-25 07:00] VITALS: BP 140/62
[2016-09-25 08:07] LABS: ABSOLUTE BASOPHIL COUNT 0 /CUMM (0.0-0.2); ABSOLUTE EOSINOPHIL COUNT 0.5 /CUMM (0.0-0.7); ABSOLUTE GRANULOCYTE CT 8.3 /CUMM (1.4-6.5); ABSOLUTE LYMPH COUNT 1.3 /CUMM (1.2-3.4); ABSOLUTE MONOCYTE COUNT 1.7 /CUMM (0.10-0.60); BASOPHIL % 0.2 % (0.0-2.0); MEAN CORPUSCULAR HGB 31.4 PG (27.0-31.0); MEAN CORPUSCULAR HGB CONC 33.3 G/DL (33.0-37.0); MEAN PLATELET VOLUME 8.8 FL (7.4-10.4); PLATELET COUNT 358 /CUMM (130-400); RBC DISTRIBUTION WIDTH 14.1 % (11.5-14.5); RED BLOOD CELL CT 2.98 /CUMM (4.70-6.10); WHITE BLOOD CELL COUNT 11.7 /CUMM (4.8-10.8)
[2016-09-25 08:24] LABS: PT 16.1 SEC (9.4-12.5)
--- NOTE | 2016-09-25 11:11 | PN- Housestaff ---
SARAH ALBARRAN,[facility] 09/25/16 1111: Subjective Follow-up For: Recurrent episodes of hypoglycemia Acute on chronic renal failure Sepsis secondary to UTI gram-negative bacteremia Complaints: no complaints Subjective: Mr. Posey has no complaints this morning. He did state that he has previous episodes of bilateral heel pain. Denies subjective fevers, Review of Systems Constitutional: Denies: chills, fever. Cardiovascular: Denies: chest pain, palpitations, syncope. Respiratory: Denies: cough, short of breath, wheezing. Gastrointestinal: Reports: diarrhea. Denies: abdominal pain, constipation, nausea, vomiting. Genitourinary: Denies: dysuria. Musculoskeletal: Denies: back pain. Objective Last 24 Hrs of Vital Signs/I&O Vital Signs Date Time Temp Pulse Resp B/P B/P Pulse O2 O2 Flow FiO2 Mean Ox Delivery Rate 09/25 1421 98.6 78 20 136/72 98 Room Air 09/25 0944 84 142/64 09/25 0943 84 142/64 09/25 0700 98.6 81 20 140/62 92 Room Air 09/24 2315 99.3 95 20 122/57 94 Room Air 09/24 2110 95 122/57 Intake & Output 09/25 1600 09/25 0800 09/25 0000 Intake Total 120 240 Output Total Balance 120 240 Intake, Oral 120 240 Number 1 Bowel Movements Physical Exam General Appearance: Alert, Oriented X3, Cooperative, No Acute Distress Skin: No Rashes Skin Temp/Moisture Exam: Warm/Dry Sepsis Skin Exam (color): Normal for Ethnicity HEENT: Atraumatic Neck: Supple, No JVD Lymphatic: Cervical nl Cardiovascular: Regular Rate, Normal S1, Normal S2 Lungs: Clear to Auscultation, Normal Air Movement Abdomen: Normal Bowel Sounds, Soft, No Tenderness, No Hepatospenomegaly Neurological: Normal Speech, Strength at 5/5 X4 Ext, Normal Tone Extremities: 2+ pitting pedal edema bilaterally Current Medications: Current Medications Sig/Christie Start time Last Medication Dose Route Stop Time Status Admin Acetaminophen 650 MG Q6P PRN 09/20 0615 AC 09/24 PO 0455 Acetaminophen 1,000 MG Q6P PRN 09/20 0615 AC IV Atorvastatin Calcium 10 MG 1700 09/20 1700 AC 09/25 PO 1710 Bisacodyl 10 MG DAILY NEEDED PRN 09/20 0400 AC OK Ciprofloxacin 500 MG DAILY 09/22 1200 AC 09/25 PO 10/05 0959 0943 Finasteride 5 MG QPM 09/20 2200 AC 09/24 PO 2110 Furosemide 40 MG DAILY 09/24 1000 AC 09/25 PO 0943 Gabapentin 300 MG BID 09/20 1000 AC 09/25 PO 0944 Gemfibrozil 600 MG DAILY 09/20 1000 AC 09/25 PO 0943 Insulin Aspart 0 TIDAC/HS 09/22 2100 AC 09/25 SC 1711 Lorazepam 0.5 MG AT BEDTIME 09/20 0400 AC 09/24 PO 09/27 0359 2110 Magnesium Hydroxide 30 ML DAILY PRN 09/20 0400 AC PO Metoprolol Tartrate 25 MG BID 09/20 2200 AC 09/25 PO 0943 Sitagliptin Phosphate 50 MG DAILY 09/24 1000 AC 09/25 PO 0943 Spironolactone 12.5 MG DAILY 09/24 1000 AC 09/25 PO 0942 Tamsulosin HCl 0.4 MG DAILY 09/20 1000 AC 09/25 PO 0944 Tramadol HCl 50 MG Q6 PRN 09/20 0615 AC PO Warfarin Sodium 3 MG COUMADIN 1700 ONE 09/25 1700 DC 09/25 PO 09/25 1701 1711 Last 24 Hrs of Lab/Donte Results Last 24 Hrs of Labs/Mics: Laboratory Tests 09/25/16 0605: Anion Gap 8, Estimated GFR 39 L, BUN/Creatinine Ratio 27.1 H, PT 16.1 H, INR 1.54 H, CBC w Diff NO MAN DIFF REQ, RBC 2.98 L, MCV 94.0, MCH 31.4 H, RDW 14.1, MPV 8.8, Gran % 71.0, Lymphocytes % 10.7 L, Monocytes % 14.1 H, Eosinophils % 4.0, Basophils % 0.2, Absolute Granulocytes 8.3 H, Absolute Lymphocytes 1.3, Absolute Monocytes 1.7 H, Absolute Eosinophils 0.5, Absolute Basophils 0, PUBS MCHC 33.3 Assessment/Plan Assessment: 81 years old morbidly obese male with PMHx of dementia, CAD s/p CABG, HFrEF, insulin-dependent T2DM, CKD stage III and 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 During the same day at nighttime patient developed palpitations and repeated persistent episodes of hypoglycemia though initially refractory to dextrose amp, she responded to D10 W and was transferred to ICU for close monitoring with every hour Accu-Cheks. Patient was transferred back overnight to general medicine floor. Patient is currently being managed for the following problems 1. Recurrent episodes of hypoglycemia/history of diabetes mellitus Patient's recurrent episodes of hypoglycemia that started on admission were morst likely secondary to sulfonylurea toxicity with underlying acute on chronic CKD (decreased excretion of sulfonylurea). Blood sugars have been fairly stable on general medicine floor and endocrinology followed the patient. Endocrinology recommended Januvia 50 mg daily, Novolog coverage before meals and Novolog coverage at bedtime. 2. Sepsis secondary to urinary tract infection/gram-negative bacteremia Urinary tract infection with CITROBACTER FREUNDII. Patient has an extensive history of urinary obstruction with recent stent placement. He is a high risk of recurrent UTIs. Blood culture growing ENTEROBACTER AEROGENES. All isolates are sensitive to ciprofloxacin. Although WBC count is slightly elevated at 11.7 today. Patient remained afebrile overnight. Continue with Cipro for 14 days as per ID recommendations. 3. Acute on chronic kidney disease Patient was admitted with acute and chronic kidney disease. After IV hydration patient's creatinine has improved. Creatinine is 1.7 today. Now around baseline. Avoid nephrotoxic. medications. 4. History of hypertension Patient's blood pressure was 140/62 the morning Continue spironalactone, furosemide 40mg daily, and metoprolol 5. Penile shallow ulcers/ History of urinary retention Will bladder scan every shift and straight cath if needed for urinary retention, urology is on board and recommend NO Wheat placement for now as it might have resulted in penile shallow ulcers in the recent past. 6. History of DVT and pulmonary embolism Patient is currently on Coumadin INR this morning was 1.54 We will increase dose of Coumadin to 3 mg daily Follow INR angles Coumadin accordingly Patient is full code Patient is on Coumadin for DVT prophylaxis Patient is on consistent carbohydrate diet Patient is on pain management Problem List: 1. Hyponatremia 2. Acute kidney injury 3. UTI (lower urinary tract infection) Pain Ratin Pain Location: None Pain Goal: Remain pain free Pain Plan: Tylenol and tramadol PRN Tomorrow's Labs & Rationales: CBC for leukocytosis BEP for MORRO ALBA COLLINS MD 09/25/16 1236: Attending MD Review Statement Attending Statement Attending MD Statement: examined this patient, discuss w/resident/PA/FLOOD CONTROL ENGINEER, agreed w/resident/PA/FLOOD CONTROL ENGINEER, reviewed EMR data (avail), discussed with nursing Attending Assessment/Plan: 9o-year-old male with multiple medical problems including dementia, diabetes, CKD, DVT on Coumadin, urinary retention and obstruction is here with sepsis of urological origin. His blood cultures are growing Enterobacter and his urine culture is growing Citrobacter. He is on by mouth Cipro for the same. His MORRO is resolving nicely but his white count remains in the 10-11 range. In fact today it slightly higher than yesterday. We are watching urinary retention closely and not putting a Wheat as that has resulted in penile ulcers in the past. His hypoglycemia is better on his current regimen. Will need to speak to ID and watch his white count tomorrow. If it is stable then probable DC to STR and if unstable questionable further workup.
--- NOTE | 2016-09-25 11:50 | PN- Diabetes ---
Assessment/Plan Assessment: Mr. 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 Patient presented with fatigue and was admitted for sepsis secondary to UTI. He was found to have severe hypoglycemia with glucose level in the 30s and 40s despite he has been on dextrose intravenously. He was on Glimepiride 4 mg daily and Januvia 25 mg daily prior to admission. Most likely patient has had severe hypoglycemia due to sulfonyureas in the setting of renal insufficiency. Patient has been eating and drinking orange juices. In addition, he was on 10% dextrose between 30 -50 ml/hour. But his glucose level was down to 57 again on . He received Octreotide 50 mcg sc x1 at around 6 pm. Since then, his glucose level has been elevated. D10W was discontinued. Then he was on NS at 30 ml/hour which was discontinued on 09/23. Now he is on Januvia 50 mg daily, Novolog coverage before meals and Novolog coverage at bedtime. His FSGs were 193, 217, 258, 199 and 183. Plan: continue the current DM regimen; monitor FSGs. will follow. Subjective Subjective: He feels okay this morning. Objective Last 24 Hrs of Vital Signs/I&O Vital Signs Date Time Temp Pulse Resp B/P B/P Pulse O2 O2 Flow FiO2 Mean Ox Delivery Rate 09/25 0944 84 142/64 09/25 0943 84 142/64 09/25 0700 98.6 81 20 140/62 92 Room Air 09/24 2315 99.3 95 20 122/57 94 Room Air 09/24 2110 95 122/57 09/24 1442 98.2 75 18 140/78 96 Room Air Intake & Output 09/25 1600 09/25 0800 09/25 0000 Intake Total 120 240 Output Total Balance 120 240 Intake, Oral 120 240 Findings Pertinent Lab/Donte Results: Laboratory Tests 09/25 0605 Chemistry Sodium (137 - 145 mmol/L) 132 L Potassium (3.5 - 5.1 mmol/L) 4.6 Chloride (98 - 107 mmol/L) 101 Carbon Dioxide (22 - 30 mmol/L) 23 Anion Gap (5 - 16) 8 BUN (9 - 20 mg/dL) 46 H Creatinine (0.7 - 1.2 mg/dL) 1.7 H Estimated GFR (>60 ml/min) 39 L BUN/Creatinine Ratio (7 - 25 %) 27.1 H Coagulation PT (9.4 - 12.5 SEC) 16.1 H INR (0.90 - 1.17) 1.54 H Hematology CBC w Diff NO MAN DIFF REQ WBC (4.8 - 10.8 /CUMM) 11.7 H RBC (4.70 - 6.10 /CUMM) 2.98 L Hgb (14.0 - 18.0 G/DL) 9.3 L Hct (42 - 52 %) 28.0 L MCV (80.0 - 94.0 FL) 94.0 MCH (27.0 - 31.0 PG) 31.4 H RDW (11.5 - 14.5 %) 14.1 Plt Count (130 - 400 /CUMM) 358 MPV (7.4 - 10.4 FL) 8.8 Gran % (42.2 - 75.2 %) 71.0 Lymphocytes % (20.5 - 51.1 %) 10.7 L Monocytes % (1.7 - 9.3 %) 14.1 H Eosinophils % (0 - 5 %) 4.0 Basophils % (0.0 - 2.0 %) 0.2 Absolute Granulocytes (1.4 - 6.5 /CUMM) 8.3 H Absolute Lymphocytes (1.2 - 3.4 /CUMM) 1.3 Absolute Monocytes (0.10 - 0.60 /CUMM) 1.7 H Absolute Eosinophils (0.0 - 0.7 /CUMM) 0.5 Absolute Basophils (0.0 - 0.2 /CUMM) 0 PUBS MCHC (33.0 - 37.0 G/DL) 33.3
[2016-09-25 14:21] VITALS: BP 136/72
[2016-09-25 23:28] VITALS: BP 120/58
[2016-09-26 06:44] VITALS: BP 134/69
[2016-09-26 08:23] LABS: ABSOLUTE BASOPHIL COUNT 0.1 /CUMM (0.0-0.2); ABSOLUTE EOSINOPHIL COUNT 0.5 /CUMM (0.0-0.7); ABSOLUTE GRANULOCYTE CT 7.5 /CUMM (1.4-6.5); ABSOLUTE LYMPH COUNT 1.2 /CUMM (1.2-3.4); ABSOLUTE MONOCYTE COUNT 1.4 /CUMM (0.10-0.60); BASOPHIL % 0.5 % (0.0-2.0); EOSINOPHIL % 5.1 % (0-5); GRANULOCYTE % 69.7 % (42.2-75.2); HEMATOCRIT 28.8 % (42-52); MEAN CORPUSCULAR HGB 31.3 PG (27.0-31.0); MEAN CORPUSCULAR HGB CONC 33.5 G/DL (33.0-37.0); MEAN CORPUSCULAR VOLUME 93.7 FL (80.0-94.0); MEAN PLATELET VOLUME 8.5 FL (7.4-10.4); PLATELET COUNT 399 /CUMM (130-400); RBC DISTRIBUTION WIDTH 14.2 % (11.5-14.5); RED BLOOD CELL CT 3.07 /CUMM (4.70-6.10); WHITE BLOOD CELL COUNT 10.7 /CUMM (4.8-10.8)
--- NOTE | 2016-09-26 08:32 | Discharge Summary ---
Visit Information Visit Dates Admission Date: 09/20/16 Discharge Date: 09/26/16 Hospital Course Course Attending Physician: EMMA SUTTON MD Primary Care Physician: ZACHARY MENESES MD Consulting Request: 1 Consulting Specialty: Infectious Disease Consulting Physician: Dr. Villavicencio Reason for Consult: Sepsis of urologic origin Consulting Request: 2 Consulting Specialty: Endocrinology Consulting Physician: Dr. Alex Reason for Consult: Recurrent hypoglycemia Consulting Request: 3 Consulting Specialty: Urology Consulting Physician: Dr. 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 During the same day at nighttime patient developed palpitations and repeated persistent episodes of hypoglycemia though initially refractory to dextrose amp, she responded to D10 W and was transferred to ICU for close monitoring with every hour Accu-Cheks. Patient was being managed in ICU and and later general medicine floor for the following problems 1. Recurrent episodes of hypoglycemia/history of diabetes mellitus Patient's recurrent episodes of hypoglycemia started on admission and were morst likely secondary to sulfonylurea toxicity with underlying acute on chronic CKD ( decreased excretion of sulfonylurea). Endocrinology consult was obtained from Dr. Alex. Mr. Posey was initially started on Dxtrose 10% drip but despite being on that patient still had some episodes of hypoglycemia. He was given one dose of octreotide and after that his episodes of hypoglycemia resolved. Blood sugars were fairly stable on general medicine floor and endocrinology followed the patient. Endocrinology recommended Januvia 50 mg daily, prandin 0.5 mg at mealtimes, Novolog coverage before meals without a bedtime coverage. Due to a possible drug interaction between his home medication-Gemfibrozil (Lopid) 600 mg daily and prandin, his gemfibrozil was switched to Tricor 48 mg daily. He was instructed to follow up with sales operations lead, Dr. Alex in her office on discharge. 2. Sepsis secondary to urinary tract infection/gram-negative bacteremia Patient had a Urinary tract infection with CITROBACTER FREUNDII. Patient has had an extensive history of urinary obstruction with recent stent placement. Patient is high risk of recurrent UTIs. Blood culture 2 grew Enterobacter aerogenes which was considered to be urological in origin. ID consultation was obtained. Initially patient was treated with ceftriaxone and later on switched to ciprofloxacin as per sensitivities. As per ID recommendations we will continue with Cipro for a total of 14 days to end on 10/03/16 (7 more days). 3. Acute on chronic kidney disease Patient was admitted with acute and chronic kidney disease. After IV hydration patient's creatinine has improved. Renal ultrasound was also done and did not show any hydronephrosis. 4. History of hypertension Initially antihypertensive medications were held because of borderline blood pressure. We restarted spironalactone and furosemide 40mg at a lower dose as compared to home dose and blood pressure was permissible. 5. Penile shallow ulcers/ History of urinary retention Because of history of urinary retention bladder scan was done every shift and straight cath performed if needed for urinary retention. His bladder scans were consisently low or 0mls while on admission as he is incontinent of urine. Urology was on board and recommend NO Guzman placement as it might have resulted in penile shallow ulcers that the patient had in the recently. PATIENT IS TO HAVE NO GUZMAN CATHETER IN THE REHAB FACILITY. Patient is incontinent of urine, but can have straigh cath as needed for urinary retention. 6. History of DVT and pulmonary embolism Patient was maintained on Coumadin and the dose of Coumadin was adjusted according to INR. Please check INR and dose coumadin accordingly to keep INR between 2 and 3. Patient was full code Patient was on Coumadin for DVT prophylaxis Patient was on consistent carbohydrate diet Patient was on pain management Complications: None Allergies: Coded Allergies: NO KNOWN ALLERGIES (04/08/14) Disposition Summary Disposition Principal Diagnosis: 1. Sepsis secondary to UTI 2. Gram-negative bacteremia 3. Recurrent episodes of hypoglycemia 4. Acute on chronic renal failure Additional Diagnosis: 4. History of dementia 5. History of coronary artery disease status post CABG 6. History of congestive heart failure with preserved ejection fraction 7. History of insulin-dependent diabetes mellitus 8. History of chronic kidney disease stage III 9. Recurrent DVTs on coumadin therapy Discharge Disposition: SNF Discharge Instructions General Discharge Information Code Status: Full Code Patient's Diet: Consistent carbohydrate diet Patient's Activity: As tolerated Fall precautions Follow-Up Instructions/Appts: 1. Please follow up with your primary care provider within 1 week of discharge. 2. Please follow up with your sales operations lead, Dr. Alex within 1 week of discharge. 3. Follow up with urologist, Dr. Shah within 1 week of discharge. 4. Patient is incontinent of urine. Please do not use guzman catheter for patient. Straight cath PRN for urinary retention. 5. Monitor INR closely and dose coumadin to keep INR betwen 2 and 3. 6. Please check BEP and creatinine in 3 days (Around 09/29) to make sure renal function is stable. Medications at Discharge Discharge Medications: Stop taking the following medications: Gemfibrozil (Gemfibrozil) 600 MG TABLET ORAL DAILY Warfarin Sodium (Coumadin) 5 MG TABLET ORAL M,W,F,DIAS Warfarin Sodium (Coumadin) 2.5 MG TABLET ORAL , , SAT Insulin Aspart (Novolog) 100 UNIT/ML VIAL Inject into fatty tissue 3 TIMES DAILY BEFORE MEALS Days = 30 Sitagliptin Phosphate (Januvia) 25 MG TABLET ORAL DAILY Glimepiride (Amaryl) 4 MG TABLET ORAL DAILY Furosemide (Lasix) 40 MG TABLET ORAL DAILY Continue taking these medications: Gabapentin (Gabapentin) 300 MG CAPSULE 1 Capsule ORAL TWICE DAILY Comments: LAST GIVEN 09/26/16 @ 1115 Tamsulosin HCl (Flomax) 0.4 MG CAP.ER.24H 1 Capsule ORAL DAILY Comments: LAST GIVEN 08/31/16 @ 1000 Metoprolol Tartrate (Metoprolol Tartrate) 25 MG TABLET 1 Tablet ORAL TWICE DAILY Comments: LAST GIVEN 09/26/16 @ 1115 Finasteride (Finasteride) 5 MG TABLET 1 Tablet ORAL Every night Comments: LAST GIVEN 08/25/16 @ 2145 Atorvastatin Calcium (Lipitor) 10 MG TABLET 1 Tablet ORAL DAILY Comments: LAST GIVEN 09/25/16 @ 1710 Spironolactone (Spironolactone) 25 MG TABLET 12.5 Milligram ORAL DAILY Comments: LAST GIVEN 09/26/16 @1115 Lorazepam (Ativan) 0.5 MG TABLET 1 Tablet ORAL TAKE AT BEDTIME as needed for ANXIETY/ INSOMNIA Tramadol HCl (Ultram) 50 MG TABLET 1 Tablet ORAL EVERY SIX HOURS NEEDED as needed for PAIN Lorazepam (Ativan) 0.5 MG TABLET 1 Tablet ORAL See Instructions Comments: 09/25/16 @ 2144 Acetaminophen (Acetaminophen) 500 MG TABLET 650 Milligram RECTALLY Q4HP as needed for PAIN, TEMP >101 Bisacodyl (Bisac-Evac) 10 MG SUPP.RECT 1 SUPPOSITORY RECTALLY NEEDED as needed for CONSTIPATION Na Phos,M-B/Na Phos,Di-Ba (Fleet Enema) 19 GRAM-7 GRAM/118 ML ENEMA 1 Enema RECTAL GIVE ONCE Acetaminophen (Mapap) 500 MG CAPSULE 650 Milligram ORAL Q4HP as needed for PAIN, TEMP >101 Magnesium Hydroxide (Milk Of Magnesia) 400 MG/5 ML ORAL.SUSP 30 Milliliters ORAL DAILY as needed for CONSTIPATION Start taking the following new medications: Ciprofloxacin HCl (Ciprofloxacin HCl) 500 MG TABLET 1 Tablet ORAL DAILY Qty = 7 No Refills Comments: LAST GIVEN 09/26/16 @ 1115 Fenofibrate (Tricor) 48 MG TABLET 1 Tablet ORAL DAILY Qty = 90 No Refills Repaglinide (Repaglinide) 0.5 MG TABLET 1 Tablet ORAL 3 TIMES DAILY BEFORE MEALS Qty = 90 No Refills Instructions: HOLD IF PATIENT SKIPS A MEAL Insulin Aspart (Novolog) 100 UNIT/ML VIAL 0 Inject into fatty tissue 3 TIMES DAILY BEFORE MEALS Qty = 1 No Refills Instructions: BEFORE MEALS Blood Insulin Sugar Units <80 0 81-100 0 101-200 0 201-250 0 251-300 2 301-350 3 351-400 4 >400 5 and Call Doctor Comments: LAST GIVEN 09/26/16 @ 0756 Furosemide (Furosemide) 40 MG TABLET 1 Tablet ORAL DAILY Qty = 90 No Refills Warfarin Sodium (Coumadin) 4 MG TABLET 1 Tablet ORAL DAILY Qty = 30 No Refills Instructions: CHECK INR PERIODICALLY AND DOSE COUMADIN TO KEEP INR BETWEEN 2 TO 3 Sitagliptin Phosphate (Januvia) 50 MG TABLET 1 Tablet ORAL DAILY Qty = 30 No Refills Copies To: DENNIS ALBARRAN,ALBA Alex; JAMIE ALBARRAN,AZIZA; ZAIRA ALBARRAN,ZACHARY; MELANY ALBARRAN, ZAY Hagan; ATIF SHAH MD; ROCÍO ALBARRAN,[facility] PEAK HOSPITALMilena
[2016-09-26 08:49] LABS: PT 16.7 SEC (9.4-12.5)
--- NOTE | 2016-09-26 08:52 | PN- Housestaff ---
SARAH ALBARRAN,[facility] 09/26/16 0851: Subjective Follow-up For: 1.Recurrent episodes of hypoglycemia 2. Acute on chronic renal failure 3. Sepsis secondary to UTI 4. gram-negative bacteremia Complaints: no complaints Subjective: Mr. Posey has no complaints this morning. He does state that he has intermittent episodes of bilateral heel pain if he moves his feet suddently. He is also incontinent of urine and states that he has no dysuria when he wets his pampers. Review of Systems Constitutional: Denies: chills, fever. Cardiovascular: Denies: chest pain, palpitations, syncope. Respiratory: Denies: cough, short of breath, wheezing. Gastrointestinal: Reports: bowel incontinence. Denies: abdominal pain, nausea, vomiting. Genitourinary: Reports: see HPI (Incontinence of urine). Objective Last 24 Hrs of Vital Signs/I&O Vital Signs Date Time Temp Pulse Resp B/P B/P Pulse O2 O2 Flow FiO2 Mean Ox Delivery Rate 09/26 0644 98.2 71 20 134/69 94 Room Air 09/25 2328 98.2 83 20 120/58 93 Room Air 09/25 2145 83 120/58 09/25 1421 98.6 78 20 136/72 98 Room Air Intake & Output 09/26 1600 09/26 0800 09/26 0000 Intake Total 120 250 Output Total Balance 120 250 Intake, Oral 120 250 Number 1 Bowel Movements Physical Exam General Appearance: Alert, Oriented X3, Cooperative, No Acute Distress Skin: No Rashes Skin Temp/Moisture Exam: Warm/Dry Sepsis Skin Exam (color): Normal for Ethnicity HEENT: Atraumatic, PERRLA, Mucous Membr. moist/pink Neck: Supple, No JVD, No thryomegaly Lymphatic: Cervical nl Cardiovascular: Regular Rate, Normal S1, Normal S2, No Murmurs Lungs: Clear to Auscultation, Normal Air Movement Abdomen: Normal Bowel Sounds, Soft, No Tenderness, No Hepatospenomegaly, No Masses Neurological: Normal Speech, Normal Tone Extremities: Normal Pulses, 2+ bilateral pitting pedal edema Current Medications: Current Medications Sig/Christie Start time Last Medication Dose Route Stop Time Status Admin Acetaminophen 650 MG Q6P PRN 09/20 614 AC 09/24 PO 0455 Acetaminophen 1,000 MG Q6P PRN 06/12 0615 AC IV Atorvastatin Calcium 10 MG 1700 09/20 1700 AC 09/25 PO 1710 Bisacodyl 10 MG DAILY NEEDED PRN 09/20 0400 AC SD Ciprofloxacin 500 MG DAILY 09/22 1200 AC 09/25 PO 10/05 0959 0943 Finasteride 5 MG QPM 09/20 2200 AC 09/25 PO 2145 Furosemide 40 MG DAILY 09/24 1000 AC 09/25 PO 0943 Gabapentin 300 MG BID 09/20 1000 AC 09/25 PO 2145 Gemfibrozil 600 MG DAILY 09/20 1000 AC 09/25 PO 0943 Insulin Aspart 0 TIDAC/HS 09/22 2100 AC 09/26 SC 0812 Lorazepam 0.5 MG AT BEDTIME 09/20 0400 AC 09/25 PO 09/27 0359 2144 Magnesium Hydroxide 30 ML DAILY PRN 09/20 0400 AC PO Metoprolol Tartrate 25 MG BID 09/20 2200 AC 09/25 PO 2145 Sitagliptin Phosphate 50 MG DAILY 09/24 1000 AC 09/25 PO 0943 Spironolactone 12.5 MG DAILY 09/24 1000 AC 09/25 PO 0942 Tamsulosin HCl 0.4 MG DAILY 09/20 1000 AC 09/25 PO 0944 Tramadol HCl 50 MG Q6 PRN 09/20 0615 AC PO Warfarin Sodium 3 MG COUMADIN 1700 ONE 09/25 1700 DC 09/25 PO 09/25 1701 1711 Last 24 Hrs of Lab/Donte Results Last 24 Hrs of Labs/Mics: Laboratory Tests 09/26/16 0605: Anion Gap 6, Estimated GFR 36 L, BUN/Creatinine Ratio 27.2 H, PT 16.7 H, INR 1.60 H, CBC w Diff NO MAN DIFF REQ, RBC 3.07 L, MCV 93.7, MCH 31.3 H, RDW 14.2, MPV 8.5, Gran % 69.7, Lymphocytes % 11.5 L, Monocytes % 13.2 H, Eosinophils % 5.1 H, Basophils % 0.5, Absolute Granulocytes 7.5 H, Absolute Lymphocytes 1.2, Absolute Monocytes 1.4 H, Absolute Eosinophils 0.5, Absolute Basophils 0.1, PUBS MCHC 33.5 Assessment/Plan Assessment: Mr. 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 During the same day at nighttime patient developed palpitations and repeated persistent episodes of hypoglycemia though initially refractory to dextrose amp, she responded to D10 W and was transferred to ICU for close monitoring with every hour Accu-Cheks. He was transferred back to general medicine floor. Mr. Posey is currently being managed for the following problems 1. Recurrent episodes of hypoglycemia/history of diabetes mellitus Patient's recurrent episodes of hypoglycemia that started on admission were morst likely secondary to sulfonylurea toxicity with underlying acute on chronic CKD (decreased excretion of sulfonylurea). Blood sugars have been fairly stable on general medicine floor and endocrinology followed the patient. Endocrinology recommended Januvia 50 mg daily, Novolog coverage before meals and Novolog coverage at bedtime. His blood glucose has been in acceptable ranges. Last 4 accucheks from this morning are 209, 227, 264, 199mg/dl. Will follow endocrinology recommendations. 2. Sepsis secondary to urinary tract infection/gram-negative bacteremia Patient has an extensive history of urinary obstruction with recent stent placement. He is a high risk of recurrent UTIs. He has a urine cultures growing CITROBACTER FREUNDII. Blood cultures on admission grew ENTEROBACTER AEROGENES. All isolates are sensitive to ciprofloxacin. WBC count has dropped to 10.7 today. Mr. Posey has been afebrile for the past 4 days. Continue with Cipro for 14 days as per ID recommendations. Patient is stable for discharge today. 3. Acute on chronic kidney disease Patient was admitted with acute and chronic kidney disease. After IV hydration patient's creatinine has improved. Creatinine is 1.8 today. Now around baseline. Avoid nephrotoxic medications. 4. History of hypertension Patient's blood pressure was 134/69 this morning Continue spironalactone, furosemide 40mg daily, and metoprolol 5. Penile shallow ulcers/ History of urinary retention Will bladder scan every shift and straight cath if needed for urinary retention, urology is on board and recommend NO Wheat placement for now as it might have resulted in penile shallow ulcers in the recent past. 6. History of DVT and pulmonary embolism Patient is currently on Coumadin INR this morning was 1.6 We will increase dose of Coumadin to 4 mg daily Follow INR and dose Coumadin accordingly Patient is full code Patient is on Coumadin for DVT prophylaxis Patient is on consistent carbohydrate diet Patient is on pain management Problem List: 1. UTI (lower urinary tract infection) 2. Acute on chronic kidney failure 3. Diabetes mellitus Pain Ratin Pain Location: None Pain Goal: Remain pain free Pain Plan: Tylenol and tramadol PRN Tomorrow's Labs & Rationales: Not needed DVT/Prophylaxis: pharmacological Consulting Request: Consulting Specialty: Infectious Disease ALBA COLLINS MD 09/26/16 0956: Attending MD Review Statement Attending Statement Attending MD Statement: examined this patient, discuss w/resident/PA/[employer] ATTENDANT, agreed w/resident/PA/[employer] ATTENDANT, reviewed EMR data (avail), discussed with nursing Attending Assessment/Plan: Patient's white count is hovering in the 10-12 range. He remains on by mouth Cipro for Enterobacter in his blood with Citrobacter in the urine. He has dementia, coronary artery disease, DVT on Coumadin and MORRO on CKD which is nicely resolving. The plan today will be to follow up with ID to make sure that they're okay with this white count and to clarify the duration of the by mouth Cipro for the gram-negative bacteremia. He shouldn't get a Wheat because of the risk of sepsis and penile ulceration so if his urinary retention is manageable then he will go to the [facility] with close follow-up. Given his multiple medical problems and fragile status I do worry about recurrent readmissions.
--- NOTE | 2016-09-26 10:46 | PN- Diabetes ---
Assessment/Plan Assessment: Mr. 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 Patient presented with fatigue and was admitted for sepsis secondary to UTI. He was found to have severe hypoglycemia with glucose level in the 30s and 40s despite he has been on dextrose intravenously. He was on Glimepiride 4 mg daily and Januvia 25 mg daily prior to admission. Most likely patient has had severe hypoglycemia due to sulfonyureas in the setting of renal insufficiency. Patient has been eating and drinking orange juices. In addition, he was on 10% dextrose between 30 -50 ml/hour. But his glucose level was down to 57 again on . He received Octreotide 50 mcg sc x1 at around 6 pm. Since then, his glucose level has been elevated. D10W was discontinued. Then he was on NS at 30 ml/hour which was discontinued on 09/23. Now he is on Januvia 50 mg daily, Novolog coverage before meals and Novolog coverage at bedtime. His FSGs were 199, 183, 199, 264, 227 and 209. Patient is going to go to rehab today. Plan: 1. continue Januvua 50 mg daily; 2. start Prandin 0.5 mg before meals x 3 times a day ( hold prandin if patient skips meal); 3. adjust Novolog coverage before meals ( the coverage starts only when FSG is more than 250--detail see the inpatient DM order); 4. hold off on Novolog coverage at bedtime; 5. monitor FSGsx 4 times a day; 6. discharge plan for DM will be the same regimen as inpatient DM regimen as above; 7. f/u in office after discharge. please let me know if there are any quesions. Inpatient Diabetes Orders Before Each Meal: Bolus Insulin: Novolog < 80 mg/dl: no coverage 80-100 mg/dl: no coverage 101-120 mg/dl: no coverage 121-150 mg/dl: no coverage 151-200 mg/dl: no coverage 201-250 mg/dl: no coverage 251-300 mg/dl: 2 units 301-350 mg/dl: 3 units 351-400 mg/dl: 4 units > 400 mg/dl: 5 units Subjective Subjective: He feels well. Objective Last 24 Hrs of Vital Signs/I&O Vital Signs Date Time Temp Pulse Resp B/P B/P Pulse O2 O2 Flow FiO2 Mean Ox Delivery Rate 09/26 0644 98.2 71 20 134/69 94 Room Air 09/25 2328 98.2 83 20 120/58 93 Room Air 09/25 2145 83 120/58 09/25 1421 98.6 78 20 136/72 98 Room Air Intake & Output 09/26 1600 09/26 0800 09/26 0000 Intake Total 120 250 Output Total Balance 120 250 Intake, Oral 120 250 Number 1 Bowel Movements Findings Pertinent Lab/Donte Results: Laboratory Tests 09/26 06 Chemistry Sodium (137 - 145 mmol/L) 134 L Potassium (3.5 - 5.1 mmol/L) 4.4 Chloride (98 - 107 mmol/L) 103 Carbon Dioxide (22 - 30 mmol/L) 24 Anion Gap (5 - 16) 6 BUN (9 - 20 mg/dL) 49 H Creatinine (0.7 - 1.2 mg/dL) 1.8 H Estimated GFR (>60 ml/min) 36 L BUN/Creatinine Ratio (7 - 25 %) 27.2 H Coagulation PT (9.4 - 12.5 SEC) 16.7 H INR (0.90 - 1.17) 1.60 H Hematology CBC w Diff NO MAN DIFF REQ WBC (4.8 - 10.8 /CUMM) 10.7 RBC (4.70 - 6.10 /CUMM) 3.07 L Hgb (14.0 - 18.0 G/DL) 9.6 L Hct (42 - 52 %) 28.8 L MCV (80.0 - 94.0 FL) 93.7 MCH (27.0 - 31.0 PG) 31.3 H RDW (11.5 - 14.5 %) 14.2 Plt Count (130 - 400 /CUMM) 399 MPV (7.4 - 10.4 FL) 8.5 Gran % (42.2 - 75.2 %) 69.7 Lymphocytes % (20.5 - 51.1 %) 11.5 L Monocytes % (1.7 - 9.3 %) 13.2 H Eosinophils % (0 - 5 %) 5.1 H Basophils % (0.0 - 2.0 %) 0.5 Absolute Granulocytes (1.4 - 6.5 /CUMM) 7.5 H Absolute Lymphocytes (1.2 - 3.4 /CUMM) 1.2 Absolute Monocytes (0.10 - 0.60 /CUMM) 1.4 H Absolute Eosinophils (0.0 - 0.7 /CUMM) 0.5 Absolute Basophils (0.0 - 0.2 /CUMM) 0.1 PUBS MCHC (33.0 - 37.0 G/DL) 33.5
[2016-09-26] MEDS ORDERED: TRICOR48 M1 PO (11:43)
[2016-09-26] MEDS ORDERED: FUROSEMIDE40 M1 PO (11:43)
[2016-09-26] MEDS ORDERED: CIPROFLOXACIN500 M2 PO (11:43)
[2016-09-26] MEDS ORDERED: NOVOLOG100 UNIT/2 SC (11:43)
[2016-09-26] MEDS ORDERED: COUMADIN4 M1 PO (11:43)
[2016-09-26] MEDS ORDERED: REPAGLINIDE0.5 M1 PO (11:43)
[2016-09-26] MEDS ORDERED: JANUVIA50 M1 PO (12:18)
[2016-09-26 14:26] VITALS: BP 134/69
== END 2016-09-26 14:43 | DRG 862 ==
LOC: ERH 00:09 → ERHI 02:19 → CRI 02:19 → 2NB 02:19 → ENRESERV 03:29 → ENTRNSPT 07:10 → EDTRNSPT 07:30 → 2NB 08:57 → EDTRNSPTTYP 09:21 → EDTRNSPTSTS 09:21 → EDTRNSPT 09:21 → CMPTRNSPT 09:41 → CRI 09-21 08:18 → 2NB 09-23 19:07 → ENPENDDIS 09-26 12:26 → 2NB 09-26 14:43
PROVIDERS: Internal Medicine; Pediatrics; Preventive Medicine Public Health & General Preventive Medicine; Student in an Organized Health Care Education/Training Program; ADMIT Internal Medicine
DX: T81.4XXA Infection following a procedure, initial encounter (principal); A41.50 Gram-negative sepsis, unspecified; N17.9 Acute kidney failure, unspecified; R65.20 Severe sepsis without septic shock; I13.0 Hypertensive heart and chronic kidney disease with heart failure and stage 1 through stage 4 chronic kidney disease, or unspecified chronic kidney disease; I50.22 Chronic systolic (congestive) heart failure; L97.829 Non-pressure chronic ulcer of other part of left lower leg with unspecified severity; N39.0 Urinary tract infection, site not specified; E11.22 Type 2 diabetes mellitus with diabetic chronic kidney disease; E11.649 Type 2 diabetes mellitus with hypoglycemia without coma; G62.9 Polyneuropathy, unspecified; E66.01 Morbid (severe) obesity due to excess calories; N18.3 Chronic kidney disease, stage 3 (moderate); F03.90 Unspecified dementia, unspecified severity, without behavioral disturbance, psychotic disturbance, mood disturbance, and anxiety; Z95.1 Presence of aortocoronary bypass graft; Z68.36 Body mass index [BMI] 36.0-36.9, adult; L98.499 Non-pressure chronic ulcer of skin of other sites with unspecified severity; Z79.4 Long term (current) use of insulin; Z86.718 Personal history of other venous thrombosis and embolism; Z79.01 Long term (current) use of anticoagulants; Z86.711 Personal history of pulmonary embolism; N40.1 Benign prostatic hyperplasia with lower urinary tract symptoms; R33.8 Other retention of urine; K59.00 Constipation, unspecified; F41.9 Anxiety disorder, unspecified; I25.10 Atherosclerotic heart disease of native coronary artery without angina pectoris; Z87.891 Personal history of nicotine dependence
CPT/HCPCS: 2NBP; 84133; 84300; CCU; 36415; 76775; 80307; 81001; 82436; 82570; 86337; 87040; 87086; 93005; 93010; 96361; 96374; 97110-GO; 97161-GP; 97164-GP; 97530-GO; 99291; J0131; J0696; J1815; J2354; J7799

== ENCOUNTER 2016-10-21 02:36 | Observation (INO) | payer OTHER, MEDICARE ==
[~2016-10-21] VITALS: Ht 175.3 cm; Wt 108.4 kg
[~2016-10-21 02:36] MED LIST changes: +ACETAMINOPHEN500 M4 PR; +ACIDOPHILUS1 EACH PO; +ATIVAN0.5 M1 PO; +BISAC-EVAC10 M1 PR; +CIPROFLOXACIN500 M2 PO; +COUMADIN4 M1 PO; +FLEET ENEMA133 ML RC; +FUROSEMIDE40 M1 PO; +JANUVIA25 M1 PO; +LASIX40 M1 PO; +MACROBID 100 M100 MG PO; +MAPAP500 M2 PO; +MILK OF MA400 MG/52 PO; +REPAGLINIDE0.5 M1 PO; +SPIRONOLACTONE25 M1 PO; +TRICOR48 M1 PO; +ULTRAM50 M1 PO
--- NOTE | 2016-10-21 09:25 | Operative Report ---
Operative/Inv Procedure Report Surgery Date: 10/21/16 Name of Procedure: CYSTOSCOPY: RIGHT STENT REMOVAL: RIGHT URETEROSCOPY WITH LASER STANDBY; RIGHT RETROGRADE PYELOGRAM Pre-Operative Diagnosis: RIGHT STENT AND HYDRO. HEMATURIA; UTI Post-Operative Diagnosis: SAME Estimated Blood Loss: scant Surgeon/Shuttle Filler: ATIF HENDERSON MD Anesthesia: moderate sedation Drains: 20 FR 3-WAY GUZMAN ON NS CBI Specimens: RIGHT RENAL ASPIRATE-FLUID Complications: NONE Operative/Procedure Note Note: The patient was taken to the operating room and placed on the OR table in supine position. Timeout was performed in order to confirm correct patient, procedure, laterality, and other pertinent information with pt. awake. After adequate anesthesia, and antibiotics, the patient was then placed in yellow-fin lithotomy stirrups, draped and prepped in the usual surgical fashion. A 22 Upper Sorbian cystoscope sheath with 30 angle lens was inserted into the bladder without difficulty. Upon entering the bladder, the bladder was noted to be free of tumor , free of stone. Both orifices were in their orthotopic position. The right stent protruding from the right ureteral orifice was visualized. It was grasped with an alligator forcep. The cystoscope along with entire stent was then removed without difficulty. The cystoscope was then reinserted. The right ureter orifice was intubated with an 8fr cone-tip catheter, and a retrograde pyelogram with fluoroscopy was performed. No filling defect was seen. The cone-tipped catheter was removed, followed by insertion of a 0.035 Glidewire , which was advanced into the right renal pelvis without difficulty, and placement was confirmed on fluoroscopy. Leaving the Glidewire in place, and the flexible ureteroscope was inserted over the gluidewire into the bladder. The flexible ureteroscope was advanced up the right ureter with fluoroscopy visualization, following the gluidewire. Pyeloscopy and calyxoscopy, of the upper, middle, and lower poles reveal no evidence of tumor, no evidence of stone. Additionally, no stones, nor any tumor was visualized in the renal pelvis. The entire length of the ureter was also visualized carefully on the way out evealing The bladder was then drained at the endof the case. The patient tolerated the procedure well, and was then taken to the recovery room in satisfactory condition. Findings: CHRONIC RIGHT HYDRO CHANGES. Discharge Disposition: PACU Additional Comments: PT WITH GROSS HEMATURIA-REQUIRING CBI WITH NS CC: BEATRIZ ALBARRAN,ATIF
--- NOTE | 2016-10-21 09:59 | RADIOLOGY REPORT ---
EXAMINATION: XR ABDOMEN CLINICAL INDICATION: Right ureteral stent removal. COMPARISON: CT images of abdomen and pelvis, 08/26/2016. Renal ultrasound, 09/20/2016. TECHNIQUE: Intraoperative C-arm fluoroscopic imaging of the right abdomen was utilized during retrograde ureterography and ureteral stent removal. NUMBER OF SAVED FLUOROSCOPIC IMAGES: 8. FLUOROSCOPY TIME: 0.5 minutes. DOSE: 13.2 mGy. FINDINGS/IMPRESSION: Fluoroscopic imaging assistance was provided to Dr. Shah within the operating room. Please refer to the operative report.
[2016-10-21 13:28] LABS: ABSOLUTE BASOPHIL COUNT 0 /CUMM (0.0-0.2); ABSOLUTE EOSINOPHIL COUNT 0.3 /CUMM (0.0-0.7); ABSOLUTE GRANULOCYTE CT 3.1 /CUMM (1.4-6.5); ABSOLUTE LYMPH COUNT 1.2 /CUMM (1.2-3.4); ABSOLUTE MONOCYTE COUNT 0.7 /CUMM (0.10-0.60); BASOPHIL % 0.6 % (0.0-2.0); EOSINOPHIL % 5.7 % (0-5); GRANULOCYTE % 58.2 % (42.2-75.2); HEMATOCRIT 30.3 % (42-52); MEAN CORPUSCULAR HGB 30.5 PG (27.0-31.0); MEAN CORPUSCULAR HGB CONC 33.5 G/DL (33.0-37.0); MEAN CORPUSCULAR VOLUME 91.1 FL (80.0-94.0); MEAN PLATELET VOLUME 8.8 FL (7.4-10.4); PLATELET COUNT 269 /CUMM (130-400); RBC DISTRIBUTION WIDTH 14.1 % (11.5-14.5); RED BLOOD CELL CT 3.33 /CUMM (4.70-6.10); WHITE BLOOD CELL COUNT 5.4 /CUMM (4.8-10.8)
[2016-10-21 13:29] LABS: PTT 35 SEC (25-37)
--- NOTE | 2016-10-21 14:39 | NUR ---
CBI NOT RUNNING AT THIS TIME. ATTEMPTED TO IRRIGATE THE GUZMAN WITHOUT SUCCESS. DA MARIN AT THE BEDSIDE. PATIENT COMPLAINS OF PAIN AND "PRESSURE" WITH IRRIGATION. DR. BEATRIZ PRABHAKAR. WAITING FOR RESPONSE. PATIENT GIVEN PERCOCET FOR PAIN RELIEF. VERBALIZES COMFORT AT THIS TIME. REMAINS STABLE.
--- NOTE | 2016-10-21 14:52 | NUR ---
DR. HENDERSON CALLED BACK. PER DR. HENDERSON TO HOLD CBI AT THIS TIME AND LET PATIENT URINATE INTO [facility] WITHOUT CBI. PATIENT BLADDERD SCANNED. 0ML SHOWING ON THE BLADDER SCAN AT THIS TIME.
[2016-10-21 14:54] VITALS: BP 124/68
--- NOTE | 2016-10-21 19:45 | NUR ---
PT BACK TO FLOOR FROM OR AT 1847 VIA TRANSPORT FROM PACU. REPORT TAKEN FROM DELFINA. PT VERY TEARFUL UPON ARRIVAL, REQUESTING TO CALL . DROWSY, AROUSABLE TO VERBAL STIMULI BUT DOZES EASILY. VSS. BLE PULSES PRESENT, PT REPORTS NO SENSATION IN BLE AND TREMORS PRESENT IN BUE, MORE PROMINENT IN RIGHT HAND. DINNER TRAY ORDERED. NS INFUSING AT 75 ML/HR. WILL GIVE SCHEDULED MEDS. PT REPORTING PAIN 10/10 IN LOWER BACK, MEDICATED PER EMAR. CALL ROQUE IN REACH, BED ALARM ON.
[2016-10-21 21:53] VITALS: BP 122/60
[2016-10-22 06:51] VITALS: BP 130/60
[2016-10-22] MEDS ORDERED: PERCOCET 5-3251 EACH PO (07:32)
[2016-10-22] MEDS ORDERED: ONDANSETRON4 MG/2 M3 IV (07:32)
[2016-10-22] MEDS ORDERED: ONE DAILY MULT1 EAC2 PO (07:32)
[2016-10-22] MEDS ORDERED: DOCUSATE SODIU100 M3 PO (07:32)
[2016-10-22 10:00] VITALS: BP 132/60
== END 2016-10-22 14:26 ==
LOC: STS 02:36 → 2NA 09:20 → PACUH 09:20 → ENRESERV 11:59 → ENTRNSPT 12:41 → EDTRNSPTSTS 12:53 → CMPTRNSPT 13:08 → 2NA 13:33 → CMPTRNSPT 13:40 → ENPENDDIS 10-22 07:41 → 2NA 10-22 14:26
PROVIDERS: ADMIT Urology
DX: N13.30 Unspecified hydronephrosis (principal); E11.22 Type 2 diabetes mellitus with diabetic chronic kidney disease; I13.10 Hypertensive heart and chronic kidney disease without heart failure, with stage 1 through stage 4 chronic kidney disease, or unspecified chronic kidney disease; N18.9 Chronic kidney disease, unspecified; Z79.4 Long term (current) use of insulin; I25.10 Atherosclerotic heart disease of native coronary artery without angina pectoris; Z86.718 Personal history of other venous thrombosis and embolism; Z79.01 Long term (current) use of anticoagulants; R31.9 Hematuria, unspecified
CPT/HCPCS: 6030; 74000; 82436; 87086; 87147; 96374; G0378; J0696